=== PATIENT | female | born 1940 | race Caucasian/White ===

== ENCOUNTER → 2017-12-03 11:56 | Outpatient (CLI) | payer MEDICARE, OTHER, SELFPAY ==
--- NOTE | 2017-12-03 12:04 | XR_ITS ---
XR forearm RT 2V HISTORY: ITS.REASON: RT FOREARM PAIN,PALPABLE LUMP ON ULNAR APROX 5CM FROM WRIST ORDERING PHYSICIAN: Galina Cat PATIENT AGE: 77 years COMPARISON: None FINDINGS: There are no previous exams available for comparison. There is a healing transverse fracture involving the distal shaft of the radius or 4 cm proximal to the tip of the ulna. There is some callus formation. There is only minimal dorsal angulation of the distal fracture fragment with no significant displacement. IMPRESSION: Healing transverse fracture of the distal shaft of the ulna
== END ==
PROVIDERS: PCP Internal Medicine Adolescent Medicine; Visit Provider Nurse Practitioner Family
DX: M79.631 Pain in right forearm (principal)
CPT/HCPCS: 73090

== ENCOUNTER → 2017-12-15 12:49 | Outpatient (CLI) | payer MEDICARE, OTHER, SELFPAY ==
--- NOTE | 2017-12-15 13:19 | XR_ITS ---
XR forearm RT 2V HISTORY: Follow-up fracture ITS.REASON: RT FOREARM TRANSVERSE FX DISTAL SHAFT ORDERING PHYSICIAN: Joseph Rios MD PATIENT AGE: 77 years COMPARISON: 12/03/2017 FINDINGS: There is a healing transverse distal ulnar fracture with some increase in callus formation and osteosclerosis at the fracture site compared to the previous exam. There is good alignment. IMPRESSION: Nondisplaced healing distal ulnar fracture.
== END ==
PROVIDERS: PCP Internal Medicine Adolescent Medicine; Visit Provider Orthopaedic Surgery
DX: S52.601A Unspecified fracture of lower end of right ulna, initial encounter for closed fracture (principal)
CPT/HCPCS: 73090

== ENCOUNTER → 2018-01-14 07:59 | Outpatient (CLI) | payer MEDICARE, OTHER, SELFPAY ==
--- NOTE | 2018-01-14 08:03 | XR_ITS ---
XR wrist RT min 3V HISTORY follow-up fracture ITS.REASON: Healing RT wrist fx ORDERING PHYSICIAN: Joseph Rios MD PATIENT AGE: 77 years COMPARISON: 12/15/2017 FINDINGS: Healing fracture of the distal shaft of the ulna once again noted with increasing callus formation with good alignment. There is an old avulsion at the tip of the ulnar styloid and there may be an old distal radial fracture as well. IMPRESSION: Healing fracture of the distal shaft of the ulna
== END ==
PROVIDERS: PCP Internal Medicine Adolescent Medicine; Visit Provider Orthopaedic Surgery
DX: S52.201A Unspecified fracture of shaft of right ulna, initial encounter for closed fracture (principal)
CPT/HCPCS: 73110

== ENCOUNTER → 2018-02-22 14:24 | Outpatient (POV) | payer MEDICARE, OTHER, SELFPAY ==
[2018-02-22 14:32] VITALS: BP 175/91; PULSE 73; RESP 20; O2SAT 99
--- NOTE | 2018-02-22 16:16 | HMH.PMCON ---
Assessment and Plan (1) Postherpetic neuralgia Current visit: Yes Status: Chronic Category: Medical Code(s): B02.29 - Other postherpetic nervous system involvement - Assessment and plan all Dx Assessment and Plan for all problems:: We will take the patient off her gabapentin and start Lyrica 75 mg 1 p.o. twice daily. We will give her 2 weeks worth of medication and she will determine if this is effective for her not. We will also give her a Lidoderm patch to help with the nerve pain. We will also schedule her for a peripheral nerve block along the T5 dermatome. I believe that this would be beneficial in giving her some long-term relief. I will follow-up with this patient at her injection. This note was dictated using voice recognition software and may contain errors or omissions HPI - Data of Consult Consult date: 02/22/18 Requesting Physician: Georgiana Cruz APRN Primary Care Provider: Maxi Azevedo MD Family Provider: Maxi Azevedo MD - Consult Narrative Reason for consult: Shingles pain History of present illness: Ms. Moulton is a 77 year old female who presents today to discuss her shingles pain. Patient has had shingles rotating from her right thoracic spine around her chest under her right breast. Patient had shingle outbreak 7 weeks ago. Patient does not have any active blisters. Patient states that she is on gabapentin and tramadol with little to no relief. Patient is interested in any therapy that would be beneficial for her. Patient rates her pain a 7 out of 10 today. Patient is continuing to work full-time. Patient does have scarring noted. CC: Georgiana Cruz APRN [facility] History I have reviewed the patient's past medical history: Yes Medical History: Denies:: Cancer, Diabetes Mellitus Type 1, Diabetes Mellitus Type 2, MRSA Other Surgeries: Yes: Cholecystectomy, Hysterectomy-Total Amputation: No Fractures: Yes - *Social History Educational Level: Completed High School Smoking Status: Never smoker Tobacco Type: cigarettes Alcohol Intake: never Occupational Status: employed Housing: house - Psychiatric History Expresses thoughts of harming self/others: None Suicide Plan Description: No Plan *Family Hx:: Cancer Review of Systems - Review of Systems ROS General: no recent weight change, no fever, no sleep disturbances Respiratory: no cough, no shortness of air, no recurring pulmonary infections Cardiovascular/Peripheral Vascular: No chest pain, No palpitations, no edema, no shortness of breath. Gastrointestinal: no incontinence, normal bowel movements reported Genitourinary: no incontinence Musculoskeletal: Nerve pain, postherpetic neuralgia Psychiatric: normal mood/ affect Neurological: [denies weakness in extremities], [denies balance issues] Meds Allergies Allergy/AdvReac Type Severity Reaction Status Date / Time codeine Allergy Unknown Verified 01/31/18 18:08 penicillin V Allergy Unknown Verified 01/31/18 18:08 Objective Vital signs: Pulse Resp BP Pulse Ox 73 20 175/91 99 02/22/18 14:32 02/22/18 14:32 02/22/18 14:32 02/22/18 14:32 Narrative: Physical Exam General: Alert and oriented x3, no acute distress, pleasant and cooperative, [on room air] Lungs: Resps E/U, Symmetrical chest expansion, Eyes: PERRL Musculoskeletal: Flexion and extension of thoracic spine somewhat guarded secondary to pain, deep tendon reflexes normal, strength in upper and lower extremities [5/5], normal gait noted Skin: Scarring pattern noted on the right side following the T5 dermatome Neurological: speech clear, threader equal, no gross sensory deficits Opioid Risk Tool - Opioid Risk Tool-Female Family hx alcohol abuse: N Family hx illegal drugs: N Family hx rx drug abuse: N Personal hx alcohol abuse: N Personal hx illegal drugs: N Personal hx rx drug abuse: N Age: 45+ Hx of sexual abuse: N Mental health issues-ADD,
--- NOTE | 2018-02-22 16:19 | P.CONS_ITS ---
Assessment and Plan (1) Postherpetic neuralgia Current visit: Yes Status: Chronic Category: Medical Code(s): B02.29 - Other postherpetic nervous system involvement - Assessment and plan all Dx Assessment and Plan for all problems:: We will take the patient off her gabapentin and start Lyrica 75 mg 1 p.o. twice daily. We will give her 2 weeks worth of medication and she will determine if this is effective for her not. We will also give her a Lidoderm patch to help with the nerve pain. We will also schedule her for a peripheral nerve block along the T5 dermatome. I believe that this would be beneficial in giving her some long-term relief. I will follow-up with this patient at her injection. This note was dictated using voice recognition software and may contain errors or omissions HPI - Data of Consult Consult date: 02/22/18 Requesting Physician: Georgiana Cruz APRN Primary Care Provider: Maxi Azevedo MD Family Provider: Maxi Azevedo MD - Consult Narrative Reason for consult: Shingles pain History of present illness: Ms. Moulton is a 77 year old female who presents today to discuss her shingles pain. Patient has had shingles rotating from her right thoracic spine around her chest under her right breast. Patient had shingle outbreak 7 weeks ago. Patient does not have any active blisters. Patient states that she is on gabapentin and tramadol with little to no relief. Patient is interested in any therapy that would be beneficial for her. Patient rates her pain a 7 out of 10 today. Patient is continuing to work full-time. Patient does have scarring noted. CC: Georgiana Cruz APRN [facility] History I have reviewed the patient's past medical history: Yes Medical History: Denies:: Cancer, Diabetes Mellitus Type 1, Diabetes Mellitus Type 2, MRSA Other Surgeries: Yes: Cholecystectomy, Hysterectomy-Total Amputation: No Fractures: Yes - *Social History Educational Level: Completed High School Smoking Status: Never smoker Tobacco Type: cigarettes Alcohol Intake: never Occupational Status: employed Housing: house - Psychiatric History Expresses thoughts of harming self/others: None Suicide Plan Description: No Plan *Family Hx:: Cancer Review of Systems - Review of Systems ROS General: no recent weight change, no fever, no sleep disturbances Respiratory: no cough, no shortness of air, no recurring pulmonary infections Cardiovascular/Peripheral Vascular: No chest pain, No palpitations, no edema, no shortness of breath. Gastrointestinal: no incontinence, normal bowel movements reported Genitourinary: no incontinence Musculoskeletal: Nerve pain, postherpetic neuralgia Psychiatric: normal mood/ affect Neurological: [denies weakness in extremities], [denies balance issues] Meds Allergies Allergy/AdvReac Type Severity Reaction Status Date / Time codeine Allergy Unknown Verified 01/31/18 18:08 penicillin V Allergy Unknown Verified 01/31/18 18:08 Objective Vital signs: Pulse Resp BP Pulse Ox 73 20 175/91 99 02/22/18 14:32 02/22/18 14:32 02/22/18 14:32 02/22/18 14:32 Narrative: Physical Exam General: Alert and oriented x3, no acute distress, pleasant and cooperative, [ on room air] Lungs: Resps E/U, Symmetrical chest expansion, Eyes: PERRL Musculoskeletal: Flexion and extension of thoracic spine s
== END ==
PROVIDERS: Family Provider Internal Medicine Adolescent Medicine; PCP Internal Medicine Adolescent Medicine; Visit Provider Clinical Nurse Specialist Family Health
DX: B02.29 Other postherpetic nervous system involvement (principal)
CPT/HCPCS: 99202

== ENCOUNTER → 2018-11-09 10:14 | Outpatient (CLI) | payer MEDICARE, OTHER, SELFPAY ==
--- NOTE | 2018-11-09 10:19 | MM_ITS ---
MM Dig screening mamm BI w/CAD CAD Screening COMPARISON: There are no previous studies available for comparison. The patient apparently had previous mammograms at [facility] and if they can be found an addendum can be dictated. INDICATION: There is no personal or family history of breast cancer TECHNIQUE: Standard CC and MLO images were obtained. R2 CAD reviewed. FINDINGS: There is a markedly dense and heterogenic parenchymal pattern definitely lessening the sensitivity of mammography. There is no definite suspicious lesion in either breast and there are no suspicious microcalcifications. There is a benign-appearing calcification right breast. IMPRESSION: Markedly dense parenchymal pattern and if previous mammograms cannot be found would recommend patient have six-month follow-up mammograms in both breast because of the difficulty in evaluating this dense parenchymal pattern BI-RADS Category: 3 Probably Benign Finding Short Term Follow-up RECOMMENDED FOLLOW-UP: 6M - 6 MONTH FOLLOW-UP (A letter has been sent to the patient regarding results of the study.)
== END ==
PROVIDERS: PCP Internal Medicine Adolescent Medicine; Visit Provider Nurse Practitioner Family
DX: Z12.31 Encounter for screening mammogram for malignant neoplasm of breast (principal)
CPT/HCPCS: 77067

== ENCOUNTER → 2018-12-09 09:01 | Outpatient (CLI) | payer MEDICARE, OTHER, SELFPAY ==
[2018-12-09 10:44] LABS: Alanine Aminotransferase 20 U/L (12-78); Albumin Level 3.6 gm/dL (3.4-5.0); Albumin/Globulin Ratio 1.1 (1.1-1.8); Alkaline Phosphatase 97 U/L (46-116); Anion Gap 13.4 mEq/L (5-15); Aspartate Amino Transferase 19 U/L (15-37); Bilirubin,Total 0.5 mg/dL (0.2-1.0); Blood Urea Nitrogen 16 mg/dL (7-18); Calcium 8.9 mg/dL (8.5-10.1); Carbon Dioxide 28 mmol/L (21.0-32.0); Chloride 106 mmol/L (98-107); Cholesterol 214 mg/dL (140-200); Creatinine,Serum 0.84 mg/dL (0.55-1.02); Estimated Glomerular Filt Rate 65 ml/min (>60); GFR (African American) 79 ML/MIN (>60); Globulin 3.3 gm/dl (1.3-3.2); Glucose 93 mg/dL (74-106); HDL Cholesterol 54 mg/dL (29-89); LDL Cholesterol 142 mg/dL (0-130); Potassium 4.4 mmoL/L (3.5-5.1); Sodium 143 mmol/L (136-145); Total Protein,Serum 6.9 gm/dL (6.4-8.2); Triglycerides 88 mg/dL (30-200); VLDL Cholesterol 18 mg/dL (0-40)
== END ==
PROVIDERS: Visit Provider Nurse Practitioner Family
DX: Z00.00 Encounter for general adult medical examination without abnormal findings (principal); I10 Essential (primary) hypertension; E78.2 Mixed hyperlipidemia
CPT/HCPCS: 36415; 80053; 80061

== ENCOUNTER → 2018-12-27 16:45 | Outpatient (CLI) | payer MEDICARE, OTHER, SELFPAY ==
--- NOTE | 2018-12-27 16:52 | XR_ITS ---
XR knee LT 3V HISTORY: ITS.REASON: KNEE PAIN AND FALL ORDERING PHYSICIAN: Joseph Lira MD PATIENT AGE: 78 years COMPARISON: None FINDINGS: No fracture or dislocation. No lytic or blastic change. Normal mineralization. No significant arthritic changes evident. No other significant findings IMPRESSION: Negative Knee
== END ==
PROVIDERS: PCP Internal Medicine Adolescent Medicine; Visit Provider Internal Medicine Adolescent Medicine
DX: M25.562 Pain in left knee (principal)
CPT/HCPCS: 73562

== ENCOUNTER 2019-05-31 15:37 | Observation (INO) ==
[2019-05-31 17:05] LABS: Basophils % 0.3 % (0.1-2.0); Eosinophils % 0.5 % (0.1-12.0); Hematocrit 37.4 % (37.0-47.0); Hemoglobin 12.2 g/dL (12.2-16.2); Lymphocytes # 1.3 K/mm3 (0.7-4.5); Lymphocytes % 17.4 % (10-50); Mean Corpuscular HGB Conc 32.7 g/dL (31.8-35.4); Mean Platelet Volume 7.5 fl (7.4-10.4); Monocytes # 0.6 K/mm3 (0.1-1.0); Monocytes % 8.2 % (1.7-9.3); Neutrophils # 5.5 K/mm3 (1.8-7.8); Neutrophils % 73.6 % (37.0-80.0); Platelet Count 196 K/mm3 (142-424); Red Blood Count 4.11 M/mm3 (4.20-5.40); Red Cell Distribution Width 13.4 % (11.5-17.5); White Blood Count 7.5 K/mm3 (4.8-10.8)
--- NOTE | 2019-05-31 17:08 | History & Physical Report ---
*Admission Date: 05/31/19 *Chief complaint: weigth loss and abdominal pain *History of present illness: Patient is a 78-year-old female with a PMH of post herpetic neuralgia, GERD and hyperlipidemia who presented to clinic with "stomach discomfort" and nausea today. Her symptoms started a few days ago and she does not recall any precipitating events. She states her stomach discomfort is constant and has not worsened or improved over the past few days. She feels nauseated. She notes she wants to vomit sometimes but denies any actual vomiting. She rates her stomach discomfort a 5 out of 10 for severity and she has never had similar episodes before, however no review has shown that she has had these stomach pains and symptoms for the past 4 to 6 months. She has tried PPIs (they have been prescribed for her) though she reports she has not tried anything that would make it better. Her symptoms do not change with meals. Per patient's , patient does not eat and her last meal was Thursday lunch. She had two bites of zarco tomato sandwich and one onion ring. Patient states that she does not feel hungry and does not want to eat. She drinks a few cans of Pepsi and water daily. Her last bowel movement was this morning. Per patient's , patient also has had insomnia for the past few weeks. Patient cannot sleep at night and does not know why. She denies association with post herpetic neuralgia and acknowledges stress as a possible factor. She states that she naps sometimes. She would like to have medications so that she can sleep better. Patient states that she has not underwent an endoscopy as recommended and cannot provide a reason. She was scheduled to see surgery for EGD last week, and did not know about appointment per her report. Denies fevers, blood in stool, bloody emesis, chest pain, shortness of breath beyond baseline. Admitted from clinic for work-up and assessment [facility] History I have reviewed the patient's past medical history: Yes Medical History: Denies:: Cancer, Diabetes Mellitus Type 1, Diabetes Mellitus Type 2, MRSA *Have you ever received a pneumonia vaccine?: No *Have you received a flu vaccine this season?: No Other Surgeries: Yes: Cholecystectomy, Hysterectomy-Total Amputation: No Fractures: Yes - *Social History Educational Level: Attended College Smoking Status: Former smoker Tobacco Type: cigarettes # Packs/Day (cigarettes): 1 Smoking End Date: 2005 Alcohol Intake: never *Occupational Status:: retired Housing: house Household Members: spouse *Travel in the last 8 weeks: None Family Hx:: Cancer Review of Systems - Review of Systems Review of systems:: pertinent systems reviewed and negative unless documented below Meds Home Medications Medication Instructions Recorded Confirmed Type No Known Home Medications 05/31/19 05/31/19 History Allergies Allergy/AdvReac Type Severity Reaction Status Date / Time codeine Allergy Unknown Verified 01/31/18 18:08 penicillin V Allergy Unknown Verified 01/31/18 18:08 Exam Vital signs and Labs for Last 24 Hours: Temp Pulse Resp BP Pulse Ox 97.8 F 70 17 164/92 H 91 L 05/31/19 16:00 05/31/19 16:00 05/31/19 16:00 05/31/19 16:00 05/31/19 16:00 I & O for Last 24 hours: Intake & Output 05/28/19 05/29/19 05/30/19 05/31/19 23:59 23:59 23:59 23:59 Weight 42.723 kg - Constitutional mild distress, cachectic Comments: elderly - *Routine HEENT Exam Head: Present: normocephalic Eye: Present: EOMI, PERRL ENT: Present: mucous membranes moist - *Routine Neck Exam Present: supple. Absent: lymphadenopathy - *Routine Respiratory Exam Present: CTA bilaterally, prolonged expiratory phase. Absent: wheezes - *Routine Cardiovascular Exam Present: RRR, Normal S1. Absent: murmur - *Routine Abdominal Exam Present: soft, normoactive bowel sounds, tenderness - *Routine Rectal Exam Patient deferred: visual exam - *Routine Exam Patient deferred: external exam - *Routine Extremities Exam Present: edema. Absent: cyanosis, clubbing - *Routine Skin Exam Present: intact. Absent: cyanosis, erythema Comments: tear on right lower taylor - *Routine Neurological Exam Present: alert, oriented X3. Absent: altered mental status Assessment and Plan (1) Cachexia Current visit: Yes Status: Chronic Category: Medical Code(s): R64 - Cachexia Due to poor intake. Patient has lost 24 pounds in the past 6 months. Differential diagnosis at this time is cancer of unknown origin: Gastric versus esophageal given poor p.o. intake and stomach pain (2) Abdominal pain Current visit: Yes Status: Chronic Qualifiers: Abdominal location: generalized Qualified Code(s): R10.84 - Generalized abdominal pain Category: Medical Code(s): R10.9 - Unspecified abdominal pain Present for 6 months, unable to get EGD last week or at least consult for EGD as patient did not go to appointment. Will pursue CT chest abdomen pelvis to look for potential cause of pain and weight loss, concern for malignancy (3) Hypokalemia Current visit: Yes Status: Acute Category: Medical Code(s): E87.6 - Hypokalemia Suspect due to poor p.o. intake, will replace IV. Repeat labs in the morning (4) SORAYA (acute kidney injury) Current visit: Yes Status: Acute Category: Medical Code(s): N17.9 - Acute kidney failure, unspecified Getting baseline 0.8, creatinine 20% above baseline today meeting criteria for SORAYA. Assess for improvement with fluid resuscitation. Fluids running at 100 cc/h of LR (5) Postherpetic neuralgia Current visit: No Status: Chronic Category: Medical Code(s): B02.29 - Other postherpetic nervous system involvement Resident for about 18 months. Responds well to gabapentin and tramadol however these medications make her tired per her report so she stops them. Will provide tramadol as needed for pain
[2019-05-31 17:23] LABS: Albumin Level 3.3 gm/dL (3.4-5.0); Albumin/Globulin Ratio 0.9 (1.1-1.8); Anion Gap 13.7 mEq/L (5-15); Calcium 8.7 mg/dL (8.5-10.1); Globulin 3.7 gm/dl (1.3-3.2)
[2019-06-01 06:45] LABS: Basophils % 0.3 % (0.1-2.0); Eosinophils # 0.1 K/mm3 (0.0-0.4); Eosinophils % 0.8 % (0.1-12.0); Hematocrit 36.3 % (37.0-47.0); Hemoglobin 11.9 g/dL (12.2-16.2); Lymphocytes # 1.6 K/mm3 (0.7-4.5); Lymphocytes % 22.9 % (10-50); Mean Corpuscular HGB Conc 32.8 g/dL (31.8-35.4); Mean Corpuscular Volume 90.6 fl (81-99); Mean Platelet Volume 7.9 fl (7.4-10.4); Monocytes # 0.7 K/mm3 (0.1-1.0); Monocytes % 9.5 % (1.7-9.3); Neutrophils # 4.6 K/mm3 (1.8-7.8); Neutrophils % 66.5 % (37.0-80.0); Platelet Count 193 K/mm3 (142-424); Red Cell Distribution Width 13.4 % (11.5-17.5); White Blood Count 6.8 K/mm3 (4.8-10.8)
[2019-06-01 07:05] LABS: Albumin Level 2.9 gm/dL (3.4-5.0); Albumin/Globulin Ratio 0.9 (1.1-1.8); Calcium 8.6 mg/dL (8.5-10.1); Globulin 3.4 gm/dl (1.3-3.2); Phosphorous 2.1 mg/dL (2.4-4.9); Total Protein,Serum 6.3 gm/dL (6.4-8.2)
--- NOTE | 2019-06-01 08:40 | Discharge Summary ---
General - General Admission date:: 05/31/19 Discharge date: 06/01/19 HPI HPI: Patient is a 78-year-old female with a PMH of post herpetic neuralgia, GERD and hyperlipidemia who presented to clinic with "stomach discomfort" and nausea today. Her symptoms started a few days ago and she does not recall any precipitating events. She states her stomach discomfort is constant and has not worsened or improved over the past few days. She feels nauseated. She notes she wants to vomit sometimes but denies any actual vomiting. She rates her stomach discomfort a 5 out of 10 for severity and she has never had similar episodes before, however no review has shown that she has had these stomach pains and symptoms for the past 4 to 6 months. She has tried PPIs (they have been prescribed for her) though she reports she has not tried anything that would make it better. Her symptoms do not change with meals. Per patient's , patient does not eat and her last meal was Thursday lunch. She had two bites of zarco tomato sandwich and one onion ring. Patient states that she does not feel hungry and does not want to eat. She drinks a few cans of Pepsi and water daily. Her last bowel movement was this morning. Per patient's , patient also has had insomnia for the past few weeks. Patient cannot sleep at night and does not know why. She denies association with post herpetic neuralgia and acknowledges stress as a possible factor. She states that she naps sometimes. She would like to have medications so that she can sleep better. Patient states that she has not underwent an endoscopy as recommended and cannot provide a reason. She was scheduled to see surgery for EGD last week, and did not know about appointment per her report. Denies fevers, blood in stool, bloody emesis, chest pain, shortness of breath beyond baseline. Admitted from clinic for work-up and assessment Hospital Course Hospital Course: Patient was admitted to hospital. Found to have mild hypokalemia which was replaced. Blood counts, other electrolytes and renal function was normal. Patient was given IV fluids and felt much better after potassium normalized this morning. CT scan of chest abdomen and pelvis was done, she has significant lesions in the pulmonary case consistent with infectious process versus neoplasm. No masses in the abdomen or pelvis were seen. This morning patient feels better, drinking well and wishes to go home. Plan will be to prescribe potassium supplementation, proton pump inhibitor for her stomach cramping and her gabapentin which has been helping her sleep and chronic restless leg/neuropathy pain. She has high risk for malignancy and we will set her up with pulmonary as an outpatient for evaluation of this abnormal CT scan and consideration for bronchoscopy. Follow-up will be in our office next Thursday. Objective Vital signs: Temp Pulse Resp BP Pulse Ox 98.0 F 77 18 170/98 H 93 L 06/01/19 07:57 06/01/19 07:57 06/01/19 07:57 06/01/19 07:57 06/01/19 07:57 Narrative: Patient is pleasant. Talkative. Alert. Lungs have good air movement. Heart rate regular. Abdomen soft nontender. Neurologically she is intact and alert, No JVD. ENT exam otherwise clear. No skin rash. Results Labs on day of discharge: Labs from last 24 hours 06/01/19 06/01/19 06/01/19 06:13 06:13 06:13 WBC 6.8 RBC 4.00 L Hgb 11.9 L Hct 36.3 L MCV 90.6 MCH 29.7 MCHC 32.8 RDW 13.4 Plt Count 193 MPV 7.9 Neut % (Auto) 66.5 Lymph % (Auto) 22.9 Phelps % (Auto) 9.5 H Eos % (Auto) 0.8 Baso % (Auto) 0.3 Neut # (Auto) 4.6 Lymph # (Auto) 1.6 Phelps # (Auto) 0.7 Eos # (Auto) 0.1 Baso # (Auto) 0.0 Sodium 141 Potassium 4.0 D Chloride 103 Carbon Dioxide 29 Anion Gap 13.0 BUN 11 Creatinine 0.91 Estimated Creat Clear 31 Estimated GFR 59 Est GFR ( Amer) 72 Glucose 77 Calcium 8.6 Phosphorus 2.1 L Magnesium 1.5 Total Bilirubin 1.0 AST 20 ALT 15 Alkaline Phosphatase 66 Total Protein 6.3 L Albumin 2.9 L D Globulin 3.4 H Albumin/Globulin Ratio 0.9 L Lipase 05/31/19 05/31/19 16:56 16:56 WBC 7.5 RBC 4.11 L Hgb 12.2 Hct 37.4 MCV 91.0 MCH 29.8 MCHC 32.7 RDW 13.4 Plt Count 196 MPV 7.5 Neut % (Auto) 73.6 Lymph % (Auto) 17.4 Phelps % (Auto) 8.2 Eos % (Auto) 0.5 Baso % (Auto) 0.3 Neut # (Auto) 5.5 Lymph # (Auto) 1.3 Phelps # (Auto) 0.6 Eos # (Auto) 0.0 Baso # (Auto) 0.0 Sodium 140 Potassium 2.7 L* Chloride 99 Carbon Dioxide 30 Anion Gap 13.7 BUN 13 Creatinine 1.01 Estimated Creat Clear 30 Estimated GFR 53 L Est GFR ( Amer) 64 Glucose 85 Calcium 8.7 Phosphorus Magnesium Total Bilirubin 1.0 AST 24 ALT 16 Alkaline Phosphatase 71 Total Protein 7.0 Albumin 3.3 L Globulin 3.7 H Albumin/Globulin Ratio 0.9 L Lipase 134 DS: Diagnosis - Discharge Diagnosis (1) Cachexia Status: Chronic (2) Abdominal pain Status: Chronic (3) Hypokalemia Status: Acute (4) SORAYA (acute kidney injury) Status: Resolved (5) Postherpetic neuralgia Status: Chronic Discharge Plan - Patient Discharge Instructions ACTIVITY: Continue current activity DIET: continue same diet Patient Instructions: DI for Abdominal Pain-Adult, DI for Weight Loss - Follow up Plan Follow up with: Joseph Lira MD [Primary Care Provider] - 06/06/19 Disposition: Home, Self-Longterm Medications: Home Medications Medication Instructions Recorded Confirmed Type No Known Home Medications 05/31/19 05/31/19 History ALPRAZolam [Xanax 0.25mg tab] 0.25 mg PO HS #30 tablet 06/01/19 Rx Gabapentin [Gabapentin 100mg Cap] 100 mg PO BID #60 cap 06/01/19 Rx Pantoprazole Sodium [Protonix 40mg 40 mg PO HS #30 tablet. 06/01/19 Rx tablet] Potassium Chloride [Klor-con 20 20 meq PO DAILY #30 tab 06/01/19 Rx mEq tablet] Prescriptions/Medication Reconciliation: New Gabapentin [Gabapentin 100mg Cap] 100 mg PO BID #60 cap ALPRAZolam [Xanax 0.25mg tab] 0.25 mg PO HS #30 tablet Potassium Chloride [Klor-con 20 mEq tablet] 20 meq PO DAILY #30 tab Pantoprazole Sodium [Protonix 40mg tablet] 40 mg PO HS #30 tablet. No Action No Known Home Medications - Problem Reconciliation Problems Reviewed?: Yes
== END 2019-06-01 10:06 | disposition home or self-care (01) ==
LOC: 2ND
PROVIDERS: ADMIT Internal Medicine Adolescent Medicine; ATTEND Internal Medicine Adolescent Medicine
CPT/HCPCS: 36415; 71250; 74178; 80053; 83690; 83735; 84100; 85025; G0378; Q9967

== ENCOUNTER 2019-07-03 13:31 | Observation (INO) ==
--- NOTE | 2019-07-03 13:47 | Emergency Department Note ---
ED Disposition Clinical Impression: Abnormal EKG, Confusion UTI (urinary tract infection) Qualifiers: Urinary tract infection type: acute cystitis Disposition: Admitted as Observation Condition on Discharge: Good Referrals: Joseph Lira MD [Primary Care Provider] - - Critical Care Critical Care Time: No Attestation: On , the high probability of a clinically significant, sudden or life threatening deterioration of the following system(s) required my full and direct attention, intervention and personal management. The time I documented below is in addition to time spent performing reported procedures but includes the following listed in this critical care notation. Medical Decision Making - Medical Records Medical records reviewed: Yes: I reviewed the patient's medical records. - Oscar Inquiry Pt receiving controlled substance: No Vital Signs: 07/03/19 13:43 07/03/19 15:22 07/03/19 15:57 Temperature 98.4 F Temperature Source Oral Pulse Rate [Left Radial] 77 63 60 Respiratory Rate 16 Blood Pressure [Right Arm] 146/92 H 173/92 H 153/94 H Blood Pressure Mean [Right Arm] 110 119 113 Blood Pressure Position [Right Arm] Sitting 02 Sat by Pulse Oximetry 99 90 L 96 Oxygen Delivery Method Room Air - Lab Data Lab results reviewed: Yes: I reviewed the patient's lab results. Lab Results 07/03/19 14:01: WBC 5.8, RBC 4.67, Hgb 13.8, Hct 44.4, MCV 95.0, MCH 29.5, MCHC 31.0 L, RDW 15.5, Plt Count 199, MPV 8.9, Neut % (Auto) 71.9, Lymph % (Auto) 18.2, [place] % (Auto) 7.7, Eos % (Auto) 0.9, Baso % (Auto) 1.3, Neut # (Auto) 4.2, Lymph # (Auto) 1.1, [place] # (Auto) 0.5, Eos # (Auto) 0.1, Baso # (Auto) 0.1 07/03/19 14:01: Sodium 139, Potassium 3.6, Chloride 97 L, Carbon Dioxide 30, Anion Gap 15.6 H, BUN 18, Creatinine 1.53 H, Estimated Creat Clear 19, Estimated GFR 33 L, Est GFR ( Amer) 40 L, Glucose 82, Calcium 9.4, Total Bilirubin 1.4 H, AST 24, ALT 11 L, Alkaline Phosphatase 86, Troponin I < 0.02, Total Protein 8.3 H D, Albumin 3.9, Globulin 4.4 H, Albumin/Globulin Ratio 0.9 L 07/03/19 14:01: Lactate 2.1 H 07/03/19 14:01: PT 11.4, INR 1.10 07/03/19 15:57: Urine Color Dk yellow, Urine Appearance Sl cloudy, Urine pH 5.5, Ur Specific [place] >= 1.030, Urine Protein 1+, Urine Glucose (UA) Trace, Urine Ketones Trace, Urine Blood Negative, Urine Nitrate Positive, Urine Bilirubin Negative, Urine Urobilinogen 1.0, Ur Leukocyte Esterase Negative, Urine RBC None, Urine WBC Occasional, Ur Squamous Epith Cells 50-100, Urine Bacteria Trace Result diagrams: 07/03/19 14:01 07/03/19 14:01 Orders (Tests/Meds): ED MEDICATIONS Generic Name Dose Route Start Last Admin Trade Name Freq PRN Reason Stop Dose Admin Levofloxacin/Dextrose 500 mg in 100 mls @ 100 mls/hr 07/03/19 17:30 Levaquin 500mg/100ml Premix IV 07/17/19 17:29 Q24H [facility] Protocol ORDERS Category Date Time Status XR chest portable Stat Exams 07/03/19 13:42 Taken Urine Culture Stat Micro 07/03/19 17:18 Ordered - Radiology Data #1 Image(s): Chest Image Reviewed: Yes I reviewed the patient's radiology image Preliminary Findings: No Infiltrates Seen - CT Data CT Scan: Head Time Received: 17:20 (nap) ED CT Reviewed: Yes: I have viewed the radiologist's interpretation - ECG Data Tracing #1 I reviewed this ECG and interpreted as documented below: Normal Sinus Rhythm: Yes (no stemi, lateral t wave abnormal no previous available for comparison) Medical Decision Narrative: admit d/w Dr Rosado, uti, abnormal ekg, confusion, slurring speech General Adult HPI - General Stated complaint: off balance, slurred speech Time Seen by Provider: 07/03/19 13:44 Source of Information: Patient, Significant Other - History of Present Illness HPI narrative: mild to mod slurring of speech and unsteady for 24hrs with mental confusion, no injury, no fever, hx tia - Related Data Home Medications Medication Instructions Recorded Confirmed No Known Home Medications 05/31/19 05/31/19 Previous Rx's Medication Instructions Recorded ALPRAZolam [Xanax 0.25mg tab] 0.25 mg PO HS #30 tab 06/01/19 Gabapentin [Gabapentin 100mg Cap] 100 mg PO BID #60 cap 06/01/19 Pantoprazole Sodium [Protonix 40mg 40 mg PO HS #30 tablet. 06/01/19 tablet] Potassium Chloride [Klor-con 20 20 meq PO DAILY #30 tab 06/01/19 mEq tablet] Allergies Allergy/AdvReac Type Severity Reaction Status Date / Time codeine Allergy Unknown Verified 01/31/18 18:08 penicillin V Allergy Unknown Verified 01/31/18 18:08 [facility] History - Hepatitis A Screen Attestation statement:: This patient has been screened for Hepatitis A risk factors. Medical History: Denies:: Cancer, Diabetes Mellitus Type 1, Diabetes Mellitus Type 2, MRSA Other Surgeries: Yes: Cholecystectomy, Hysterectomy-Total Amputation: No Fractures: Yes Comment: Gallbladder removed, Back sx - Social History Smoking Status: Former smoker Tobacco Type: cigarettes # Packs/Day (cigarettes): 1 Alcohol Intake: never Occupational Status: retired Housing: house Household Members: spouse Family Hx:: Cancer ROS Obtained: Yes Systems reviewed as appropriate & no additional complaints - Constitutional Constitutional: Denies fever(s) - Eyes Eyes: Denies change in vision - ENT Ears, Nose, Mouth, and Throat: Denies difficulty swallowing - Cardiovascular Cardiovascular: Denies chest pain - Respiratory Respiratory: No dyspnea - Gastrointestinal Gastrointestingal: Denies: abdominal pain - Musculoskeletal Musculoskeletal: Denies neck pain - Integumentary/Breasts Skin/Breast: Denies rash - Neurologic Neurologic: Reports abnormal speech, Denies focal weakness, Reports lack of coordination Physical Exam - General General appearance: alert, in no apparent distress - Head Head exam: normocephalic - Eye Eye exam: Present: PERRL, EOMI - ENT ENT exam: Present: normal exam - Neck Neck exam: Present: normal inspection - Chest Chest inspection: Present: normal inspection - Respiratory Respiratory exam: Present: normal lung sounds bilaterally - Cardiovascular Cardiovascular exam: Present: regular rate, normal rhythm - Abdominal Exam Abdominal exam: Present: soft. 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
[2019-07-03 14:12] LABS: Basophils # 0.1 K/mm3 (0-0.2); Basophils % 1.3 % (0.1-2.0); Eosinophils # 0.1 K/mm3 (0.0-0.4); Eosinophils % 0.9 % (0.1-12.0); Hematocrit 44.4 % (37.0-47.0); Hemoglobin 13.8 g/dL (12.2-16.2); Lymphocytes # 1.1 K/mm3 (0.7-4.5); Lymphocytes % 18.2 % (10-50); Mean Platelet Volume 8.9 fl (7.4-10.4); Monocytes # 0.5 K/mm3 (0.1-1.0); Monocytes % 7.7 % (1.7-9.3); Neutrophils # 4.2 K/mm3 (1.8-7.8); Neutrophils % 71.9 % (37.0-80.0); Platelet Count 199 K/mm3 (142-424); Red Blood Count 4.67 M/mm3 (4.20-5.40); Red Cell Distribution Width 15.5 % (11.5-17.5); White Blood Count 5.8 K/mm3 (4.8-10.8)
[2019-07-03 14:31] LABS: INR 1.1 (0.9-1.1); Prothrombin Time 11.4 seconds (9.4-11.8)
[2019-07-03 14:39] LABS: Alanine Aminotransferase 11 U/L (12-78); Albumin Level 3.9 gm/dL (3.4-5.0); Albumin/Globulin Ratio 0.9 (1.1-1.8); Alkaline Phosphatase 86 U/L (46-116); Anion Gap 15.6 mEq/L (5-15); Bilirubin,Total 1.4 mg/dL (0.2-1.0); Blood Urea Nitrogen 18 mg/dL (7-18); Calcium 9.4 mg/dL (8.5-10.1); Carbon Dioxide 30 mmol/L (21.0-32.0); Chloride 97 mmol/L (98-107); Globulin 4.4 gm/dl (1.3-3.2); Glucose 82 mg/dL (74-106); Sodium 139 mmol/L (136-145); Total Protein,Serum 8.3 gm/dL (6.4-8.2)
[2019-07-03 14:46] LABS: Aspartate Amino Transferase 24 U/L (15-37)
[2019-07-03 16:08] LABS: Microscopic, Urine URINE MICROSCOPIC (MICROSCOPIC)
[2019-07-03 16:12] LABS: Appearance,Urine SL CLOUDY (Clear); Blood, Urine Negative (Negative); Color,Urine DK YELLOW (Yellow); Glucose,Urine (UA) TRACE (Negative); Ketones,Urine TRACE (Negative); Leukocyte Esterase,Urine Negative (Negative); PH,Urine 5.5 (5.0-8.5); Protein,Urine 1+ (Negative); Specific Gravity, Urine >= 1.030 (1.005-1.030)
[2019-07-03 16:15] LABS: Bilirubin,Urine Negative (Negative)
[2019-07-03 16:27] LABS: Bacteria,Urine Trace /lpf; Squamous Epithelial Cell,Urine 50-100 #/hpf (0-5); WBC,Urine Occasional #/hpf (0-3)
--- NOTE | 2019-07-04 00:59 | History & Physical Report ---
*Admission Date: 07/03/19 *Chief complaint: confusion, AMS, Dizziness *History of present illness: 78 yo F with Failure to thrive, recently seen in PCP office and started on Cyproheptadine due to poor appetite and Wt loss of 22%. Pt presented to the ER on tuesday 07/03 due to worsening confusion and weakness. Family at bedside report that Thursday Ms. Moulton was fine however Thursday when she woke up she was altered having slurred speech and very unsteady on her feet. They report that she has been taking cyproheptadine nightly starting Thursday night however Thursday morning she took her p.m. meds including an extra dose of cyproheptadine 4 mg. Her postherpetic neuralgia pain is been better since taking her gabapentin and her appetite has improved since starting cyproheptadine however her new onset confusion is worrisome. On assessment in the ER she was found to have acute kidney injury as well as UTI. Patient admitted to medicine for further management. [facility] History I have reviewed the patient's past medical history: Yes Medical History: Denies:: Cancer, Diabetes Mellitus Type 1, Diabetes Mellitus Type 2, MRSA *Have you ever received a pneumonia vaccine?: Yes *Have you received a flu vaccine this season?: Yes Other Surgeries: Yes: Cholecystectomy, Hysterectomy-Total Amputation: No Fractures: Yes - *Social History Educational Level: Attended College Smoking Status: Former smoker Tobacco Type: cigarettes # Packs/Day (cigarettes): 1 Smoking End Date: may 2007 Alcohol Intake: never *Occupational Status:: retired Housing: house Household Members: spouse *Travel in the last 8 weeks: None Family Hx:: Cancer Review of Systems - Review of Systems Review of systems:: pertinent systems reviewed and negative unless documented below - *Neurologic Reports abnormal speech, Reports lack of coordination, Denies localized weakness Meds Home Medications Medication Instructions Recorded Confirmed Type ALPRAZolam [Xanax 0.25mg tab] 0.25 mg PO HS 07/03/19 07/03/19 History Cyproheptadine HCl 4 mg PO TID 07/03/19 07/03/19 History Gabapentin [Gabapentin 100mg Cap] 100 mg PO BID 07/03/19 07/04/19 History Pantoprazole Sodium [Protonix 40mg 40 mg PO HS 07/03/19 07/03/19 History tablet] Tramadol HCl [Tramadol 50mg 50 mg PO BID PRN 07/03/19 07/03/19 History Tab] Potassium Chloride [Klor-con 20 20 meq PO HS 07/04/19 07/04/19 History mEq tablet] Allergies Allergy/AdvReac Type Severity Reaction Status Date / Time codeine Allergy Unknown Verified 01/31/18 18:08 penicillin V Allergy Unknown Verified 01/31/18 18:08 Exam Vital signs and Labs for Last 24 Hours: Temp Pulse Resp BP Pulse Ox 98.1 F 60 16 151/77 H 94 L 07/03/19 20:00 07/03/19 20:00 07/03/19 20:00 07/03/19 20:00 07/03/19 20:00 Laboratory Results - last 24 hr 07/03/19 14:01: WBC 5.8, RBC 4.67, Hgb 13.8, Hct 44.4, MCV 95.0, MCH 29.5, MCHC 31.0 L, RDW 15.5, Plt Count 199, MPV 8.9, Neut % (Auto) 71.9, Lymph % (Auto) 18.2, [place] % (Auto) 7.7, Eos % (Auto) 0.9, Baso % (Auto) 1.3, Neut # (Auto) 4.2, Lymph # (Auto) 1.1, [place] # (Auto) 0.5, Eos # (Auto) 0.1, Baso # (Auto) 0.1 07/03/19 14:01: Sodium 139, Potassium 3.6, Chloride 97 L, Carbon Dioxide 30, Anion Gap 15.6 H, BUN 18, Creatinine 1.53 H, Estimated Creat Clear 19, Estimated GFR 33 L, Est GFR ( Amer) 40 L, Glucose 82, Calcium 9.4, Total Bilirubin 1.4 H, AST 24, ALT 11 L, Alkaline Phosphatase 86, Troponin I < 0.02, Total Protein 8.3 H D, Albumin 3.9, Globulin 4.4 H, Albumin/Globulin Ratio 0.9 L 07/03/19 14:01: Lactate 2.1 H 07/03/19 14:01: PT 11.4, INR 1.10 07/03/19 15:57: Urine Color Dk yellow, Urine Appearance Sl cloudy, Urine pH 5.5, Ur Specific [place] >= 1.030, Urine Protein 1+, Urine Glucose (UA) Trace, Urine Ketones Trace, Urine Blood Negative, Urine Nitrate Positive, Urine Bilirubin Negative, Urine Urobilinogen 1.0, Ur Leukocyte Esterase Negative, Urine RBC None, Urine WBC Occasional, Ur Squamous Epith Cells 50-100, Urine Bacteria Trace 07/03/19 18:20: Lactate 1.2 07/03/19 20:50: Troponin I < 0.02 I & O for Last 24 hours: Intake & Output 07/01/19 07/02/19 07/03/19 07/04/19 23:59 23:59 23:59 23:59 Weight 41.05 kg - Constitutional no acute distress, cachectic Comments: Elderly, frail - *Routine HEENT Exam Head: Present: normocephalic Eye: Present: EOMI, PERRL ENT: Present: mucous membranes moist - *Routine Neck Exam Present: supple. Absent: lymphadenopathy - *Routine Respiratory Exam Present: CTA bilaterally - *Routine Cardiovascular Exam Present: RRR - *Routine Abdominal Exam Present: soft, normoactive bowel sounds. Absent: tenderness - *Routine Extremities Exam Absent: cyanosis, clubbing, edema - *Routine Skin Exam Present: warm. Absent: rash - *Routine Neurological Exam Present: alert, oriented X3. Absent: altered mental status Assessment and Plan (1) Confusion Current visit: Yes Status: Acute Category: Medical Code(s): R41.0 - Dis orientation, unspecified (2) UTI (urinary tract infection) Current visit: Yes Status: Acute Qualifiers: Urinary tract infection type: acute cystitis Category: Medical Code(s): N39.0 - Urinary tract infection, site not specified (3) Hypokalemia Current visit: No Status: Acute Category: Medical Code(s): E87.6 - Hypokalemia (4) Cachexia Current visit: No Status: Chronic Category: Medical Code(s): R64 - Cachexia (5) Postherpetic neuralgia Current visit: No Status: Chronic Category: Medical Code(s): B02.29 - Other postherpetic nervous system involvement (6) SORAYA (acute kidney injury) Current visit: No Status: Acute Category: Medical Code(s): N17.9 - Acute kidney failure, unspecified - Assessment and plan all Dx Assessment and Plan for all problems:: 6-year-old female with failure to thrive who presented with altered renal status found to have UTI. Continue IV antibiotics and IV fluids. Will hold cypro heptadine at this time. Is mentating more at baseline this morning though still fatigued. Will perform p.o. challenge today, if tolerates p.o. intake including fluids and remains hemodynamically stable, will consider discharge later this afternoon. At this time suspect adverse medication effect in combination with UTI as etiology for patient's altered mental status. Interval improvement in kidney function based on labs this morning after fluid resuscitation overnight.
[2019-07-04 07:32] LABS: Anion Gap 11.2 mEq/L (5-15); Calcium 8.8 mg/dL (8.5-10.1)
[2019-07-04 07:33] LABS: Basophils % 0.9 % (0.1-2.0); Eosinophils # 0.1 K/mm3 (0.0-0.4); Eosinophils % 1.4 % (0.1-12.0); Hemoglobin 12.8 g/dL (12.2-16.2); Lymphocytes # 1.1 K/mm3 (0.7-4.5); Lymphocytes % 26.3 % (10-50); Mean Corpuscular HGB Conc 31.3 g/dL (31.8-35.4); Mean Corpuscular Volume 94.9 fl (81-99); Mean Platelet Volume 8.6 fl (7.4-10.4); Monocytes # 0.5 K/mm3 (0.1-1.0); Monocytes % 10.9 % (1.7-9.3); Neutrophils # 2.6 K/mm3 (1.8-7.8); Neutrophils % 60.5 % (37.0-80.0); Platelet Count 165 K/mm3 (142-424); Red Blood Count 4.32 M/mm3 (4.20-5.40); Red Cell Distribution Width 15.4 % (11.5-17.5); White Blood Count 4.2 K/mm3 (4.8-10.8)
--- NOTE | 2019-07-04 07:37 | Pharmacy Consult Notes ---
[facility] Pharmacy VTE Monitoring - Patient Demographics Admission date: 07/03/19 Report Date: 07/04/19 Time: 07:37 Allergies/Adverse Reactions: Patient Allergies codeine Allergy (Unknown, Verified 01/31/18 18:08) penicillin V Allergy (Unknown, Verified 01/31/18 18:08) Height: 1.55 m Weight: 41.39 kg Patient Problems: Current Active Problems Abnormal EKG (Acute) Confusion (Acute) UTI (urinary tract infection) (Acute) - VTE Risk Labs: VTE Related Lab Results Hgb 12.8 g/dL (12.2-16.2) 07/04/19 06:44 Hct 41.0 % (37.0-47.0) 07/04/19 06:44 Plt Count 165 K/mm3 (142-424) 07/04/19 06:44 PT 11.4 seconds (9.4-11.8) 07/03/19 14:01 INR 1.10 (0.9-1.1) 07/03/19 14:01 BUN 18 mg/dL (7-18) 07/03/19 14:01 Creatinine 1.53 mg/dL (0.55-1.02) H 07/03/19 14:01 Estimated Creat Clear 19 mL/min (50-200) 07/03/19 14:01 Was VTE Risk Assessment Performed: Yes VTE Score: 4 VTE Risk Level: Low Risk - Prophylaxis VTE Prophylaxis Ordered?: Yes Types of VTE Prophylaxis: TEDS Knee High Location of Applied Device: Bilateral Lower Extremeties - VTE Diagnosis Confirmed Treatment or plan recommended: Continue Current Treatment
--- NOTE | 2019-07-04 13:55 | Discharge Summary ---
General - General Admission date:: 07/03/19 Discharge date: 07/04/19 HPI HPI: 78 yo F with Failure to thrive, recently seen in PCP office and started on Cyproheptadine due to poor appetite and Wt loss of 22%. Pt presented to the ER on tuesday 07/03 due to worsening confusion and weakness. Family at bedside report that Thursday Ms. Moulton was fine however Thursday when she woke up she was altered having slurred speech and very unsteady on her feet. They report that she has been taking cyproheptadine nightly starting Thursday night however Thursday morning she took her p.m. meds including an extra dose of cyproheptadine 4 mg. Her postherpetic neuralgia pain is been better since taking her gabapentin and her appetite has improved since starting cyproheptadine however her new onset confusion is worrisome. On assessment in [facility] ER she was found to have acute kidney injury as well as UTI. Patient admitted to medicine for further management. Hospital Course Hospital Course: Admitted overnight for altered mental status and SORAYA. Found to have UTI. Also suspect cyproheptadine initiation as component of her altered mental status. Further history from patient elicits that she took her cyproheptadine Thursday night, Thursday night and again Thursday morning likely causing some worsening confusion. Instructed to stop her cyproheptadine. Transition oral antibiotics to treat UTI. As she is back to baseline, tolerating p.o. intake, hemodynamically stable, and on oral regimen for infection, she is stable for discharge home. Plan to follow-up in the clinic in a week to reassess Objective Vital signs: Temp Pulse Resp BP Pulse Ox 98.7 F 75 17 134/62 92 L 07/04/19 12:00 07/04/19 12:00 07/04/19 12:00 07/04/19 12:00 07/04/19 12:00 Narrative: Physical exam performed in H&P. As it is the same date as discharge summary, no physical exam in this note, see H&P Results Labs on day of discharge: Labs from last 24 hours 07/04/19 07/04/19 07/04/19 06:44 06:44 02:00 WBC 4.2 L D RBC 4.32 Hgb 12.8 Hct 41.0 MCV 94.9 MCH 29.7 MCHC 31.3 L RDW 15.4 Plt Count 165 MPV 8.6 Neut % (Auto) 60.5 Lymph % (Auto) 26.3 [place] % (Auto) 10.9 H Eos % (Auto) 1.4 Baso % (Auto) 0.9 Neut # (Auto) 2.6 Lymph # (Auto) 1.1 [place] # (Auto) 0.5 Eos # (Auto) 0.1 Baso # (Auto) 0.0 PT INR Sodium 140 Potassium 3.2 L Chloride 102 Carbon Dioxide 30 Anion Gap 11.2 BUN 15 Creatinine 1.08 H D Estimated Creat Clear 27 Estimated GFR 49 L Est GFR ( Amer) 59 D Glucose 68 L Lactate Calcium 8.8 Total Bilirubin AST ALT Alkaline Phosphatase Troponin I < 0.02 Total Protein Albumin Globulin Albumin/Globulin Ratio Urine Color Urine Appearance Urine pH Ur Specific [place] Urine Protein Urine Glucose (UA) Urine Ketones Urine Blood Urine Nitrate Urine Bilirubin Urine Urobilinogen Ur Leukocyte Esterase Urine RBC Urine WBC Ur Squamous Epith Cells Urine Bacteria 07/03/19 07/03/19 07/03/19 20:50 18:20 15:57 WBC RBC Hgb Hct MCV MCH MCHC RDW Plt Count MPV Neut % (Auto) Lymph % (Auto) [place] % (Auto) Eos % (Auto) Baso % (Auto) Neut # (Auto) Lymph # (Auto) [place] # (Auto) Eos # (Auto) Baso # (Auto) PT INR Sodium Potassium Chloride Carbon Dioxide Anion Gap BUN Creatinine Estimated Creat Clear Estimated GFR Est GFR ( Amer) Glucose Lactate 1.2 Calcium Total Bilirubin AST ALT Alkaline Phosphatase Troponin I < 0.02 Total Protein Albumin Globulin Albumin/Globulin Ratio Urine Color Dk yellow Urine Appearance Sl cloudy Urine pH 5.5 Ur Specific [place] >= 1.030 Urine Protein 1+ Urine Glucose (UA) Trace Urine Ketones Trace Urine Blood Negative Urine Nitrate Positive Urine Bilirubin Negative Urine Urobilinogen 1.0 Ur Leukocyte Esterase Negative Urine RBC None Urine WBC Occasional Ur Squamous Epith Cells 50-100 Urine Bacteria Trace 07/03/19 07/03/19 07/03/19 14:01 14:01 14:01 WBC RBC Hgb Hct MCV MCH MCHC RDW Plt Count MPV Neut % (Auto) Lymph % (Auto) [place] % (Auto) Eos % (Auto) Baso % (Auto) Neut # (Auto) Lymph # (Auto) [place] # (Auto) Eos # (Auto) Baso # (Auto) PT 11.4 INR 1.10 Sodium 139 Potassium 3.6 Chloride 97 L Carbon Dioxide 30 Anion Gap 15.6 H BUN 18 Creatinine 1.53 H Estimated Creat Clear 19 Estimated GFR 33 L Est GFR ( Amer) 40 L Glucose 82 Lactate 2.1 H Calcium 9.4 Total Bilirubin 1.4 H AST 24 ALT 11 L Alkaline Phosphatase 86 Troponin I < 0.02 Total Protein 8.3 H D Albumin 3.9 Globulin 4.4 H Albumin/Globulin Ratio 0.9 L Urine Color Urine Appearance Urine pH Ur Specific [place] Urine Protein Urine Glucose (UA) Urine Ketones Urine Blood Urine Nitrate Urine Bilirubin Urine Urobilinogen Ur Leukocyte Esterase Urine RBC Urine WBC Ur Squamous Epith Cells Urine Bacteria 07/03/19 14:01 WBC 5.8 RBC 4.67 Hgb 13.8 Hct 44.4 MCV 95.0 MCH 29.5 MCHC 31.0 L RDW 15.5 Plt Count 199 MPV 8.9 Neut % (Auto) 71.9 Lymph % (Auto) 18.2 [place] % (Auto) 7.7 Eos % (Auto) 0.9 Baso % (Auto) 1.3 Neut # (Auto) 4.2 Lymph # (Auto) 1.1 [place] # (Auto) 0.5 Eos # (Auto) 0.1 Baso # (Auto) 0.1 PT INR Sodium Potassium Chloride Carbon Dioxide Anion Gap BUN Creatinine Estimated Creat Clear Estimated GFR Est GFR ( Amer) Glucose Lactate Calcium Total Bilirubin AST ALT Alkaline Phosphatase Troponin I Total Protein Albumin Globulin Albumin/Globulin Ratio Urine Color Urine Appearance Urine pH Ur Specific [place] Urine Protein Urine Glucose (UA) Urine Ketones Urine Blood Urine Nitrate Urine Bilirubin Urine Urobilinogen Ur Leukocyte Esterase Urine RBC Urine WBC Ur Squamous Epith Cells Urine Bacteria DS: Diagnosis - Discharge Diagnosis (1) Confusion Status: Resolved (2) UTI (urinary tract infection) Status: Acute (3) Hypokalemia Status: Acute (4) Cachexia Status: Chronic (5) Postherpetic neuralgia Status: Chronic (6) SORAYA (acute kidney injury) Status: Resolved Discharge Plan - Patient Discharge Instructions ACTIVITY: Continue current activity DIET: continue same diet Patient Instructions: DI for Urinary Tract Infection (UTI), How to Prevent Falls - Follow up Plan Follow up with: Joseph Lira MD [Primary Care Provider] - 07/14/19 11:00 am Disposition: Home, Self-Snf Medications: Home Medications Medication Instructions Recorded Confirmed Type ALPRAZolam [Xanax 0.25mg tab] 0.25 mg PO HS 07/03/19 07/03/19 History Gabapentin [Gabapentin 100mg Cap] 200 mg PO BID 07/03/19 07/04/19 History Pantoprazole Sodium [Protonix 40mg 40 mg PO HS 07/03/19 07/03/19 History tablet] Tramadol HCl [Tramadol 50mg 50 mg PO BID PRN 07/03/19 07/03/19 History Tab] Potassium Chloride [Klor-con 20 20 meq PO HS 07/04/19 07/04/19 History mEq tablet] levoFLOXacin [Levaquin 500mg 500 mg PO DAILY 5 Days #5 tab 07/04/19 Rx tab] Prescriptions/Medication Reconciliation: New levoFLOXacin [Levaquin 500mg tab] 500 mg PO DAILY 5 Days #5 tab Continued Gabapentin [Gabapentin 100mg Cap] 200 mg PO BID Tramadol HCl [Tramadol 50mg Tab] 50 mg PO BID PRN PRN Reason: pain Potassium Chloride [Klor-con 20 mEq tablet] 20 meq PO HS Pantoprazole Sodium [Protonix 40mg tablet] 40 mg PO HS ALPRAZolam [Xanax 0.25mg tab] 0.25 mg PO HS Discontinued Cyproheptadine HCl 4 mg PO TID - Problem Reconciliation Problems Reviewed?: Yes
--- NOTE | 2019-07-04 17:22 | Electrocardiograph Report ---
APPROVED REPORT Exam: Resting ECG HR:60 bpm ECG Measurements Heart Rate 60 AXES SD 116 P 35 QRSd 82 QRS 66 QT 392 T239 QTc 392 <Conclusion> Normal sinus rhythm ST & T wave abnormality, consider inferior ischemia ST & T wave abnormality, consider anterolateral ischemia Abnormal ECG Electronically signed by : Yair Michelle, 07/04/2019 17:21:49
== END 2019-07-04 15:35 | disposition home or self-care (01) ==
LOC: 2ND 13:31 → ER 13:31 → 2ND 18:47
PROVIDERS: ADMIT Emergency Medicine; ATTEND Internal Medicine Adolescent Medicine
CPT/HCPCS: 36415; 70450; 71010; 71045; 80048; 80053; 81001; 83605; 84484; 85025; 85610; 87086; 93005; 96365; 99284; G0378; J1956

== ENCOUNTER → 2019-07-06 12:55 | Outpatient (CLI) | payer MEDICARE, OTHER, SELFPAY ==
--- NOTE | 2019-07-06 13:12 | CT_ITS ---
PROCEDURE: CT HEAD/BRAIN WO/W CON CLINICAL INDICATION: AMS,GARBLED SPEECH,HX CVA Altered mental status, altered level of consciousness, confusion, disorientation COMPARISON: CT HEAD/BRAIN WO CON from 07/03/2019 TECHNIQUE: IV Contrast: 50 mL Optiray 350 Axial images obtained. All CT scans at the facility use one or more dose reduction, viz: automated exposure control, ma/kV adjustment per patient size (including targeted exams where dose is matched to indication, i.e. head), or iterative reconstruction technique. FINDINGS: No midline shift, mass effect, intracranial hemorrhage, or hydrocephalus is evident. There are prominent low-density changes in the periventricular region and subcortical white matter consistent with ischemic gliotic change from microvascular disease. There is encephalomalacia change in the right basal ganglia from an old lacunar infarction old small lacunar infarction involves the subinsular region on the left no enhancing lesions are evident. No acute calvarial abnormality. No significant change from 07/03/2019. IMPRESSION: No change with no acute intracranial findings. 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 No enhancing lesions apparent Dictated by: Larry Hope MD 07/06/2019 15:42 Electronically signed by Larry Hope MD in [place] 07/06/2019 15:42
--- NOTE | 2019-07-06 13:12 | CT_ITS ---
PROCEDURE: CT CHEST W CON CLINCAL INDICATION: COUGH, WGT LOSS COMPARISON: CT CHEST WO CON from 05/31/2019 CT ABDOMEN PELVIS WO/W CON from 05/31/2019 TECHNIQUE: IV Contrast: 75ml Optiray 350 Axial images obtained with sagittal and coronal reformats. All CT scans at the facility use one or more dose reduction, viz: automated exposure control, ma/kV adjustment per patient size (including targeted exams where dose is matched to indication, i.e. head), or iterative reconstruction technique. FINDINGS: There is mild fusiform dilatation of the ascending aorta at 4.2 cm. There is no evidence of aortic dissection. There is some mild mural plaque noted in the lateral aspect on the left of the aortic arch. There are coronary artery calcifications. No evidence of pulmonary embolus. The There is asymmetric right apical pleural thickening not significantly changed. There is also some pleural thickening in the left apex not significantly changed. There are centrilobular emphysematous changes. There are faint opacities in the right upper lobe having a somewhat tree in bud pattern with persistent scattered noncalcified nodules. There is mild diffuse bronchial thickening in the lung bases with mild bronchiectasis as previously described. No new nodules are evident. There are degenerative changes of the thoracic spine IMPRESSION: 1. Overall no change in the multiple small bilateral pulmonary nodules which could be inflammatory or neoplastic. 2. Mild bronchiectasis with bronchial thickening in the right lower lobe. 3. There is some patchy infiltrate in the right upper lobe which has developed in the interval centrally 4. No change in the mild fusiform dilatation of the ascending aorta and bilateral biapical thickening Dictated by: Larry Hope MD 07/06/2019 16:05 Electronically signed by Larry Hope MD in [place] 07/06/2019 16:05
[2019-07-06 13:27] LABS: Basophils # 0.1 K/mm3 (0-0.2); Eosinophils % 0.5 % (0.1-12.0); Hemoglobin 11.3 g/dL (12.2-16.2); Lymphocytes # 1.5 K/mm3 (0.7-4.5); Lymphocytes % 31.1 % (10-50); Mean Corpuscular HGB Conc 31.3 g/dL (31.8-35.4); Mean Corpuscular Hemoglobin 29.1 pg (27.0-31.2); Mean Corpuscular Volume 92.9 fl (81-99); Monocytes # 0.4 K/mm3 (0.1-1.0); Monocytes % 8.4 % (1.7-9.3); Neutrophils # 2.9 K/mm3 (1.8-7.8); Neutrophils % 58.9 % (37.0-80.0); Platelet Count 197 K/mm3 (142-424); Red Blood Count 3.87 M/mm3 (4.20-5.40); Red Cell Distribution Width 15.9 % (11.5-17.5); White Blood Count 4.8 K/mm3 (4.8-10.8)
[2019-07-06 13:41] LABS: Alanine Aminotransferase 7 U/L (12-78); Albumin Level 3.3 gm/dL (3.4-5.0); Albumin/Globulin Ratio 0.9 (1.1-1.8); Alkaline Phosphatase 61 U/L (46-116); Anion Gap 13.4 mEq/L (5-15); Aspartate Amino Transferase 12 U/L (15-37); Bilirubin,Total 0.9 mg/dL (0.2-1.0); Blood Urea Nitrogen 11 mg/dL (7-18); Calcium 8.5 mg/dL (8.5-10.1); Carbon Dioxide 29 mmol/L (21.0-32.0); Chloride 103 mmol/L (98-107); Estimated Glomerular Filt Rate 33 ml/min (>60); GFR (African American) 40 ML/MIN (>60); Globulin 3.6 gm/dl (1.3-3.2); Glucose 90 mg/dL (74-106); Potassium 3.4 mmoL/L (3.5-5.1); Sodium 142 mmol/L (136-145); Total Protein,Serum 6.9 gm/dL (6.4-8.2)
== END ==
PROVIDERS: PCP Internal Medicine Adolescent Medicine; Visit Provider Nurse Practitioner Family
DX: R41.82 Altered mental status, unspecified (principal); R47.89 Other speech disturbances; R63.4 Abnormal weight loss; R05 Cough; G45.9 Transient cerebral ischemic attack, unspecified; Z86.73 Personal history of transient ischemic attack (TIA), and cerebral infarction without residual deficits
CPT/HCPCS: 36415; 70470; 71260; 80053; 85025; Q9967

== ENCOUNTER 2020-08-23 12:12 | Inpatient (IN) | payer MEDICARE, OTHER, SELFPAY ==
[2020-08-23] VITALS (9 sets, daily range): BP systolic 160–221; BP diastolic 82–110; PULSE 59–80; RESP 16–19; TEMP 36.6–37.1; O2SAT 87–100; BMI 19.1; BMI 19.0
--- NOTE | 2020-08-23 12:27 | XR_ITS ---
PROCEDURE: XR CHEST PORTABLE CLINICAL HISTORY: fall left hip pain Shortness of air COMPARISON: CR CXR CHEST(2 VIEWS-NOT PORTABLE) from 07/26/2014 CR CXR CHEST(2 VIEWS-NOT PORTABLE) from 07/28/2014 CR XR CHEST PORTABLE from 07/03/[address] CHEST W CON from 07/06/2019 FINDINGS: Mild cardiomegaly without failure. No lobar consolidation or collapse. Chronic changes are present in the left midlung and right upper lobe. No acute bony abnormalities. IMPRESSION: Cardiomegaly with chronic changes, no acute finding Dictated by: Laryr Hope MD 08/23/2020 15:40 Larry Hope MD in [facility] 08/23/2020 15:40
--- NOTE | 2020-08-23 12:27 | XR_ITS ---
PROCEDURE: XR HIP LT 2-3V W/PELVIS CLINICAL INDICATION: left hip pain. fall COMPARISON: No exams were available for comparison FINDINGS: Transcervical left femoral neck fracture is present with mild proximal distraction of the distal fracture fragment. There is superior displacement of the distal fracture fragment 13 mm. There is a Aguero catheter present. Vascular calcifications are noted. IMPRESSION: Impacted left transcervical femoral neck fracture Dictated by: Larry Hope MD 08/23/2020 15:41 Larry Hope MD in [place] 08/23/2020 15:41
--- NOTE | 2020-08-23 12:37 | HMH.EDGENADL ---
ED Disposition Clinical Impression: Closed left hip fracture Qualifiers: Encounter type: initial encounter Qualified Code(s): S72.002A - Fracture of unspecified part of neck of left femur, initial encounter for closed fracture Disposition: Admitted As Inpatient Condition on Discharge: Fair Referrals: Joseph Lira MD [Primary Care Provider] - - Critical Care Critical Care Time: No Attestation: On 08/23/20, the high probability of a clinically significant, sudden or life threatening deterioration of the following system(s) required my full and direct attention, intervention and personal management. The time I documented below is in addition to time spent performing reported procedures but includes the following listed in this critical care notation. Medical Decision Making - Medical Records Medical records reviewed: Yes: I reviewed the patient's medical records. - Oscar Inquiry Pt receiving controlled substance: Yes Oscar was queried for this patient: No Reason not queried -: Emergent pt cond-no time Risks and benefits of using a controlled substance: were not discussed with pt by me Vital Signs: 08/23/20 12:13 08/23/20 12:38 08/23/20 13:29 Temperature 97.9 F Temperature Source Oral Pulse Rate [Left Radial] 66 60 59 L Respiratory Rate 16 Blood Pressure [Right Arm] 220/110 H 195/97 H 221/99 H Blood Pressure Mean [Right Arm] 146 129 139 Blood Pressure Source [Right Arm] Automatic Cuff Automatic Cuff Automatic Cuff Blood Pressure Position [Right Arm] Sitting Sitting Sitting 02 Sat by Pulse Oximetry 96 93 L 95 Oxygen Delivery Method Room Air Room Air Room Air 08/23/20 14:05 Temperature Temperature Source Pulse Rate [Left Radial] 60 Respiratory Rate Blood Pressure [Right Arm] 218/104 H Blood Pressure Mean [Right Arm] 142 Blood Pressure Source [Right Arm] Automatic Cuff Blood Pressure Position [Right Arm] Sitting 02 Sat by Pulse Oximetry 99 Oxygen Delivery Method Room Air - Lab Data Lab results reviewed: Yes: I reviewed the patient's lab results. Lab Results 08/23/20 12:40: WBC 7.6, RBC 4.18 L, Hgb 13.3, Hct 39.5, MCV 94.5, MCH 31.9 H, MCHC 33.8, RDW 15.2, Plt Count 199, MPV 8.2, Neut % (Auto) 80.5 H, Lymph % (Auto) 13.7, [place] % (Auto) 4.8, Eos % (Auto) 0.5, Baso % (Auto) 0.4, Neut # (Auto) 6.1, Lymph # (Auto) 1.1, [place] # (Auto) 0.4, Eos # (Auto) 0.0, Baso # (Auto) 0.0 08/23/20 12:40: Sodium 138, Potassium 3.7, Chloride 100, Carbon Dioxide 33 H, Anion Gap 8.7, BUN 13, Creatinine 0.80, Estimated Creat Clear 31, Estimated GFR 69, Est GFR ( Amer) 83, Glucose 107 H, Calcium 9.3, Total Bilirubin 1.1, AST 35, ALT 16, Alkaline Phosphatase 73, Total Protein 7.0, Albumin 4.1, Globulin 2.9, Albumin/Globulin Ratio 1.4 Result diagrams: 08/23/20 12:40 08/23/20 12:40 Orders (Tests/Meds): ED MEDICATIONS Discontinued Medications Generic Name Dose Route Start Last Admin Trade Name Freq PRN Reason Stop Dose Admin Captopril 6.25 mg 08/23/20 14:16 Captopril 25mg Tablet PO 08/23/20 14:17 ONCE ONE Hydromorphone HCl 0.5 mg 08/23/20 12:47 08/23/20 12:55 Hydromorphone 2mg/Ml Syringe IV 08/23/20 12:48 0.5 mg ONCE ONE Administration Hydromorphone HCl 0.5 mg 08/23/20 14:18 Hydromorphone 2mg/Ml Syringe IV 08/23/20 14:19 ONCE ONE ORDERS Category Date Time Status XR chest portable Stat Exams 08/23/20 12:27 Taken XR hip LT 2-3V w/pelvis Stat Exams 08/23/20 12:27 Taken Covid-19 IgG/IgM ([facility]) Stat Lab 08/23/20 14:02 Ordered Urinalysis and Microscopic Stat Lab 08/23/20 12:47 Ordered - Radiology Data #1 Image(s): Chest, Hip Hip: Displaced femoral neck fracture left hip Chest: COPD, no acute process - ECG Data Tracing #1 EKG interpreted by David Perez MD: Rhythm: sinus Rate: 63 [place]: normal Ectopy: Premature ventricular contraction Conduction: normal ST Segment Changes: Nonspecific T Wave Changes: Nonspecific Q Waves: S
[2020-08-23 12:48] LABS: Basophils % 0.4 % (0.1-2.0); Eosinophils % 0.5 % (0.1-12.0); Hematocrit 39.5 % (37.0-47.0); Hemoglobin 13.3 g/dL (12.2-16.2); Lymphocytes # 1.1 K/mm3 (0.7-4.5); Lymphocytes % 13.7 % (10-50); Mean Corpuscular HGB Conc 33.8 g/dL (31.8-35.4); Mean Corpuscular Hemoglobin 31.9 pg (27.0-31.2); Mean Corpuscular Volume 94.5 fl (81-99); Mean Platelet Volume 8.2 fl (7.4-10.4); Monocytes # 0.4 K/mm3 (0.1-1.0); Monocytes % 4.8 % (1.7-9.3); Neutrophils # 6.1 K/mm3 (1.8-7.8); Neutrophils % 80.5 % (37.0-80.0); Platelet Count 199 K/mm3 (142-424); Red Blood Count 4.18 M/mm3 (4.20-5.40); Red Cell Distribution Width 15.2 % (11.5-17.5); White Blood Count 7.6 K/mm3 (4.8-10.8)
[2020-08-23 12:52] LABS: Chloride 100 mmol/L (98-107); Potassium 3.7 mmoL/L (3.5-5.1); Sodium 138 mmol/L (136-145)
[2020-08-23 12:55] LABS: Alanine Aminotransferase 16 U/L (12-78); Albumin Level 4.1 g/dl (3.5-5.0); Albumin/Globulin Ratio 1.4 (1.1-1.8); Alkaline Phosphatase 73 U/L (38-126); Anion Gap 8.7 mEq/L (5-15); Aspartate Amino Transferase 35 U/L (14-36); Bilirubin,Total 1.1 mg/dl (0.2-1.3); Blood Urea Nitrogen 13 mg/dl (7-17); Calcium 9.3 mg/dl (8.4-10.2); Carbon Dioxide 33 mmol/L (22.0-30.0); Creatinine Clearance Estimated 31 mL/min (50-200); Estimated Glomerular Filt Rate 69 ml/min (>60); GFR (African American) 83 ML/MIN (>60); Globulin 2.9 g/dL (1.3-3.2); Glucose 107 mg/dl (74-100)
--- NOTE | 2020-08-23 12:58 | ECG_ITS ---
APPROVED REPORT Exam: Resting ECG HR:63 bpm ECG Measurements Heart Rate 63 AXES MO 148 P 69 QRSd 64 QRS 52 QT 348 T 250 QTc 356 Conclusion Sinus rhythm with occasional premature ventricular complexes Low voltage QRS Old anteroseptal changes. Nonspecific ST/T-wave changes-present in 2018 Abnormal ECG Electronically signed by : Maxi Azevedo, 08/24/2020 10:19:06
--- NOTE | 2020-08-23 14:01 | PC.NURSE ---
dr wallace speaking to ayesha
[2020-08-23 14:51] LABS: Coronavirus 19 IgG Antibody Positive (Negative); Coronavirus 19 IgM Antibody Negative (Negative)
--- NOTE | 2020-08-23 15:34 | P.CONPHA_ITS ---
[facility] Pharmacy VTE Monitoring - Patient Demographics Admission date: 08/23/20 Report Date: 08/23/20 Time: 15:34 Allergies/Adverse Reactions: Patient Allergies codeine Allergy (Unknown, Verified 09/30/19 08:57) penicillin V Allergy (Unknown, Verified 09/30/19 08:57) morphine Allergy (Verified 08/23/20 12:40) Height: 1.52 m Weight: 44.452 kg Patient Problems: Current Active Problems Closed left hip fracture (Acute) - VTE Risk Labs: VTE Related Lab Results Hgb 13.3 g/dL (12.2-16.2) 08/23/20 12:40 Hct 39.5 % (37.0-47.0) 08/23/20 12:40 Plt Count 199 K/mm3 (142-424) 08/23/20 12:40 BUN 13 mg/dl (7-17) 08/23/20 12:40 Creatinine 0.80 mg/dl (0.52-1.04) 08/23/20 12:40 Estimated Creat Clear 31 mL/min (50-200) 08/23/20 12:40 Clinical Trial Participant: No - Prophylaxis VTE Prophylaxis Ordered?: Yes Types of VTE Prophylaxis: TEDS Knee High
--- NOTE | 2020-08-23 15:34 | HMH.PHAINT ---
HOME MEDICATION LIST COMPLETED USING LIST FROM DR MERINO OFFICE
--- NOTE | 2020-08-23 16:55 | HMH.ORTHOCON ---
*Admission Date: 08/23/20 *Reason for consult:: L femoral neck fracture *History of present illness: 79-year-old female admitted through the ER this afternoon after a fall earlier today at home. She reports she stood off the couch and fell, landing on her left hip. She is not sure whether the hip broke prior to the fall, causing the fall, or as a result of landing on her side. She denies any LOC during the incident and denies preceding chest pain, shortness of breath or dizziness. She has a history of hypertension and postherpetic neuralgia. Prior surgeries include cholecystectomy, hysterectomy and a surgery on her back. She takes gabapentin, tramadol and lisinopril at home. Allergic to codeine, penicillin and morphine. She is a former smoker and does not currently smoke cigarettes. There are no open wounds or bruising over her left hip, no numbness or tingling in the leg. She has never injured this hip before or had any prior surgeries on this hip. She lives at home with her in a one-story home, and her children are close by to provide assistance if needed. Aguero catheter was placed in the ER on admission. [facility] History I have reviewed the patient's past medical history: Yes Medical History: Denies:: Cancer, Diabetes Mellitus Type 1, Diabetes Mellitus Type 2, MRSA, Seizures *Have you ever received a pneumonia vaccine?: No *Have you received a flu vaccine this season?: No Other Surgeries: Yes: Cholecystectomy, Hysterectomy-Total Amputation: No Fractures: Yes - *Social History Smoking Status: Former smoker Tobacco Type: cigarettes # Packs/Day (cigarettes): 1 Alcohol Intake: never *Occupational Status:: unemployed Housing: house Household Members: spouse *Travel in the last 8 weeks: None Family Hx:: Cancer Review of Systems - Review of Systems Review of systems:: pertinent systems reviewed and negative unless documented below - *Neurologic Denies headache(s), Denies numbness, Denies weakness Meds Home Medications Medication Instructions Recorded Confirmed Type Tramadol HCl [Tramadol 50mg 75 mg PO TIDP PRN 07/03/19 08/23/20 History Tab] Omeprazole [Omeprazole 40mg 40 mg PO DAILY 08/23/20 08/23/20 History Capsule] Umeclidinium Brm/Vilanterol Tr 1 inh IH DAILY 08/23/20 08/23/20 History [Anoro Ellipta 62.5-25 Mcg INH] lisinopriL [Lisinopril 10mg Tab] 10 mg PO DAILY 08/23/20 08/23/20 History Allergies Allergy/AdvReac Type Severity Reaction Status Date / Time codeine Allergy Unknown Verified 09/30/19 08:57 penicillin V Allergy Unknown Verified 09/30/19 08:57 morphine Allergy Verified 08/23/20 12:40 Exam Vital signs and Labs for Last 24 Hours: Temp Pulse Resp BP Pulse Ox 98.1 F 64 16 197/98 H 100 08/23/20 16:09 08/23/20 16:09 08/23/20 16:09 08/23/20 16:09 08/23/20 15:09 Laboratory Results - last 24 hr 08/23/20 12:40: WBC 7.6, RBC 4.18 L, Hgb 13.3, Hct 39.5, MCV 94.5, MCH 31.9 H, MCHC 33.8, RDW 15.2, Plt Count 199, MPV 8.2, Neut % (Auto) 80.5 H, Lymph % (Auto) 13.7, [place] % (Auto) 4.8, Eos % (Auto) 0.5, Baso % (Auto) 0.4, Neut # (Auto) 6.1, Lymph # (Auto) 1.1, [place] # (Auto) 0.4, Eos # (Auto) 0.0, Baso # (Auto) 0.0 08/23/20 12:40: Sodium 138, Potassium 3.7, Chloride 100, Carbon Dioxide 33 H, Anion Gap 8.7, BUN 13, Creatinine 0.80, Estimated Creat Clear 31, Estimated GFR 69, Est GFR ( Amer) 83, Glucose 107 H, Calcium 9.3, Total Bilirubin 1.1, AST 35, ALT 16, Alkaline Phosphatase 73, Total Protein 7.0, Albumin 4.1, Globulin 2.9, Albumin/Globulin Ratio 1.4 08/23/20 12:40: SARS-CoV-2 IgG Ab (Rapid) Positive A, SARS-CoV-2 IgM Ab (Rapid) Negative I & O for Last 24 hours: Intake & Output 08/21/20 08/22/20 08/23/20 08/24/20 11:59 11:59 11:59 11:59 Weight 98 lb - Constitutional no acute distress, thin - *Routine HEENT Exam Head: Present: normocephalic Eye: Present: EOMI ENT: Present: mucous membranes moist - *Routine Neck Exam Present: suppl
--- NOTE | 2020-08-23 17:29 | HMH.HP ---
*Admission Date: 08/23/20 *Chief complaint: fall, hip pain *History of present illness: Ms. Moulton is an 79-year-old female who is well-known to our office. She presented to the ER today after falling at home this morning. She reports standing up from the couch when she subsequently fell to the side landing on her left hip. She denies any head trauma or loss of consciousness. Was unable to get up from the floor even with the assistance of her . Had immediate onset of pain and discomfort in her hip. Denies any chest pain, shortness of breath, dizziness associated with the episode or after the episode. Was brought to the ER for further evaluation. Noted to have left hip intertrochanteric fracture. Orthopedics Was consulted, decision to admit for further management and preop assessment. She was additionally noted to have severe hypertension and reports not taking her meds this morning. History significant for essential hypertension, postherpetic neuralgia that has been persistent for 2 to 3 years and failed numerous modalities. She takes gabapentin, tramadol and lisinopril at home. Allergic to codeine, penicillin and morphine. She is a former smoker with COPD but does not currently smoke cigarettes per report Medicine consulted to admit patient. On assessment after she arrived to the floor, she remains in pain in her left hip. She has a daughter with her at bedside. Otherwise is alert and oriented and at baseline neurologic exam. No complaint of chest pain. Of note she has normal kidney function, no history of dialysis, no CAD equivalent, prior to injury was able to participate in ADLs without shortness of breath or chest pain. [facility] History I have reviewed the patient's past medical history: Yes Medical History: Reports:: Chronic Obstructive Pulmonary Disease (COPD), Hypertension Denies:: Cancer, Diabetes Mellitus Type 1, Diabetes Mellitus Type 2, MRSA, Seizures *Have you ever received a pneumonia vaccine?: No *Have you received a flu vaccine this season?: No Other Surgeries: Yes: Cholecystectomy, Hysterectomy-Total Amputation: No Fractures: Yes - *Social History Smoking Status: Former smoker Tobacco Type: cigarettes # Packs/Day (cigarettes): 1 Alcohol Intake: never *Occupational Status:: unemployed Housing: house Household Members: spouse *Travel in the last 8 weeks: None Family Hx:: Cancer Review of Systems - Review of Systems Review of systems:: pertinent systems reviewed and negative unless documented below (14 point review of systems performed, pertinent positives and negatives as per HPI) - *Neurologic Denies headache(s), Denies numbness, Denies weakness Meds Home Medications Medication Instructions Recorded Confirmed Type Tramadol HCl [Tramadol 50mg 75 mg PO TIDP PRN 07/03/19 08/23/20 History Tab] Omeprazole [Omeprazole 40mg 40 mg PO DAILY 08/23/20 08/23/20 History Capsule] Umeclidinium Brm/Vilanterol Tr 1 inh IH DAILY 08/23/20 08/23/20 History [Anoro Ellipta 62.5-25 Mcg INH] lisinopriL [Lisinopril 10mg Tab] 10 mg PO DAILY 08/23/20 08/23/20 History Allergies Allergy/AdvReac Type Severity Reaction Status Date / Time codeine Allergy Unknown Verified 09/30/19 08:57 penicillin V Allergy Unknown Verified 09/30/19 08:57 morphine Allergy Verified 08/23/20 12:40 Exam Vital signs and Labs for Last 24 Hours: Temp Pulse Resp BP Pulse Ox 98.1 F 64 16 197/98 H 100 08/23/20 16:09 08/23/20 16:09 08/23/20 16:09 08/23/20 16:09 08/23/20 15:09 Laboratory Results - last 24 hr 08/23/20 12:40: WBC 7.6, RBC 4.18 L, Hgb 13.3, Hct 39.5, MCV 94.5, MCH 31.9 H, MCHC 33.8, RDW 15.2, Plt Count 199, MPV 8.2, Neut % (Auto) 80.5 H, Lymph % (Auto) 13.7, [place] % (Auto) 4.8, Eos % (Auto) 0.5, Baso % (Auto) 0.4, Neut # (Auto) 6.1, Lymph # (Auto) 1.1, [place] # (Auto) 0.4, Eos # (Auto) 0.0, Baso # (Auto) 0.0 08/23/20 12:40: Sodium 138, Potassium 3.7, Chloride 100, Carbon Dioxide 33 H
[2020-08-24] VITALS (20 sets, daily range): BP systolic 89–164; BP diastolic 60–100; PULSE 73–115; RESP 14–20; TEMP 36.4–43; O2SAT 80–100; BMI 19.4
--- NOTE | 2020-08-24 06:00 | PC.NURSE ---
Pt is A&Ox4 and has refused to be turned in bed. Pt has c/o pain to left hip several times, medicated with Dilaudid 2x, Percocet 2x, and tylenol 1x. Pt has had good relief 2 times, specifically with the 2nd dose of Dilaudid and 2nd Percocet. Anterior lung sounds are clear but bases are very diminished. Pt also placed on 2LPM NC d/t low room air sat despite IS encouragement. Pt only able to reach 750ml 1x and very fatigued with usage. Pt encouraged to continue utilizing before and defiantly after surgery. Pt and & daughter stated their understanding. Pt also began to be a little tachy this am, 104-115. Pt refused teds to RLE. Pt c/o nausea 1x, good relief with IV zofran. Pt has denied any vomiting. Pt's daughter at bedside. Surgery consent on chart and pt has been NPO except for sips with pain pill since 12am for upcoming surgery. BP was better controlled after captopril. Call light within reach.
--- NOTE | 2020-08-24 06:32 | HMH.ACPN2 ---
Internal Medicine - PN: Subj *Date: 08/24/20 *Time: 08:32 Interval history: Ms. Moulton appears comfortable on interview this morning. Transitioned over to oral pain regimen for longer benefit. Tolerating it well with improvement in her pain control. Only required 1 dose of IV Dilaudid. States she slept fairly well. Significant improvement in her blood pressure, within normal range this morning. Denies chest pain or shortness of breath. Required some oxygen overnight because of dropping to 87% while sleeping, suspect this is likely normal for her given her underlying COPD and extensive smoking history. Will wean oxygen as tolerated and assess for home O2 prior to discharge. Family continues to be adamant about taking her home for therapy, case management will work with patient to make sure that they have necessary DME equipment and home health plan. Scheduled for surgery today. Exam Vital signs and Labs for Last 24 Hours: Temp Pulse Resp BP Pulse Ox 98.7 F 104 H 20 114/82 98 08/24/20 04:00 08/24/20 04:05 08/24/20 04:05 08/24/20 04:00 08/24/20 04:05 Laboratory Results - last 24 hr 08/23/20 12:40: WBC 7.6, RBC 4.18 L, Hgb 13.3, Hct 39.5, MCV 94.5, MCH 31.9 H, MCHC 33.8, RDW 15.2, Plt Count 199, MPV 8.2, Neut % (Auto) 80.5 H, Lymph % (Auto) 13.7, [place] % (Auto) 4.8, Eos % (Auto) 0.5, Baso % (Auto) 0.4, Neut # (Auto) 6.1, Lymph # (Auto) 1.1, [place] # (Auto) 0.4, Eos # (Auto) 0.0, Baso # (Auto) 0.0 08/23/20 12:40: Sodium 138, Potassium 3.7, Chloride 100, Carbon Dioxide 33 H, Anion Gap 8.7, BUN 13, Creatinine 0.80, Estimated Creat Clear 31, Estimated GFR 69, Est GFR ( Amer) 83, Glucose 107 H, Calcium 9.3, Total Bilirubin 1.1, AST 35, ALT 16, Alkaline Phosphatase 73, Total Protein 7.0, Albumin 4.1, Globulin 2.9, Albumin/Globulin Ratio 1.4 08/23/20 12:40: SARS-CoV-2 IgG Ab (Rapid) Positive A, SARS-CoV-2 IgM Ab (Rapid) Negative I & O for Last 24 hours: Intake & Output 08/21/20 08/22/20 08/23/20 08/24/20 23:59 23:59 23:59 23:59 Intake Total 460 / 510 50 / 50 Output Total 420 / 420 Balance 40 / 90 50 / 50 Weight 44.14 kg 44.906 kg Narrative: - Constitutional minimal distress, thin, cooperative - *Routine HEENT Exam Head: Present: normocephalic Eye: Present: EOMI, PERRL ENT: Present: mucous membranes moist - *Routine Neck Exam Present: supple. Absent: lymphadenopathy - *Routine Respiratory Exam Present: CTA bilaterally - *Routine Cardiovascular Exam Present: RRR - *Routine Abdominal Exam Present: soft, normoactive bowel sounds. Absent: tenderness - *Routine Extremities Exam Absent: cyanosis, clubbing, edema Comments: Bruising of the left upper arm. Left hip tender to palpation, left leg slightly shorter than right. - *Routine Skin Exam Present: warm, ecchymosis. Absent: rash - *Routine Neurological Exam Present: alert, oriented X3 Assessment and Plan (1) Femoral neck fracture Status: Acute Category: Medical Code(s): S72.009A - Fracture of unspecified part of neck of unspecified femur, initial encounter for closed fracture (2) Essential hypertension Status: Chronic Category: Medical Code(s): I10 - Essential (primary) hypertension (3) Chronic pain disorder Status: Chronic Category: Medical Code(s): G89.4 - Chronic pain syndrome (4) COPD (chronic obstructive pulmonary disease) Status: Chronic Category: Medical Code(s): J44.9 - Chronic obstructive pulmonary disease, unspecified (5) Postherpetic neuralgia at T3-T5 level Status: Chronic Category: Medical Code(s): B02.29 - Other postherpetic nervous system involvement (6) Left upper arm pain Status: Acute Category: Medical Code(s): M79.622 - Pain in left upper arm Pain in left arm after fall, not assessed on initial work-up. Will obtain x-rays today to rule out any fractures. - Assessment and plan all Dx Assessment and Plan for all problems:: 79-year-old with left femoral
[2020-08-24 06:56] LABS: Basophils % 0.2 % (0.1-2.0); Eosinophils % 0.1 % (0.1-12.0); Hematocrit 41.8 % (37.0-47.0); Hemoglobin 13.6 g/dL (12.2-16.2); Lymphocytes # 0.8 K/mm3 (0.7-4.5); Lymphocytes % 6.1 % (10-50); Mean Corpuscular HGB Conc 32.4 g/dL (31.8-35.4); Mean Corpuscular Hemoglobin 31.6 pg (27.0-31.2); Mean Corpuscular Volume 97.6 fl (81-99); Mean Platelet Volume 8.3 fl (7.4-10.4); Monocytes # 0.9 K/mm3 (0.1-1.0); Monocytes % 6.7 % (1.7-9.3); Neutrophils # 10.9 K/mm3 (1.8-7.8); Neutrophils % 86.9 % (37.0-80.0); Platelet Count 190 K/mm3 (142-424); Red Blood Count 4.29 M/mm3 (4.20-5.40); Red Cell Distribution Width 15.4 % (11.5-17.5); White Blood Count 12.6 K/mm3 (4.8-10.8)
[2020-08-24 07:00] LABS: Chloride 100 mmol/L (98-107); Potassium 3.9 mmoL/L (3.5-5.1); Sodium 136 mmol/L (136-145)
[2020-08-24 07:03] LABS: Anion Gap 12.9 mEq/L (5-15); Blood Urea Nitrogen 18 mg/dl (7-17); Carbon Dioxide 27 mmol/L (22.0-30.0); Creatinine Clearance Estimated 31 mL/min (50-200); Estimated Glomerular Filt Rate 60 ml/min (>60); GFR (African American) 73 ML/MIN (>60)
[2020-08-24 07:04] LABS: Calcium 8.8 mg/dl (8.4-10.2); Glucose 121 mg/dl (74-100)
[2020-08-24 07:11] LABS: MANUAL DIFFERENTIAL MANUAL DIFFERENTIAL (MANUAL DIFF)
[2020-08-24 07:26] LABS: INR 1.12 (0.9-1.1); Prothrombin Time 12.3 seconds (9.4-11.8)
[2020-08-24 07:59] LABS: Microscopic, Urine URINE MICROSCOPIC (MICROSCOPIC)
[2020-08-24 08:00] LABS: Lymphocytes % 4 % (10-50); Monocytes % 5 % (2-9); Neutrophils % 91 % (42-76); Platelet Estimate Normal; RBC Morphology Normal; Total Cells Counted 100
[2020-08-24 08:02] LABS: Appearance,Urine CLEAR (Clear); Bilirubin,Urine Negative (Negative); Blood, Urine 1+ (Negative); Color,Urine YELLOW (Yellow); Glucose,Urine (UA) Negative (Negative); Ketones,Urine 1+ (Negative); Leukocyte Esterase,Urine Negative (Negative); Nitrate,Urine Negative (Negative); Protein,Urine Negative (Negative); Specific Gravity, Urine >= 1.030 (1.005-1.030)
--- NOTE | 2020-08-24 08:20 | XR_ITS ---
PROCEDURE: XR ELBOW LT 2V CLINICAL INDICATION: fall on left arm, pain COMPARISON: No exams were available for comparison FINDINGS: No fracture or dislocation. No lytic or blastic change. There is normal mineralization. The joint spaces are well-preserved. No significant degenerative/arthritic changes. No erosive changes evident. Other findings:None. IMPRESSION: No acute findings. Dictated by: Larry Hope MD 08/24/2020 10:39 Larry Hope MD in [place] 08/24/2020 10:39
--- NOTE | 2020-08-24 08:22 | XR_ITS ---
PROCEDURE: XR HUMERUS LT CLINICAL INDICATION: fall on left arm, pain COMPARISON: No exams were available for comparison FINDINGS: No fracture or dislocation. No lytic or blastic change. There is normal mineralization. The joint spaces are well-preserved. No significant degenerative/arthritic changes. No erosive changes evident. Other findings:None. IMPRESSION: No acute findings. Dictated by: Larry Hope MD 08/24/2020 10:38 Larry Hope MD in [place] 08/24/2020 10:38
--- NOTE | 2020-08-24 13:09 | XR_ITS ---
PROCEDURE: XR KNEE LT 3V CLINICAL INDICATION: pain Posttraumatic pain COMPARISON: CR [id number] XR knee LT 3V from 12/27/2018 FINDINGS: No fracture or dislocation. No lytic or blastic change. There is normal mineralization. The joint spaces are well-preserved. No significant degenerative/arthritic changes. No erosive changes evident. Other findings:None. IMPRESSION: No acute findings. Dictated by: Larry Hope MD 08/24/2020 15:10 Larry Hope MD in [facility] 08/24/2020 15:10
--- NOTE | 2020-08-24 13:14 | SW/DCPLANNER ---
Addendum entered by Denise Ivey 08/31/20 09:21: DURING ROUNDING THIS MORNING, HE MENTIONED TO THE PATIENT AND DAUGHTER THAT HE WAS GOING TO DISCHARGE PATIENT LATER THIS AFTERNOON... I HAD TOLD HIM SHE EXPRESSED SOME CONCERNS SHE WASN'T READY TO GO HOME...HE TOLD THE DAUGHTER AND PATIENT SHE WAS READY FOR DISCHARGE AND HE IS READY TO SEND HER TODAY... HE SAID WE CAN FIND HER A BED OR SHE CAN GO HOME WITH HOME HEALTH SERVICES...I HAVE REACHED OUT TO [facility] SINCE NAMITA ALMEIDA WAS A FIRST CHOICE AND THEY ARE NOT ACCEPTING PATIENTS R/T COVID OUTBREAK....WAITING TO HEAR BACK AND ONCE ACCEPTED WILL LET DR JACKSON KNOW AND SEND HER THIS AFTERNOON.. Addendum entered by Shanice Leavitt 08/24/20 15:01: Na with [facility] stated that patient information has been reviewed and services will begin Thursday if she discharges Thursday. Updated patient information will need to be faxed to [facility] on Thursday. Original Note: I have spoke with this patient and her regarding discharge plans once medically stable for discharge. Patient will have hip surgery today due to hip fx. Patient and have both stated that they are NOT interested in placement at time of discharge. Patient stated that her , two daughters and granddaughter will help care for her at home. Patient stated that she has a wheelchair, walker and a BSC at home. Patient is interested in home health services and prefer [facility]. I will set up home health services once patient is stable for discharge.
--- NOTE | 2020-08-24 16:29 | HMH.ANESCL ---
[facility] Anesthesia Checklist - Patient Identification Patient Identification: Arm Band, Verbal (Name & ) - Structural Data Admitted From: Home Planned Operative Procedure/s: left hip Consent for Planned Operative Procedure(s) Verified: Yes Verified Documents: History and Physical - NPO Status Verified Time NPO: 00:00 - Chart Verification Results Verified: CBC, BMP - Additional verifications Patient : No Anesthesia Reactions: No Hx Blood Transfusions: No Blood Transfusion Reaction: No Cephalosporin Allergy: No Previous Colonoscopy: Yes - Cardiovascular Assessment Heart Sounds: S1 & S2 Pulse Strength: Baseline Pulse Rhythm: Regular Peripheral Edema: No - Airway Assessment C-Spine Mobility Assessed: Yes TMJ Mobility Assessed: Yes Dentition: Edentulous - Neurological Assessment Level of Consciousness: Awake, Alert, Appropriate Hx Seizures: No Numbness or tingling in extremities: No - Anesthesia Plan Anesthesia Risk discussed: Yes Anesthesia Plan: Verified ASA Class: III Anesthesia Type: MAC w/Spinal [facility] History I have reviewed the patient's past medical history: Yes Medical History: Reports:: Chronic Obstructive Pulmonary Disease (COPD), Hypertension Denies:: Cancer, Diabetes Mellitus Type 1, Diabetes Mellitus Type 2, MRSA, Seizures *Have you ever received a pneumonia vaccine?: Yes *Have you received a flu vaccine this season?: Yes Other Medical History: Reports: Arthritis Anesthesia experience/problems:: none Other Surgeries: Yes: Cholecystectomy, Hysterectomy-Total Amputation: No Fractures: Yes - *Social History Last grade of school completed: High school graduate Smoking Status: Former smoker Tobacco Type: cigarettes # Packs/Day (cigarettes): 1 Alcohol Intake: never Substance Use Type: other *Occupational Status:: retired Housing: house Household Members: spouse *Travel in the last 8 weeks: None Family Hx:: Cancer
--- NOTE | 2020-08-24 16:30 | HMH.ANESI ---
[facility] Anesthesia Record Part I Intake, IV Amount: 1,000 Estimated blood loss (mL): 50 Urine output (mL): 50 Blood Products used (#): none Blood Pressure: 93/60 SaO2: 95 Pulse Rate: 77 Respiratory Rate: 18 Temperature: 97.6 F Patient is:: Drowsy, Stable Stable to PACU at:: 16:28
--- NOTE | 2020-08-24 16:36 | XR_ITS ---
PROCEDURE: XR HIP LT 2-3V W/PELVIS CLINICAL INDICATION: post op Status post left hip arthroplasty COMPARISON: CR XR HIP LT 2-3V W/PELVIS from 08/23/2020 FINDINGS: Status post left hip hemiarthroplasty. There is good alignment with no evidence of complications. Postsurgical gas noted. There is a Aguero catheter present. IMPRESSION: Good alignment status post left hip hemiarthroplasty Dictated by: Larry Hope MD 08/24/2020 17:47 Larry Hope MD in [place] 08/24/2020 17:47
--- NOTE | 2020-08-24 17:05 | HMH.OPNOTE ---
Date of procedure: 08/24/20 Pre-op Diagnosis:: left femoral neck fracture Post-op Diagnosis:: left femoral neck fracture Procedure performed:: left hip hemiarthroplasty Surgeon:: Roslyn Savage MD [employer] Specialist(s):: Ирина Castorena DISPATCHER RADIOACTIVE WASTE DISPOSAL:: Maxi Brizuela Anesthesia: MAC, spinal Estimated blood loss (mL): 150 Clinical Note:: 79-year-old female admitted through the ER this afternoon after a fall earlier today at home. She reports she stood off the couch and fell, landing on her left hip. She is not sure whether the hip broke prior to the fall, causing the fall, or as a result of landing on her side. She denies any LOC during the incident and denies preceding chest pain, shortness of breath or dizziness. She has a history of hypertension and postherpetic neuralgia. Prior surgeries include cholecystectomy, hysterectomy and a surgery on her back. She takes gabapentin, tramadol and lisinopril at home. Allergic to codeine, penicillin and morphine. She is a former smoker and does not currently smoke cigarettes. There are no open wounds or bruising over her left hip, no numbness or tingling in the leg. She has never injured this hip before or had any prior surgeries on this hip. She lives at home with her in a one-story home, and her children are close by to provide assistance if needed. Aguero catheter was placed in the ER on admission. I discussed treatment options with the patient and her family, including both operative and nonoperative interventions. I discussed the risk of nonoperative treatment, including persistent pain, inability or difficulty with ambulation, continued fracture displacement necessitating surgical treatment, pressure ulcers, DVT/PE, pneumonia, UTI, and other consequences of bed confinement. I also discussed the risk of surgical treatment. Specifically I discussed the options of a hip pinning versus hemiarthroplasty. I do not believe hip pinning is flynn and will inevitably fail, necessitating a second procedure. My recommendation is for hemiarthroplasty. We discussed the risks of hemiarthroplasty, including but not limited to: bleeding, infection, neurovascular damage, intraoperative fracture, persistent pain and/or disability despite surgery, risk of postoperative prosthesis dislocation, and risks of anesthesia including heart attack, stroke and even . The patient has elected for surgical intervention, and vocalized understanding of the risks and benefits; informed consent was obtained. Operative findings:: IMPLANTS: [employer] Bipolar Hemiarthroplasty -- Synergy size 11 cemented stem, standard offset distal centralizer/cement restrictor 43mm Bipolar shell 28mm +8mm CoCr head Operative note:: The patient was identified in preoperative holding and the L hip signed by myself. Consent was reviewed with the patient and all questions answered. She was then taken to the operating room where spinal anesthesia was administered while on the hospital bed. Once the spinal was completed, the patient was transferred to the operative table and 900mg clindamycin was infused intravenously. Light intravenous sedation was given. She was then placed into the right lateral decubitus position with an axillary roll, arms on arm boards supported with pillows, and all bony prominences including the right lower extremity well-padded. SCD was placed on the right lower extremity. The left hip was then prepped and draped in the usual sterile fashion. Timeout was performed, identifying the correct patient, correct procedure and correct site. The procedure was begun by making a longitudinal, curvilinear incision over the posterolateral aspect the the left hip, centered over the greater trochanter. Subcutaneous tissue was dissected with cautery until fascia was encountered. The fascia was incised in line with the shaft of the femur distally and curved proximally; fibers of the gluteus cha were bluntly spread with finger dissection. Zuleyka
--- NOTE | 2020-08-24 17:05 | HMH.ORTHPN ---
Subjective Date: 08/24/20 Time: 17:20 Principal diagnosis: L femoral neck fracture Interval history: The patient underwent L hip hemiarthroplasty this afternoon without complication. Received 1L LR in surgery with estimated EBL of 150cc. Minimal UOP of around 30-50cc. Vitals are stable in PACU. PN: Obj Ex Vital signs: Temp Pulse Resp BP Pulse Ox 97.5 F L 78 16 117/62 96 08/24/20 16:58 08/24/20 16:58 08/24/20 16:58 08/24/20 16:58 08/24/20 16:58 - Constitutional no acute distress - Routine HEENT Exam Head: Present: normocephalic Eye: Present: EOMI ENT: Present: mucous membranes moist - Routine Neck Exam Present: supple, trachea midline - Routine Respiratory Exam Absent: respiratory distress - Routine Cardiovascular Exam Present: RRR - Routine Abdominal Exam Present: soft. Absent: tenderness - Routine Exam Comments: biswas to gravity, urine yellow but concentrated - Routine Extremities Exam Comments: L hip dressings c/d/i w/o strikethrough sensation/motion LLE impaired due to presence of spinal anesthetic L calf soft, non-tender palpable pedal pulses LLE, foot pink/warm - Routine Skin Exam Present: warm - Urinary Catheter Management Biswas Cath placed during this visit: no Progress Note: A&P (1) Femoral neck fracture Status: Acute (2) Essential hypertension Status: Chronic (3) Chronic pain disorder Status: Chronic (4) COPD (chronic obstructive pulmonary disease) Status: Chronic (5) Postherpetic neuralgia at T3-T5 level Status: Chronic (6) Left upper arm pain Status: Acute Assessment and Plan for All Diagnoses:: 79yo F POD 0 s/p L hip hemiarthroplasty for FNF -- may be OOB as tolerated with assist; WBAT LLE -- PT/OT to eval. Posterior hip precautions, abduction pillow. -- SCD RLE -- encourage IS 10x/hr while awake -- ice pack L hip as needed -- DVT prophy per primary physician; may start tomorrow -- finish 24hr IV antibiotic prophylaxis -- pain control; po/IV meds ordered PRN -- care management consult for dispo planning -- medical management per Dr. Lira
--- NOTE | 2020-08-24 18:20 | HMH.ANESII ---
[facility] Anesthesia Record Part II Discharge Time: 16:58 Destination: Medical Surgical Department PACU nurse assessment reviewed?: Yes Patient Condition:: Good Anesthesia Complications:: None Swallowing reflex intact?: Yes Cyanosis?: No Blood Pressure: 117/62 Pulse Rate: 78 Temperature: 97.5 F Mental Status: Alert & Oriented Pain level:: 0 Nausea and/or vomitting:: None Intake, IV Amount: 50
--- NOTE | 2020-08-24 19:44 | PC.NURSE ---
Pt has been pleasant and cooperative this shift. A&O X4. Pt is post-operative from a LT hip sx. Pt complained of pain X1 prior to sx and received Dilaudid per MAR with favorable results. Lungs CTA. No edema noted. LT hip surgical dressing is C/D/I. Ice pack in place. IPC sleeve to the RLE. Abduction pillow in place. Post-MAC sedation vital signs in progress. Pt is currently receiving O2 @ 1 LPM via NC with sats. >90%. 22 G peripheral IV in the LT hand is patent and infusing NS @ 50 ML/HR. F/C patent and draining dark, beni urine at bedside to gravity. VSS. Call light within reach. Will continue to monitor.
[2020-08-25] VITALS (41 sets, daily range): BP systolic 59–175; BP diastolic 21–94; PULSE 49–150; RESP 18–33; TEMP 35.3–36.9; O2SAT 80–100; BMI 20.2
--- NOTE | 2020-08-25 05:29 | PC.NURSE ---
Pt A&Ox4, lungs clear bilaterally, active bowel sounds, biswas to bedside drain is patent with clear, yellow urine noted. Catheter care provided by staff. No BM this shift, pt flatulent. Pt turned Q2H w/ abductor pillow in place. Drsg to left hip in C/D/I. Ice pack used intermediately during shift. Pt has c/o pain multiple times although she is vague on whether it is acute or chronic stating she hurts all over and she always hurts'. Pt has been medicated per MAR with relief of pain noted using PRN dilaudid. SCUD to right leg in place. Distal pulse to affected extremity +2, good cap refill, neurovascularly intact, calf soft and non-tender. Pt encouraged to us IS often t/o shift. Will continue to monitor.
--- NOTE | 2020-08-25 05:53 | PC.NURSE ---
Addendum entered by Jimmy Stuart RN 08/25/20 06:18: O2 sat of 97% on 1LNC at this time. Will continue attempts to wean. Original Note: RA sat of 82%. 2LNC reapplied
--- NOTE | 2020-08-25 08:30 | PC.NURSE ---
rounded with Dr. Lira. New order to wean O2 to OFF, increase Oxycodone to 10mg, and d/c biswas catheter. He also increased MIVF to 100ml/hr until bag complete then discontinue,
--- NOTE | 2020-08-25 10:14 | HMH.ACPN2 ---
Internal Medicine - PN: Subj *Date: 08/25/20 *Time: 08:20 Interval history: Ms. Moulton did fair overnight. Required as needed IV pain meds due to postsurgical pain. Alert and oriented this morning however. Less oxygen required overnight. Remains afebrile, no active bleeding. Denies chest pain or shortness of breath. Daughter with her at bedside, physical therapy to assess her today. Patient does complain of just hurting all over. She is alert and oriented however. Exam Vital signs and Labs for Last 24 Hours: Temp Pulse Resp BP Pulse Ox 98.2 F 78 18 153/81 H 99 08/25/20 08:00 08/25/20 08:00 08/25/20 08:00 08/25/20 08:00 08/25/20 08:00 I & O for Last 24 hours: Intake & Output 08/22/20 08/23/20 08/24/20 08/25/20 23:59 23:59 23:59 23:59 Intake Total 460 / 535 1405 / 1405 773 / 773 Output Total 420 / 470 50 / 50 600 / 600 Balance 40 / 65 1355 / 1355 173 / 173 Weight 44.14 kg 44.906 kg 46.862 kg Narrative: - Constitutional minimal distress, thin, cooperative - *Routine HEENT Exam Head: Present: normocephalic Eye: Present: EOMI, PERRL ENT: Present: mucous membranes moist - *Routine Neck Exam Present: supple. Absent: lymphadenopathy - *Routine Respiratory Exam Present: CTA bilaterally - *Routine Cardiovascular Exam Present: RRR - *Routine Abdominal Exam Present: soft, normoactive bowel sounds. Absent: tenderness - *Routine Extremities Exam Absent: cyanosis, clubbing, edema Comments: Bruising of the left upper arm. Left hip tender to palpation over surgical incision, bandage clean dry and intact, no significant bruising. - *Routine Skin Exam Present: warm, ecchymosis. Absent: rash - *Routine Neurological Exam Present: alert, oriented X3 Assessment and Plan (1) Femoral neck fracture Status: Acute Category: Medical Code(s): S72.009A - Fracture of unspecified part of neck of unspecified femur, initial encounter for closed fracture (2) Essential hypertension Status: Chronic Category: Medical Code(s): I10 - Essential (primary) hypertension (3) Chronic pain disorder Status: Chronic Category: Medical Code(s): G89.4 - Chronic pain syndrome (4) COPD (chronic obstructive pulmonary disease) Status: Chronic Category: Medical Code(s): J44.9 - Chronic obstructive pulmonary disease, unspecified (5) Postherpetic neuralgia at T3-T5 level Status: Chronic Category: Medical Code(s): B02.29 - Other postherpetic nervous system involvement (6) Left upper arm pain Status: Acute Category: Medical Code(s): M79.622 - Pain in left upper arm - Assessment and plan all Dx Assessment and Plan for all problems:: 79-year-old female status post surgical fixation of left femoral neck fracture. Will adjust regimen for pain control today. Physical therapy to see her today. Discontinue Aguero. Continue regular diet. Will attempt to wean oxygen as she does not wear this at home and has no acute respiratory infection or need. Has been added at night because she will have desaturations into the high 80s while sleeping. No other signs of respiratory distress. On Lovenox at this time, plan to transition to high-dose aspirin for DVT prophylaxis at discharge. Family wanting to take patient home with home health PT. Pending PT assessment, anticipate discharge in the coming days when medically appropriate.
[2020-08-25 10:32] LABS: Basophils % 0.3 % (0.1-2.0); Eosinophils # 0.1 K/mm3 (0.0-0.4); Eosinophils % 0.6 % (0.1-12.0); Hemoglobin 11.7 g/dL (12.2-16.2); Lymphocytes # 1.8 K/mm3 (0.7-4.5); Lymphocytes % 13.7 % (10-50); Mean Corpuscular HGB Conc 34.2 g/dL (31.8-35.4); Mean Corpuscular Hemoglobin 32.3 pg (27.0-31.2); Mean Corpuscular Volume 94.5 fl (81-99); Mean Platelet Volume 9.9 fl (7.4-10.4); Monocytes # 1.1 K/mm3 (0.1-1.0); Monocytes % 8.2 % (1.7-9.3); Neutrophils # 10.1 K/mm3 (1.8-7.8); Neutrophils % 77.2 % (37.0-80.0); Platelet Count 143 K/mm3 (142-424); Red Cell Distribution Width 16.1 % (11.5-17.5); White Blood Count 13.1 K/mm3 (4.8-10.8)
--- NOTE | 2020-08-25 11:12 | HMH.PTEV ---
Physical Therapy Evaluation Rehab PT IP Evaluation Start: 08/24/20 17:01 Freq: ONCE Status: Active Protocol: Document 08/25/20 11:03 CARTERJOHN (Rec: 08/25/20 11:09 ABELROSA [id number]) Subjective/History History History PT ADMITTED TO [facility] 79 YO FEMALE S/P L HIP FX-ORIF L HEMIARTHROLASTY ON 08/24/20 Subjective Subjective PT REPORTS 5/10 L HIP PAIN THIS AM. Rehab PT IP Eval Objective Appearance Patient Behavior Appropriate,Cooperative, Fatigued Patient Orientation Person,Place,Time,Birthday, Situation Difficulty following instructions none Speech Pattern Clear,Appropriate,Coherent Ambulation Patient Able to Ambulate No Balance Ability to Arise Able, uses arms to help Sitting Balance Leans or slides in chair Standing Balance Unsteady Dynamic Sitting Balance Ability Fair Dynamic Standing Balance Ability Poor Transfers Bed Transfer Ability Maximum x 1 (75% assist) Sit to Stand Bed Transfer Ability Maximum x 1 (75% assist) Sit to Stand Chair Transfer Ability Maximum x 1 (75% assist) Pain left hip Pain Intensity 5 ROM RUE PT ROM Status WFL RLE PT ROM Status WFL LUE PT ROM Status WFL LLE PT ROM Status ABN Abnormal ROM Comment LIMITED D/T PRECAUTIONS AND PAIN MMT RUE PT MMT WFL RLE PT MMT WFL LUE PT MMT WFL LLE PT MMT ABN Abnormal MMT Grade LIMITED 3/5 Rehab PT IP prob,goals,plan Problems Date of Evaluation: 08/25/20 PT IP Problems Bed Mobility,Transfers,Gait, Balance,Self care,Safety Rehab Potential Rehab Potential Good Equipment Needs Assistive Devices Rolling / Wheeled Walker Plan PT Intervention Plan Bed Mobility,Transfers,Gait, Balance,Self care,Safety, Therapeutic Exercise PT Plan Frequency BID Duration LOS Discharge Goals Bed Transfer Ability Minimal x 1 (25% assist) Sit to Stand Chair Transfer Ability Minimal x 1 (25% assist) Ambulation Assistive Device Rolling Walker Ambulation Distance (feet) 10 Discharge Plan PT Discharge Plan PT TO D/C TO REHAB FACILITY W/ EXECUTION OF D/C GOALS G -code Required No Faustina
--- NOTE | 2020-08-25 11:16 | HMH.OTEV ---
OT Inpatient Evaluation Rehab OT IP Evaluation Start: 08/25/20 09:48 Freq: ONCE Status: Complete Protocol: Document 08/25/20 11:08 [facility] (Rec: 08/25/20 11:16 [facility] [id number]) Rehab OT IP Assessment Subjective History Pt oriented x3 on arrival. Pt agreeable to engage in therapy evaluation. Pt was admitted via ED on 08/23/20 after a fall at home resulting in a left hip fx. Pt has a past medical history of COPD and HTN. Pt had a left hip hemiarthroplasty on 08/24/20. Pt reports prior to her fall she lived at home with her . Daughter present during therapy evaluation. Pt claims she was independent with ADL's and IADL's prior to fall. Pt did use a walker at home. Daughter reports family did assist with IADL's. Subjective I will do my best. Objective Patient Orientation Person,Place,Birthday Upper Extremity Gross ROM WFL Bed Mobility bed mobility-scooting,bed mobility - supine/sit,bed mobility - rolling Assist Level Minimal x 2 (25% assist) Transfer Training Sit/Stand Transfer Assist Level Minimal x 1 (25% assist) Rehab OT IP prob,goals,plan Problems Date of Evaluation: 08/25/20 OT IP Problems Bed Mobility,Transfers,Gait, Balance,Self care,Safety Rehab Potential Rehab Potential Good Equipment Needs Assistive Devices Rolling / Wheeled Walker Plan OT intervention Plan Bed Mobility,Transfers,Gait, Balance,Self care,Safety, Therapeutic Exercise OT Plan Frequency Daily Duration LOS Discharge Goals Bed Mobility Ability Standby Assistance Sit to Stand Chair Transfer Ability Contact Guard/Hand Hold Chair Transfer Ability Contact Guard/Hand Hold Chair Transfer Technique Sit to/from Ambulatory Chair Transfer Assistive Devices Rolling Walker Feeding Ability Independent Lower Body Dressing Ability Assistance X1 Upper Body Dressing Ability Standby Assistance Bathing Ability Assistance x1 Performing Toilet Hygiene Ability Standby Assistance Overall Commode/Toilet Transfer Ability
[2020-08-25 11:33] LABS: Chloride 104 mmol/L (98-107); Potassium 4.5 mmoL/L (3.5-5.1); Sodium 137 mmol/L (136-145)
[2020-08-25 11:36] LABS: Anion Gap 15.5 mEq/L (5-15); Blood Urea Nitrogen 27 mg/dl (7-17); Carbon Dioxide 22 mmol/L (22.0-30.0); Creatinine Clearance Estimated 33 mL/min (50-200); Estimated Glomerular Filt Rate 60 ml/min (>60); GFR (African American) 73 ML/MIN (>60)
[2020-08-25 11:37] LABS: Calcium 8.4 mg/dl (8.4-10.2); Glucose 129 mg/dl (74-100)
--- NOTE | 2020-08-25 13:16 | PC.NURSE ---
SBP @ 1300 is 70, both manually and with datascope. Pt is lethargi. BUE are cold and BLE are cool. Got her OOB to BSC secondary to her telling us that she has to pee. She did not pee. Bladder is not distended. She has not urinated since I took catheter out this morning @ 0800. Paged christin GARRIDO (Brianna) @ 1310. Dr. Reed called back @ 1315 and ordered a 1L NS bolus via PIV. Order faxed to pharmacy on his behalf.
--- NOTE | 2020-08-25 13:50 | ECG_ITS ---
APPROVED REPORT Exam: Resting ECG HR:156 bpm ECG Measurements Heart Rate 156 AXES QRSd 70 QRS 51 QT 254 T 222 QTc 409 Conclusion Atrial fibrillation with rapid ventricular response Septal infarct, age undetermined Marked ST abnormality, possible lateral subendocardial injury Abnormal ECG Electronically signed by : Maxi Azevedo, 08/26/2020 19:56:23
--- NOTE | 2020-08-25 14:20 | P.PN_ITS ---
Subjective Date: 08/25/20 Time: 14:00 Principal diagnosis: L femoral neck fracture Interval history: Mahogany Moulton is an 78-year-old female who is status post LEFT hip bipolar hemiarthroplasty, post op day # 1. She is lying down on the bed . Patient was noted to have hypotension and tachycardia and is being resuscitated. Dr. Lira is at the bedside. PN: Obj Ex Vital signs: Temp Pulse Resp BP Pulse Ox 97.6 F 120 H 18 73/39 L 87 L 08/25/20 12:00 08/25/20 13:35 08/25/20 12:00 08/25/20 13:35 08/25/20 12:00 Narrative: Laboratory Results - last 24 hr 08/25/20 09:35: WBC 13.1 H, RBC 3.60 L, Hgb 11.7 L, Hct 34.0 L, MCV 94.5, MCH 32.3 H, MCHC 34.2, RDW 16.1, Plt Count 143, MPV 9.9, Neut % (Auto) 77.2, Lymph % (Auto) 13.7, Latimer % (Auto) 8.2, Eos % (Auto) 0.6, Baso % (Auto) 0.3, Neut # (Auto) 10.1 H, Lymph # (Auto) 1.8, Latimer # (Auto) 1.1 H, Eos # (Auto) 0.1, Baso # (Auto) 0.0 08/25/20 09:35: Sodium 137, Potassium 4.5, Chloride 104, Carbon Dioxide 22, Anion Gap 15.5 H, BUN 27 H D, Creatinine 0.90, Estimated Creat Clear 33, Estimated GFR 60, Est GFR ( Amer) 73, Glucose 129 H, Calcium 8.4 Intake & Output 08/25/20 08/25/20 08/25/20 03:59 11:59 19:59 Intake Total 773 / 2103 447 / 447 Output Total 200 / 600 400 / 600 Balance -200 / 1503 373 / 1503 447 / 447 Weight 103 lb 5 oz On examination of her LEFT lower extremity, the limb lengths are equal. The alignment is neutral. The dressings over the LEFT hip are clean, dry and intact. No soakage or strikethrough noted. No signs of any active bleeding noted. Her thigh and calf are soft and nontender. Distal neurovascular status is intact. - Urinary Catheter Management Aguero Cath placed during this visit: no Progress Note: A&P (1) Femoral neck fracture Status: Acute (2) Essential hypertension Status: Chronic (3) Chronic pain disorder Status: Chronic (4) COPD (chronic obstructive pulmonary disease) Status: Chronic (5) Postherpetic neuralgia at T3-T5 level Status: Chronic (6) Left upper arm pain Status: Acute Assessment and Plan for All Diagnoses:: I have reviewed her vital signs, lab results, nursing notes, medical progress notes, medication and also discussed with Dr. Lira regarding her progress. Continue physical therapy and mobilization weightbearing as tolerated with the walker when she is able to participate in physical therapy from a medical standpoint. Use abduction pillow when in bed and continue using this for 6 weeks postop. Continue standard precautions for posterior approach to the hip joint. Continue DVT prophylaxis as per admitting physician. Continue medical management as per Dr. Lira.
--- NOTE | 2020-08-25 15:04 | XR_ITS ---
PROCEDURE: XR CHEST PORTABLE CLINICAL HISTORY: right IJ TLDL placement COMPARISON: CR CXR CHEST(2 VIEWS-NOT PORTABLE) from 07/28/2014 CR XR CHEST PORTABLE from 07/03/[address] CHEST W CON from 07/06/2019 CR XR CHEST PORTABLE from 08/23/2020 FINDINGS: Right IJ central venous line is present. The tip is in the region of the SVC. Cannot adequately evaluate for right-sided pneumothorax due to overlying defibrillating pad. No lobar consolidation or collapse. No large pneumothorax apparent. There is mild cardiomegaly without failure. IMPRESSION: Right IJ central venous line tip in the region the SVC. No large pneumothorax evident. Dictated by: Larry Hope MD 08/25/2020 15:33 Larry Hope MD in [place] 08/25/2020 15:33
[2020-08-25 15:07] LABS: Troponin I 1.16 ng/ml (0.00-0.034)
--- NOTE | 2020-08-25 15:20 | PC.NURSE ---
critical troponin was reported to primary rn and dr. mahoney at time of result
[2020-08-25 16:13] LABS: Basophils % 0.2 % (0.1-2.0); Eosinophils % 0.1 % (0.1-12.0); Hematocrit 26.5 % (37.0-47.0); Lymphocytes # 0.9 K/mm3 (0.7-4.5); Lymphocytes % 6.7 % (10-50); Mean Corpuscular Hemoglobin 30.9 pg (27.0-31.2); Mean Corpuscular Volume 99.8 fl (81-99); Mean Platelet Volume 8.3 fl (7.4-10.4); Monocytes % 7.4 % (1.7-9.3); Neutrophils # 11.4 K/mm3 (1.8-7.8); Neutrophils % 85.6 % (37.0-80.0); Platelet Count 164 K/mm3 (142-424); Red Blood Count 2.65 M/mm3 (4.20-5.40); Red Cell Distribution Width 15.4 % (11.5-17.5); White Blood Count 13.3 K/mm3 (4.8-10.8)
[2020-08-25 16:14] LABS: Chloride 105 mmol/L (98-107)
[2020-08-25 16:15] LABS: Potassium 3.9 mmoL/L (3.5-5.1); Sodium 137 mmol/L (136-145)
[2020-08-25 16:17] LABS: Alanine Aminotransferase 49 U/L (12-78); Alkaline Phosphatase 64 U/L (38-126); Aspartate Amino Transferase 81 U/L (14-36); Bilirubin,Total 2.2 mg/dl (0.2-1.3); Blood Urea Nitrogen 28 mg/dl (7-17); Creatinine Clearance Estimated 30 mL/min (50-200); Estimated Glomerular Filt Rate 48 ml/min (>60); GFR (African American) 58 ML/MIN (>60); Hemoglobin 8.2 g/dL (12.2-16.2); MANUAL DIFFERENTIAL MANUAL DIFFERENTIAL (MANUAL DIFF)
[2020-08-25 16:18] LABS: Albumin Level 3.3 g/dl (3.5-5.0); Albumin/Globulin Ratio 1.4 (1.1-1.8); Anion Gap 14.9 mEq/L (5-15); Calcium 7.8 mg/dl (8.4-10.2); Carbon Dioxide 21 mmol/L (22.0-30.0); Globulin 2.3 g/dL (1.3-3.2); Glucose 173 mg/dl (74-100); Total Protein,Serum 5.6 g/dl (6.3-8.2)
--- NOTE | 2020-08-25 17:00 | PC.NURSE ---
Dr. Lira notified of critical Troponin of 1.00.
--- NOTE | 2020-08-25 18:02 | P.PN_ITS ---
Critical Care Event Note Code activated: Yes Narrative: This case had a high probability of a clinically significant, sudden, or life threatening deterioration of this patient's condition which required my full and direct attention, intervention and personal management. Patient noted to have hypotension and somnolence. I was contacted to assess patient and treat her acute change in mental status. Given her hypotension, hypoxia, and the acute change, a code was activated to mobilize resources more appropriately. Initial work-up with presence of hypotension necessitating Levophed drip to improve maps, required 1 L bolus normal saline, and initial EKG obtained showing A. fib with RVR with heart rate in the 160s. Patient showed improvement in her blood pressure with Levophed while numerous attempts were made to obtain further peripheral access. Maintained alertness during this timeframe and oxygen support was increased to 100% nonrebreather. Able to obtain troponin but unable to get further labs or access necessitating placement of central line with the assistance of ER physician. Initial troponin noted to be 1.1. A. fib with RVR treated with 3 doses of 5 mg of IV diltiazem with minimal improvement in rate, diltiazem drip was initiated but unable to capture tachyarrhythmia. Further review of chart, clinical status, and medications performed. Decision made to transition patient over to metoprolol for better heart rate control in the setting of NSTEMI. Responded quite well to 5 mg twice of IV metoprolol. Initiated on oral metoprolol. Additionally given the beta agonist effect of Levophed, transitioned over to Jackson-Synephrine for vasopressor support. Decision made to load patient with amiodarone to achieve better control of her heart rate. Repeat troponin 1.0. As patient's blood pressure and heart rate improved so did her cognition. At no time did she have chest pain. Decision made to escalate level of care to stepdown given necessity for drips to treat her acute postoperative atrial fibrillation. Total time greater than 2 hours in direct and indirect patient care including ACLS for tachycardia, review of EKGs, monitoring response to IV medications, and communication with family who are at bedside throughout the afternoon. Patient's condition remains critical, prognosis guarded. Critical care time: 105 - 134 mins [facility] Critical Care Exam Vital signs: Temp Pulse Resp BP Pulse Ox 97.6 F 120 H 18 73/39 L 87 L 08/25/20 12:00 12/05/20 13:35 08/25/20 12:00 08/25/20 13:35 08/25/20 12:00
[2020-08-25 18:16] LABS: Troponin I 1.16 ng/ml (0.00-0.034)
[2020-08-25 18:19] LABS: Lymphocytes % 3 % (10-50); Monocytes % 2 % (2-9); Neutrophils % 94 % (42-76); Platelet Estimate Normal; RBC Morphology Normal; Total Cells Counted 100
--- NOTE | 2020-08-25 18:39 | PC.NURSE ---
notified Dr. Reed @ 8199 of troponin 1.16
--- NOTE | 2020-08-25 19:57 | HMH.PROC ---
[facility] Procedure Note Procedure Note:: I was called to the floor to obtain vascular access during rapid read. Patient was found to be hypotensive in atrial fibrillation with rapid ventricular response. Patient required pressor support. Decision was made to obtain internal venous access. Consent was implied emergent. Patient was prepped. Timeout performed. Sterile drape placed. Cleaned with chlorhexidine. Right IJ 16 Guamanian triple-lumen was placed under ultrasound guidance. Patient tolerated procedure well. Chest x-ray confirmed placement. All lines gautam well. Estimated blood loss 5 mL. Patient tolerated procedure well.
--- NOTE | 2020-08-25 20:07 | PC.NURSE ---
Rapid red called @ 1342 secondary to hypotension, tachycardia, lethargy, and clamminess. BP 88/49. Dr. Lira @ BS when rapid red called. Crash cart @ BS and pt placed on zoll. EKG @ 1350, read by Dr. Lira, shows Afib with RVR. HR 120-150s. Multiple attempts @ getting a 2nd PIV without any luck. Pt had a 22g PIV in left hand. Dr. Lira ordered the following CBC, CMP, Troponin, and to start Levophed gtt. All orders below are per Dr. Lira. 1347: Levo gtt started 10mcg/min 1348: HR 150s 1349:102/66 1351: 133/94 1352: Levo decreased to 8 mcg/min 1354: Diltiazem 5mg IV x 1 dose given. O2 sat in the 70s on 50% venti mask 1357: venti mask switched to NRB mask 1400: 137/60 1402: 2nd dose of Diltiazem 5mg IV given 1405: 85/67 1410: Diltiazem gtt started @ 5mg/hr (5ml/hr) 1414: 103/69 1425: still unable to get additional PIV access. Dr. Lira attempted left EJ without success. 1430: called ER ([facility]) and asked that ED MD come to BS per Dr. Lira to insert central line 1435: 89/61 1440: called ED (Emilia) per Dr. Lira to see where ED MD was. Emilia reports that MD knows . 1445: 153/90. ED MD Shrestha @ BS 1502: Right IJ TLDL has been inserted by Dr. Shrestha 1508: CXR confirms placement. Dr. Lira gave verbal order to use central line 1510: Diltiazem 5mg IV via central line 1515: repeat EKG per Dr. Lira. Also read by Dr. Lira who continues @ BS 1517: increased Diltiazem gtt to 10mg/hr per Dr. Lira 1520: Decreased Levo gtt to 6 mcg/min per Dr. Lira. Decreased O2 to 50% venti mask from NRB 1523: 128/85. Zoll has been taken off of pt. Pt now on tele monitor. 1534: 130/87 1539: Dr. Savage called and has been updated. Dr. Lira ordered NS @ 100ml/hr. 1540: Diltazem gtt OFF per Dr. Lira 1542: Dr. Lira ordered Troponin, CBC, and CMP. 1548: Metoprolol 5mg IV given per Dr. Lira 1606: 2nd dose of Metoprolol 5mg IV given per Dr. Lira 1635: Dilaudid 0.5mg IV given for pain per Dr. Lira 1722: Dr. Lira consulted with Dr. Yee. Dr. Lira has ordered Amio bolus. Amio bolus started @ this time. 1730: Jackson gtt started @ 40mcg/min (60ml/hr) per Dr. Lira. Amio maintenance started @ 1mg/min. Levo gtt is now OFF. 173: 65/43. Jackson gtt increased to 50mcg/min 1745: 59/21. Levo gtt turned back on a 10 mcg/min per Dr. Lira. Jackson gtt is OFF. Dr. Lira ordered to transfuse 1 unit PRBC. 1750: 61/39. Levo gtt increased to 20 mcg/min. 175: Dr. Lira has left as he his not oncall. Contacted Dr. Reed for sustained hypotension. Jackson restarted @ 100mcg/min per Dr. Reed. 1800: 95/53 1803: 113/47 1820: 137/78. Decreased Jackson gtt to 90 mcg/min 182: Dr. Reed called to check on pt. Updated him. He ordered to wean Jackson gtt first and to give 1L NS bolus. Order faxed to [facility]. 1830: NS bolus started 1835: 114/55 1850: 141/63. Decreased Jackson gtt to 80 mcg/min 190: moved pt to room 219 for contiunous monitoring 1926: 129/67. Gave report to Jono Ahmadi RN. Also informed her to keep Dr. Reed updated per his request.
--- NOTE | 2020-08-25 20:36 | ECG_ITS ---
APPROVED REPORT Exam: Resting ECG HR:65 bpm ECG Measurements Heart Rate 65 AXES QRSd 84 QRS 56 QT 380 T 245 QTc 395 Conclusion Atrial fibrillation with a competing junctional pacemaker ST & T wave abnormality, consider inferior ischemia or digitalis effect ST & T wave abnormality, consider anterolateral ischemia or digitalis effect Abnormal ECG Electronically signed by : Maxi Azevedo, 08/26/2020 19:54:57
[2020-08-25 21:40] LABS: Troponin I 1.21 ng/ml (0.00-0.034)
--- NOTE | 2020-08-25 22:49 | XR_ITS ---
PROCEDURE: XR CHEST PORTABLE CLINICAL HISTORY: low O2 sats COMPARISON: CR XR CHEST PORTABLE from 07/03/[address] CHEST W CON from 07/06/2019 CR XR CHEST PORTABLE from 08/23/2020 CR XR CHEST PORTABLE from 08/25/2020 FINDINGS: Right IJ central venous line is present with the tip in the region the SVC. There is mild cardiomegaly without failure. Hyperinflation consistent with COPD. No evidence of pneumothorax. Patient is tilted toward the right. Increased density is present in the right lung base laterally which may be due to underlying infiltrate or soft tissue attenuation. There is a small right pleural effusion. Scarring is noted in the left lower lobe. No acute bony abnormalities. IMPRESSION: Possible infiltrate in the right lower lobe with small right effusion with COPD. Recommend upright PA and lateral chest when patient can tolerate Dictated by: Larry Hope MD 08/26/2020 05:57 Larry Hope MD in [place] 08/26/2020 05:57
--- NOTE | 2020-08-25 23:02 | ECG_ITS ---
APPROVED REPORT Exam: Resting ECG HR:50 bpm ECG Measurements Heart Rate 50 AXES QRSd 92 QRS 61 QT 480 T -90 QTc [address] & T wave abnormality, consider inferior ischemia ST & T wave abnormality, consider anterolateral ischemia Abnormal ECG Electronically signed by : Maxi Azevedo, 08/26/2020 19:54:15
[2020-08-25 23:04] LABS: ABG Base Excess -23.5 mmol/L (-2.4-2.3); ABG Oxygen Saturation 100 % (90-100); ABG PCO2 26.1 mmhg (35.0-45.0); ABG PO2 419.2 mmhg (80-100); ABG TCO2 7.8 mmhg (23-27); Allen's Test Y; Oxygen 100 %; Source R/R
[2020-08-25 23:06] LABS: ABG PH 7.05 mmol/L (7.35-7.45)
[2020-08-25 23:16] LABS: Basophils # 0.1 K/mm3 (0-0.2); Basophils % 0.3 % (0.1-2.0); Eosinophils % 0.2 % (0.1-12.0); Hematocrit 36.5 % (37.0-47.0); Lymphocytes % 10.9 % (10-50); Mean Corpuscular HGB Conc 29.7 g/dL (31.8-35.4); Mean Corpuscular Hemoglobin 30.7 pg (27.0-31.2); Mean Corpuscular Volume 103.1 fl (81-99); Mean Platelet Volume 9.1 fl (7.4-10.4); Monocytes # 1.1 K/mm3 (0.1-1.0); Neutrophils # 15.4 K/mm3 (1.8-7.8); Neutrophils % 82.6 % (37.0-80.0); Platelet Count 176 K/mm3 (142-424); Red Blood Count 3.54 M/mm3 (4.20-5.40); Red Cell Distribution Width 15.5 % (11.5-17.5); White Blood Count 18.7 K/mm3 (4.8-10.8)
[2020-08-25 23:18] LABS: Chloride 109 mmol/L (98-107); Potassium 4.6 mmoL/L (3.5-5.1); Sodium 135 mmol/L (136-145)
[2020-08-25 23:21] LABS: Anion Gap 20.6 mEq/L (5-15); Blood Urea Nitrogen 24 mg/dl (7-17); Creatinine Clearance Estimated 27 mL/min (50-200); Estimated Glomerular Filt Rate 43 ml/min (>60); GFR (African American) 52 ML/MIN (>60); Glucose 186 mg/dl (74-100)
[2020-08-25 23:41] LABS: Hemoglobin 10.9 g/dL (12.2-16.2)
[2020-08-25 23:43] LABS: Carbon Dioxide 10 mmol/L (22.0-30.0)
[2020-08-25 23:45] LABS: Troponin I 1.49 ng/ml (0.00-0.034)
[2020-08-25 23:46] LABS: Calcium 6.8 mg/dl (8.4-10.2)
[2020-08-26] VITALS (26 sets, daily range): BP systolic 79–125; BP diastolic 48–72; PULSE 50–86; RESP 18–30; TEMP 36.1–36.6; O2SAT 88–100; BMI 19.8
[2020-08-26 00:58] LABS: ABG Base Excess -16.4 mmol/L (-2.4-2.3); ABG HCO3 13.3 mmhg (22.0-26.0); ABG Oxygen Saturation 84 % (90-100); ABG PCO2 44.3 mmhg (35.0-45.0); ABG PO2 62.6 mmhg (80-100); ABG TCO2 14.7 mmhg (23-27); Allen's Test Y; Oxygen 40 %; Source R/R
--- NOTE | 2020-08-26 01:00 | ECG_ITS ---
APPROVED REPORT Exam: Resting ECG HR:77 bpm ECG Measurements Heart Rate 77 AXES AK 126 P 50 QRSd 70 QRS 56 QT 414 T 191 QTc 468 Conclusion Normal sinus rhythm ST & T wave abnormality, consider inferior ischemia ST & T wave abnormality, consider anterolateral ischemia Abnormal ECG Electronically signed by : Maxi Azevedo, 08/27/2020 08:11:51
[2020-08-26 02:15] LABS: INR 2.12 (0.9-1.1)
[2020-08-26 02:16] LABS: Activated Partial Thrombo Time 35.6 seconds (23.6-34.0)
[2020-08-26 02:21] LABS: POC Glucose,Bedside 124 (70-110)
--- NOTE | 2020-08-26 02:46 | P.PN_ITS ---
Critical Care Event Note Code activated: No Narrative: This case had a high probability of a clinically significant, sudden, or life threatening deterioration of this patient's condition which required my full and direct attention, intervention and personal management. In to see patient after reports relayed of low bp. Was being transfused and in the process became hypothermic and hypotensive. Earlier in the afternoon had gone into afib with rvr and given iv cardizem and metoprolol along with amiodarone. When I arrived to see patient she was in sinus anselmo and markedly hypotensive. Levophed and neosynephrine drips were maximally uptitrated and dopamine was added. Amiodarone was continued. Initial ABG showed a marked metabolic acidosis with an initial pH of 7.05 She received 4 amps of bicarb with some improvement in acidosis and clinical status. Serial troponins trended upward, were elevated after the afib with rvr. Patient denied chest pain and had good cardiac function pre-op and was without significant cardiac history. Dr Yee came in to see patient. Echo was brought to the bedside and RA/RV dilation was suggestive of p/e. Heparin was started. An arterial pressure line was placed in the right femoral artery. Initial bp from the art line was 160/90 range, allowing downtitration and cessation of dopamine/kiera/levophed. Critical care time: 165 - 194 mins [facility] Critical Care Exam Vital signs: Temp Pulse Resp BP Pulse Ox 96.2 F L 61 28 H 124/41 L 100 08/25/20 22:00 08/25/20 21:55 08/25/20 22:00 08/25/20 22:00 08/25/20 22:00
[2020-08-26 03:35] LABS: ABG Base Excess -6.6 mmol/L (-2.4-2.3); ABG HCO3 18.9 mmhg (22.0-26.0); ABG Oxygen Saturation 100 % (90-100); ABG PCO2 34.3 mmhg (35.0-45.0); ABG PH 7.36 mmol/L (7.35-7.45); ABG PO2 385.3 mmhg (80-100); ABG TCO2 19.9 mmhg (23-27)
--- NOTE | 2020-08-26 03:35 | XR_ITS ---
PROCEDURE: XR WRIST LT MIN 3V CLINICAL INDICATION: pain Injury with pain, blunt trauma with contusion or hematoma, fall with injury and pain COMPARISON: CR WRISTCMRT XR wrist RT min 3V from 01/14/2018 FINDINGS: There is diffuse osteopenia. An old healed fracture of the distal radius and ulna is noted with a well corticated bony fragment at the ulnar styloid also consistent with an old fracture. No definite acute fracture apparent. There is mild soft tissue swelling. An IV cannula is present along the dorsal aspect of the wrist. IMPRESSION: Old distal radial and ulnar fracture with soft tissue swelling. Dictated by: Larry Hope MD 08/26/2020 05:50 Larry Hope MD in [place] 08/26/2020 05:50
[2020-08-26 03:36] LABS: Oxygen 100 %; Source AL
--- NOTE | 2020-08-26 03:45 | ECG_ITS ---
APPROVED REPORT Exam: Resting ECG HR:70 bpm ECG Measurements Heart Rate 70 AXES AK 120 P 74 QRSd 74 QRS 65 QT 450 T 194 QTc 486 Conclusion Sinus rhythm with premature atrial complexes ST & T wave abnormality, consider inferior ischemia ST & T wave abnormality, consider anterolateral ischemia Prolonged QT Abnormal ECG Electronically signed by : Maxi Azevedo, 08/27/2020 08:11:43
[2020-08-26 04:38] LABS: Acetone, Serum (Rapid) None Detected (None Detect)
[2020-08-26 06:18] LABS: ABG Base Excess -8.9 mmol/L (-2.4-2.3); ABG HCO3 16.4 mmhg (22.0-26.0); ABG Oxygen Saturation 99 % (90-100); ABG PH 7.37 mmol/L (7.35-7.45); ABG PO2 360.5 mmhg (80-100); ABG TCO2 17.3 mmhg (23-27)
--- NOTE | 2020-08-26 06:20 | PC.NURSE ---
ABG results in chart. Sample was drawn from art line by RN. Pt tolerated well
--- NOTE | 2020-08-26 06:20 | PC.NURSE ---
60 minute blood VS taken at 2252 instead of 2255 because blood was stopped per MD at 2252. Blood restarted at 2334.
[2020-08-26 07:01] LABS: Albumin Level 2.3 g/dl (3.5-5.0); Albumin/Globulin Ratio 1.2 (1.1-1.8); Alkaline Phosphatase 58 U/L (38-126); Anion Gap 11.2 mEq/L (5-15); Bilirubin,Total 2.3 mg/dl (0.2-1.3); Blood Urea Nitrogen 30 mg/dl (7-17); Carbon Dioxide 25 mmol/L (22.0-30.0); Chloride 106 mmol/L (98-107); Creatinine Clearance Estimated 23 mL/min (50-200); Estimated Glomerular Filt Rate 36 ml/min (>60); GFR (African American) 44 ML/MIN (>60); Glucose 204 mg/dl (74-100); Magnesium 1.3 mg/dl (1.6-2.3); Potassium 3.2 mmoL/L (3.5-5.1); Sodium 139 mmol/L (136-145); Total Protein,Serum 4.3 g/dl (6.3-8.2)
[2020-08-26 07:03] LABS: Basophils % 0.2 % (0.1-2.0); Hematocrit 31.8 % (37.0-47.0); Hemoglobin 10.2 g/dL (12.2-16.2); Lymphocytes # 2.1 K/mm3 (0.7-4.5); Lymphocytes % 8.7 % (10-50); Mean Corpuscular Hemoglobin 30.1 pg (27.0-31.2); Mean Corpuscular Volume 94.2 fl (81-99); Mean Platelet Volume 9.3 fl (7.4-10.4); Monocytes % 8.2 % (1.7-9.3); Neutrophils # 20.2 K/mm3 (1.8-7.8); Neutrophils % 82.9 % (37.0-80.0); Platelet Count 143 K/mm3 (142-424); Red Blood Count 3.37 M/mm3 (4.20-5.40); Red Cell Distribution Width 16.8 % (11.5-17.5); White Blood Count 24.3 K/mm3 (4.8-10.8)
[2020-08-26 07:04] LABS: Calcium 6.9 mg/dl (8.4-10.2)
[2020-08-26 07:05] LABS: MANUAL DIFFERENTIAL MANUAL DIFFERENTIAL (MANUAL DIFF)
[2020-08-26 07:19] LABS: Alanine Aminotransferase 737 U/L (12-78); Aspartate Amino Transferase > 1500 U/L (14-36)
--- NOTE | 2020-08-26 07:53 | PC.NURSE ---
right femoral art line transducer zeroed. Good pleth noted. BP 116/72. Levo gtt decreased to 4mcg/min. HR 63. Pt is A&O. Left arm edema noted. Elevated on pillow. Aguero cath noted. On 100% NRB mask with sat 100%. Heparin gtt @ 1200units/hr and Amio gtt @ 16.7ml/hr. NS @ 100ml/hr. All infusing via right IJ TLDL. Abductor pillow in place. SCD on right leg.
--- NOTE | 2020-08-26 08:20 | HMH.ACPN2 ---
Internal Medicine - PN: Subj *Date: 08/26/20 *Time: 10:59 Interval history: Extensive time reviewing patient's chart, labs, overnight events. Patient had repeat event last night of hypotension and bradycardia. Both Dr. Reed and Dr. Yee came in to attend to her overnight, appreciate their assistance. She has responded well to therapy overnight for her acute decompensation. Work-up/differential diagnosis concerning for IN, PE, septic shock. She required multiple vasopressors (see Dr. Reed's note from last night for full details) that have been weaned over the course of this morning. Continues to require norepinephrine but this medication is being weaned per goal of MAP greater than 65. Tolerating lower doses this morning. Continues amiodarone drip for arrhythmia. Initiated on heparin drip overnight given concern for IN or PE. Labs show significant ischemic events including SORAYA and shock liver. Patient is alert this morning and conversant. Tolerating 50% FiO2 on Ventimask with appropriate saturations. Urine output minimal over the past 12 hours. Remains critically ill. Family at bedside today, updated on course and prognosis. Exam Vital signs and Labs for Last 24 Hours: Temp Pulse Resp BP Pulse Ox 97.5 F L 61 28 H 102/63 L 100 08/26/20 06:00 08/26/20 06:52 08/26/20 06:00 08/26/20 06:52 08/26/20 06:52 Laboratory Results - last 24 hr 08/25/20 09:35: WBC 13.1 H, RBC 3.60 L, Hgb 11.7 L, Hct 34.0 L, MCV 94.5, MCH 32.3 H, MCHC 34.2, RDW 16.1, Plt Count 143, MPV 9.9, Neut % (Auto) 77.2, Lymph % (Auto) 13.7, [place] % (Auto) 8.2, Eos % (Auto) 0.6, Baso % (Auto) 0.3, Neut # (Auto) 10.1 H, Lymph # (Auto) 1.8, [place] # (Auto) 1.1 H, Eos # (Auto) 0.1, Baso # (Auto) 0.0 08/25/20 09:35: Sodium 137, Potassium 4.5, Chloride 104, Carbon Dioxide 22, Anion Gap 15.5 H, BUN 27 H D, Creatinine 0.90, Estimated Creat Clear 33, Estimated GFR 60, Est GFR ( Amer) 73, Glucose 129 H, Calcium 8.4 08/25/20 14:10: Sodium Cancelled, Potassium Cancelled, Chloride Cancelled, Carbon Dioxide Cancelled, Anion Gap Cancelled, BUN Cancelled, Creatinine Cancelled, Estimated Creat Clear Cancelled, Estimated GFR Cancelled, Est GFR ( Amer) Cancelled, Glucose Cancelled, Calcium Cancelled, Total Bilirubin Cancelled, AST Cancelled, ALT Cancelled, Alkaline Phosphatase Cancelled, Troponin I 1.16 H, Total Protein Cancelled, Albumin Cancelled, Globulin Cancelled, Albumin/Globulin Ratio Cancelled 08/25/20 15:53: WBC 13.3 H, RBC 2.65 L D, Hgb 8.2 L D, Hct 26.5 L, MCV 99.8 H, MCH 30.9, MCHC 31.0 L, RDW 15.4, Plt Count 164, MPV 8.3, Neut % (Auto) 85.6 H, Lymph % (Auto) 6.7 L, [place] % (Auto) 7.4, Eos % (Auto) 0.1, Baso % (Auto) 0.2, Neut # (Auto) 11.4 H, Lymph # (Auto) 0.9, [place] # (Auto) 1.0, Eos # (Auto) 0.0, Baso # (Auto) 0.0, Total Counted 100, Neutrophils % (Manual) 94 H, Lymphocytes % (Manual) 3 L, Monocytes % (Manual) 2, Metamyelocytes % 1.0, Platelet Estimate Normal, RBC Morphology Normal 08/25/20 15:53: Sodium 137, Potassium 3.9, Chloride 105, Carbon Dioxide 21 L, Anion Gap 14.9, BUN 28 H, Creatinine 1.10 H D, Estimated Creat Clear 30, Estimated GFR 48 L, Est GFR ( Amer) 58 L D, Glucose 173 H D, Calcium 7.8 L, Total Bilirubin 2.2 H, AST 81 H D, ALT 49 D, Alkaline Phosphatase 64, Troponin I 1.00 H, Total Protein 5.6 L, Albumin 3.3 L, Globulin 2.3, Albumin/Globulin Ratio 1.4 08/25/20 17:10: Blood Type O Negative, Antibody Screen Negative, Crossmatch ([facility]) See Detail 08/25/20 17:10: Troponin I 1.16 H 08/25/20 18:25: Blood Type Confirm O Negative 08/25/20 20:45: Troponin I 1.21 H 08/25/20 23:03: Specimen Source R/r, O2 % 100, ABG pH 7.05 L*, ABG pCO2 26.1 L, ABG pO2 419.2 H, ABG HCO3 7.0 L, ABG Total CO2 7.8 L, ABG O2 Saturation 100, ABG Base Excess -23.5 L, Larry Test Y 08/25/20 23:05: Troponin I 1.49 H 08/25/20 23:05: WBC 18.7 H D, RBC 3.54 L D, Hgb 10.9 L D, Hct 36.5 L, MCV 103.1 H, MCH 30.7, MCHC 29.7 L, RDW 15.5, Plt Count 176, MPV 9.1, Neut % (Auto) 82.6 H, Lymph % (
--- NOTE | 2020-08-26 09:16 | PC.NURSE ---
Levo gtt OFF @ 904. BP 116/65.
--- NOTE | 2020-08-26 09:31 | CA_ITS ---
APPROVED REPORT EXAM: Comprehensive 2D, Doppler, and color-flow Echocardiogram Flame Cutter: Dania Aponte RT(R) Ht: 5 ft 0 in Wt: 100lbs BSA: 1.39 BP: 102/63 mmHg Indications: Patient fractured lt hip and underwent surgery, post op episodes of bradycardia, hypotension, AFIB. ex smoker, COPD, HTN, SOB, NSTESMI?, rule out ND vs PE. 2D Dimensions LVOT 1.91 cm (M/F) 1.5-2.5 LVEF (Philip's) 48.50 % F: 54 - 74 LV Volume 46.40 mL F: 46 - 106 LV Volume Index 33.38 mL/m2 F: 29 - 61 M-Mode Dimensions RVDd 2.87 cm (0.9-2.6) LA Diam 1.83 cm (1.9-4.0) LVDd 3.15 cm (3.5-5.7) Ao Diam 2.59 cm (2.0-3.7) LVDs 2.43 cm (3.5-5.7) IVSd 0.81 cm (0.6-1.1) PWd 0.65 cm (0.6-1.1) EF (Teich) 47.20% FS 22.90% EDV (Teich) 39.40 mL ESV (Teich) 20.80 mL LV Diastology E Decel Time 243.00 (160-240 msec) E/A Ratio 0.7 MED E' 4.70 (< 7 cm/sec) E'/MED E' Ratio 13.68 (>14) LAT E' 4.40 (<10 cm/sec) E/LAT E' Ratio 14.61 (>14) Aortic Valve LVOT Max 88.00 (70-110 cm/s) LVOT VTI 14.86 cm AoV Peak Raymond. 170.00 (50-130 cm/s) AO Peak GR. 11.60 mmHg AO Mean GR. 7.10 (<5 mmHg) AO VTI 31.96 (18-25 cm) BRENDA (VTI) 1.33 (2.5-4.5 cm2) Mitral Valve MV E Max Raymond. 64.00 (40-130 cm/s) MV A Velocity 90.00 (40-130 cm/s) E/A Ratio 0.72 MV Decel. Time 243.00 (160-240 ms) MV PHT 71.00 ms Tricuspid Valve TR P. Velocity 285.00 cm/s RAP Estimate 15.00 mmHg RVSP 47.60 mmHg Left Ventricle Technically difficult study because of the patient factors and poor acoustic windows. Left atrium is mildly enlarged, left ventricle is normal size, mild concentric left ventricular hypertrophy, visually estimated ejection fraction 50% with no regional wall motion abnormality, endocardial surfaces are poorly visualized, diastolic parameters are inconclusive. Right Ventricle Right atrium and right ventricle are moderately enlarged, contractility of the right ventricle is moderately reduced. Aortic Valve Aortic valve is thickened and calcified without Doppler evidence of significant aortic stenosis or aortic insufficiency. Mitral Valve Mitral valve leaflets are minimally thickened, there is mild mitral regurgitation. Tricuspid Valve Tricuspid valve is grossly normal, there is mild tricuspid regurgitation, calculated right ventricular systolic pressure is 48 mmHg. Pulmonic Valve Pulmonic valve is minimally thickened and fibrosed, there is mild pulmonic insufficiency. Great Vessels Aortic root is normal size. Inferior vena cava is dilated with less than 50% inspiratory collapse. Pericardium Small pericardial effusion noted. Conclusion 1. Technically difficult study, biatrial enlargement, normal left ventricular size, mild concentric left ventricular hypertrophy, visually estimated ejection fraction 50% with no regional wall motion abnormality, endocardial surfaces are poorly visualized, diastolic parameters are inconclusive. 2. Moderately enlarged right ventricle with moderate reduction in right ventricular contractility. 3. Thickened and calcified aortic valve without Doppler evidence of aortic stenosis or aortic insufficiency. 4. Mild mitral and tricuspid regurgitation, calculated right ventricular systolic pressure 48 mmHg. 5. Small pericardial effusion noted. 6. Inferior vena cava is dilated with less than 50% inspiratory collapse. Electronically signed by : Warren Peralta, 08/26/2020 19:25:14
[2020-08-26 09:34] LABS: INR 2.62 (0.9-1.1); Prothrombin Time 26.6 seconds (9.4-11.8)
--- NOTE | 2020-08-26 10:10 | PC.NURSE ---
notified pharmacy (Rhianna) of PT/INR results from 829. She will relay to pharmacist and call me back with new order for Heparin gtt.
[2020-08-26 10:11] LABS: Lactic Acid 4.9 mmol/L (0.7-2.1)
--- NOTE | 2020-08-26 10:11 | PC.NURSE ---
received call from lab (Shanice) that Lactic is 4.9. Notified Dr. Lira. Will repeat Lactic @ 0642.
[2020-08-26 10:37] LABS: Lymphocytes % 9 % (10-50); Monocytes % 4 % (2-9); Neutrophils % 83 % (42-76); Total Cells Counted 100
[2020-08-26 10:38] LABS: Platelet Estimate Slight Decrease; RBC Morphology Normal
[2020-08-26 10:39] LABS: Troponin I 1.56 ng/ml (0.00-0.034)
--- NOTE | 2020-08-26 10:44 | PC.NURSE ---
received call from lab (Shanice) that troponin is 1.56. Notified Dr. Lira. Will repeat troponin level @ 1300.
--- NOTE | 2020-08-26 11:20 | PC.NURSE ---
Magnesium infusion has been started. Dr. Lira ordered to run it very slow. Will run it over 2hrs. He wants Calcium infusion to run slowly as well after Magnesium infusion is completed. Will start Calcium infusion around 1340.
[2020-08-26 12:16] LABS: ABG Base Excess -3.8 mmol/L (-2.4-2.3); ABG HCO3 20.9 mmhg (22.0-26.0); ABG Oxygen Saturation 98 % (90-100); ABG PCO2 34.2 mmhg (35.0-45.0); ABG PH 7.41 mmol/L (7.35-7.45); ABG PO2 131.9 mmhg (80-100)
[2020-08-26 12:26] LABS: Allen's Test Acceptable; Oxygen 50% VENTI MASK %; Source ART LINE
--- NOTE | 2020-08-26 12:32 | PC.NURSE ---
received call from pharmacy (Thanh). He ordered to HOLD Heparin gtt for next 2hrs. Heparin gtt is now OFF @ 1230. Will await call from him with when to start @ what rate.
--- NOTE | 2020-08-26 12:48 | HMH.PHAHEP ---
[facility] Pharmacy Heparin Dosing - Demographic Data Admission date:: 08/23/20 Date: 08/26/20 Time: 12:48 Allergies/Adverse Reactions: Allergies Allergy/AdvReac Type Severity Reaction Status Date / Time codeine Allergy Unknown Verified 09/30/19 08:57 penicillin V Allergy Unknown Verified 09/30/19 08:57 morphine Allergy Verified 08/23/20 12:40 Height: 1.52 m Weight: 45.7 kg - Indication Medication therapy:: Heparin Patient Problems: Current Active Problems Postherpetic neuralgia at T3-T5 level (Chronic) Closed left hip fracture (Acute) Femoral neck fracture (Acute) Essential hypertension (Chronic) Chronic pain disorder (Chronic) COPD (chronic obstructive pulmonary disease) (Chronic) Left upper arm pain (Acute) NSTEMI (non-ST elevated myocardial infarction) (Acute) Shock liver (Acute) Acid-base disorder, mixed (Acute) Acute kidney injury (Acute) Hypomagnesemia (Acute) CVA?: No Bleeding problem?: No Kidney disease?: No RI?: No Desired PTT range:: 60-80 seconds - Labs Anticoagulation Lab Results:: 08/25/20 08/25/20 08/26/20 15:53 23:05 06:38 Hgb 8.2 L D 10.9 L D 10.2 L Hct 26.5 L 36.5 L 31.8 L Plt Count 164 176 143 - Monitoring Dose Monitor 1 Date: 08/26/20 Time: 01:40 PTT Result:: 35.6 Infusion Rate:: 1,200 UNITS/HR WITH 4,[address] BARRIOS Dose Monitor 2 Date: 08/26/20 Time: 08:21 PTT Result:: >170 Infusion Rate:: STOP INFUSION FOR TWO HOURS AND THEN RESTART INFUSION AT 800 UNITS/HR @ 1430 Dose Monitor 3 Date: 08/26/20 Time: 20:30 PTT Result:: >170 Infusion Rate:: HOLD FOR 2 HOURS Dose Monitor 4 Date: 08/26/20 Time: 23:35 PTT Result:: 55.3 Infusion Rate:: RESTARTED AT 700 UNITS/HR Comment:: PLT 121K Dose Monitor 5 Date: 08/27/20 Time: 08:00 PTT Result:: 89.4 Infusion Rate:: RATE DECREASED TO 650 UNITS/HR Comment:: NPN=740M Dose Monitor 6 Date: 08/27/20 Time: 14:50 PTT Result:: 39.7 Infusion Rate:: RESTART AT 650 UNITS/HR Comment:: STOPPED AT 0945 FOR CATH Dose Monitor 7 Date: 08/27/20 Time: 22:00 PTT Result:: 150.2 Infusion Rate:: HOLD 2 HOURS THEN REDRAW PTT Dose Monitor 8 Date: 08/28/20 Time: 03:15 PTT Result:: 45.2 Infusion Rate:: RESTART AT 500 UNITS/HR - Core Measures Is INR > or = 2 at discharge?: No Most Recent Labs:: Laboratory Results - last 24 hr 08/25/20 14:10: Sodium Cancelled, Potassium Cancelled, Chloride Cancelled, Carbon Dioxide Cancelled, Anion Gap Cancelled, BUN Cancelled, Creatinine Cancelled, Estimated Creat Clear Cancelled, Estimated GFR Cancelled, Est GFR ( Amer) Cancelled, Glucose Cancelled, Calcium Cancelled, Total Bilirubin Cancelled, AST Cancelled, ALT Cancelled, Alkaline Phosphatase Cancelled, Troponin I 1.16 H, Total Protein Cancelled, Albumin Cancelled, Globulin Cancelled, Albumin/Globulin Ratio Cancelled 08/25/20 15:53: WBC 13.3 H, RBC 2.65 L D, Hgb 8.2 L D, Hct 26.5 L, MCV 99.8 H, MCH 30.9, MCHC 31.0 L, RDW 15.4, Plt Count 164, MPV 8.3, Neut % (Auto) 85.6 H, Lymph % (Auto) 6.7 L, [place] % (Auto) 7.4, Eos % (Auto) 0.1, Baso % (Auto) 0.2, Neut # (Auto) 11.4 H, Lymph # (Auto) 0.9, [place] # (Auto) 1.0, Eos # (Auto) 0.0, Baso # (Auto) 0.0, Total Counted 100, Neutrophils % (Manual) 94 H, Lymphocytes % (Manual) 3 L, Monocytes % (Manual) 2, Metamyelocytes % 1.0, Platelet Estimate Normal, RBC Morphology Normal 08/25/20 15:53: Sodium 137, Potassium 3.9, Chloride 105, Carbon Dioxide 21 L, Anion Gap 14.9, BUN 28 H, Creatinine 1.10 H D, Estimated Creat Clear 30, Estimated GFR 48 L, Est GFR ( Amer) 58 L D, Glucose 173 H D, Calcium 7.8 L, Total Bilirubin 2.2 H, AST 81 H D, ALT 49 D, Alkaline Phosphatase 64, Troponin I 1.00 H, Total Protein 5.6 L, Albumin 3.3 L, Globulin 2.3, Albumin/Globulin Ratio 1.4 08/25/20 17:10: Blood Type O Negative, Antibody Screen Negative, Crossmatch ([facility] [place]) See Detail 08/25/20 17:10: Troponin I 1.16 H 08/25/20 18:25: Blo
[2020-08-26 13:36] LABS: Basophils % 0.2 % (0.1-2.0); Hematocrit 29.5 % (37.0-47.0); Hemoglobin 9.4 g/dL (12.2-16.2); Lymphocytes # 1.9 K/mm3 (0.7-4.5); Lymphocytes % 13.4 % (10-50); Mean Platelet Volume 9.8 fl (7.4-10.4); Monocytes % 6.8 % (1.7-9.3); Neutrophils # 11.1 K/mm3 (1.8-7.8); Neutrophils % 79.6 % (37.0-80.0); Platelet Count 112 K/mm3 (142-424); Red Blood Count 3.14 M/mm3 (4.20-5.40); Red Cell Distribution Width 17.2 % (11.5-17.5)
[2020-08-26 13:41] LABS: Chloride 106 mmol/L (98-107); Sodium 139 mmol/L (136-145)
--- NOTE | 2020-08-26 13:42 | PC.NURSE ---
Magnesium infusion completed. Started Calcium infusion. It will run over 1hr 40min.
[2020-08-26 13:43] LABS: Blood Urea Nitrogen 33 mg/dl (7-17); Creatinine Clearance Estimated 23 mL/min (50-200); Estimated Glomerular Filt Rate 36 ml/min (>60); GFR (African American) 44 ML/MIN (>60)
[2020-08-26 13:44] LABS: Albumin Level 2.2 g/dl (3.5-5.0); Albumin/Globulin Ratio 1.1 (1.1-1.8); Alkaline Phosphatase 62 U/L (38-126); Bilirubin,Total 1.5 mg/dl (0.2-1.3); Carbon Dioxide 27 mmol/L (22.0-30.0); Glucose 170 mg/dl (74-100); Total Protein,Serum 4.2 g/dl (6.3-8.2)
[2020-08-26 13:50] LABS: Alanine Aminotransferase 927 U/L (12-78)
[2020-08-26 13:53] LABS: Aspartate Amino Transferase > 1500 U/L (14-36)
[2020-08-26 13:54] LABS: Reflex Lactic Add Lactic Reflex
[2020-08-26 14:01] LABS: Troponin I 1.43 ng/ml (0.00-0.034)
[2020-08-26 14:02] LABS: Calcium 6.7 mg/dl (8.4-10.2)
--- NOTE | 2020-08-26 14:02 | PC.NURSE ---
received call from lab with results: Troponin 1.43 and Calcium 6.7. Notified Dr. Lira of both results.
--- NOTE | 2020-08-26 14:50 | PC.NURSE ---
Heparin gtt restarted @ 1430 at a rate of 16ml/hr (800units/hr) per pharmacist (Dorian Alejo).
[2020-08-26 14:53] LABS: Lactic Acid Follow Up (RFLX 1) 3.8 mmol/L (0.7-2.1)
[2020-08-26 15:17] LABS: Microscopic, Urine URINE MICROSCOPIC (MICROSCOPIC)
[2020-08-26 15:57] LABS: Appearance,Urine CLEAR (Clear); Blood, Urine TRACE-L (Negative); Color,Urine YELLOW (Yellow); Glucose,Urine (UA) Negative (Negative); Ketones,Urine Negative (Negative); Leukocyte Esterase,Urine Negative (Negative); Nitrate,Urine Negative (Negative); PH,Urine 5.5 (5.0-8.5); Protein,Urine 2+ (Negative); Specific Gravity, Urine >= 1.030 (1.005-1.030)
[2020-08-26 15:58] LABS: Bilirubin,Urine Negative (Negative)
[2020-08-26 16:19] LABS: Amorphous Sediment,Urine 1+ /lpf; RBC,Urine Occasional #/hpf (0-3); WBC,Urine Occasional #/hpf (0-3)
[2020-08-26 16:43] LABS: Reflex Lactic (2 hrs) Add Lactic Reflex
[2020-08-26 16:58] LABS: Lactic Acid Follow up (RFLX 2) 2.7 mmol/L (0.7-2.1)
[2020-08-26 17:09] LABS: Troponin I 1.25 ng/ml (0.00-0.034)
--- NOTE | 2020-08-26 17:10 | PC.NURSE ---
received call from lab (Shanice) that troponin is 1.25. Notified Dr. Lira.
--- NOTE | 2020-08-26 17:28 | HMH.ORTHPN ---
Subjective Date: 08/26/20 Time: 16:00 Principal diagnosis: L femoral neck fracture Interval history: Mahogany Moulton is an 79-year-old female who is status post LEFT hip bipolar hemiarthroplasty, post op day # 2. She is lying down on the bed . Patient had repeat event last night of hypotension and bradycardia. Both Dr. Reed and Dr. Yee came in to manage her overnight. Nursing staff reports that patient is being treated for possible NC/PE. Patient says she is doing fairly well and reports no particular problems at this time. She reports some hip pain but says it is well-controlled with medication. Her and daughter at the bedside. PN: Obj Ex Vital signs: Temp Pulse Resp BP Pulse Ox 97.0 F L 53 L 19 112/69 100 08/26/20 08:00 08/26/20 14:00 08/26/20 14:00 08/26/20 14:00 08/26/20 14:00 Narrative: Laboratory Results - last 24 hr 08/25/20 15:53: Total Counted 100, Neutrophils % (Manual) 94 H, Lymphocytes % (Manual) 3 L, Monocytes % (Manual) 2, Metamyelocytes % 1.0, Platelet Estimate Normal, RBC Morphology Normal 08/25/20 17:10: Blood Type O Negative, Antibody Screen Negative, Crossmatch ([facility]) See Detail 08/25/20 17:10: Troponin I 1.16 H 08/25/20 18:25: Blood Type Confirm O Negative 08/25/20 20:45: Troponin I 1.21 H 08/25/20 23:03: Specimen Source R/r, O2 % 100, ABG pH 7.05 L*, ABG pCO2 26.1 L, ABG pO2 419.2 H, ABG HCO3 7.0 L, ABG Total CO2 7.8 L, ABG O2 Saturation 100, ABG Base Excess -23.5 L, Larry Test Y 08/25/20 23:05: Troponin I 1.49 H 08/25/20 23:05: WBC 18.7 H D, RBC 3.54 L D, Hgb 10.9 L D, Hct 36.5 L, MCV 103.1 H, MCH 30.7, MCHC 29.7 L, RDW 15.5, Plt Count 176, MPV 9.1, Neut % (Auto) 82.6 H, Lymph % (Auto) 10.9, [place] % (Auto) 6.0, Eos % (Auto) 0.2, Baso % (Auto) 0.3, Neut # (Auto) 15.4 H, Lymph # (Auto) 2.0, [place] # (Auto) 1.1 H, Eos # (Auto) 0.0, Baso # (Auto) 0.1 08/25/20 23:05: Sodium 135 L, Potassium 4.6, Chloride 109 H, Carbon Dioxide 10 L D, Anion Gap 20.6 H, BUN 24 H, Creatinine 1.20 H, Estimated Creat Clear 27, Estimated GFR 43 L, Est GFR ( Amer) 52 L, Glucose 186 H, Calcium 6.8 L D 08/25/20 23:31: POC Glucose 124 H 08/26/20 00:56: Specimen Source R/r, O2 % 40, ABG pH 7.10 L*, ABG pCO2 44.3, ABG pO2 62.6 L, ABG HCO3 13.3 L, ABG Total CO2 14.7 L, ABG O2 Saturation 84 L*, ABG Base Excess -16.4 L, Larry Test Y 08/26/20 01:25: Urine Color Yellow, Urine Appearance Clear, Urine pH 5.5, Ur Specific [place] >= 1.030, Urine Protein 2+, Urine Glucose (UA) Negative, Urine Ketones Negative, Urine Blood Trace-l, Urine Nitrate Negative, Urine Bilirubin Negative, Urine Urobilinogen 2.0, Ur Leukocyte Esterase Negative, Urine RBC Occasional, Urine WBC Occasional, Ur Squamous Epith Cells 10-20, Ur Transition Epith Cell 3-5, Amorphous Sediment 1+, Urine Bacteria None 08/26/20 01:54: PT 22.0 H, INR 2.12 H, APTT 35.6 H 08/26/20 03:33: Specimen Source Al, O2 % 100, ABG pH 7.36, ABG pCO2 34.3 L, ABG pO2 385.3 H, ABG HCO3 18.9 L, ABG Total CO2 19.9 L, ABG O2 Saturation 100, ABG Base Excess -6.6 L 08/26/20 04:10: Acetone Level None detected 08/26/20 06:00: Specimen Source Rn from art-line, O2 % Non re-breather, ABG pH 7.37, ABG pCO2 29.0 L, ABG pO2 360.5 H, ABG HCO3 16.4 L, ABG Total CO2 17.3 L, ABG O2 Saturation 99, ABG Base Excess -8.9 L 08/26/20 06:38: WBC 24.3 H* D, RBC 3.37 L, Hgb 10.2 L, Hct 31.8 L, MCV 94.2, MCH 30.1, MCHC 32.0, RDW 16.8, Plt Count 143, MPV 9.3, Neut % (Auto) 82.9 H, Lymph % (Auto) 8.7 L, [place] % (Auto) 8.2, Eos % (Auto) 0.0 L, Baso % (Auto) 0.2, Neut # (Auto) 20.2 H, Lymph # (Auto) 2.1, [place] # (Auto) 2.0 H, Eos # (Auto) 0.0, Baso # (Auto) 0.0, Total Counted 100, Neutrophils % (Manual) 83 H, Band Neutrophils % 4.0, Lymphocytes % (Manual) 9 L, Monocytes % (Manual) 4, Platelet Estimate Slight decrease, RBC Morphology Normal 08/26/20 06:38: Sodium 139, Potassium 3.2 L D, Chloride 106, Carbon Dioxide 25 D, Anion Gap 11.2, BUN 30 H, Creatinine 1.40 H, Estimated Creat Clear 23, Estimated GFR 36 L, Est GFR ( Amer) 44 L, Gl
--- NOTE | 2020-08-26 17:33 | PC.NURSE ---
Amiodarone gtt is now OFF.
--- NOTE | 2020-08-26 18:09 | PC.NURSE ---
Venti mask decreased to 35%/9L from 50%/15L. O2 sat currently 99%.
[2020-08-26 19:34] LABS: Troponin I 1.13 ng/ml (0.00-0.034)
--- NOTE | 2020-08-26 21:51 | PC.NURSE ---
Spoke with Mitali Monroe from pharmacy. Turn Heparin gtt off. PTT draw at 2330.
[2020-08-26 22:31] LABS: Basophils % 0.2 % (0.1-2.0); Eosinophils % 0.1 % (0.1-12.0); Hematocrit 29.9 % (37.0-47.0); Lymphocytes # 1.9 K/mm3 (0.7-4.5); Lymphocytes % 13.3 % (10-50); Mean Corpuscular HGB Conc 34.8 g/dL (31.8-35.4); Mean Corpuscular Hemoglobin 31.6 pg (27.0-31.2); Mean Corpuscular Volume 90.8 fl (81-99); Mean Platelet Volume 10.4 fl (7.4-10.4); Monocytes # 0.9 K/mm3 (0.1-1.0); Monocytes % 6.1 % (1.7-9.3); Neutrophils # 11.5 K/mm3 (1.8-7.8); Neutrophils % 80.2 % (37.0-80.0); Platelet Count 121 K/mm3 (142-424); Red Blood Count 3.29 M/mm3 (4.20-5.40); Red Cell Distribution Width 17.5 % (11.5-17.5); White Blood Count 14.3 K/mm3 (4.8-10.8)
[2020-08-26 22:36] LABS: Chloride 104 mmol/L (98-107); Sodium 136 mmol/L (136-145)
[2020-08-26 22:37] LABS: Potassium 4.4 mmoL/L (3.5-5.1)
--- NOTE | 2020-08-26 22:38 | PC.NURSE ---
MD Lira called with new orders. If MAgnesium is less than 1.8. Administer 1 GM Magnesium IV. If calcium is less than 7.5, give 1 GM Calcium IV replacement. Infuse Magnesium first. Administer Calcium second. Do not infuse together. Decrease LR to 75 ml/hr. If need to start vasopressors and additional fluids equal to 75 ml/hr then stop maintenance fluids.
[2020-08-26 22:39] LABS: Albumin Level 2.3 g/dl (3.5-5.0); Alkaline Phosphatase 63 U/L (38-126); Anion Gap 8.4 mEq/L (5-15); Bilirubin,Total 1.4 mg/dl (0.2-1.3); Blood Urea Nitrogen 34 mg/dl (7-17); Calcium 7.3 mg/dl (8.4-10.2); Carbon Dioxide 28 mmol/L (22.0-30.0); Creatinine Clearance Estimated 23 mL/min (50-200); Estimated Glomerular Filt Rate 36 ml/min (>60); GFR (African American) 44 ML/MIN (>60); Globulin 2.2 g/dL (1.3-3.2); Glucose 121 mg/dl (74-100); Total Protein,Serum 4.5 g/dl (6.3-8.2)
[2020-08-26 22:44] LABS: Hemoglobin 10.4 g/dL (12.2-16.2)
[2020-08-26 22:49] LABS: Alanine Aminotransferase 1096 U/L (12-78)
[2020-08-26 23:08] LABS: Aspartate Amino Transferase 1932 U/L (14-36)
[2020-08-26 23:09] LABS: Troponin I 0.91 ng/ml (0.00-0.034)
[2020-08-26 23:27] LABS: Magnesium 1.8 mg/dl (1.6-2.3)
[2020-08-27] VITALS (41 sets, daily range): BP systolic 94–169; BP diastolic 60–99; PULSE 63–83; RESP 14–24; TEMP 36.3–37; O2SAT 91–100; BMI 20.1; BMI 20.3
--- NOTE | 2020-08-27 | IR_ITS ---
APPROVED REPORT Patient Location: Inpatient Protective Services Case Worker: SVITLANA Valentin RT (R) PROCEDURES Left heart catheterization Left ventriculogram Selective coronary angiogram Informed consent was obtained prior to the procedure. COMPLICATIONS none Estimated Blood Loss: less than 10 mls TECHNIQUE 1% lidocaine used anesthetize the right groin the right femoral artery was already cannulated with a 4 Angolan dilator sheath. This was sterilely prepped and a wire was placed into the femoral artery via the sheath dilator. The dilator was removed and a fresh 4 Angolan sheath was placed into the femoral artery. The towels were changed and the groin was reprepped. Gloves were also changed. A JL 5 and an AR 1 catheter were used to perform selective coronary angiography. At the end of the procedure the apparatus was removed the patient was transferred to the postop holding area in stable condition for sheath removal. ANGIOGRAPHIC RESULTS The left main artery Normal The left anterior descending artery Has proximal 30% calcified stenosis with a mid vessel 20% stenosis. A large ramus intermedius has proximal 20% stenosis The circumflex artery Is nondominant mildly calcified in the mid segment producing nothing greater than 20 to 30% stenoses along tortuous bands The right coronary artery Is a large dominant vessel and proximally calcified with 20% stenoses followed by a focal mid vessel 30% stenosis. The HERNÁNDEZ ventriculogram reveals Not performed The left ventricular end-diastolic pressure Not measured IMPRESSION Nonflow-limiting coronary disease as described above PLAN 1. Almost certainly patient experienced a significant pulmonary embolism giving her the hypoxemia and circulatory collapse. Because of her recent hip fracture the thrombus was likely large and relatively soft. The bedside echocardiogram during her extremities demonstrated interventricular septal flattening with systole and diastole suggesting fluid and volume overload and given the clinical situation was almost certainly that of a massive pulmonary embolism. Because of the fresh thrombus the rapid administration of heparin most likely quickly dissolved the thrombus allowing for return of right ventricular function. 2. At this point I would recommend patient be converted to Xarelto 15 mg twice daily for 3 weeks followed by 20 mg daily for 3 months. This dose is based on patient's creatinine clearance being greater than 50. If the creatinine clearance is less than 50 patient should continue on 15 mg daily following the 3-week oral load. 3. Coronary artery disease will be managed medically 4. It is probably reasonable to continue amiodarone load dosage for the next 3 months and discontinue this medicine along with discontinuation of the Xarelto. Given this was a provoked pulmonary embolism is reasonable to continue the anticoagulation for 3 to [address] Gaston's discretion Electronically signed by : Marek Yee, 08/27/2020 12:54:59
[2020-08-27 00:32] LABS: Lactic Acid 1.7 mmol/L (0.7-2.1)
[2020-08-27 00:47] LABS: Activated Partial Thrombo Time 55.3 seconds (23.6-34.0)
--- NOTE | 2020-08-27 00:56 | PC.NURSE ---
Late entry: 08/26/20 7p-7a She was A&Ox4 at the beginning of the shift. She requested and received PRN pain medication for pain in her left hip. Her daughter was in the room and stated that she starts to act crazy when she takes pain medication. Abduction pillow in place with SCDS on right leg. She had a soft BM via the bed patel. No bruising around site. DSG on left hip C/D/I. Blood transfusion was started per order. Vitals became difficult to obtain during blood transfusion. She became hypotensive and it was difficult to obtain her BP. She also become hypothermic and her temperature could only be obtained rectally. Her pulse became bradycardic. Rapid response was called. MD clinical admissions manager was paged and blood was stopped. See rapid intervention for all orders and sequence of events. ER physician also responded after lab results and EKG were taken to ER and ordered blood to be restarted. Cardiology was consulted and Dr. Rosado, Dr. Reed, and Dr. Yee were all present at the bedside. Dr. Yee performed US and noted that her right atrium and right ventricle were enlarged and that it was a large PE. Heparin bolus and infusion initiated. ART line was placed by Dr. Yee in right femoral. After all interventions were performed, pt's rhythm changed to NSR, she was no longer hypotensive or hypothermic. Family was present and was informed by both Dr. Reed and nursing staff. Family made the decision to change her code status to a DNR.
--- NOTE | 2020-08-27 01:00 | PC.NURSE ---
Spoke with Mitali Monroe in pharmacy. aPTT 55.3, Restart Heparin gtt @ 700 units/hr. New aPTT draw at 0600. Orders carried out.
--- NOTE | 2020-08-27 05:08 | PC.NURSE ---
Pt A&O x3. Has slept good the later part of shift. VS are currently stable. She is currently on 35% Venti, 9L. Crackles noted to Anterior lung field. She has remained off vasopressors this shift. LR is currently infusing @ 75 ml/hr per MD order. Heparin gtt is infusing @ 700 units/hr per pharmacy. Pt is edematous to LUE. She complains of discomfort to her arm at times. Has requested sips of water this shift. No difficulty noted. No difficulty swallowing PO medication. Arterial line patent. Flushes and draws. No leaking noted. Central line also patent, but positional. Call light within reach. Family at bedside. Will continue to monitor.
[2020-08-27 06:22] LABS: Basophils # 0.1 K/mm3 (0-0.2); Basophils % 0.4 % (0.1-2.0); Eosinophils % 0.1 % (0.1-12.0); Hematocrit 28.3 % (37.0-47.0); Hemoglobin 9.7 g/dL (12.2-16.2); Lymphocytes # 1.5 K/mm3 (0.7-4.5); Lymphocytes % 12.2 % (10-50); Mean Corpuscular HGB Conc 34.2 g/dL (31.8-35.4); Mean Corpuscular Hemoglobin 31.9 pg (27.0-31.2); Mean Corpuscular Volume 93.2 fl (81-99); Mean Platelet Volume 10.2 fl (7.4-10.4); Monocytes # 0.8 K/mm3 (0.1-1.0); Monocytes % 6.6 % (1.7-9.3); Neutrophils % 80.7 % (37.0-80.0); Platelet Count 119 K/mm3 (142-424); Red Blood Count 3.04 M/mm3 (4.20-5.40); Red Cell Distribution Width 17.7 % (11.5-17.5); White Blood Count 12.4 K/mm3 (4.8-10.8)
[2020-08-27 06:25] LABS: Chloride 104 mmol/L (98-107); Sodium 136 mmol/L (136-145)
[2020-08-27 06:27] LABS: Alkaline Phosphatase 57 U/L (38-126); Bilirubin,Total 1.1 mg/dl (0.2-1.3); Blood Urea Nitrogen 37 mg/dl (7-17); Carbon Dioxide 30 mmol/L (22.0-30.0); Creatinine Clearance Estimated 27 mL/min (50-200); Estimated Glomerular Filt Rate 43 ml/min (>60); GFR (African American) 52 ML/MIN (>60)
[2020-08-27 06:28] LABS: Albumin Level 2.2 g/dl (3.5-5.0); Albumin/Globulin Ratio 1.1 (1.1-1.8); Calcium 7.4 mg/dl (8.4-10.2); Glucose 105 mg/dl (74-100); Total Protein,Serum 4.2 g/dl (6.3-8.2)
[2020-08-27 06:33] LABS: INR 1.84 (0.9-1.1); Prothrombin Time 19.3 seconds (9.4-11.8)
[2020-08-27 06:34] LABS: Alanine Aminotransferase 937 U/L (12-78)
[2020-08-27 06:36] LABS: Aspartate Amino Transferase 1288 U/L (14-36)
--- NOTE | 2020-08-27 08:33 | HMH.ACPN2 ---
Internal Medicine - PN: Subj *Date: 08/27/20 *Time: 09:43 Interval history: Ms. Moulton actually did somewhat better overnight. Had a increase in her urine output over the course of the evening. Oliguria has improved, putting out more than 0.5 cc/kg per hour over the past 4 hours this morning. Alert and oriented this morning though still quite fatigued. Oxygen requirement 35%. Family at bedside and updated of plan. Continues to complain of left hip pain. Blood pressure stable and has not required Levophed or other pressors in more than 24 hours. Maintenance fluids running at 75 cc an hour this morning. Continues to be stable on heparin drip. Reviewed labs this morning, slight improvement in kidney function and stable electrolytes. Exam Vital signs and Labs for Last 24 Hours: Temp Pulse Resp BP Pulse Ox 97.4 F L 65 21 94/65 L 100 08/27/20 04:00 08/27/20 05:00 08/27/20 05:00 08/27/20 05:00 08/27/20 06:30 Laboratory Results - last 24 hr 08/26/20 01:25: Urine Color Yellow, Urine Appearance Clear, Urine pH 5.5, Ur Specific [place] >= 1.030, Urine Protein 2+, Urine Glucose (UA) Negative, Urine Ketones Negative, Urine Blood Trace-l, Urine Nitrate Negative, Urine Bilirubin Negative, Urine Urobilinogen 2.0, Ur Leukocyte Esterase Negative, Urine RBC Occasional, Urine WBC Occasional, Ur Squamous Epith Cells 10-20, Ur Transition Epith Cell 3-5, Amorphous Sediment 1+, Urine Bacteria None 08/26/20 06:38: Total Counted 100, Neutrophils % (Manual) 83 H, Band Neutrophils % 4.0, Lymphocytes % (Manual) 9 L, Monocytes % (Manual) 4, Platelet Estimate Slight decrease, RBC Morphology Normal 08/26/20 06:38: Troponin I 1.56 H 08/26/20 08:21: PT 26.6 H, INR 2.62 H, APTT 170.0 H* D 08/26/20 09:23: Lactate 4.9 H 08/26/20 12:00: Specimen Source Art line, O2 % 50% venti mask, ABG pH 7.41, ABG pCO2 34.2 L, ABG pO2 131.9 H, ABG HCO3 20.9 L, ABG Total CO2 22.0 L, ABG O2 Saturation 98, ABG Base Excess -3.8 L, Larry Test Acceptable 08/26/20 13:10: WBC 14.0 H D, RBC 3.14 L, Hgb 9.4 L, Hct 29.5 L, MCV 94.0, MCH 30.0, MCHC 32.0, RDW 17.2, Plt Count 112 L, MPV 9.8, Neut % (Auto) 79.6, Lymph % (Auto) 13.4, [place] % (Auto) 6.8, Eos % (Auto) 0.0 L, Baso % (Auto) 0.2, Neut # (Auto) 11.1 H, Lymph # (Auto) 1.9, [place] # (Auto) 1.0, Eos # (Auto) 0.0, Baso # (Auto) 0.0 08/26/20 13:10: Sodium 139, Potassium 3.0 L, Chloride 106, Carbon Dioxide 27, Anion Gap 9.0, BUN 33 H, Creatinine 1.40 H, Estimated Creat Clear 23, Estimated GFR 36 L, Est GFR ( Amer) 44 L, Glucose 170 H, Calcium 6.7 L, Total Bilirubin 1.5 H, AST > 1500 H*, ALT 927 H*, Alkaline Phosphatase 62, Troponin I 1.43 H, Total Protein 4.2 L, Albumin 2.2 L, Globulin 2.0, Albumin/Globulin Ratio 1.1 08/26/20 14:30: Lactate 3.8 H 08/26/20 16:35: Troponin I 1.25 H 08/26/20 16:35: Lactate 2.7 H 08/26/20 18:50: Troponin I 1.13 H 08/26/20 20:30: APTT 170.0 H* 08/26/20 22:20: WBC 14.3 H, RBC 3.29 L, Hgb 10.4 L D, Hct 29.9 L, MCV 90.8, MCH 31.6 H, MCHC 34.8, RDW 17.5, Plt Count 121 L, MPV 10.4, Neut % (Auto) 80.2 H, Lymph % (Auto) 13.3, [place] % (Auto) 6.1, Eos % (Auto) 0.1, Baso % (Auto) 0.2, Neut # (Auto) 11.5 H, Lymph # (Auto) 1.9, [place] # (Auto) 0.9, Eos # (Auto) 0.0, Baso # (Auto) 0.0 08/26/20 22:20: Sodium 136, Potassium 4.4 D, Chloride 104, Carbon Dioxide 28, Anion Gap 8.4, BUN 34 H, Creatinine 1.40 H, Estimated Creat Clear 23, Estimated GFR 36 L, Est GFR ( Amer) 44 L, Glucose 121 H D, Calcium 7.3 L, Total Bilirubin 1.4 H, AST 1932 H* D, ALT 1096 H*, Alkaline Phosphatase 63, Troponin I 0.91 H, Total Protein 4.5 L, Albumin 2.3 L, Globulin 2.2, Albumin/Globulin Ratio 1.0 L 08/26/20 22:20: Magnesium 1.8 D 08/26/20 23:35: APTT 55.3 H* D 08/26/20 23:35: Lactate 1.7 08/27/20 05:44: Sodium 136, Potassium 4.0, Chloride 104, Carbon Dioxide 30, Anion Gap 6.0, BUN 37 H, Creatinine 1.20 H, Estimated Creat Clear 27, Estimated GFR 43 L, Est GFR ( Amer) 52 L, Glucose 105 H, Calcium 7.4 L, Total Bilirubin 1.1, AST 1288 H* D, ALT 937 H
[2020-08-27 09:09] LABS: ABG Base Excess -12.5 mmol/L (-2.4-2.3); ABG HCO3 14.6 mmhg (22.0-26.0); ABG PCO2 33.2 mmhg (35.0-45.0); ABG PH 7.26 mmol/L (7.35-7.45); ABG PO2 297.7 mmhg (80-100); ABG TCO2 15.6 mmhg (23-27)
[2020-08-27 09:10] LABS: ABG Oxygen Saturation 100 % (90-100)
[2020-08-27 09:11] LABS: Allen's Test Patient Unable; Oxygen NRB AT 100% %; Source ART LINE
[2020-08-27 09:39] LABS: Activated Partial Thrombo Time 89.4 seconds (23.6-34.0)
--- NOTE | 2020-08-27 11:26 | HMH.CNCARD ---
History of Present Illness Consult date: 08/27/20 Consult reason: atrial fibrillation, post-op evaluation Chief complaint: atrial fibrillation and hypotension Additional Medical History:: 1. Post op surgercial status for fixation of left femoral neck fracture. (08/27/2020) 2. Atrial fibrillation (08/27/2020 3. Hyptension (08/27/2020) 4. Oliguria (08/27/2020) 5. Elevated Liver enzymes 6. NSTEMI (08/27/2020) 7. Essential Hypertension 8. COPD 9. Shock liver History of present illness: 79 year old female admitted to [facility] for left femoral fracture. Pt is status post surgery of fixation of left femoral neck. Pt had been recovering well until having 2 episodes thursday of hypotension, tachypnea, and decompensation. Initial episode with A. fib that responded to fluids, oxygen, amiodarone, and metoprolol. Subsequent episode with hypotension and bradycardia necessitating multiple vasopressors and leading to heparin drip. Also received transfusion of red blood cells overnight due to worsening anemia. at bedside. Pt is alert and oriented to person only. Pt is receiving supplemental oxygen at this time. Pt denies chest pain, tightness or pressure. Complains of shortness of breath. Denies swelling of the lower extremities. Echocardiagram revealed Conclusion 1. Technically difficult study, biatrial enlargement, normal left ventricular size, mild concentric left ventricular hypertrophy, visually estimated ejection fraction 50% with no regional wall motion abnormality, endocardial surfaces are poorly visualized, diastolic parameters are inconclusive. 2. Moderately enlarged right ventricle with moderate reduction in right ventricular contractility. 3. Thickened and calcified aortic valve without Doppler evidence of aortic stenosis or aortic insufficiency. 4. Mild mitral and tricuspid regurgitation, calculated right ventricular systolic pressure 48 mmHg. 5. Small pericardial effusion noted. 6. Inferior vena cava is dilated with less than 50% inspiratory collapse. EKG revealed Atrial fib with controlled heart rate of 70bpm. Vitals are stable though guarded. Discuss plan of care with Dr. Yee. Recommend pt having left heart cath to determine the severity of damage to the arteries. Discussed the plan of care with pt/. Discussed the risk and benefits of LHC with right groin access. Pt and are agreeable. fish hatchery laborer notified. Will defer any changes to medication regimen pending the results of LHC. Thank you for letting Cardiology participate in the care of this pt. [facility] History I have reviewed the patient's past medical history: Yes Medical History: Reports:: Chronic Obstructive Pulmonary Disease (COPD), Hypertension Denies:: Cancer, Diabetes Mellitus Type 1, Diabetes Mellitus Type 2, MRSA, Seizures *Have you ever received a pneumonia vaccine?: Yes *Have you received a flu vaccine this season?: Yes Other Medical History: Reports: Arthritis. Denies: Blood Transfusion Reaction Anesthesia experience/problems:: none Other Surgeries: Yes: Cholecystectomy, Hysterectomy-Total Amputation: No Fractures: Yes - *Social History Last grade of school completed: High school graduate Smoking Status: Former smoker Tobacco Type: cigarettes # Packs/Day (cigarettes): 1 Alcohol Intake: never Substance Use Type: other *Occupational Status:: retired Housing: house Household Members: spouse *Travel in the last 8 weeks: None Family Hx:: Cancer Meds Home Medications Medication Instructions Recorded Confirmed Type Tramadol HCl [Tramadol 50mg 75 mg PO TIDP PRN 07/03/19 08/23/20 History Tab] Omeprazole [Omeprazole 40mg 40 mg PO DAILY 08/23/20 08/23/20 History Capsule] Umeclidinium Brm/Vilanterol Tr 1 inh IH DAILY 08/23/20 08/23/20 History [Anoro Ellipta 62.5-25 Mcg INH] lisinopriL [Lisinopril 10mg Tab] 10 mg PO DAILY 08/23/20 08/23/20 History Allergies Allergy/AdvReac Type Sev
--- NOTE | 2020-08-27 12:49 | PC.NURSE ---
Received report from ENID MoodyRN @ [id number].
--- NOTE | 2020-08-27 14:36 | PC.NURSE ---
1402 - Received report from Cleveland MartinezRN at this time. Pt to floor @ 1430. Lungs diminished upon auscultation. Abdomen distended, non-tender w/ active BS in all quads. R fem cath site w/ quarter size serosang drainage, marked w/ borders. +2 edema noted to RUE, elevated on pillow. Pulses present and equal to BLE. Pt drowsy. Family present at bedside. PTT to be drawn for heparin gtt. Telephone orders received for heparin gtt to be restarted @ 1500.
--- NOTE | 2020-08-27 14:52 | SUR.PHASEII ---
pt had very small amt bruising to r groin upon sheath removal, remained unchanged through manual pressure and thereafter.
--- NOTE | 2020-08-27 14:57 | PC.NURSE ---
1402 - Received report from Cleveland Martinez RN at this time. Pt to floor @ 1430. Lungs coarse throughout upon auscultation. Abdomen distended, non-tender w/ active BS in all quads. R fem cath site w/ quarter size serosang drainage, marked w/ borders. +2 edema noted to RUE, elevated on pillow. Pulses present and equal to BLE. Pt drowsy. Family present at bedside. PTT to be drawn for heparin gtt. Telephone orders received for heparin gtt to be restarted @ 1500.
--- NOTE | 2020-08-27 15:21 | DIET.NUTRFU ---
Pt has declined and with decreased PO intake- refused past 3 meals. Pt with possible volume overload, new SORAYA, and elevated liver enzymes. Fat free/low sodium protein supplement TID added to diet order. Will monitor intakes/acceptance supplementation and modify as indicated. Pt has had 5# weight gain t/o stay- 4 days. Also of note, pt has had some elevated BG increasing over the past 2 days- 186, 204, 170, no prior hx DM. Continuing to monitor.
[2020-08-27 15:23] LABS: Activated Partial Thrombo Time 39.7 seconds (23.6-34.0)
--- NOTE | 2020-08-27 15:33 | PC.NURSE ---
Per Cassidy Nichols heparin gtt to be restarted @ 13 mls/hr. Orders read back, verified and carried out.
--- NOTE | 2020-08-27 17:08 | HMH.ORTHPN ---
Subjective Date: 08/27/20 Time: 17:00 Principal diagnosis: L femoral neck fracture Interval history: The patient is stable at the moment but had a tumultuous weekend. She had sudden-onset hypotension, tachycardia and hypoxia. Pressor support was needed to maintain MAP but no intubation required. She suffered an acute kidney injury and possibly an ischemic liver event. Differential diagnoses included acute MA versus PE and heparin drip started. She was stabilized and echo/cardiac cath performed, and the most likely explanation for her decompensation is currently felt to be massive but soft PE, that has responded well heparinization. Currently she is resting comfortably. PN: Obj Ex Vital signs: Temp Pulse Resp BP Pulse Ox 98.6 F 80 18 151/89 H 100 08/27/20 16:20 08/27/20 16:20 08/27/20 16:20 08/27/20 16:20 08/27/20 16:20 - Constitutional no acute distress - Routine HEENT Exam Head: Present: normocephalic Eye: Present: EOMI ENT: Present: mucous membranes moist - Routine Neck Exam Present: trachea midline - Routine Respiratory Exam Absent: patient mechanically ventilated - Routine Cardiovascular Exam Present: RRR - Routine Abdominal Exam Present: soft - Routine Exam Comments: biswas to gravity with dark urine - Routine Extremities Exam Comments: L hip dressings c/d/i w/o strikethrough L calf soft, non-tender palpable pedal pulses LLE, foot pink/warm - Routine Skin Exam Present: warm - Urinary Catheter Management Biswas Cath placed during this visit: no Progress Note: A&P (1) Femoral neck fracture Status: Acute (2) Essential hypertension Status: Chronic (3) Chronic pain disorder Status: Chronic (4) COPD (chronic obstructive pulmonary disease) Status: Chronic (5) Postherpetic neuralgia at T3-T5 level Status: Chronic (6) Left upper arm pain Status: Acute (7) NSTEMI (non-ST elevated myocardial infarction) Status: Acute (8) Shock liver Status: Acute (9) Acid-base disorder, mixed Status: Acute (10) Acute kidney injury Status: Acute Assessment and Plan for All Diagnoses:: 79yo F POD 3 s/p L hip hemiarthroplasty for FNF; POD 1-2 complicated by acute decompensation with hypotension, tachycardia, hypoxia, oliguria. Believed to have suffered large PE that has responded to heparin drip. -- resume PT/OT when medically stable -- WBAT LLE; posterior hip precautions, abduction pillow -- SCD RLE -- encourage IS 10x/hr while awake -- ice pack L hip as needed -- anticoagulation per primary team; xarelto recommended by cardiology -- pain control; po/IV meds ordered PRN -- care management consult for dispo planning -- medical management per Dr. Lira
--- NOTE | 2020-08-27 17:27 | PC.NURSE ---
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 Pt has been weaned from venturi mask to 2 L O2 per nasal cannula, tolerating well. Room air sat obtained pt desat to 87% @ rest. Lungs noted to be coarse throughout upon auscultation. Abdomen round, non-tender w/ active BS. No Bm this shift. Aguero cath to drain at bedside w/ clear yellow urine. Surgical dressing C/D/I. (R) femoral cath site w/ quarter size serosang drainage present, remains unchanged from initial assessment (borders marked). Site is soft to touch w/ no s/s of hematoma. Pulses present and equal in extremities. Cap refill <3 sec. +2 edema noted to LUE, was propped up on pillow to promote decrease of swelling. Pt transferred out of ICU to step-down per Dr. Lira this shift. Family remains at bedside. Call mabry w/in reach. No needs voiced.
[2020-08-28] VITALS (10 sets, daily range): BP systolic 106–128; BP diastolic 68–76; PULSE 60–81; RESP 18–24; TEMP 36.5–36.9; O2SAT 90–100; BMI 20.6
--- NOTE | 2020-08-28 01:03 | PC.NURSE ---
Obtained blood draw for aPTT around 10 pm per central line. Lab reported that blood would not coagulate. Repeat blood draw per house superviser. Again lab reported same incident. Labcalled pharmacy, Andrei Armenta. This nurse spoke with Lara Armenta. New orders to stop Heparin gtt for 2 hours then draw aPTT again.
[2020-08-28 03:45] LABS: Activated Partial Thrombo Time 150.2 seconds (23.6-34.0)
[2020-08-28 03:45] LABS: Activated Partial Thrombo Time 45.2 seconds (23.6-34.0)
--- NOTE | 2020-08-28 03:55 | PC.NURSE ---
Ptt collected per central line and sent to lab. Spoke with Urvashi in lab. New results of 45.2. Also got results from last aPTT that resulted from 2200 lab with value of 150.2. Lab consulted pharmacy. Spoke with Andrei Armenta, who is aware of this and prior PTT. New orders: Restart Heparin gtt @ 500 units/hr. Orders carried out. Pt is currently resting well. Has slept at more intervals and has been more comfortable this shift. She has had some sips of water t/o night. Has c/o some generalized discomfort and to hip. Pt has been encouraged to let staff turn and reposition. She has refused at times. VS have been stable. Pt remains on 2L O2 NC. Lung case noted to have coarse crackles to (R) anterior. Pt has not c/o soa. O2 sats have remained upper 90s to 100%. DSG to (L) hip is C/D/I. Abductor pillow remains in place. (R) femoral site with DSG in place. No additional drainage noted this shift. F/C draining to bedside with clear, dark yellow urine. Total urine output thus far is 275 ml. Medication administered per nov. Family remains at bedside. Will continue to monitor.
[2020-08-28 06:55] LABS: Basophils % 0.3 % (0.1-2.0); Eosinophils # 0.1 K/mm3 (0.0-0.4); Eosinophils % 0.5 % (0.1-12.0); Hematocrit 27.3 % (37.0-47.0); Hemoglobin 9.1 g/dL (12.2-16.2); Lymphocytes # 1.3 K/mm3 (0.7-4.5); Lymphocytes % 12.8 % (10-50); Mean Corpuscular HGB Conc 33.4 g/dL (31.8-35.4); Mean Corpuscular Volume 95.7 fl (81-99); Mean Platelet Volume 9.9 fl (7.4-10.4); Monocytes # 0.7 K/mm3 (0.1-1.0); Monocytes % 7.2 % (1.7-9.3); Neutrophils # 7.9 K/mm3 (1.8-7.8); Neutrophils % 79.1 % (37.0-80.0); Platelet Count 115 K/mm3 (142-424); Red Blood Count 2.86 M/mm3 (4.20-5.40); Red Cell Distribution Width 17.8 % (11.5-17.5); White Blood Count 9.9 K/mm3 (4.8-10.8)
[2020-08-28 07:02] LABS: Potassium 3.8 mmoL/L (3.5-5.1); Sodium 135 mmol/L (136-145)
[2020-08-28 07:03] LABS: Chloride 102 mmol/L (98-107)
[2020-08-28 07:04] LABS: Alanine Aminotransferase 710 U/L (12-78); Aspartate Amino Transferase 558 U/L (14-36); Blood Urea Nitrogen 32 mg/dl (7-17); Creatinine Clearance Estimated 33 mL/min (50-200); Estimated Glomerular Filt Rate 53 ml/min (>60); GFR (African American) 64 ML/MIN (>60)
[2020-08-28 07:05] LABS: Albumin Level 2.1 g/dl (3.5-5.0); Alkaline Phosphatase 60 U/L (38-126); Anion Gap 5.8 mEq/L (5-15); Bilirubin,Total 1.1 mg/dl (0.2-1.3); Calcium 7.4 mg/dl (8.4-10.2); Carbon Dioxide 31 mmol/L (22.0-30.0); Globulin 2.1 g/dL (1.3-3.2); Glucose 88 mg/dl (74-100); Magnesium 1.5 mg/dl (1.6-2.3); Total Protein,Serum 4.2 g/dl (6.3-8.2)
--- NOTE | 2020-08-28 07:42 | HMH.ACPN2 ---
Internal Medicine - PN: Subj *Date: 08/28/20 *Time: 08:34 Interval history: Ms. Moulton did well overnight with no acute events. Blood pressure remained stable. Heart rate well controlled. Tolerating 2 L nasal cannula oxygen. Urine output has continued to picking supervisor with greater than 30 cc an hour on average. Transition this morning from heparin drip to Xarelto. States her pain is well controlled at this time. Had a large bowel movement yesterday. Remains afebrile. Poor p.o. intake at this time. Family at bedside and updated to plan. Arterial line removed yesterday, Aguero remains in place, PT did not see her yesterday due to complexity of case and presence of art line. Exam Vital signs and Labs for Last 24 Hours: Temp Pulse Resp BP Pulse Ox 97.7 F 77 21 121/75 100 08/28/20 00:00 08/28/20 06:00 08/28/20 06:00 08/28/20 06:00 08/28/20 06:20 Laboratory Results - last 24 hr 08/26/20 02:48: Specimen Source Art line, O2 % Nrb at 100%, ABG pH 7.26 L, ABG pCO2 33.2 L, ABG pO2 297.7 H, ABG HCO3 14.6 L, ABG Total CO2 15.6 L, ABG O2 Saturation 100, ABG Base Excess -12.5 L, Larry Test Patient unable 08/27/20 08:00: APTT 89.4 H* D 08/27/20 14:50: APTT 39.7 H D 08/27/20 22:24: APTT 150.2 H* D 08/28/20 03:15: APTT 45.2 H D 08/28/20 06:05: WBC 9.9, RBC 2.86 L, Hgb 9.1 L, Hct 27.3 L, MCV 95.7, MCH 32.0 H, MCHC 33.4, RDW 17.8 H, Plt Count 115 L, MPV 9.9, Neut % (Auto) 79.1, Lymph % (Auto) 12.8, [place] % (Auto) 7.2, Eos % (Auto) 0.5, Baso % (Auto) 0.3, Neut # (Auto) 7.9 H, Lymph # (Auto) 1.3, [place] # (Auto) 0.7, Eos # (Auto) 0.1, Baso # (Auto) 0.0 08/28/20 06:05: Sodium 135 L, Potassium 3.8, Chloride 102, Carbon Dioxide 31 H, Anion Gap 5.8, BUN 32 H, Creatinine 1.00, Estimated Creat Clear 33, Estimated GFR 53 L, Est GFR ( Amer) 64 D, Glucose 88, Calcium 7.4 L, Magnesium 1.5 L D, Total Bilirubin 1.1, AST 558 H* D, ALT 710 H*, Alkaline Phosphatase 60, Total Protein 4.2 L, Albumin 2.1 L, Globulin 2.1, Albumin/Globulin Ratio 1.0 L I & O for Last 24 hours: Intake & Output 08/25/20 08/26/20 08/27/20 08/28/20 23:59 23:59 23:59 23:59 Intake Total 3847.481 / 3847.481 4099 / 4099 120 / 240 120 / 120 Output Total 600 / 600 410 / 410 450 / 450 Balance 3247.481 / 3247.481 3689 / 3689 -330 / -210 120 / 120 Weight 46.862 kg 45.7 kg 47 kg 47.6 kg Microbiology Reports for the Last 24 Hours: Microbiology 08/26/20 01:25 Urine,Catheterized Urine Culture - Preliminary NO GROWTH AFTER 24 HOURS Narrative: - Constitutional No acute distress, thin, cooperative; nasal cannula 2 L - *Routine HEENT Exam Head: Present: normocephalic Eye: Present: EOMI, PERRL ENT: Present: mucous membranes moist - *Routine Neck Exam Present: supple. Right IJ present Absent: lymphadenopathy - *Routine Respiratory Exam Present: Movement bilaterally, faint bibasilar crackles best heard in posterior lung case. - *Routine Cardiovascular Exam Present: RRR, no R/M/G - *Routine Abdominal Exam Present: soft, normoactive bowel sounds, minimal tenderness in upper abdomen Rt > Lt -Aguero catheter in place draining yellow urine - *Routine Extremities Exam Absent: cyanosis, clubbing; significant edema of left upper extremity, no edema of lower extremities. Left hip tender to palpation over surgical incision, bandage clean dry and intact, no significant bruising. No bruit or bruising over insertion site from right femoral arterial line. Clean dry and intact - *Routine Skin Exam Present: warm, ecchymosis - *Routine Neurological Exam Present: alert, oriented X3 Assessment and Plan (1) Femoral neck fracture Status: Acute Category: Medical Code(s): S72.009A - Fracture of unspecified part of neck of unspecified femur, initial encounter for closed fracture (2) Essential hypertension Status: Chronic Category: Medical Code(s): I10 - Essential (primary) hypertension (3) Chronic pain disorder St
--- NOTE | 2020-08-28 09:24 | HMH.PNCARD ---
Subjective Date: 08/28/20 Time: 09:00 Principal diagnosis: L femoral neck fracture Interval history: 79-year-old female consulted by cardiology for non-STEMI and new onset A. fib due to stress of surgery for a fixation of the femoral neck. Patient resting quietly in her bed. Family at bedside. Patient states she feels much better today. Denies chest pain, tightness or pressure. Denies shortness of breath. Patient is tolerating the oxygen at 2 L by nasal cannula. Pulse ox was 97%. Patient does have edema of the left hand. Family states an IV had infiltrated in the left hand. No swelling of the lower extremities. Patient has Aguero catheter intact draining dark yellow urine. Heparin was stopped yesterday. Patient was placed on Xarelto 15 mg twice daily. Pain is under control and managed by PCP and Ortho. Patient remains afebrile. Arterial line was removed. Vital signs are stable. Creatinine 1.00 with a BUN of 32. Nonflow-limiting coronary disease as described above [facility] Plan: 1. Almost certainly patient experienced a significant pulmonary embolism giving her the hypoxemia and circulatory collapse. Because of her recent hip fracture the thrombus was likely large and relatively soft. The bedside echocardiogram during her extremities demonstrated interventricular septal flattening with systole and diastole suggesting fluid and volume overload and given the clinical situation was almost certainly that of a massive pulmonary embolism. Because of the fresh thrombus the rapid administration of heparin most likely quickly dissolved the thrombus allowing for return of right ventricular function. 2. At this point I would recommend patient be converted to Xarelto 15 mg twice daily for 3 weeks followed by 20 mg daily for 3 months. This dose is based on patient's creatinine clearance being greater than 50. If the creatinine clearance is less than 50 patient should continue on 15 mg daily following the 3-week oral load. 3. Coronary artery disease will be managed medically 4. It is probably reasonable to continue amiodarone load dosage for the next 3 months and discontinue this medicine along with discontinuation of the Xarelto. Given this was a provoked pulmonary embolism is reasonable to continue the anticoagulation for 3 to [address] Gaston's discretion Echo:Conclusion 1. Technically difficult study, biatrial enlargement, normal left ventricular size, mild concentric left ventricular hypertrophy, visually estimated ejection fraction 50% with no regional wall motion abnormality, endocardial surfaces are poorly visualized, diastolic parameters are inconclusive. 2. Moderately enlarged right ventricle with moderate reduction in right ventricular contractility. 3. Thickened and calcified aortic valve without Doppler evidence of aortic stenosis or aortic insufficiency. 4. Mild mitral and tricuspid regurgitation, calculated right ventricular systolic pressure 48 mmHg. 5. Small pericardial effusion noted. 6. Inferior vena cava is dilated with less than 50% inspiratory collapse. The ultimate goal for patient is to return home with family who have prepared a room for her rehabilitation. Discussed plan of care with Dr. Yee. Will continue current medication regimen as is unless patient develops new signs and symptoms. Thank you for letting cardiology participate in the care of this patient. Exam Vital signs and Labs for Last 24 Hours: Temp Pulse Resp BP Pulse Ox 97.9 F 77 20 121/75 100 08/28/20 08:00 08/28/20 06:00 08/28/20 08:12 08/28/20 06:00 08/28/20 08:00 Laboratory Results - last 24 hr 08/27/20 08:00: APTT 89.4 H* D 08/27/20 14:50: APTT 39.7 H D 08/27/20 22:24: APTT 150.2 H* D 08/28/20 03:15: APTT 45.2 H D 08/28/20 06:05: WBC 9.9, RBC 2.86 L, Hgb 9.1 L, Hct 27.3 L, MCV 95.7, MCH 32.0 H, MCHC 33.4, RDW 17.8 H, Plt Count 115 L, MPV 9.9, Neut % (Auto) 79.
--- NOTE | 2020-08-28 09:25 | PC.NURSE ---
spoke with Dr. Lira on Am rounds. Ok to transfer pt to acute care. q4 vitals is appropriate, states he anticipates increased BP with PT/OT and ambulation.
--- NOTE | 2020-08-28 10:53 | HMH.ORTHPN ---
Subjective Date: 08/28/20 Time: 10:00 Principal diagnosis: L femoral neck fracture Interval history: The patient is sitting in bedside chair this morning, says she's feeling better. She had biscuits and gravy this morning for breakfast. No reports of chest pain, shortness of breath or abdominal pain. Left hip is sore but doing well. PN: Obj Ex Vital signs: Temp Pulse Resp BP Pulse Ox 97.9 F 77 20 121/75 100 08/28/20 08:00 08/28/20 06:00 08/28/20 08:12 08/28/20 06:00 08/28/20 08:00 - Constitutional no acute distress - Routine HEENT Exam Head: Present: normocephalic Eye: Present: EOMI ENT: Present: mucous membranes moist - Routine Neck Exam Present: trachea midline - Routine Respiratory Exam Absent: patient mechanically ventilated, respiratory distress, wheezes - Routine Cardiovascular Exam Present: RRR - Routine Abdominal Exam Present: soft. Absent: tenderness, distended - Routine Extremities Exam Comments: L hip dressings c/d/i w/o strikethrough +DF/PF/EHL LLE SILT distally LLE in all distributions L calf soft, non-tender palpable pedal pulses LLE, foot pink/warm - Routine Skin Exam Present: warm - Routine Neurological Exam Present: alert, oriented X3, moving all extremities, normal tone, vision grossly intact, hearing grossly intact, normal speech. Absent: sensory deficit, motor deficit, altered mental status - Urinary Catheter Management Aguero Cath placed during this visit: no Progress Note: A&P (1) Femoral neck fracture Status: Acute (2) Essential hypertension Status: Chronic (3) Chronic pain disorder Status: Chronic (4) COPD (chronic obstructive pulmonary disease) Status: Chronic (5) Postherpetic neuralgia at T3-T5 level Status: Chronic (6) Left upper arm pain Status: Acute (7) NSTEMI (non-ST elevated myocardial infarction) Status: Acute (8) Shock liver Status: Acute (9) Acid-base disorder, mixed Status: Acute (10) Acute kidney injury Status: Acute (11) Hypomagnesemia Status: Acute Assessment and Plan for All Diagnoses:: 79yo F POD 4 s/p L hip hemiarthroplasty for FNF; POD 1-2 complicated by acute decompensation with hypotension, tachycardia, hypoxia, oliguria. Believed to have suffered large PE that has responded to heparin drip. -- resume PT/OT today; WBAT LLE, posterior hip precautions, abduction pillow -- encourage IS 10x/hr while awake -- ice pack L hip as needed -- anticoagulation per primary team; to transition from heparin drip to xarelto today -- pain control; po/IV meds ordered PRN -- care management consult for dispo planning -- medical management per Dr. Lira
--- NOTE | 2020-08-28 14:33 | HMH.ACPN ---
Internal Medicine - PN: Subj *Date: 08/28/20 *Time: 14:33 Exam Vital signs and Labs for Last 24 Hours: Temp Pulse Resp BP Pulse Ox 97.9 F 76 18 117/75 96 08/28/20 08:00 08/28/20 12:00 08/28/20 12:00 08/28/20 12:00 08/28/20 12:00 Laboratory Results - last 24 hr 08/27/20 14:50: APTT 39.7 H D 08/27/20 22:24: APTT 150.2 H* D 08/28/20 03:15: APTT 45.2 H D 08/28/20 06:05: WBC 9.9, RBC 2.86 L, Hgb 9.1 L, Hct 27.3 L, MCV 95.7, MCH 32.0 H, MCHC 33.4, RDW 17.8 H, Plt Count 115 L, MPV 9.9, Neut % (Auto) 79.1, Lymph % (Auto) 12.8, [place] % (Auto) 7.2, Eos % (Auto) 0.5, Baso % (Auto) 0.3, Neut # (Auto) 7.9 H, Lymph # (Auto) 1.3, [place] # (Auto) 0.7, Eos # (Auto) 0.1, Baso # (Auto) 0.0 08/28/20 06:05: Sodium 135 L, Potassium 3.8, Chloride 102, Carbon Dioxide 31 H, Anion Gap 5.8, BUN 32 H, Creatinine 1.00, Estimated Creat Clear 33, Estimated GFR 53 L, Est GFR ( Amer) 64 D, Glucose 88, Calcium 7.4 L, Magnesium 1.5 L D, Total Bilirubin 1.1, AST 558 H* D, ALT 710 H*, Alkaline Phosphatase 60, Total Protein 4.2 L, Albumin 2.1 L, Globulin 2.1, Albumin/Globulin Ratio 1.0 L I & O for Last 24 hours: Intake & Output 08/25/20 08/26/20 08/27/20 08/28/20 23:59 23:59 23:59 23:59 Intake Total 3847.481 / 3847.481 4099 / 4099 120 / 240 1243 / 1243 Output Total 600 / 600 410 / 410 450 / 450 275 / 275 Balance 3247.481 / 3247.481 3689 / 3689 -330 / -210 968 / 968 Weight 46.862 kg 45.7 kg 47 kg 47.6 kg Microbiology Reports for the Last 24 Hours: Microbiology 08/26/20 01:25 Urine,Catheterized Urine Culture - Preliminary NO GROWTH AFTER 24 HOURS Assessment and Plan (1) Femoral neck fracture Status: Acute Category: Medical Code(s): S72.009A - Fracture of unspecified part of neck of unspecified femur, initial encounter for closed fracture (2) Essential hypertension Status: Chronic Category: Medical Code(s): I10 - Essential (primary) hypertension (3) Chronic pain disorder Status: Chronic Category: Medical Code(s): G89.4 - Chronic pain syndrome (4) COPD (chronic obstructive pulmonary disease) Status: Chronic Category: Medical Code(s): J44.9 - Chronic obstructive pulmonary disease, unspecified (5) Postherpetic neuralgia at T3-T5 level Status: Chronic Category: Medical Code(s): B02.29 - Other postherpetic nervous system involvement (6) Left upper arm pain Status: Acute Category: Medical Code(s): M79.622 - Pain in left upper arm (7) NSTEMI (non-ST elevated myocardial infarction) Status: Acute Category: Medical Code(s): I21.4 - Non-ST elevation (NSTEMI) myocardial infarction (8) Shock liver Status: Acute Category: Medical Code(s): K72.00 - Acute and subacute hepatic failure without coma (9) Acid-base disorder, mixed Status: Acute Category: Medical Code(s): E87.4 - Mixed disorder of acid-base balance (10) Acute kidney injury Status: Acute Category: Medical Code(s): N17.9 - Acute kidney failure, unspecified (11) Hypomagnesemia Status: Acute Category: Medical Code(s): E83.42 - Hypomagnesemia The patient's infection will respond to the chosen ABx?: No (NO INFECTION FOUND) Is the patient receiving the right drug, dose, and route?: No Could a more targeted ABx be ordered?: No (ABX NOT NEEDED AT THIS TIME, MAY STOP LEVAQUIN)
--- NOTE | 2020-08-28 21:01 | PC.NURSE ---
Pt has done well this shift. Currently on 1 L O2 per nasal cannula, w/ no s/s of resp distress. Lungs coarse upon auscultation. Denies being SOA. Abdomen soft, non-tender w/ active BS. Pt family states her last BM was on 08/26. Aguero cath DC'd this shift, pt has since voided w/o difficulty. Pt participated w/ PT today and done well. Requires assistance x2 and use of rolling walker when ambulating. When pt in bed and in chair, abductor is in place. Pitting edema remains in LUE, pt's arm has been propped w/ pillow this shift w/ minimal improvement noted. Pt denies pain. Family have been in and out at bedside. Appetite is poor and pt does not eat much of her tray, as she says she is this way at home too. Staff have offered her snacks and to get her favorable foods. Pt has wished to stay up to chair at shift change, staff offered to take pt back to bed. Call clotilde w/in reach. No needs voiced.
[2020-08-29] VITALS: BP 104/65; BP 115/73; PULSE 73; PULSE 74; PULSE 80; RESP 17; TEMP 36.6; O2SAT 93
[2020-08-29 04:00] VITALS: BP 106/70; PULSE 78; PULSE 80; RESP 16; TEMP 36.6; O2SAT 98
--- NOTE | 2020-08-29 04:11 | PC.NURSE ---
She is A&Ox4. NSR on telemetry. VSS. She has received PRN medication for pain in her left hip. DSG on her left hip is C/D/I. DSG on right groin is intact with small amount of old drainage marked. No new drainage. Positive radial and pedal pulses. Capillary refill <3. She has been sleeping in the chair per her request.
[2020-08-29 05:42] VITALS: BMI 20.5
[2020-08-29 08:00] VITALS: BP 151/77; PULSE 74; PULSE 86; PULSE 88; RESP 25; TEMP 36.8; O2SAT 100; O2SAT 95
--- NOTE | 2020-08-29 08:29 | HMH.ACPN2 ---
Internal Medicine - PN: Subj *Date: 08/29/20 *Time: 08:29 Interval history: Patient is awake, pleasant, in her recliner. Oriented x2. A little fuzzy on the date. Denies significant pain. Reports that all the physical therapists are great. Exam Vital signs and Labs for Last 24 Hours: Temp Pulse Resp BP Pulse Ox 97.9 F 78 16 106/70 L 98 08/29/20 04:00 08/29/20 04:00 08/29/20 04:00 08/29/20 04:00 08/29/20 04:00 Laboratory Results - last 24 hr 08/25/20 17:10: Crossmatch (AHG) See Detail I & O for Last 24 hours: Intake & Output 08/26/20 08/27/20 08/28/20 08/29/20 11:59 11:59 11:59 11:59 Intake Total 3861.481 / 3861.481 3432 / 3432 1243 / 1243 1753 / 1753 Output Total 250 / 250 160 / 160 725 / 725 625 / 625 Balance 3611.481 / 3611.481 3272 / 3272 518 / 518 1128 / 1128 Weight 100 lb 12.373 oz 102 lb 10.038 oz 104 lb 15.04 oz 104 lb 14 oz Microbiology Reports for the Last 24 Hours: Microbiology 08/26/20 01:25 Urine,Catheterized Urine Culture - Final NO GROWTH AFTER 48 HOURS Narrative: Oropharynx clear, no JVD. Lungs have good air movement, heart rate regular. Abdomen soft. No edema or clubbing. Moving all extremities well, neurologic exam nonfocal. Assessment and Plan (1) Femoral neck fracture Status: Acute Category: Medical Code(s): S72.009A - Fracture of unspecified part of neck of unspecified femur, initial encounter for closed fracture (2) Essential hypertension Status: Chronic Category: Medical Code(s): I10 - Essential (primary) hypertension (3) Chronic pain disorder Status: Chronic Category: Medical Code(s): G89.4 - Chronic pain syndrome (4) COPD (chronic obstructive pulmonary disease) Status: Chronic Category: Medical Code(s): J44.9 - Chronic obstructive pulmonary disease, unspecified (5) Postherpetic neuralgia at T3-T5 level Status: Chronic Category: Medical Code(s): B02.29 - Other postherpetic nervous system involvement (6) Left upper arm pain Status: Acute Category: Medical Code(s): M79.622 - Pain in left upper arm (7) NSTEMI (non-ST elevated myocardial infarction) Status: Acute Category: Medical Code(s): I21.4 - Non-ST elevation (NSTEMI) myocardial infarction (8) Shock liver Status: Acute Category: Medical Code(s): K72.00 - Acute and subacute hepatic failure without coma (9) Acid-base disorder, mixed Status: Acute Category: Medical Code(s): E87.4 - Mixed disorder of acid-base balance (10) Acute kidney injury Status: Acute Category: Medical Code(s): N17.9 - Acute kidney failure, unspecified (11) Hypomagnesemia Status: Acute Category: Medical Code(s): E83.42 - Hypomagnesemia - Assessment and plan all Dx Assessment and Plan for all problems:: Continues to improve from her significant postoperative episode of hypoxia, symptoms most consistent with a PE. If creatinine has improved today would consider CT scanning to confirm diagnosis. Has been changed over to Xarelto, continue physical therapy, continue to evaluate for appropriate rehabilitation placement with LTC versus home health. Labs pending this morning evaluate kidney dysfunction, shock liver, and possible anemia issues postoperatively.
[2020-08-29 08:56] LABS: Basophils # 0.1 K/mm3 (0-0.2); Basophils % 0.6 % (0.1-2.0); Eosinophils # 0.1 K/mm3 (0.0-0.4); Eosinophils % 0.5 % (0.1-12.0); Hematocrit 28.3 % (37.0-47.0); Hemoglobin 9.4 g/dL (12.2-16.2); Lymphocytes # 1.3 K/mm3 (0.7-4.5); Lymphocytes % 11.7 % (10-50); Mean Corpuscular HGB Conc 33.2 g/dL (31.8-35.4); Mean Corpuscular Hemoglobin 32.5 pg (27.0-31.2); Mean Corpuscular Volume 97.7 fl (81-99); Mean Platelet Volume 8.9 fl (7.4-10.4); Monocytes # 0.8 K/mm3 (0.1-1.0); Monocytes % 7.1 % (1.7-9.3); Neutrophils # 9.1 K/mm3 (1.8-7.8); Neutrophils % 80.1 % (37.0-80.0); Platelet Count 120 K/mm3 (142-424); Red Cell Distribution Width 18.5 % (11.5-17.5); White Blood Count 11.4 K/mm3 (4.8-10.8)
[2020-08-29 09:02] LABS: Chloride 100 mmol/L (98-107); Potassium 3.5 mmoL/L (3.5-5.1); Sodium 135 mmol/L (136-145)
[2020-08-29 09:04] LABS: Blood Urea Nitrogen 26 mg/dl (7-17); Creatinine Clearance Estimated 33 mL/min (50-200); Estimated Glomerular Filt Rate 69 ml/min (>60); GFR (African American) 83 ML/MIN (>60)
[2020-08-29 09:05] LABS: Alanine Aminotransferase 563 U/L (12-78); Albumin Level 2.3 g/dl (3.5-5.0); Alkaline Phosphatase 63 U/L (38-126); Anion Gap 8.5 mEq/L (5-15); Aspartate Amino Transferase 373 U/L (14-36); Bilirubin,Total 1.2 mg/dl (0.2-1.3); Calcium 7.7 mg/dl (8.4-10.2); Carbon Dioxide 30 mmol/L (22.0-30.0); Globulin 2.3 g/dL (1.3-3.2); Glucose 99 mg/dl (74-100); Magnesium 1.5 mg/dl (1.6-2.3); Total Protein,Serum 4.6 g/dl (6.3-8.2)
--- NOTE | 2020-08-29 09:45 | CT_ITS ---
PROCEDURE: CT ANGIO CHEST CLINCIAL INDICATION: evaluate for PE Dropping O2 saturation, recent hip surgery COMPARISON: CT CT CHEST W CON from 07/06/2019 TECHNIQUE: IV Contrast: 70ML Isovue 370 Axial images obtained with sagittal and coronal reformats. All CT scans at the facility use one or more dose reduction, viz: automated exposure control, ma/kV adjustment per patient size (including targeted exams where dose is matched to indication, i.e. head), or iterative reconstruction technique. FINDINGS: HEART AND MEDIASTINAL STRUCTURES: Atherosclerotic changes are present with soft plaque noted along the aortic arch on the left. No evidence of dissection. There is mild prominence of the ascending aorta measuring up to 4.2 cm in AP dimension. Coronary artery calcifications are present.. Small pulmonary emboli are present within the segmental lower lobe branches on the right and subsegmental lower lobe branches on the left. No large central emboli apparent. There is reflux of contrast into the inferior vena cava. There is mild enlargement of the right atrium. There is no bowing of the right ventricular wall posteriorly. LUNGS AND PLEURAL SPACES: Biapical fibronodular changes are noted with some calcification. These findings have progressed compared to the previous exam. Atelectatic changes are present in the lower lobes with small to medium-sized bilateral pleural effusions. There are nonspecific small pulmonary nodules in the right lower lobe laterally and within the right middle lobe laterally probably not significantly changed considering the difference in technique and lower lung volumes on today's study. There are mild degenerative changes in the thoracic spine. 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 There is mild diffuse edema. There is increased soft tissue density along the flanks on both sides which may be due to extensive edema. This is slightly greater in the left lateral thoracic region. IMPRESSION: 1. There are small bilateral pulmonary emboli. 2. Mild prominence of the ascending aorta at 4.2 cm. 3. Small to medium-sized bilateral pleural effusion with bibasilar atelectasis. 4. Right lower lobe and right middle lobe pulmonary nodules which do not appear significantly changed. There is fibronodular changes in the lung apices which may be slightly more prominent in the left apex. 5. Diffuse subcutaneous edema. 6. Eusebio, the patient's nurse on the floor was notified of the above findings to well 920 at 5:35 p.m. Dictated by: Larry Hope MD 08/29/2020 17:39 Larry Hope MD in [place] 08/29/2020 17:39
--- NOTE | 2020-08-29 09:52 | HMH.PNCARD ---
Subjective Date: 08/29/20 Time: 09:00 Principal diagnosis: L femoral neck fracture Interval history: 79-year-old female consulted by cardiology for non-STEMI and pulmonary emboli. Patient is up in chair this a.m. Daughter at bedside. Patient states she is feeling much better. Patient stated that she did have a rough night last night. Due to not being able to sleep. Patient denies chest pain, tightness or pressure. Patient denies shortness of breath. Patient is tolerating oxygen at 2 L of nasal cannula. Pulse ox was 98%. Patient noted with bruising and slight swelling of the left hand. This could have been due to IV site. Patient underwent heart catheterization. Significant pulmonary emboli given from the hypoxemia and cellular collapse. Patient noted with increased urination. Creatinine has improved to 0.80 BUN 26. Patient is in normal sinus rhythm with no ectopy at a controlled rate. Blood pressure stable. Patient is tolerating Xarelto 15 mg twice daily without any bleeding issues. Physical therapy worked with patient yesterday on a few steps. Hopefully patient will be able to ambulate more today. Patient stated pain is manageable. Will defer pain management to Ortho or PCP. From a cardiac standpoint patient is stable. Will defer any medication changes or treatment therapy to PCP. Cardiology is available if change in status occurs. Thank you for letting cardiology participate in the care of this patient. Exam Vital signs and Labs for Last 24 Hours: Temp Pulse Resp BP Pulse Ox 98.3 F 86 25 H 151/77 H 100 08/29/20 08:00 08/29/20 08:00 08/29/20 08:00 08/29/20 08:00 08/29/20 08:00 Laboratory Results - last 24 hr 08/25/20 17:10: Crossmatch (AHG) See Detail 08/29/20 08:45: WBC 11.4 H, RBC 2.90 L, Hgb 9.4 L, Hct 28.3 L, MCV 97.7, MCH 32.5 H, MCHC 33.2, RDW 18.5 H, Plt Count 120 L, MPV 8.9, Neut % (Auto) 80.1 H, Lymph % (Auto) 11.7, [place] % (Auto) 7.1, Eos % (Auto) 0.5, Baso % (Auto) 0.6, Neut # (Auto) 9.1 H, Lymph # (Auto) 1.3, [place] # (Auto) 0.8, Eos # (Auto) 0.1, Baso # (Auto) 0.1 08/29/20 08:45: Sodium 135 L, Potassium 3.5, Chloride 100, Carbon Dioxide 30, Anion Gap 8.5, BUN 26 H, Creatinine 0.80, Estimated Creat Clear 33, Estimated GFR 69, Est GFR ( Amer) 83 D, Glucose 99, Calcium 7.7 L, Magnesium 1.5 L, Total Bilirubin 1.2, AST 373 H* D, ALT 563 H*, Alkaline Phosphatase 63, Total Protein 4.6 L, Albumin 2.3 L, Globulin 2.3, Albumin/Globulin Ratio 1.0 L I & O for Last 24 hours: Intake & Output 08/26/20 08/27/20 08/28/20 08/29/20 23:59 23:59 23:59 23:59 Intake Total 4099 / 4099 120 / 240 2256 / 2256 980 / 980 Output Total 410 / 410 450 / 450 750 / 900 150 / 150 Balance 3689 / 3689 -330 / -210 1506 / 1356 830 / 830 Weight 100 lb 12.02 oz 103 lb 9.876 oz 104 lb 15.04 oz 104 lb 14 oz Microbiology Reports for the Last 24 Hours: Microbiology 08/26/20 01:25 Urine,Catheterized Urine Culture - Final NO GROWTH AFTER 48 HOURS - Constitutional no acute distress, cooperative - *Routine HEENT Exam Head: Present: normocephalic ENT: Present: mucous membranes moist - *Routine Neck Exam Present: supple, full ROM, normal carotid upstroke. Absent: JVD, carotid bruit, lymphadenopathy - Routine Chest/Breast/Axilla Exam Chest wall: Present: tenderness. Absent: mass, pacemaker - *Routine Respiratory Exam Present: accessory muscle use, CTA bilaterally. Absent: wheezes, crackles - *Routine Cardiovascular Exam Present: RRR, Normal S1, Normal S2. Absent: click, bradycardia, tachycardia, irregular rhythm, JVD - *Routine Abdominal Exam Present: soft, normoactive bowel sounds. Absent: guarding, firm - *Routine Extremities Exam Present: edema, full ROM, pulses intact, normal capillary refill Comments: left hand - *Routine Skin Exam Present: intact, dry, warm. Absent: erythema - *Routine Neurological Exam Present: alert, oriented X3, CN II-XII
[2020-08-29 12:00] VITALS: BP 120/79; BP 135/78; PULSE 80; RESP 20; RESP 21; TEMP 36.7; TEMP 36.9; O2SAT 96; O2SAT 97
--- NOTE | 2020-08-29 12:36 | HMH.ORTHPN ---
Subjective Date: 08/29/20 Time: 11:00 Principal diagnosis: L femoral neck fracture Interval history: The patient is looking very well this morning. She has been out of bed with physical therapy and says she is feeling better. Her appetite is improved. Aguero has been removed. No drainage from her hip dressing. No complaints of numbness or tingling in the left leg. PN: Obj Ex Vital signs: Temp Pulse Resp BP Pulse Ox 98.1 F 80 20 135/78 97 08/29/20 12:00 08/29/20 12:00 08/29/20 12:00 08/29/20 12:00 08/29/20 12:00 - Constitutional no acute distress - Routine HEENT Exam Head: Present: normocephalic Eye: Present: EOMI ENT: Present: mucous membranes moist - Routine Neck Exam Present: trachea midline - Routine Respiratory Exam Absent: patient mechanically ventilated, respiratory distress, wheezes - Routine Cardiovascular Exam Present: RRR - Routine Abdominal Exam Present: soft. Absent: tenderness - Routine Extremities Exam Comments: L hip dressings c/d/i w/o strikethrough +DF/PF/EHL LLE SILT distally LLE in all distributions L calf soft, non-tender palpable pedal pulses LLE, foot pink/warm - Routine Skin Exam Present: warm - Routine Neurological Exam Present: alert, oriented X3, moving all extremities, normal tone, vision grossly intact, hearing grossly intact, normal speech. Absent: sensory deficit, motor deficit, altered mental status - Routine Psychiatric Exam Present: normal affect - Urinary Catheter Management Aguero Cath placed during this visit: no Progress Note: A&P (1) Femoral neck fracture Status: Acute (2) Essential hypertension Status: Chronic (3) Chronic pain disorder Status: Chronic (4) COPD (chronic obstructive pulmonary disease) Status: Chronic (5) Postherpetic neuralgia at T3-T5 level Status: Chronic (6) Left upper arm pain Status: Acute (7) NSTEMI (non-ST elevated myocardial infarction) Status: Acute (8) Shock liver Status: Acute (9) Acid-base disorder, mixed Status: Acute (10) Acute kidney injury Status: Acute (11) Hypomagnesemia Status: Acute Assessment and Plan for All Diagnoses:: 79yo F POD 5 s/p L hip hemiarthroplasty for FNF; POD 1-2 complicated by acute decompensation with hypotension, tachycardia, hypoxia, oliguria. Believed to have suffered large PE that has responded to heparin drip. Currently being transitioned to Xarelto. -- continue PT/OT; WBAT LLE, posterior hip precautions, abduction pillow -- encourage IS 10x/hr while awake -- ice pack L hip as needed -- anticoagulation per primary team; to transition from heparin drip to xarelto -- pain control; po/IV meds ordered PRN -- care management consult for dispo planning -- will change dressing prior to discharge; silverlon dressing in place, which may remain until POD 7 -- medical management per Dr. Lira -- follow-up with me in clinic 09/07/20 at 2:15pm; discharge instructions and pain Rx placed on chart today
--- NOTE | 2020-08-29 14:58 | PC.NURSE ---
Patient has been alert and oriented x4 this shift, up to chair with physical therapy this am, abductor pillow in place while in bed and when legs are elevated, treated for pain x1 this shift per emar, has remained SR per telemetry this shift, CT chest completed to r/o PE, remains on 1LNC, voids per BP, no bm noted thus far this shift, lungs cta, HR reg, abd soft and nontender, active bowel sounds in all quads, appetite has been fair, denies any CP, no s/s of distress noted, vss, will continue to monitor.
[2020-08-29 16:00] VITALS: BP 120/91; PULSE 70; PULSE 71; RESP 17; TEMP 36.9; O2SAT 100
--- NOTE | 2020-08-29 16:50 | DIET.NUTRFU ---
Pt with continued fair appetite but with improvement. She ate more today than she has t/o stay- 50% breakfast and 75% lunch plus protein shake. Stated she is tired of previous supplement and requested protein shakes instead. Added to diet order BID. Pt and educated/counseled on importance nutrition.
[2020-08-29 20:00] VITALS: BP 131/79; PULSE 73; PULSE 80; RESP 20; TEMP 37; O2SAT 100
[2020-08-30] VITALS (7 sets, daily range): BP systolic 137–155; BP diastolic 68–89; PULSE 70–80; RESP 18–20; TEMP 36.3–36.9; O2SAT 93–100; BMI 25.3
[2020-08-30 08:29] LABS: Basophils # 0.3 K/mm3 (0-0.2); Basophils % 2.1 % (0.1-2.0); Eosinophils # 0.1 K/mm3 (0.0-0.4); Eosinophils % 0.8 % (0.1-12.0); Hemoglobin 9.4 g/dL (12.2-16.2); Lymphocytes # 1.7 K/mm3 (0.7-4.5); Lymphocytes % 13.4 % (10-50); Mean Corpuscular HGB Conc 28.5 g/dL (31.8-35.4); Mean Corpuscular Hemoglobin 31.5 pg (27.0-31.2); Mean Corpuscular Volume 110.5 fl (81-99); Mean Platelet Volume 13.9 fl (7.4-10.4); Neutrophils # 9.9 K/mm3 (1.8-7.8); Neutrophils % 75.8 % (37.0-80.0); Platelet Count 155 K/mm3 (142-424); Red Blood Count 2.99 M/mm3 (4.20-5.40); Red Cell Distribution Width 18.9 % (11.5-17.5)
[2020-08-30 08:30] LABS: Chloride 100 mmol/L (98-107); Sodium 134 mmol/L (136-145)
[2020-08-30 08:31] LABS: Potassium 3.4 mmoL/L (3.5-5.1)
[2020-08-30 08:33] LABS: Blood Urea Nitrogen 20 mg/dl (7-17); Creatinine Clearance Estimated 33 mL/min (50-200); Estimated Glomerular Filt Rate 69 ml/min (>60); GFR (African American) 83 ML/MIN (>60)
[2020-08-30 08:34] LABS: Anion Gap 5.4 mEq/L (5-15); Calcium 7.8 mg/dl (8.4-10.2); Carbon Dioxide 32 mmol/L (22.0-30.0); Glucose 118 mg/dl (74-100)
--- NOTE | 2020-08-30 08:52 | HMH.ACPN2 ---
Internal Medicine - PN: Subj *Date: 08/30/20 *Time: 08:52 Interval history: Patient is feeling well, states that she is going in the right direction. Her daughter is in the room today and also feels like she is doing well. She improved her performance with physical therapy yesterday. Exam Vital signs and Labs for Last 24 Hours: Temp Pulse Resp BP Pulse Ox 98.4 F 70 18 137/68 100 08/30/20 00:00 08/30/20 04:00 08/30/20 00:00 08/30/20 00:00 08/30/20 00:00 Laboratory Results - last 24 hr 08/29/20 08:45: WBC 11.4 H, RBC 2.90 L, Hgb 9.4 L, Hct 28.3 L, MCV 97.7, MCH 32.5 H, MCHC 33.2, RDW 18.5 H, Plt Count 120 L, MPV 8.9, Neut % (Auto) 80.1 H, Lymph % (Auto) 11.7, [place] % (Auto) 7.1, Eos % (Auto) 0.5, Baso % (Auto) 0.6, Neut # (Auto) 9.1 H, Lymph # (Auto) 1.3, [place] # (Auto) 0.8, Eos # (Auto) 0.1, Baso # (Auto) 0.1 08/29/20 08:45: Sodium 135 L, Potassium 3.5, Chloride 100, Carbon Dioxide 30, Anion Gap 8.5, BUN 26 H, Creatinine 0.80, Estimated Creat Clear 33, Estimated GFR 69, Est GFR ( Amer) 83 D, Glucose 99, Calcium 7.7 L, Magnesium 1.5 L, Total Bilirubin 1.2, AST 373 H* D, ALT 563 H*, Alkaline Phosphatase 63, Total Protein 4.6 L, Albumin 2.3 L, Globulin 2.3, Albumin/Globulin Ratio 1.0 L 08/30/20 08:15: WBC 13.0 H, RBC 2.99 L, Hgb 9.4 L, Hct 33.0 L, MCV 110.5 H, MCH 31.5 H, MCHC 28.5 L, RDW 18.9 H, Plt Count 155 D, MPV 13.9 H, Neut % (Auto) 75.8, Lymph % (Auto) 13.4, [place] % (Auto) 8.0, Eos % (Auto) 0.8, Baso % (Auto) 2.1 H, Neut # (Auto) 9.9 H, Lymph # (Auto) 1.7, [place] # (Auto) 1.0, Eos # (Auto) 0.1, Baso # (Auto) 0.3 H 08/30/20 08:15: Sodium 134 L, Potassium 3.4 L, Chloride 100, Carbon Dioxide 32 H, Anion Gap 5.4, BUN 20 H, Creatinine 0.80, Estimated Creat Clear 33, Estimated GFR 69, Est GFR ( Amer) 83, Glucose 118 H, Calcium 7.8 L I & O for Last 24 hours: Intake & Output 08/27/20 08/28/20 08/29/20 08/30/20 11:59 11:59 11:59 11:59 Intake Total 3432 / 3432 1243 / 1243 2233 / 2233 1532 / 1532 Output Total 160 / 160 725 / 725 625 / 625 Balance 3272 / 3272 518 / 518 1608 / 1608 1532 / 1532 Weight 102 lb 10.038 oz 104 lb 15.04 oz 104 lb 14 oz Narrative: Patient is alert, pleasant. Nasal cannula oxygen flowing. Oropharynx clear. Heart rate regular. No JVD. Lungs have good air movement, no crackles in the front lung field, but she does have some loose rhonchi with expiratory wheezing. No tachypnea or respiratory distress or use of accessory muscles Abdomen soft. Hip dressing wound looked intact. Distal extremities are warm and well-perfused Assessment and Plan (1) Femoral neck fracture Status: Acute Category: Medical Code(s): S72.009A - Fracture of unspecified part of neck of unspecified femur, initial encounter for closed fracture (2) Essential hypertension Status: Chronic Category: Medical Code(s): I10 - Essential (primary) hypertension (3) Chronic pain disorder Status: Chronic Category: Medical Code(s): G89.4 - Chronic pain syndrome (4) COPD (chronic obstructive pulmonary disease) Status: Chronic Category: Medical Code(s): J44.9 - Chronic obstructive pulmonary disease, unspecified (5) Postherpetic neuralgia at T3-T5 level Status: Chronic Category: Medical Code(s): B02.29 - Other postherpetic nervous system involvement (6) Left upper arm pain Status: Acute Category: Medical Code(s): M79.622 - Pain in left upper arm (7) NSTEMI (non-ST elevated myocardial infarction) Status: Acute Category: Medical Code(s): I21.4 - Non-ST elevation (NSTEMI) myocardial infarction (8) Shock liver Status: Acute Category: Medical Code(s): K72.00 - Acute and subacute hepatic failure without coma (9) Acid-base disorder, mixed Status: Acute Category: Medical Code(s): E87.4 - Mixed disorder of acid-base balance (10) Acute kidney injury Status: Acute Category: Medical Code(s): N17.9 - Acute kidney failure, unspecified (11) Hypoma
--- NOTE | 2020-08-30 11:06 | HMH.ORTHPN ---
Subjective Date: 08/30/20 Time: 10:00 Principal diagnosis: L femoral neck fracture Interval history: The patient is doing well this morning, though she feels weak and not ready to discharge home. She is hesitant about walking but with assistance was able to get onto the bedside commode this morning. Medically she continues to improve. PN: Obj Ex Vital signs: Temp Pulse Resp BP Pulse Ox 98.1 F 80 18 155/87 H 98 08/30/20 08:00 08/30/20 08:00 08/30/20 10:07 08/30/20 08:00 08/30/20 08:00 - Constitutional no acute distress - Routine HEENT Exam Head: Present: normocephalic Eye: Present: EOMI ENT: Present: mucous membranes moist - Routine Respiratory Exam Absent: patient mechanically ventilated, respiratory distress - Routine Cardiovascular Exam Present: RRR - Routine Abdominal Exam Present: soft. Absent: tenderness - Routine Extremities Exam Comments: L hip dressings c/d/i w/o strikethrough +DF/PF/EHL LLE SILT distally LLE in all distributions L calf soft, non-tender palpable pedal pulses LLE, foot pink/warm - Routine Skin Exam Present: warm - Routine Neurological Exam Present: alert, oriented X3, moving all extremities, normal tone, vision grossly intact, hearing grossly intact, normal speech. Absent: sensory deficit, motor deficit, altered mental status - Urinary Catheter Management Aguero Cath placed during this visit: no Progress Note: A&P (1) Femoral neck fracture Status: Acute (2) Essential hypertension Status: Chronic (3) Chronic pain disorder Status: Chronic (4) COPD (chronic obstructive pulmonary disease) Status: Chronic (5) Postherpetic neuralgia at T3-T5 level Status: Chronic (6) Left upper arm pain Status: Acute (7) NSTEMI (non-ST elevated myocardial infarction) Status: Acute (8) Shock liver Status: Acute (9) Acid-base disorder, mixed Status: Acute (10) Acute kidney injury Status: Acute (11) Hypomagnesemia Status: Acute Assessment and Plan for All Diagnoses:: 79yo F POD 6 s/p L hip hemiarthroplasty for FNF; POD 1-2 complicated by acute decompensation with hypotension, tachycardia, hypoxia, oliguria. Believed to have suffered large PE that has responded to heparin drip. Currently being transitioned to Xarelto. Small bilateral pulmonary emboli seen on CTA performed yesterday. -- continue PT/OT; WBAT LLE, posterior hip precautions, abduction pillow -- encourage IS 10x/hr while awake -- ice pack L hip as needed -- anticoagulation per primary team -- pain control; po/IV meds ordered PRN -- care management consult for dispo planning -- will change dressing prior to discharge; silverlon dressing in place, which may remain until POD 7 -- medical management per Dr. Lira -- follow-up with me in clinic 09/07/20 at 2:15pm
--- NOTE | 2020-08-30 17:02 | PC.NURSE ---
Pt is alert and oriented x3. O2 sat was turned up to 2L NC due O2 sats dropping into the low 80's. She was up to the chair this morning for a few hours. She has also been up to the bsc with assist x1 several times and tolerating well. ABD pillow has been in place while in bed. Treated x1 for pain in the left hip w/patient reporting relief on reassessment. Edema noted to left hand. NSR on telemetry. Family taking turns at bedside. Will continue to monitor.
[2020-08-31] VITALS: BP 147/81; PULSE 68; PULSE 70; RESP 18; TEMP 36.9; O2SAT 100
[2020-08-31 04:00] VITALS: BP 143/75; PULSE 67; PULSE 70; RESP 13; TEMP 36.6; O2SAT 100
--- NOTE | 2020-08-31 07:39 | PC.NURSE ---
No acute changes noted. Pt has rested well this shift. She has been up to BSC this AM. SHe is currently sitting in chair. VSS. She is currently on 2L O2 NC. Lungs continue to have coarse crackles to (R) upper lobe. She has c/o soa while ambulating. Pt and family stated concerns about going home. Medications administered per mar. Call light within reach. Family at bedside. Will continue to monitor.
[2020-08-31 08:00] VITALS: BP 144/74; PULSE 67; PULSE 70; RESP 15; TEMP 36.6; O2SAT 100; O2SAT 97
--- NOTE | 2020-08-31 08:53 | HMH.DCSUM ---
General - General Admission date:: 08/23/20 Discharge date: 08/31/20 HPI HPI: Ms. Moulton is an 79-year-old female who is well-known to our office. She presented to the ER today after falling at home this morning. She reports standing up from the couch when she subsequently fell to the side landing on her left hip. She denies any head trauma or loss of consciousness. Was unable to get up from the floor even with the assistance of her . Had immediate onset of pain and discomfort in her hip. Denies any chest pain, shortness of breath, dizziness associated with the episode or after the episode. Was brought to the ER for further evaluation. Noted to have left hip intertrochanteric fracture. Orthopedics Was consulted, decision to admit for further management and preop assessment. She was additionally noted to have severe hypertension and reports not taking her meds this morning. History significant for essential hypertension, postherpetic neuralgia that has been persistent for 2 to 3 years and failed numerous modalities. She takes gabapentin, tramadol and lisinopril at home. Allergic to codeine, penicillin and morphine. She is a former smoker with COPD but does not currently smoke cigarettes per report Medicine consulted to admit patient. On assessment after she arrived to the floor, she remains in pain in her left hip. She has a daughter with her at bedside. Otherwise is alert and oriented and at baseline neurologic exam. No complaint of chest pain. Of note she has normal kidney function, no history of dialysis, no CAD equivalent, prior to injury was able to participate in ADLs without shortness of breath or chest pain. Hospital Course Hospital Course: 79-year-old female who presented with left hip fracture after a fall at home. Status post surgical fixation of her femoral neck fracture. Surgery was uncomplicated and tolerated well. After surgery she had 2 episodes Thursday of hypotension, tachypnea, and decompensation. Initial episode with A. fib that responded to fluids, oxygen, amiodarone, and metoprolol. Subsequent episode with hypotension and bradycardia necessitating multiple vasopressors and leading to heparin drip. Also received transfusion of red blood cells x1 due to worsening anemia. Responded well to medical management of her event. As her kidney function stabilized, CT PE performed showing presence of bilateral subsegmental PEs confirming suspected etiology of her decompensation. Patient has since had normalization of her kidney function, drastic improvement in her liver enzymes, is on oral anticoagulation therapy. Has been working with physical therapy who recommended long-term placement for continued PT. Medically stable for discharge for further management. See problems below for full hospital course. Cardiac -NSTEMI and acute onset A. fib secondary to stress reaction from surgery versus pulmonary embolus versus volume overload. -Cardiology consulted, assisted in care. Left heart cath was performed after her decompensation episodes and subsequent stabilization showing no coronary artery disease or flow-limiting lesions. -Echocardiogram obtained, see report for formal results. EF of 50%, valvular disease. -Initiated on heparin drip, transitioned to Xarelto. Plan to treat for 3 months with Xarelto for PE therapy -Given her A. fib, was initiated on amiodarone. We will continue amiodarone and metoprolol. Resumed low-dose lisinopril for hypertension. We will continue to monitor in the outpatient setting. -Goal blood pressure less than 140/90 Respiratory/pulmonary - Tolerated noninvasive support. After acute episode with decompensation after surgery, she was gradually weaned on her oxygen down to 1 to 2 L as needed for comfort. -Continued home inhaler, no productive cough. Improvement with auto diuresis. -Continue further weaning of oxygen in the outpatient setting. Renal -SORAYA after hypote
--- NOTE | 2020-08-31 09:43 | HMH.ORTHPN ---
Subjective Date: 08/31/20 Time: 08:30 Principal diagnosis: L femoral neck fracture Interval history: The patient is well this morning, sitting in bedside chair. No f/c reported, no n/v/d, no cp/soa. Anticipate d/c home vs SNF today. PN: Obj Ex Vital signs: Temp Pulse Resp BP Pulse Ox 97.9 F 67 15 144/74 H 97 08/31/20 08:00 08/31/20 08:00 08/31/20 08:00 08/31/20 08:00 08/31/20 08:00 - Constitutional no acute distress - Routine HEENT Exam Head: Present: normocephalic Eye: Present: EOMI ENT: Present: mucous membranes moist - Routine Neck Exam Present: trachea midline - Routine Respiratory Exam Absent: respiratory distress - Routine Cardiovascular Exam Present: RRR - Routine Abdominal Exam Present: soft - Routine Extremities Exam Comments: L hip dressings c/d/i w/o strikethrough dressings removed, incision c/d/i w/o periwound erythema, ecchymosis or drainage +DF/PF/EHL LLE SILT distally LLE in all distributions L calf soft, non-tender palpable pedal pulses LLE, foot pink/warm - Routine Skin Exam Present: warm - Routine Neurological Exam Present: alert, oriented X3, moving all extremities, normal tone, vision grossly intact, hearing grossly intact, normal speech. Absent: sensory deficit, motor deficit, altered mental status - Urinary Catheter Management Aguero Cath placed during this visit: no Progress Note: A&P (1) Femoral neck fracture Status: Acute (2) Essential hypertension Status: Chronic (3) Chronic pain disorder Status: Chronic (4) COPD (chronic obstructive pulmonary disease) Status: Chronic (5) Postherpetic neuralgia at T3-T5 level Status: Chronic (6) Left upper arm pain Status: Acute (7) NSTEMI (non-ST elevated myocardial infarction) Status: Resolved (8) Shock liver Status: Resolved (9) Acid-base disorder, mixed Status: Resolved (10) Acute kidney injury Status: Resolved (11) Hypomagnesemia Status: Resolved Assessment and Plan for All Diagnoses:: 79yo F POD 7 s/p L hip hemiarthroplasty for FNF; POD 1-2 complicated by acute decompensation with hypotension, tachycardia, hypoxia, oliguria. Believed to have suffered large PE that has responded to heparin drip. Currently being transitioned to Xarelto. Small bilateral pulmonary emboli seen on CTA performed Thursday. -- continue PT/OT; WBAT LLE, posterior hip precautions, abduction pillow -- encourage IS 10x/hr while awake -- ice pack L hip as needed -- anticoagulation per primary team -- pain control; po/IV meds ordered PRN -- care management consult for dispo planning -- dressing changed today, change every 1-2 days after discharge -- medical management per Dr. Lira -- follow-up with me in clinic 09/07/20 at 2:15pm
[2020-08-31 09:48] LABS: Adenovirus,PCR Not Detected (NotDetected); Bordetella Pertussis Not Detected (NotDetected); Chlamydophila Pneumoniae, PCR Not Detected (NotDetected); Coronavirus 19, PCR Not Detected (NotDetected); Coronavirus 229E Not Detected (NotDetected); Coronavirus NL63 Not Detected (NotDetected); Coronavirus OC43 Not Detected (NotDetected); Coronovirus HKU1,PCR Not Detected (NotDetected); Human Metapneumovirus Not Detected (NotDetected); Influenza A, PCR Not Detected (NotDetected); Influenza AH1, 2009 Not Detected (NotDetected); Influenza AH1, PCR Not Detected (NotDetected); Influenza AH3,PCR Not Detected (NotDetected); Influenza B, PCR Not Detected (NotDetected); Mycoplasma Pneumoniae, PCR Not Detected (NotDetected); Parainfluenza 1, PCR Not Detected (NotDetected); Parainfluenza 2, PCR Not Detected (NotDetected); Parainfluenza 3, PCR Not Detected (NotDetected); Parainfluenza 4, PCR Not Detected (NotDetected); Respiratory Syncytial Virus Not Detected (NotDetected); Rhinovirus/Enterovirus Not Detected (NotDetected)
[2020-08-31 11:07] LABS: Basophils # 0.1 K/mm3 (0-0.2); Basophils % 0.8 % (0.1-2.0); Eosinophils # 0.1 K/mm3 (0.0-0.4); Eosinophils % 0.5 % (0.1-12.0); Hematocrit 30.9 % (37.0-47.0); Hemoglobin 9.9 g/dL (12.2-16.2); Lymphocytes # 1.7 K/mm3 (0.7-4.5); Lymphocytes % 11.9 % (10-50); Mean Corpuscular HGB Conc 31.9 g/dL (31.8-35.4); Mean Corpuscular Hemoglobin 31.8 pg (27.0-31.2); Mean Corpuscular Volume 99.5 fl (81-99); Mean Platelet Volume 9.8 fl (7.4-10.4); Monocytes # 1.1 K/mm3 (0.1-1.0); Monocytes % 7.9 % (1.7-9.3); Neutrophils # 11.3 K/mm3 (1.8-7.8); Neutrophils % 78.9 % (37.0-80.0); Platelet Count 219 K/mm3 (142-424); Red Blood Count 3.11 M/mm3 (4.20-5.40); Red Cell Distribution Width 19.3 % (11.5-17.5); White Blood Count 14.3 K/mm3 (4.8-10.8)
[2020-08-31 11:10] LABS: Chloride 99 mmol/L (98-107); Potassium 3.6 mmoL/L (3.5-5.1); Sodium 133 mmol/L (136-145)
[2020-08-31 11:13] LABS: Alanine Aminotransferase 323 U/L (12-78); Albumin Level 2.6 g/dl (3.5-5.0); Alkaline Phosphatase 70 U/L (38-126); Anion Gap 5.6 mEq/L (5-15); Aspartate Amino Transferase 115 U/L (14-36); Bilirubin,Total 1.4 mg/dl (0.2-1.3); Blood Urea Nitrogen 16 mg/dl (7-17); Calcium 8.2 mg/dl (8.4-10.2); Carbon Dioxide 32 mmol/L (22.0-30.0); Creatinine Clearance Estimated 41 mL/min (50-200); Estimated Glomerular Filt Rate 80 ml/min (>60); GFR (African American) 97 ML/MIN (>60); Globulin 2.5 g/dL (1.3-3.2); Glucose 118 mg/dl (74-100); Total Protein,Serum 5.1 g/dl (6.3-8.2)
[2020-08-31 12:00] VITALS: BP 142/75; PULSE 66; RESP 20; TEMP 36.6; O2SAT 93
[2020-08-31 16:00] VITALS: BP 139/73; PULSE 70; RESP 20; TEMP 36.8; O2SAT 95
--- NOTE | 2020-08-31 16:22 | PC.NURSE ---
PT IS RESTING IN BED WITH FAMILY IN THE ROOM. ALL DISCHARGE PAPERWORK WAS FAXED TO [facility]. REPORT CALLED. PT WILL BE TRANSPORTED BY [facility] PRIVATE [facility]. PT TOLD FAMILY TODAY THAT SHE FELT IT WAS BEST FOR HER TO GO FOR SOME REHAB TO MAKE THINGS EASIER ON HER AND THE FAMILY. PT IS HOPEFUL THAT SHE WILL BE HOME BEFORE IESHA. PT AMBULATED WITH PHYSICAL THERAPY THIS SHIFT AND HAS BEEN UP TO THE [facility] SEVERAL TIMES WITH WALKER AND ONE ASSIST. DRESSING TO THE LEFT HIP CHANGED PER . VSS. EATING AND DRINKING FAIR. WILL CONTINUE TO MONITOR.
[2020-12-03 14:17] LABS: CATHL Activated Clotting Time 179 SEC (74-125)
== END 2020-08-31 17:30 | DRG 521 ==
LOC: ER 13:27 → 2ND 14:51
PROVIDERS: Family Medicine; Internal Medicine; Internal Medicine Adolescent Medicine; Orthopaedic Surgery; Admitting Provider Internal Medicine Adolescent Medicine; Emergency Provider Emergency Medicine; PCP Internal Medicine Adolescent Medicine; Visit Provider Internal Medicine Adolescent Medicine
PROC: 0SRS039 Replacement of Left Hip Joint, Femoral Surface with Ceramic Synthetic Substitute, Cemented, Open Approach (ICD-10-PCS; CPT 27130; principal; 2020-08-24 13:00)
PROC: 4A023N7 Measurement of Cardiac Sampling and Pressure, Left Heart, Percutaneous Approach (ICD-10-PCS; principal; 2020-08-27 11:00)
DX: S72.032A Displaced midcervical fracture of left femur, initial encounter for closed fracture (principal); I21.4 Non-ST elevation (NSTEMI) myocardial infarction; I26.94 Multiple subsegmental thrombotic pulmonary emboli without acute cor pulmonale; K72.00 Acute and subacute hepatic failure without coma; B02.29 Other postherpetic nervous system involvement; N17.9 Acute kidney failure, unspecified; I97.191 Other postprocedural cardiac functional disturbances following other surgery; I95.9 Hypotension, unspecified; I48.91 Unspecified atrial fibrillation; N99.0 Postprocedural (acute) (chronic) kidney failure; W01.0XXA Fall on same level from slipping, tripping and stumbling without subsequent striking against object, initial encounter; Y92.019 Unspecified place in single-family (private) house as the place of occurrence of the external cause; J44.9 Chronic obstructive pulmonary disease, unspecified; G89.4 Chronic pain syndrome; I10 Essential (primary) hypertension; Z88.2 Allergy status to sulfonamides; Z88.5 Allergy status to narcotic agent; Z87.891 Personal history of nicotine dependence; Z88.0 Allergy status to penicillin; Z79.899 Other long term (current) drug therapy
CPT/HCPCS: 27236; 36556; 36415; 71045; 71275; 73060; 73070; 73110; 73502; 73562; 80048; 80053; 81001; 82009; 82803; 82962; 83605; 83735; 84484; 85007; 85025; 85347; 85610; 85730; 86328; 86850; 87086; 87581; 87633; 87798; 93005; 93306; 93458; 94640; 94761; 96374; 96375; 97110; 97116; 97161; 97166; 97530; 99152; 99284; C1725; C1751; C1769; C1776; J0282; J1610; J1644; J1956; J2405; J7060; P9016; Q9967; U0003

== ENCOUNTER → 2020-09-28 12:55 | Outpatient (CLI) | payer OTHER, SELFPAY ==
--- NOTE | 2020-09-28 13:01 | XR_ITS ---
PROCEDURE: XR HIP LT 2-3V W/PELVIS CLINICAL INDICATION: left hip hemiarthroplasty Follow-up hip hemiarthroplasty COMPARISON: CR XR HIP LT 2-3V W/PELVIS from 08/24/2020 FINDINGS: Status post left hip hemiarthroplasty. There is good alignment with no evidence of complications. There is generalized vascular calcification. IMPRESSION: Good alignment status post left hip hemiarthroplasty Dictated by: Larry Hope MD 09/28/2020 16:02 Larry Hope MD in [place] 09/28/2020 16:02
== END ==
PROVIDERS: PCP Internal Medicine Adolescent Medicine; Visit Provider Orthopaedic Surgery
DX: S72.002A Fracture of unspecified part of neck of left femur, initial encounter for closed fracture (principal)
CPT/HCPCS: 73502

== ENCOUNTER → 2020-10-09 12:23 | Outpatient (CLI) | payer MEDICARE, SELFPAY ==
--- NOTE | 2020-10-09 12:33 | XR_ITS ---
PROCEDURE: XR CHEST 2V CLINICAL HISTORY: PNEUMONIA,CHRONIC RESPIRATORY FAILURE COMPARISON: CR CXR CHEST(2 VIEWS-NOT PORTABLE) from 07/26/2014 CR CXR CHEST(2 VIEWS-NOT PORTABLE) from 07/28/2014 CR XR CHEST PORTABLE from 07/03/2019 CR XR CHEST PORTABLE from 08/23/2020 CR XR CHEST PORTABLE from 08/25/2020 CR XR CHEST PORTABLE from 08/25/2020 FINDINGS: Mild cardiomegaly without failure. The lungs are clear without infiltrates, suspicious nodules, or pleural effusions. Mild thickening of the minor fissure anteriorly. No lobar consolidation or collapse. Chronic changes are present in the lingula. No acute bony findings. IMPRESSION: No acute findings. Dictated by: Larry Hope MD 10/09/2020 13:23 Larry Hope MD in [place] 10/09/2020 13:23
[2020-10-09 14:32] LABS: Basophils # 0.1 K/mm3 (0-0.2); Basophils % 0.3 % (0.1-2.0); Hematocrit 35.2 % (37.0-47.0); Hemoglobin 11.6 g/dL (12.2-16.2); Lymphocytes # 1.6 K/mm3 (0.7-4.5); Lymphocytes % 10.6 % (10-50); Mean Corpuscular HGB Conc 32.9 g/dL (31.8-35.4); Mean Corpuscular Hemoglobin 32.8 pg (27.0-31.2); Mean Corpuscular Volume 99.8 fl (81-99); Mean Platelet Volume 8.2 fl (7.4-10.4); Monocytes # 0.8 K/mm3 (0.1-1.0); Monocytes % 5.4 % (1.7-9.3); Neutrophils # 12.4 K/mm3 (1.8-7.8); Neutrophils % 83.7 % (37.0-80.0); Platelet Count 237 K/mm3 (142-424); Red Blood Count 3.53 M/mm3 (4.20-5.40); Red Cell Distribution Width 15.2 % (11.5-17.5); White Blood Count 14.8 K/mm3 (4.8-10.8)
[2020-10-09 14:58] LABS: Alanine Aminotransferase 12 U/L (12-78); Albumin Level 4.2 g/dl (3.5-5.0); Albumin/Globulin Ratio 1.3 (1.1-1.8); Alkaline Phosphatase 120 U/L (38-126); Anion Gap 12.2 mEq/L (5-15); Aspartate Amino Transferase 28 U/L (14-36); Bilirubin,Total 1.4 mg/dl (0.2-1.3); Blood Urea Nitrogen 39 mg/dl (7-17); Calcium 9.9 mg/dl (8.4-10.2); Carbon Dioxide 33 mmol/L (22.0-30.0); Chloride 91 mmol/L (98-107); Estimated Glomerular Filt Rate 31 ml/min (>60); GFR (African American) 37 ML/MIN (>60); Globulin 3.3 g/dL (1.3-3.2); Glucose 128 mg/dl (74-100); Potassium 4.2 mmoL/L (3.5-5.1); Sodium 132 mmol/L (136-145); Total Protein,Serum 7.5 g/dl (6.3-8.2)
== END ==
PROVIDERS: PCP Internal Medicine Adolescent Medicine; Visit Provider Internal Medicine Adolescent Medicine
DX: J18.9 Pneumonia, unspecified organism (principal); J96.20 Acute and chronic respiratory failure, unspecified whether with hypoxia or hypercapnia
CPT/HCPCS: 36415; 71046; 80053; 85025

== ENCOUNTER → 2020-11-14 10:27 | Outpatient (CLI) | payer MEDICARE, SELFPAY ==
[2020-11-14 15:56] LABS: Chloride 106 mmol/L (98-107)
[2020-11-14 15:57] LABS: Potassium 4.4 mmoL/L (3.5-5.1); Sodium 138 mmol/L (136-145)
[2020-11-14 15:59] LABS: Alanine Aminotransferase 12 U/L (12-78); Albumin Level 3.3 g/dl (3.5-5.0); Alkaline Phosphatase 128 U/L (38-126); Anion Gap 8.4 mEq/L (5-15); Aspartate Amino Transferase 31 U/L (14-36); Bilirubin,Total 0.6 mg/dl (0.2-1.3); Blood Urea Nitrogen 16 mg/dl (7-17); Carbon Dioxide 28 mmol/L (22.0-30.0); Estimated Glomerular Filt Rate 60 ml/min (>60); GFR (African American) 73 ML/MIN (>60)
[2020-11-14 16:00] LABS: Albumin/Globulin Ratio 1.2 (1.1-1.8); Globulin 2.8 g/dL (1.3-3.2); Glucose 102 mg/dl (74-100); Magnesium 1.4 mg/dl (1.6-2.3); Total Protein,Serum 6.1 g/dl (6.3-8.2)
== END ==
PROVIDERS: Visit Provider Internal Medicine Adolescent Medicine
DX: I10 Essential (primary) hypertension (principal)
CPT/HCPCS: 36415; 80053; 83735

== ENCOUNTER → 2021-01-14 10:30 | Outpatient (CLI) | payer MEDICARE, OTHER, SELFPAY ==
[2021-01-14 11:05] LABS: Basophils # 0.1 K/mm3 (0-0.2); Basophils % 0.7 % (0.1-2.0); Eosinophils # 0.2 K/mm3 (0.0-0.4); Eosinophils % 2.3 % (0.1-12.0); Hematocrit 33.2 % (37.0-47.0); Hemoglobin 10.5 g/dL (12.2-16.2); Lymphocytes # 1.8 K/mm3 (0.7-4.5); Lymphocytes % 22.8 % (10-50); Mean Corpuscular HGB Conc 31.7 g/dL (31.8-35.4); Mean Corpuscular Hemoglobin 30.9 pg (27.0-31.2); Mean Corpuscular Volume 97.3 fl (81-99); Mean Platelet Volume 7.8 fl (7.4-10.4); Monocytes # 0.6 K/mm3 (0.1-1.0); Monocytes % 7.4 % (1.7-9.3); Neutrophils # 5.3 K/mm3 (1.8-7.8); Neutrophils % 66.8 % (37.0-80.0); Platelet Count 290 K/mm3 (142-424); Red Blood Count 3.41 M/mm3 (4.20-5.40); Red Cell Distribution Width 15.3 % (11.5-17.5); White Blood Count 7.9 K/mm3 (4.8-10.8)
[2021-01-14 11:19] LABS: Chloride 104 mmol/L (98-107); Potassium 4.4 mmoL/L (3.5-5.1); Sodium 139 mmol/L (136-145)
[2021-01-14 11:21] LABS: Alanine Aminotransferase 10 U/L (12-78); Aspartate Amino Transferase 23 U/L (14-36); Bilirubin,Total 0.6 mg/dl (0.2-1.3); Blood Urea Nitrogen 14 mg/dl (7-17); Estimated Glomerular Filt Rate 53 ml/min (>60); GFR (African American) 64 ML/MIN (>60)
[2021-01-14 11:22] LABS: Albumin Level 3.9 g/dl (3.5-5.0); Albumin/Globulin Ratio 1.5 (1.1-1.8); Alkaline Phosphatase 143 U/L (38-126); Anion Gap 12.4 mEq/L (5-15); Calcium 9.2 mg/dl (8.4-10.2); Carbon Dioxide 27 mmol/L (22.0-30.0); Globulin 2.6 g/dL (1.3-3.2); Glucose 107 mg/dl (74-100); Total Protein,Serum 6.5 g/dl (6.3-8.2)
--- NOTE | 2021-01-14 11:36 | CT_ITS ---
PROCEDURE: CT ANGIO CHEST CLINCIAL INDICATION: PULMONARY EMBOLI Follow up COMPARISON: CT CT CHEST WO CON from 05/31/[address] ANGIO CHEST from 08/29/2020 TECHNIQUE: IV Contrast: 70ML Isovue 370 Axial images obtained with sagittal and coronal reformats. All CT scans at the facility use one or more dose reduction, viz: automated exposure control, ma/kV adjustment per patient size (including targeted exams where dose is matched to indication, i.e. head), or iterative reconstruction technique. FINDINGS: HEART AND MEDIASTINAL STRUCTURES: There remains prominence of the ascending aorta at 4 cm. No evidence of aortic dissection. Atherosclerotic changes involve the aorta with some soft plaque in the aortic arch. Previously noted subsegmental pulmonary emboli have resolved. No new pulmonary emboli evident. No mediastinal or hilar mass. Coronary artery calcifications are noted as before. LUNGS AND PLEURAL SPACES: Biapical fibronodular changes with some calcification noted in the apices not significantly changed. Centrilobular emphysema with scattered areas of scarring and bronchial thickening. Bilateral pleural effusions have resolved. There is a 5 mm left lower lobe pulmonary nodule. This was not readily apparent on the previous study however, there were atelectatic changes from the bilateral pleural effusions which could have obscured this area. There are minimal atelectatic changes in the left posterior lung base medially small cluster of nodules is present in the left lower lobe with a tree in bud pattern suggesting an area of pneumonia. Continued follow-up is suggested. There are mild atelectatic changes in the lingula.. Small nodular opacities are present in the right upper lobe probably unchanged. BONY STRUCTURES: No acute bony abnormalities apparent. 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 ADDITIONAL FINDINGS: No other significant abnormalities. IMPRESSION: 1. Interval resolution of bilateral subsegmental pulmonary emboli and bilateral pleural effusions. 2. Tree in bud pattern of nodular opacities in the left lower lobe and may to be due to developing pneumonia. 5 mm nodule left lung base nonspecific. Consider three month follow-up to confirm stability as metastatic disease cannot be excluded. 3. No change mild dilatation of the ascending aorta. 4. 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 5. Centrilobular emphysema with scattered areas of scarring and atelectasis and bronchial thickening. Dictated by: Larry Hope MD 01/15/2021 09:52 Larry Hope MD in [place] 01/15/2021 09:52
== END ==
PROVIDERS: PCP Internal Medicine Adolescent Medicine; Visit Provider Internal Medicine Adolescent Medicine
DX: I26.94 Multiple subsegmental thrombotic pulmonary emboli without acute cor pulmonale (principal)
CPT/HCPCS: 36415; 71275; 80053; 85025; Q9967

== ENCOUNTER → 2021-03-21 13:41 | Outpatient (CLI) | payer MEDICARE, SELFPAY ==
[2021-03-21 14:20] LABS: Basophils % 0.5 % (0.1-2.0); Eosinophils # 0.1 K/mm3 (0.0-0.4); Eosinophils % 0.8 % (0.1-12.0); Hematocrit 35.2 % (37.0-47.0); Hemoglobin 11.2 g/dL (12.2-16.2); Lymphocytes # 1.4 K/mm3 (0.7-4.5); Lymphocytes % 24.4 % (10-50); Mean Corpuscular HGB Conc 31.9 g/dL (31.8-35.4); Mean Corpuscular Hemoglobin 30.2 pg (27.0-31.2); Mean Corpuscular Volume 94.8 fl (81-99); Mean Platelet Volume 7.5 fl (7.4-10.4); Monocytes # 0.4 K/mm3 (0.1-1.0); Monocytes % 6.8 % (1.7-9.3); Neutrophils # 3.8 K/mm3 (1.8-7.8); Neutrophils % 67.4 % (37.0-80.0); Platelet Count 173 K/mm3 (142-424); Red Blood Count 3.71 M/mm3 (4.20-5.40); Red Cell Distribution Width 12.6 % (11.5-17.5); White Blood Count 5.7 K/mm3 (4.8-10.8)
[2021-03-21 15:19] LABS: Alanine Aminotransferase 14 U/L (12-78); Albumin Level 4.2 g/dl (3.5-5.0); Albumin/Globulin Ratio 1.6 (1.1-1.8); Alkaline Phosphatase 112 U/L (38-126); Anion Gap 13.1 mEq/L (5-15); Aspartate Amino Transferase 32 U/L (14-36); Bilirubin,Total 0.7 mg/dl (0.2-1.3); Blood Urea Nitrogen 20 mg/dl (7-17); Calcium 9.2 mg/dl (8.4-10.2); Carbon Dioxide 29 mmol/L (22.0-30.0); Chloride 102 mmol/L (98-107); Estimated Glomerular Filt Rate 43 ml/min (>60); GFR (African American) 52 ML/MIN (>60); Globulin 2.7 g/dL (1.3-3.2); Glucose 110 mg/dl (74-100); Potassium 4.1 mmoL/L (3.5-5.1); Sodium 140 mmol/L (136-145); Total Protein,Serum 6.9 g/dl (6.3-8.2)
== END ==
PROVIDERS: Visit Provider Internal Medicine Adolescent Medicine
DX: J44.9 Chronic obstructive pulmonary disease, unspecified (principal)
CPT/HCPCS: 36415; 80053; 85025

== ENCOUNTER → 2021-03-25 10:32 | Outpatient (CLI) | payer MEDICARE, OTHER, SELFPAY | PROVIDERS: PCP Internal Medicine Adolescent Medicine; Visit Provider Internal Medicine Adolescent Medicine | DX: R06.02 Shortness of breath (principal) ==

== ENCOUNTER → 2021-03-27 10:53 | Outpatient (CLI) | payer MEDICARE, SELFPAY ==
--- NOTE | 2021-03-27 11:01 | CT_ITS ---
PROCEDURE: CT CHEST WO CON CLINICAL INDICATION: SOB COMPARISON: CT CT ANGIO CHEST from 08/29/[address] ANGIO CHEST from 01/14/2021 TECHNIQUE: Axial images obtained with sagittal and coronal reformats. All CT scans at the facility use one or more dose reduction, viz: automated exposure control, ma/kV adjustment per patient size (including targeted exams where dose is matched to indication, i.e. head), or iterative reconstruction technique. FINDINGS: HEART AND MEDIASTINAL STRUCTURES: Coronary artery calcifications are present. Aortic valve calcification noted. There is mild dilatation of the ascending aorta at 4 cm unchanged. LUNGS AND PLEURAL SPACES: COPD changes with scattered areas of scarring with centrilobular emphysema. Mild diffuse bronchial thickening with scattered small bilateral nodular opacities. 6 mm nodular opacity right lung base posteriorly unchanged. 5 mm nodular opacity left lung base posteriorly and medially unchanged.. Stable tree in bud opacities in the left lower lobe BONY STRUCTURES: No acute bony abnormalities apparent. UPPER ABDOMEN: Unremarkable. ADDITIONAL FINDINGS: No other significant abnormalities. IMPRESSION: Overall stable CT appearance of the chest with stable small bilateral pulmonary nodules, COPD, centrilobular emphysema with scattered areas of scarring, bronchial thickening, and mild dilatation of the ascending aorta Dictated by: Larry Hope MD 03/28/2021 07:07 Larry Hope MD in [place] 03/28/2021 07:07
== END ==
PROVIDERS: PCP Internal Medicine Adolescent Medicine; Visit Provider Internal Medicine Adolescent Medicine
DX: R06.02 Shortness of breath (principal)
CPT/HCPCS: 71250

== ENCOUNTER 2022-01-17 02:32 | Observation (INO) | payer MEDICARE, SELFPAY ==
[2022-01-17] VITALS (12 sets, daily range): BP systolic 120–198; BP diastolic 55–85; PULSE 60–92; RESP 16–24; TEMP 36.4–38; O2SAT 91–99; BMI 18.8; BMI 19.3
--- NOTE | 2022-01-17 02:30 | XR_ITS ---
PROCEDURE INFORMATION: Exam: XR Chest Exam date and time: 01/17/2022 3:20 AM Age: 81 years old Clinical indication: Shortness of breath; Additional info: SOA TECHNIQUE: Imaging protocol: XR of the chest. Views: 1 view. COMPARISON: CT CHEST WO CON 03/27/2021 11:00 AM FINDINGS: Lungs: The lungs are hyperlucent with chronic interstitial changes. Pleural spaces: Unremarkable. No pleural effusion. No pneumothorax. Heart/Mediastinum: The heart is moderately enlarged. Bones/joints: Unremarkable. IMPRESSION: Cardiomegaly with chronic interstitial changes. No acute process noted.
--- NOTE | 2022-01-17 02:35 | ECG_ITS ---
APPROVED REPORT Exam: Resting ECG HR:88 bpm ECG Measurements Heart Rate 88 AXES ND 134 P 71 QRSd 75 QRS 60 QT 341 T -51 QTc 386 Conclusion SINUS RHYTHM WITH OCCASIONAL SUPRAVENTRICULAR PREMATURE COMPLEXES NSSTTW changes UNCONFIRMED REPORT Electronically signed by : Maxi Azevedo MD 01/17/2022 08:08:22
--- NOTE | 2022-01-17 03:33 | HMH.EDSOB ---
ED Disposition Clinical Impression: Acute exacerbation of chronic obstructive airways disease, Severe sepsis with acute organ dysfunction, Elevated brain natriuretic peptide (BNP) level UTI (urinary tract infection) Qualifiers: Urinary tract infection type: site unspecified Hematuria presence: without hematuria Qualified Code(s): N39.0 - Urinary tract infection, site not specified Disposition: Admitted As Inpatient Condition on Discharge: Good Referrals: Joseph Lira MD [Primary Care Provider] - - Critical Care Critical Care Time: No Attestation: On 01/17/22, the high probability of a clinically significant, sudden or life threatening deterioration of the following system(s) required my full and direct attention, intervention and personal management. The time I documented below is in addition to time spent performing reported procedures but includes the following listed in this critical care notation. Medical Decision Making - Medical Records Medical records reviewed: Yes: I reviewed the patient's medical records. - Oscar Inquiry Pt receiving controlled substance: No Vital Signs: 01/17/22 02:16 01/17/22 04:01 01/17/22 04:30 Temperature 100.4 F H Temperature Source Oral Pulse Rate 85 80 Pulse Rate [Right] 92 H Respiratory Rate 22 22 24 Blood Pressure 137/65 145/65 H Blood Pressure [Right Arm] 157/55 H Blood Pressure Mean 89 80 Blood Pressure Mean [Right Arm] 89 02 Sat by Pulse Oximetry 96 94 L 95 Oxygen Delivery Method Room Air Oxygen Flow Rate (LPM) 2 2 - Lab Data Lab results reviewed: Yes: I reviewed the patient's lab results. Lab Results 01/17/22 03:00: Urine Color Yellow, Urine Appearance Clear, Urine pH 7.5, Ur Specific [place] 1.015, Urine Protein Negative, Urine Glucose (UA) Negative, Urine Ketones Negative, Urine Blood 1+, Urine Nitrate Negative, Urine Bilirubin Negative, Urine Urobilinogen 0.2, Ur Leukocyte Esterase 3+ A, Urine RBC 3-5, Urine WBC 10-20, Ur Squamous Epith Cells 3-5, Urine Bacteria 1+ 01/17/22 03:13: SARS-CoV-2 (PCR) Not detected, Influenza A Untype (PCR) Not detected, Influenza Type B (PCR) Not detected 01/17/22 03:20: WBC 7.6, RBC 3.34 L, Hgb 10.3 L, Hct 31.2 L, MCV 93.3, MCH 30.8, MCHC 33.1, RDW 14.0, Plt Count 146, MPV 8.4, Neut % (Auto) 82.1 H, Lymph % (Auto) 10.4, [place] % (Auto) 6.5, Eos % (Auto) 0.1, Baso % (Auto) 1.0, Neut # (Auto) 6.3, Lymph # (Auto) 0.8, [place] # (Auto) 0.5, Eos # (Auto) 0.0, Baso # (Auto) 0.1, ESR 29 01/17/22 03:20: Sodium 136, Potassium 3.2 L, Chloride 97 L, Carbon Dioxide 33 H, Anion Gap 9.2, BUN 15, Creatinine 0.80, Estimated Creat Clear 31, Estimated GFR 69, Est GFR ( Amer) 83, Glucose 136 H, Calcium 8.7, Total Bilirubin 0.9, AST 26, ALT 17, Alkaline Phosphatase 103, Troponin I < 0.01, C-Reactive Protein 28.5 H, Total Protein 6.2 L, Albumin 3.6, Globulin 2.6, Albumin/Globulin Ratio 1.4, Procalcitonin 0.137 01/17/22 03:20: Lactate 2.6 H 01/17/22 03:20: NT-Pro-B Natriuret Pep 2310 H Result diagrams: 01/17/22 03:20 01/17/22 03:20 Orders (Tests/Meds): ED MEDICATIONS Generic Name Dose Route Start Last Admin Trade Name Freq PRN Reason Stop Dose Admin Lactated Ringer's 1,000 mls @ 999 mls/hr 01/17/22 02:30 01/17/22 03:02 Lactated Ringer's 1000 Ml Bag IV 01/17/22 03:30 999 mls/hr .Q1H1M GIOVANY Administration Ceftriaxone Sodium 1 gm/ 50 mls @ 100 mls/hr 01/17/22 04:15 01/17/22 04:33 Sodium Chloride IV 01/31/22 04:14 100 mls/hr Q24H GIOVANY Administration Sodium Chloride 10 ml 01/17/22 04:32 Sodium Chloride 0.9% 10ml Vial IV 02/16/22 04:31 NEEDED PRN to Dilute Lorazepam inj Discontinued Medications Generic Name Dose Route Start Last Admin Trade Name Freq PRN Reason Stop Dose Admin Acetaminophen 1,000 mg 01/17/22 02:34 01/17/22 03:02 Acetaminophen 500mg Tab PO 01/17/22 02:35 1,000 mg ONCE ONE Administration Furosemide 40 mg 01/17/22 04:31 01/17/22 04:33 Furosemide 40mg/4ml
[2022-01-17 03:36] LABS: Basophils # 0.1 K/mm3 (0-0.2); Eosinophils % 0.1 % (0.1-12.0); Hematocrit 31.2 % (37.0-47.0); Hemoglobin 10.3 g/dL (12.2-16.2); Lymphocytes # 0.8 K/mm3 (0.7-4.5); Lymphocytes % 10.4 % (10-50); Mean Corpuscular HGB Conc 33.1 g/dL (31.8-35.4); Mean Corpuscular Hemoglobin 30.8 pg (27.0-31.2); Mean Corpuscular Volume 93.3 fl (81-99); Mean Platelet Volume 8.4 fl (7.4-10.4); Monocytes # 0.5 K/mm3 (0.1-1.0); Monocytes % 6.5 % (1.7-9.3); Neutrophils # 6.3 K/mm3 (1.8-7.8); Neutrophils % 82.1 % (37.0-80.0); Platelet Count 146 K/mm3 (142-424); Red Blood Count 3.34 M/mm3 (4.20-5.40); White Blood Count 7.6 K/mm3 (4.8-10.8)
[2022-01-17 03:40] LABS: Coronavirus 19, PCR Not Detected (NotDetected); Influenza A, PCR Not Detected (NotDetected); Influenza B, PCR Not Detected (NotDetected)
[2022-01-17 03:40] LABS: Microscopic, Urine URINE MICROSCOPIC (MICROSCOPIC)
[2022-01-17 03:43] LABS: Alanine Aminotransferase 17 U/L (12-78); Albumin Level 3.6 g/dl (3.5-5.0); Albumin/Globulin Ratio 1.4 (1.1-1.8); Alkaline Phosphatase 103 U/L (38-126); Anion Gap 9.2 mEq/L (5-15); Aspartate Amino Transferase 26 U/L (14-36); Bilirubin,Total 0.9 mg/dl (0.2-1.3); Blood Urea Nitrogen 15 mg/dl (7-17); Calcium 8.7 mg/dl (8.4-10.2); Carbon Dioxide 33 mmol/L (22.0-30.0); Chloride 97 mmol/L (98-107); Creatinine Clearance Estimated 31 mL/min (50-200); Estimated Glomerular Filt Rate 69 ml/min (>60); GFR (African American) 83 ML/MIN (>60); Globulin 2.6 g/dL (1.3-3.2); Glucose 136 mg/dl (74-100); Potassium 3.2 mmoL/L (3.5-5.1); Sodium 136 mmol/L (136-145); Total Protein,Serum 6.2 g/dl (6.3-8.2)
[2022-01-17 03:46] LABS: Lactic Acid 2.6 mmol/L (0.7-2.1)
[2022-01-17 03:48] LABS: Appearance,Urine CLEAR (Clear); Bilirubin,Urine Negative (Negative); Blood, Urine 1+ (Negative); Color,Urine YELLOW (Yellow); Glucose,Urine (UA) Negative (Negative); Ketones,Urine Negative (Negative); Leukocyte Esterase,Urine 3+ (Negative); Nitrate,Urine Negative (Negative); PH,Urine 7.5 (5.0-8.5); Protein,Urine Negative (Negative); Specific Gravity, Urine 1.015 (1.005-1.030); Urobilinogen,Urine 0.2 EU/dl (0.2)
[2022-01-17 03:49] LABS: C-Reactive Protein 28.5 mg/L (0-4)
[2022-01-17 03:54] LABS: NT Pro Brain Natriuretic Pep. 2310 pg/mL (0-450)
[2022-01-17 03:58] LABS: Troponin I < 0.01 ng/ml (0.00-0.034)
[2022-01-17 04:01] LABS: Erythrocyte Sedimentation Rate 29 mm/hr (0-30)
[2022-01-17 04:03] LABS: Procalcitonin 0.137 ng/mL (0.0-2.0)
[2022-01-17 04:07] LABS: Bacteria,Urine 1+ /lpf
--- NOTE | 2022-01-17 05:42 | PC.NURSE ---
PT ARRIVED TO FLOOR VIA STRETCHER FROM ED W/STAFF @ 3506
--- NOTE | 2022-01-17 06:50 | PC.NURSE ---
attempted to do med rec with patient and daughter, daughter stated the other daughter was the one who knew all of her medications, will attempt again when that daughter arrives to [facility] or will pass it in report to day shift
--- NOTE | 2022-01-17 06:58 | HMH.HP ---
*Admission Date: 01/17/22 *Chief complaint: short of breath, weak *History of present illness: Ms. Moulton is a frail 81-year-old female with history of CHF, hypertension, chronic postherpetic neuralgia, and COPD. She has been having worsening shortness of breath and swelling in her legs over the past several weeks. Was brought to the ER last night by family due to increased anxiousness, shortness of breath, dyspnea with exertion. On arrival work-up was initiated for concern for sepsis based on her initial vitals. She denied any vomiting, diarrhea, headaches or confusion. Was noted to have elevated fever. Sepsis work-up uncovered elevated BNP, abnormal urine concerning for UTI, elevated lactate, and oxygen requirement. Initiated on broad-spectrum antibiotics, blood cultures and urine culture obtained, and admitted to medicine for further management of CHF exacerbation and sepsis. On evaluation this morning she is stable on 2 L nasal cannula. Is diuresing quite well with a single dose of Lasix. Aguero catheter in place with clear urine. Daughter at bedside who states she is more relaxed and comfortable after getting a dose of benzodiazepine. [facility] History I have reviewed the patient's past medical history: Yes Medical History: Reports:: Chronic Obstructive Pulmonary Disease (COPD), Hypertension Denies:: Cancer, Diabetes Mellitus Type 1, Diabetes Mellitus Type 2, MRSA, Seizures *Have you ever received a pneumonia vaccine?: Yes *Have you received a flu vaccine this season?: No Other Medical History: Reports: Arthritis. Denies: Blood Transfusion Reaction Laterality Cases: Left: Total Hip Replacement Other Surgeries: Yes: Cholecystectomy, Colonoscopy, Hysterectomy-Total Amputation: No Fractures: Yes - *Social History Smoking Status: Former smoker Tobacco Type: cigarettes # Packs/Day (cigarettes): 1 Alcohol Intake: never Substance Use Type: other *Occupational Status:: retired Housing: house Household Members: spouse *Travel in the last 8 weeks: None Family Hx:: No significant family history Review of Systems - Review of Systems Review of systems:: pertinent systems reviewed and negative unless documented below (14 point review of systems performed, pertinent positives and negatives as per HPI) - *Neurologic Denies seizure-like activity Meds Home Medications Medication Instructions Recorded Confirmed Type Omeprazole [Omeprazole 40mg 40 mg PO DAILY 30 Days #30 cap 08/31/20 01/17/22 Rx Capsule] Albuterol Sulfate [Albuterol 2 puffs IH Q6HP PRN 01/17/22 01/17/22 History Sulfate Hfa] Buspirone HCl [Buspar 10mg 10 mg PO BID 01/17/22 01/17/22 History tablet] Fluticasone/Umeclidin/Vilanter 1 each IH DAILY 01/17/22 01/17/22 History [Trelegy Ellipta 100-62.5-25] Furosemide [Lasix 20mg tablet] 20 mg PO DAILY 01/17/22 01/17/22 History Magnesium Oxide [Magnesium] 400 mg PO DAILY 01/17/22 01/17/22 History Metoprolol Succinate [Toprol XL 25 mg PO DAILY 01/17/22 01/17/22 History 25mg tablet] Oxycodone HCl/Acetaminophen 1 tab PO Q6HP PRN 01/17/22 01/17/22 History [Oxycodone W/Apap 325mg Tablet] Potassium Chloride [Klor-Con 10mEq 10 meq PO DAILY 01/17/22 01/17/22 History tab] Pregabalin [Lyrica 50mg Cap] 50 mg PO BID 01/17/22 01/17/22 History Vitamin D3/Folic Acid [Roxifol-D 1 tab PO DAILY 01/17/22 01/17/22 History Tablet] Allergies Allergy/AdvReac Type Severity Reaction Status Date / Time codeine Allergy Unknown Unknown Verified 01/17/22 07:39 allergy reaction penicillin V Allergy Unknown Unknown Verified 01/17/22 07:39 allergy reaction morphine Allergy Unknown Verified 01/17/22 07:39 allergy reaction Exam Vital signs and Labs for Last 24 Hours: Temp Pulse Resp BP Pulse Ox 98.8 F 80 16 146/69 H 92 L 01/17/22 05:57 01/17/22 06:24 01/17/22 05:57 01/17/22 05:57 01/17/22 06:24 Laboratory Results - last 24 hr 01/17/22 03:00: Urin
--- NOTE | 2022-01-17 07:26 | HMH.PHAVTE ---
[facility] Pharmacy VTE Monitoring - Patient Demographics Admission date: 01/17/22 Report Date: 01/17/22 (\) Time: 07:26 Allergies/Adverse Reactions: Patient Allergies codeine Allergy (Unknown, Verified 01/17/22 06:08) penicillin V Allergy (Unknown, Verified 01/17/22 06:08) morphine Allergy (Verified 01/17/22 06:08) Height: 1.55 m Weight: 46.402 kg Patient Problems: Current Active Problems UTI (urinary tract infection) (Acute) Acute exacerbation of chronic obstructive airways disease (Acute) Severe sepsis with acute organ dysfunction (Acute) Elevated brain natriuretic peptide (BNP) level (Acute) - VTE Risk Labs: VTE Related Lab Results Hgb 10.3 g/dL (12.2-16.2) L 01/17/22 03:20 Hct 31.2 % (37.0-47.0) L 01/17/22 03:20 Plt Count 146 K/mm3 (142-424) 01/17/22 03:20 BUN 15 mg/dl (7-17) 01/17/22 03:20 Creatinine 0.80 mg/dl (0.52-1.04) 01/17/22 03:20 Estimated Creat Clear 31 mL/min (50-200) 01/17/22 03:20 Was VTE Risk Assessment Performed: Yes VTE Score: 11 VTE Risk Level: Moderate Risk Clinical Trial Participant: No - Prophylaxis VTE Prophylaxis Ordered?: Yes Types of VTE Prophylaxis: TEDS Knee High
[2022-01-17 07:31] LABS: Reflex Lactic Add Lactic Reflex
--- NOTE | 2022-01-17 08:00 | CA_ITS ---
APPROVED REPORT EXAM: Comprehensive 2D, Doppler, and color-flow Echocardiogram Interventional Physiatrist: Shelli Cotton RDCS Ht: 5 ft 1 in Wt: 100lbs BSA: 1.41 BP: 146/69 mmHg Indications: CHF,SOA 2D Dimensions LVDd 1.71 cm F: 3.9 - 5.3 LVOT 1.59 cm (M/F) 1.5-2.5 M-Mode Dimensions RVDd 1.15 cm (0.9-2.6) LA Diam 2.83 cm (1.9-4.0) LVDd 4.68 cm (3.5-5.7) Ao Diam 2.64 cm (2.0-3.7) LVDs 3.31 cm (3.5-5.7) IVSd 0.81 cm (0.6-1.1) PWd 0.69 cm (0.6-1.1) EF (Teich) 56.10% FS 29.30% EDV (Teich) 101.30 mL ESV (Teich) 44.50 mL LV Diastology E Decel Time 230.00 (160-240 msec) E/A Ratio 1.1 MED E' 5.20 (< 7 cm/sec) E'/MED E' Ratio 15.77 (>14) LAT E' 6.00 (<10 cm/sec) E/LAT E' Ratio 13.67 (>14) Aortic Valve LVOT Max 157.00 (70-110 cm/s) LVOT VTI 29.77 cm AoV Peak Raymond. 248.00 (50-130 cm/s) AO Peak GR. 24.60 mmHg AO Mean GR. 12.30 (<5 mmHg) AO VTI 45.21 (18-25 cm) BRENDA (VTI) 1.31 (2.5-4.5 cm2) Mitral Valve MV E Max Raymond. 82.00 (40-130 cm/s) MV A Velocity 75.00 (40-130 cm/s) E/A Ratio 1.10 MV Decel. Time 230.00 (160-240 ms) MV PHT 67.00 ms Left Ventricle Left atrium is mildly enlarged, left ventricle is normal size, mild concentric left ventricular hypertrophy, estimated ejection fraction 55% with no regional wall motion abnormality. Grade 1 diastolic dysfunction seen without tissue Doppler evidence of raise left atrial pressure. Right Ventricle Right atrium and right ventricle mildly enlarged with normal contractility. Aortic Valve Aortic valve is thickened and calcified, mean gradient across aortic valve is 13 mmHg, valve area is 1.5 cm represents mild aortic stenosis, there is no significant aortic insufficiency. Mitral Valve Mitral valve leaflets are minimally thickened, there is mild mitral regurgitation. Tricuspid Valve Tricuspid valve is grossly normal, there is mild tricuspid regurgitation, tricuspid regurgitation jet velocity is inadequate for calculation of the right ventricular systolic pressure. Pulmonic Valve Pulmonic valve is poorly visualized. Great Vessels Aortic root is normal size. Inferior vena cava is poorly visualized. Pericardium No significant pericardial effusion noted. Conclusion 1. Mild biatrial enlargement, normal left ventricular size, mild concentric left ventricular hypertrophy, estimated ejection fraction 55% with no regional wall motion abnormality, grade 1 diastolic dysfunction seen without tissue Doppler evidence of interatrial pressure. 2. Mildly enlarged right ventricle with normal contractility. 3. Thickened and calcified aortic valve with mild aortic stenosis, there is no aortic insufficiency. 4. Mild mitral and tricuspid regurgitation. 5. No significant pericardial effusion noted. Electronically signed by : Warren Peralta MD 01/17/2022 13:11:36
[2022-01-17 08:06] LABS: Lactic Acid Follow Up (RFLX 1) 0.9 mmol/L (0.7-2.1)
[2022-01-17 09:29] LABS: Troponin I 0.03 ng/ml (0.00-0.034)
--- NOTE | 2022-01-17 09:40 | HMH.PHAINT ---
HOME MEDICATION LIST VERIFIED USING LIST FROM [facility] OFFICE
--- NOTE | 2022-01-17 10:03 | HMH.PTEV ---
Physical Therapy Evaluation Rehab PT IP Evaluation Start: 01/17/22 09:49 Freq: ONCE Status: Active Protocol: Document 01/17/22 10:00 TANGELA (Rec: 01/17/22 10:03 TANGELA [id number]) Subjective/History History History 81 yowf adm to [facility] with CHF and PNA. She reports feeling better this am. She reports she lives at home with , 1-2 steps to enter the home, She has RW that she uses sometimes . Subjective Subjective Pt with no c/o pain this am, agrees to mobility. Rehab PT IP Eval Objective Appearance Patient Behavior Appropriate Patient Orientation Person,Place,Time Difficulty following instructions none Speech Pattern Clear Ambulation Patient Able to Ambulate Yes Ambulation Observation IP General Gait Pattern Observation No Deviations/Normal Ambulation Distance (feet) 30 Ambulation Assistive Device None Ambulation Ability Supervision/Stand by Balance Ability to Arise Able, uses arms to help Sitting Balance Steady, safe Standing Balance Steady, wide stance Dynamic Sitting Balance Ability Good Dynamic Standing Balance Ability Fair Transfers Bed Transfer Ability Supervision/Stand by Chair Transfer Ability Supervision/Stand by Sit to Stand Bed Transfer Ability Supervision/Stand by Sit to Stand Chair Transfer Ability Supervision/Stand by Rehab PT IP prob,goals,plan Problems Date of Evaluation: 01/17/22 Discharge Plan PT Discharge Plan Pt appears to be at baseline for all mobility at this time, currently no inpatient therapy needs. G -code Required No Eval Complexity Eval Charge Codes 17637 - Moderate Complexity PHYSICIAN CERTIFICATION: I certify the specified therapy services for Mahogany Moulton are required, authorized, and reviewed every 30 days.
--- NOTE | 2022-01-17 10:07 | HMH.OTEV ---
OT Inpatient Evaluation Rehab OT IP Evaluation Start: 01/17/22 09:50 Freq: ONCE Status: Complete Protocol: [facility]22 [facility]Rec: 01/17/22 10:07 [facility] [id number]) Rehab OT IP Assessment Subjective History Pt oriented x 3 on arrival. Pt agreeable to engage in therapy evaluation. Pt's daughter present during evaluation. Pt was admitted via ED on 01/17/22 due to COPD exacerbation and weakness. Prior to being in the hosptial , pt lived at home with her . Pt claims she was independent with ADLs such as dressing, showering, and feeding. Pt also reports she was independent with IADLS such as cleaning, cooking, and laundry. Prasannaer explains she no longer drives. Pt does have a rolling walker that she uses at times. Subjective I can do whatever I need to do. Pt sitting at eob on arrival. Pt engaged in upper body dressing by doffing her shirt and donning a gown with cga. Pt then stood from eob with sba. Pt engaged in functional transer of ~30 feet with sba. Pt sat down in chair with sba. Pt was left sitting in chair with call mabry and all other needs in reach. Objective Patient Orientation Person,Place,Age Upper Extremity Gross ROM WFL Bed Mobility bed mobility-scooting,bed mobility - supine/sit,bed mobility - rolling Assist Level Supervision/Stand by Transfer Training Sit/Stand Transfer Assist Level Supervision/Stand by Chair Transfer Ability Supervision/Stand by Chair Transfer Technique Sit to/from Ambulatory Chair Transfer Assistive Devices None Upper Body Dressing Ability Standby Assistance Rehab OT IP prob,goals,plan Problems Date of Evaluation: 01/17/22 Rehab Potential Rehab Potential Innapropriate for Skilled Therapy Discharge Plan OT
--- NOTE | 2022-01-17 15:42 | PC.NURSE ---
PT IS SITTING UP IN THE CHAIR. ALERT AND ORIENTED X4. THIS AFTERNOON PT AMBULATED TO THE BATHROOM W/O ASSISTANCE AND DISLODGED CATHETER. WHEN ENTERING THE ROOM PT WAS IN THE BATHROOM SITTING ON THE TOILET WITH CATHETER ON THE FLOOR WITH BALLOON STILL INFLATED. PT STATED SHE DID NOT WANT THE CATHETER BACK IN B/C IT WAS VERY UNCOMFORTABLE. PT IS SITTING IN THE CHAIR WITH CALL LIGHT IN REACH. PULL ALARM IS ATTACHED. PT UNDERSTOOD THAT SHE NEEDED TO CALL FOR ASSISTANCE TO GET UP TO THE BSC. LUNG SOUNDS DIMINISHED. ABDOMEN SOFT/NON TENDER WITH ACTIVE BOWEL SOUNDS. SWELLING NOTED TO BLE. VSS. WILL CONTINUE TO MONITOR.
[2022-01-18] VITALS (7 sets, daily range): BP systolic 134–193; BP diastolic 56–83; PULSE 56–80; RESP 16; TEMP 36.6–36.8; O2SAT 90–98; BMI 19.3
--- NOTE | 2022-01-18 03:32 | PC.NURSE ---
Pt has rested well this shift comfortably in the chair. Pt remains wearing 2L NC with O2 sats 96-98%. Pt has voiced no c/o of N/V, pain or SOA this shift. Family is at bedside. Swelling present in BLE. X1 assist to ambulate.
[2022-01-18 06:55] LABS: Basophils # 0.1 K/mm3 (0-0.2); Basophils % 0.8 % (0.1-2.0); Hematocrit 37.6 % (37.0-47.0); Hemoglobin 12.3 g/dL (12.2-16.2); Lymphocytes # 1.7 K/mm3 (0.7-4.5); Lymphocytes % 17.3 % (10-50); Mean Corpuscular HGB Conc 32.7 g/dL (31.8-35.4); Mean Corpuscular Hemoglobin 30.8 pg (27.0-31.2); Mean Corpuscular Volume 94.1 fl (81-99); Mean Platelet Volume 8.9 fl (7.4-10.4); Monocytes # 0.7 K/mm3 (0.1-1.0); Monocytes % 7.1 % (1.7-9.3); Neutrophils # 7.3 K/mm3 (1.8-7.8); Neutrophils % 74.8 % (37.0-80.0); Platelet Count 165 K/mm3 (142-424); Red Blood Count 3.99 M/mm3 (4.20-5.40); White Blood Count 9.8 K/mm3 (4.8-10.8)
[2022-01-18 07:47] LABS: Chloride 96 mmol/L (98-107)
[2022-01-18 07:48] LABS: Potassium 3.6 mmoL/L (3.5-5.1); Sodium 140 mmol/L (136-145)
[2022-01-18 07:50] LABS: Alanine Aminotransferase 17 U/L (12-78); Alkaline Phosphatase 127 U/L (38-126); Anion Gap 12.6 mEq/L (5-15); Aspartate Amino Transferase 37 U/L (14-36); Bilirubin,Total 0.8 mg/dl (0.2-1.3); Blood Urea Nitrogen 32 mg/dl (7-17); Carbon Dioxide 35 mmol/L (22.0-30.0); Creatinine Clearance Estimated 28 mL/min (50-200); Estimated Glomerular Filt Rate 47 ml/min (>60); GFR (African American) 57 ML/MIN (>60)
[2022-01-18 07:51] LABS: Albumin Level 4.1 g/dl (3.5-5.0); Albumin/Globulin Ratio 1.3 (1.1-1.8); Globulin 3.1 g/dL (1.3-3.2); Glucose 116 mg/dl (74-100); Magnesium 1.7 mg/dl (1.6-2.3); Total Protein,Serum 7.2 g/dl (6.3-8.2)
--- NOTE | 2022-01-18 13:57 | HMH.ACPN2 ---
Internal Medicine - PN: Subj *Date: 01/18/22 *Time: 13:57 Interval history: Did well overnight. Afebrile. Diuresed well yesterday with -2 L of output. Breathing somewhat better today. Off oxygen on rounds this morning. Denies chest pain, nausea, vomiting. Eating fairly well. Discussed her blood pressure which remains quite high. Reviewed echo showing diastolic dysfunction/heart failure with preserved ejection fraction. Exam Vital signs and Labs for Last 24 Hours: Temp Pulse Resp BP Pulse Ox 97.9 F 56 L 16 177/75 H 94 L 01/18/22 12:00 01/18/22 12:00 01/18/22 12:00 01/18/22 12:00 01/18/22 12:00 Laboratory Results - last 24 hr 01/17/22 03:00: Urine Color Yellow, Urine Appearance Clear, Urine pH 7.5, Ur Specific [place] 1.015, Urine Protein Negative, Urine Glucose (UA) Negative, Urine Ketones Negative, Urine Blood 1+, Urine Nitrate Negative, Urine Bilirubin Negative, Urine Urobilinogen 0.2, Ur Leukocyte Esterase 3+ A, Urine RBC 3-5, Urine WBC 10-20, Ur Squamous Epith Cells 3-5, Urine Bacteria 1+ 01/18/22 06:25: WBC 9.8 D, RBC 3.99 L, Hgb 12.3, Hct 37.6, MCV 94.1, MCH 30.8, MCHC 32.7, RDW 14.0, Plt Count 165, MPV 8.9, Neut % (Auto) 74.8, Lymph % (Auto) 17.3, [place] % (Auto) 7.1, Eos % (Auto) 0.0 L, Baso % (Auto) 0.8, Neut # (Auto) 7.3, Lymph # (Auto) 1.7, [place] # (Auto) 0.7, Eos # (Auto) 0.0, Baso # (Auto) 0.1 01/18/22 06:25: Sodium 140, Potassium 3.6, Chloride 96 L, Carbon Dioxide 35 H, Anion Gap 12.6, BUN 32 H D, Creatinine 1.10 H D, Estimated Creat Clear 28, Estimated GFR 47 L, Est GFR ( Amer) 57 L D, Glucose 116 H, Calcium 10.0, Magnesium 1.7, Total Bilirubin 0.8, AST 37 H D, ALT 17, Alkaline Phosphatase 127 H, Total Protein 7.2, Albumin 4.1 D, Globulin 3.1, Albumin/Globulin Ratio 1.3 I & O for Last 24 hours: Intake & Output 01/15/22 01/16/22 01/17/22 01/18/22 23:59 23:59 23:59 23:59 Intake Total 420 / 420 360 / 360 Output Total 2650 / 2650 Balance -2230 / -2230 360 / 360 Weight 46.4 kg 46.493 kg Microbiology Reports for the Last 24 Hours: Microbiology 01/17/22 03:00 Urine,Clean Catch Urine Culture - Preliminary Gram Negative Rods Narrative: - Constitutional NAD in Bedside chair, thin - *Routine HEENT Exam Head: Present: normocephalic Eye: Present: EOMI, PERRL ENT: Present: mucous membranes moist - *Routine Neck Exam Present: supple. Absent: lymphadenopathy - *Routine Respiratory Exam Present: CTA bilaterally - *Routine Cardiovascular Exam Present: RRR - *Routine Abdominal Exam Present: soft, normoactive bowel sounds. Absent: tenderness - *Routine Rectal Exam Rectal:: deferred - *Routine Genitalia Exam Genitalia:: deferred - *Routine Extremities Exam Present: edema (1+ to mid taylor). Absent: cyanosis, clubbing - *Routine Skin Exam Present: warm. Absent: rash - *Routine Neurological Exam Present: alert, oriented X3 Assessment and Plan (1) Acute exacerbation of CHF (congestive heart failure) Status: Acute Qualifiers: Heart failure type: systolic Qualified Code(s): I50.23 - Acute on chronic systolic (congestive) heart failure Category: Medical Code(s): I50.9 - Heart failure, unspecified (2) Acute exacerbation of chronic obstructive airways disease Status: Acute Category: Medical Code(s): J44.1 - Chronic obstructive pulmonary disease with (acute) exacerbation (3) Severe sepsis with acute organ dysfunction Status: Acute Category: Medical Code(s): A41.9 - Sepsis, unspecified organism; R65.20 - Severe sepsis without septic shock (4) UTI (urinary tract infection) Status: Acute Qualifiers: Urinary tract infection type: site unspecified Hematuria presence: without hematuria Qualified Code(s): N39.0 - Urinary tract infection, site not specified Category: Medical Code(s): N39.0 - Urinary tract infection, site not specified (5) Essential hypertension Status: Chronic
--- NOTE | 2022-01-18 15:21 | PC.NURSE ---
PT IS SITTING UP IN THE CHAIR WITH FAMILY IN THE ROOM. ALERT AND ORIENTED X4. BP HAS GRADUALLY IMPROVED T/O THE SHIFT. AMBULATES TO THE BATHROOM. LUNG SOUNDS DIMINISHED. ABDOMEN SOFT/NON TENDER WITH ACTIVE BOWEL SOUNDS. MILD SWELLING NOTED TO BLE. EATING AND DRINKING WELL. WILL CONTINUE TO MONITOR.
[2022-01-18 20:15] LABS: Anion Gap 10.4 mEq/L (5-15); Blood Urea Nitrogen 36 mg/dl (7-17); Carbon Dioxide 33 mmol/L (22.0-30.0); Chloride 99 mmol/L (98-107); Creatinine Clearance Estimated 31 mL/min (50-200); Estimated Glomerular Filt Rate 53 ml/min (>60); GFR (African American) 64 ML/MIN (>60); Glucose 128 mg/dl (74-100); Potassium 3.4 mmoL/L (3.5-5.1); Sodium 139 mmol/L (136-145)
[2022-01-19 04:00] VITALS: BP 146/72; PULSE 50; RESP 14; TEMP 36.3; O2SAT 93
[2022-01-19 05:00] VITALS: BMI 18.8
--- NOTE | 2022-01-19 05:49 | PC.NURSE ---
Pt rested well this shift with family at bedside t/o night. Pt has voiced no c/o of N/V or SOA. Pt can ambulate to bathroom independently. Remains on RA with O2 sats >90%. Systolic B/P has been 134-146 .
[2022-01-19 06:51] VITALS: O2SAT 93
[2022-01-19 07:32] LABS: Anion Gap 9.8 mEq/L (5-15); Blood Urea Nitrogen 32 mg/dl (7-17); Calcium 9.1 mg/dl (8.4-10.2); Carbon Dioxide 32 mmol/L (22.0-30.0); Chloride 102 mmol/L (98-107); Creatinine Clearance Estimated 30 mL/min (50-200); Estimated Glomerular Filt Rate 53 ml/min (>60); GFR (African American) 64 ML/MIN (>60); Glucose 103 mg/dl (74-100); Magnesium 1.8 mg/dl (1.6-2.3); Potassium 3.8 mmoL/L (3.5-5.1); Sodium 140 mmol/L (136-145)
[2022-01-19 08:00] VITALS: BP 147/66; PULSE 51; RESP 18; TEMP 36.4; O2SAT 92
--- NOTE | 2022-01-19 08:45 | HMH.DCSUM ---
General - General Admission date:: 01/17/22 Discharge date: 01/19/22 HPI HPI: Ms. Moulton is a frail 81-year-old female with history of CHF, hypertension, chronic postherpetic neuralgia, and COPD. She has been having worsening shortness of breath and swelling in her legs over the past several weeks. Was brought to the ER last night by family due to increased anxiousness, shortness of breath, dyspnea with exertion. On arrival work-up was initiated for concern for sepsis based on her initial vitals. She denied any vomiting, diarrhea, headaches or confusion. Was noted to have elevated fever. Sepsis work-up uncovered elevated BNP, abnormal urine concerning for UTI, elevated lactate, and oxygen requirement. Initiated on broad-spectrum antibiotics, blood cultures and urine culture obtained, and admitted to medicine for further management of CHF exacerbation and sepsis. On evaluation this morning she is stable on 2 L nasal cannula. Is diuresing quite well with a single dose of Lasix. Aguero catheter in place with clear urine. Daughter at bedside who states she is more relaxed and comfortable after getting a dose of benzodiazepine. Hospital Course Hospital Course: Patient responded well to treatment with antibiotics. Found to have Klebsiella urinary tract infection-pansensitive. Did well with Rocephin. Lasix essentially solved her fluid overload issues. She was found to have significant diastolic dysfunction with preserved ejection fraction. Given her elevated blood pressure but issues with chronic kidney disease and low heart rate she was tried on low-dose Entresto and did well with this over the 24-hour period while she was observed. Her creatinine actually improved. Blood pressure improved and she maintained her you dynamic fluid status. This morning she feels great, wishes to go home, breathing well, eating well and doing most of her own activities of daily living. Plan to be to discharge home. Omnicef for UTI, Entresto as prescribed, close follow-up on Thursday in our [place] office. Objective Vital signs: Temp Pulse Resp BP Pulse Ox 97.6 F 51 L 18 147/66 H 92 L 01/19/22 08:00 01/19/22 08:00 01/19/22 08:00 01/19/22 08:00 01/19/22 08:00 no acute distress - *Routine HEENT Exam Head: Present: normocephalic Eye: Present: EOMI, PERRL ENT: Present: mucous membranes moist - *Routine Neck Exam Present: supple - *Routine Respiratory Exam Present: CTA bilaterally - *Routine Cardiovascular Exam Present: RRR - *Routine Abdominal Exam Present: soft, normoactive bowel sounds. Absent: tenderness - *Routine Extremities Exam Absent: cyanosis, clubbing, edema - *Routine Skin Exam Present: warm. Absent: rash - Detailed Eye Exam Eyelids: Bilateral normal inspection Results Labs on day of discharge: Labs from last 24 hours 01/19/22 01/18/22 01/17/22 06:23 19:53 03:00 Sodium 140 139 Potassium 3.8 3.4 L Chloride 102 99 Carbon Dioxide 32 H 33 H Anion Gap 9.8 10.4 BUN 32 H 36 H Creatinine 1.00 1.00 Estimated Creat Clear 30 31 Estimated GFR 53 L 53 L Est GFR ( Amer) 64 64 Glucose 103 H 128 H Calcium 9.1 9.0 Magnesium 1.8 Urine Color Yellow Urine Appearance Clear Urine pH 7.5 Ur Specific [place] 1.015 Urine Protein Negative Urine Glucose (UA) Negative Urine Ketones Negative Urine Blood 1+ Urine Nitrate Negative Urine Bilirubin Negative Urine Urobilinogen 0.2 Ur Leukocyte Esterase 3+ A Urine RBC 3-5 Urine WBC 10-20 Ur Squamous Epith Cells 3-5 Urine Bacteria 1+ Preliminary micro results at discharge 01/17/22 03:20 Blood Culture - Preliminary Blood NO GROWTH AFTER 48 HOURS 01/17/22 03:20 Blood Culture - Preliminary Blood NO GROWTH AFTER 48 HOURS DS: Diagnosis - Discharge Diagnosis (1) Acute exacerbation of CHF (congestive heart failure) Status: Resolved
--- NOTE | 2022-01-20 15:46 | CARE MANAGER ---
Contacted patient's daughter. She is doing well. She has been able to grape picker her medication and is taking them as directed. Daughter is following up on follow up appointment as she thought it was this , but is listed as the . Denies any other questions or concerns.
== END 2022-01-19 10:16 | disposition home or self-care (01) ==
LOC: ER 05:15 → 2ND 05:49
PROVIDERS: Admitting Provider Internal Medicine Adolescent Medicine; Emergency Provider Emergency Medicine; PCP Internal Medicine Adolescent Medicine; Visit Provider Internal Medicine Adolescent Medicine
DX: N39.0 Urinary tract infection, site not specified (principal); Z79.899 Other long term (current) drug therapy; Z20.822 Contact with and (suspected) exposure to COVID-19; I25.2 Old myocardial infarction; J44.1 Chronic obstructive pulmonary disease with (acute) exacerbation; I11.0 Hypertensive heart disease with heart failure; D64.9 Anemia, unspecified; I50.9 Heart failure, unspecified
CPT/HCPCS: G0378; 36415; 71045; 80048; 80053; 81001; 83605; 83735; 83880; 84145; 84484; 85025; 85651; 86140; 87040; 87086; 87088; 87186; 93005; 93306; 94640; 94760; 94761; 96375; 97162; 97165; 99285; C9803; J0696; U0003; U0005

== ENCOUNTER 2022-02-19 20:19 | Observation (INO) | payer MEDICARE, SELFPAY ==
[2022-02-19] VITALS (12 sets, daily range): BP systolic 98–147; BP diastolic 60–78; PULSE 53–89; RESP 18; TEMP 36.7–36.8; O2SAT 88–100; BMI 19.5
--- NOTE | 2022-02-19 20:23 | ECG_ITS ---
APPROVED REPORT Exam: Resting ECG HR:62 bpm ECG Measurements Heart Rate 62 AXES NJ 156 P 76 QRSd 83 QRS 63 QT 401 T 257 QTc 406 Conclusion SINUS RHYTHM WITH OCCASIONAL SUPRAVENTRICULAR PREMATURE COMPLEXES ST DEVIATION AND MODERATE T-WAVE ABNORMALITY, CONSIDER ANTEROLATERAL ISCHEMIA [-0.1+ mV T-WAVE IN V3-V6] ST DEVIATION AND MODERATE T-WAVE ABNORMALITY, CONSIDER INFERIOR ISCHEMIA [-0.1+ mV T-WAVE IN II/aVF] ABNORMAL ECG UNCONFIRMED REPORT Electronically signed by : Maxi Azevedo MD 02/20/2022 21:23:17
--- NOTE | 2022-02-19 20:26 | XR_ITS ---
PROCEDURE INFORMATION: Exam: XR Chest Exam date and time: 02/19/2022 8:32 PM Age: 81 years old Clinical indication: Other: Gen. Weakness TECHNIQUE: Imaging protocol: XR of the chest. Views: 1 view. COMPARISON: CR XR CHEST PORTABLE 01/17/2022 3:20 AM FINDINGS: Lungs: Flat diaphragms suggest underlying emphysema. Bilateral apical scarring. Mild architectural distortion around the right hilum correlates with scarring on prior CT. Pleural spaces: Unremarkable. No pleural effusion. No pneumothorax. Heart/Mediastinum: Borderline cardiomegaly. Vasculature: Vascular calcifications. Bones/joints: Unremarkable. IMPRESSION: No acute findings.
--- NOTE | 2022-02-19 20:59 | HMH.EDWEAK ---
ED Disposition Clinical Impression: SORAYA (acute kidney injury) UTI (urinary tract infection) Qualifiers: Urinary tract infection type: site unspecified Hematuria presence: without hematuria Qualified Code(s): N39.0 - Urinary tract infection, site not specified Disposition: Admitted As Inpatient Condition on Discharge: Fair - Critical Care Critical Care Time: No Attestation: On 02/19/22, the high probability of a clinically significant, sudden or life threatening deterioration of the following system(s) required my full and direct attention, intervention and personal management. The time I documented below is in addition to time spent performing reported procedures but includes the following listed in this critical care notation. Medical Decision Making - Medical Records Medical records reviewed: Yes: I reviewed the patient's medical records. - Oscar Inquiry Pt receiving controlled substance: No Vital Signs: 02/19/22 20:19 02/19/22 20:29 02/19/22 20:30 Temperature 98.3 F Temperature Source Oral Pulse Rate 69 73 Pulse Rate [Apical] 57 L Pulse Rate [Orthostatic Lying Right] Pulse Rate [Orthostatic Sitting Right] Pulse Rate [Orthostatic Standing Right] Respiratory Rate 18 Blood Pressure 146/76 H 147/78 H Blood Pressure [Orthostatic Lying Right Arm] Blood Pressure [Orthostatic Sitting] Blood Pressure [Orthostatic Standing Right Arm] Blood Pressure [Right Arm] 103/61 L Blood Pressure Mean 99 101 Blood Pressure Mean [Right Arm] 75 Blood Pressure Source Blood Pressure Source [Right Arm] Automatic Cuff Blood Pressure Position Blood Pressure Position [Right Arm] Sitting 02 Sat by Pulse Oximetry 88 L 93 L 93 L Oxygen Delivery Method Room Air Oxygen Flow Rate (LPM) 2 2 02/19/22 20:31 02/19/22 20:33 02/19/22 20:42 Temperature 98.1 F Temperature Source Oral Pulse Rate 73 65 Pulse Rate [Apical] Pulse Rate [Orthostatic Lying Right] 66 Pulse Rate [Orthostatic Sitting Right] 66 Pulse Rate [Orthostatic Standing Right] 75 Respiratory Rate 18 Blood Pressure 98/67 L 98/67 L Blood Pressure [Orthostatic Lying Right Arm] 146/76 H Blood Pressure [Orthostatic Sitting] 147/78 H Blood Pressure [Orthostatic Standing Right Arm] 98/67 L Blood Pressure [Right Arm] Blood Pressure Mean 77 Blood Pressure Mean [Right Arm] Blood Pressure Source Automatic Cuff Blood Pressure Source [Right Arm] Blood Pressure Position Supine Blood Pressure Position [Right Arm] 02 Sat by Pulse Oximetry 93 L 93 L Oxygen Delivery Method Nasal Cannula Oxygen Flow Rate (LPM) 2 2 02/19/22 21:00 02/19/22 21:32 02/19/22 22:02 Temperature Temperature Source Pulse Rate 86 89 61 Pulse Rate [Apical] Pulse Rate [Orthostatic Lying Right] Pulse Rate [Orthostatic Sitting Right] Pulse Rate [Orthostatic Standing Right] Respiratory Rate Blood Pressure 125/69 143/76 H 126/68 Blood Pressure [Orthostatic Lying Right Arm] Blood Pressure [Orthostatic Sitting] Blood Pressure [Orthostatic Standing Right Arm] Blood Pressure [Right Arm] Blood Pressure Mean 77 98 Blood Pressure Mean [Right Arm] Blood Pressure Source Blood Pressure Source [Right Arm] Blood Pressure Position Blood Pressure Position [Right Arm] 02 Sat by Pulse Oximetry 98 96 98 Oxygen Delivery Method Nasal Cannula Nasal Cannula Nasal Cannula Oxygen Flow Rate (LPM) 2 2 2 02/19/22 22:30 02/19/22 23:00 02/19/22 23:30 Temperature Temperature Source Pulse Rate 57 L 53 L Pulse Rate [Apical] Pulse Rate [Orthostatic Lying Right] Pulse Rate [Orthostatic Sitting Right] Pulse Rate [Orthostatic Standing Right] Respiratory Rate Blood Pressure 134/72 122/61 131/60 Blood Pressure [Orthostatic Lying Right Arm] Blood Pressure [Orthostatic Sitting] Blood Pressure [Orthostatic Standing Right Arm] Blood Pressure [Right Arm] Blood Pressure Lindsey
[2022-02-19 21:32] LABS: Basophils # 0.1 K/mm3 (0-0.2); Basophils % 2.5 % (0.1-2.0); Hematocrit 36.2 % (37.0-47.0); Hemoglobin 12.1 g/dL (12.2-16.2); Lymphocytes # 1.1 K/mm3 (0.7-4.5); Lymphocytes % 34.2 % (10-50); Mean Corpuscular HGB Conc 33.4 g/dL (31.8-35.4); Mean Corpuscular Hemoglobin 31.2 pg (27.0-31.2); Mean Corpuscular Volume 93.4 fl (81-99); Mean Platelet Volume 9.6 fl (7.4-10.4); Monocytes # 0.3 K/mm3 (0.1-1.0); Monocytes % 9.2 % (1.7-9.3); Neutrophils # 1.7 K/mm3 (1.8-7.8); Neutrophils % 53.2 % (37.0-80.0); Platelet Count 80 K/mm3 (142-424); Red Blood Count 3.87 M/mm3 (4.20-5.40); Red Cell Distribution Width 13.8 % (11.5-17.5); White Blood Count 3.2 K/mm3 (4.8-10.8)
[2022-02-19 21:42] LABS: Alanine Aminotransferase 10 U/L (12-78); Albumin Level 3.6 g/dl (3.5-5.0); Albumin/Globulin Ratio 1.4 (1.1-1.8); Alkaline Phosphatase 80 U/L (38-126); Anion Gap 15.1 mEq/L (5-15); Aspartate Amino Transferase 22 U/L (14-36); Bilirubin,Total 0.6 mg/dl (0.2-1.3); Blood Urea Nitrogen 65 mg/dl (7-17); Calcium 8.4 mg/dl (8.4-10.2); Carbon Dioxide 25 mmol/L (22.0-30.0); Chloride 96 mmol/L (98-107); Creatinine Clearance Estimated 9 mL/min (50-200); Estimated Glomerular Filt Rate 13 ml/min (>60); GFR (African American) 16 ML/MIN (>60); Globulin 2.5 g/dL (1.3-3.2); Glucose 99 mg/dl (74-100); Potassium 4.1 mmoL/L (3.5-5.1); Sodium 132 mmol/L (136-145); Total Protein,Serum 6.1 g/dl (6.3-8.2)
[2022-02-19 21:56] LABS: NT Pro Brain Natriuretic Pep. 674 pg/mL (0-450); Troponin I 0.02 ng/ml (0.00-0.034)
[2022-02-19 22:00] LABS: Procalcitonin 0.549 ng/mL (0.0-2.0)
[2022-02-19 22:10] LABS: Microscopic, Urine URINE MICROSCOPIC (MICROSCOPIC)
[2022-02-19 22:10] LABS: Coronavirus 19, PCR Not Detected (NotDetected); Influenza A, PCR Not Detected (NotDetected); Influenza B, PCR Not Detected (NotDetected)
[2022-02-19 22:22] LABS: Erythrocyte Sedimentation Rate 15 mm/hr (0-30)
[2022-02-19 22:45] LABS: Appearance,Urine SL CLOUDY (Clear); Blood, Urine 1+ (Negative); Color,Urine YELLOW (Yellow); Glucose,Urine (UA) Negative (Negative); Ketones,Urine Negative (Negative); Leukocyte Esterase,Urine 2+ (Negative); Nitrate,Urine Negative (Negative); Protein,Urine TRACE (Negative); Urobilinogen,Urine 0.2 EU/dl (0.2)
[2022-02-19 22:57] LABS: Bilirubin,Urine 1+ (Negative)
[2022-02-19 22:58] LABS: Bacteria,Urine 3+ /lpf; WBC,Urine 20-50 #/hpf (0-3)
--- NOTE | 2022-02-19 23:30 | PC.NURSE ---
Pt ambulatory to bathroom with minimal assistance
[2022-02-19 23:44] LABS: Lactic Acid 0.7 mmol/L (0.7-2.1)
[2022-02-20 00:01] VITALS: BP 104/56; O2SAT 98
[2022-02-20 00:31] VITALS: BP 99/62; PULSE 60; RESP 17; TEMP 36.6; O2SAT 95; BMI 17.3
[2022-02-20 00:47] VITALS: BP 104/56; PULSE 58; RESP 18; TEMP 36.8; O2SAT 98
--- NOTE | 2022-02-20 00:59 | PC.NURSE ---
pt arrived to floor via wheelchair at this time.
[2022-02-20 04:00] VITALS: BP 105/62; PULSE 60; RESP 16; TEMP 36.7; O2SAT 94
[2022-02-20 06:28] LABS: Chloride 103 mmol/L (98-107); Sodium 136 mmol/L (136-145)
[2022-02-20 06:29] LABS: Potassium 3.8 mmoL/L (3.5-5.1)
[2022-02-20 06:32] LABS: Anion Gap 11.8 mEq/L (5-15); Blood Urea Nitrogen 56 mg/dl (7-17); Calcium 7.9 mg/dl (8.4-10.2); Carbon Dioxide 25 mmol/L (22.0-30.0); Creatinine Clearance Estimated 11 mL/min (50-200); Estimated Glomerular Filt Rate 19 ml/min (>60); GFR (African American) 23 ML/MIN (>60); Glucose 83 mg/dl (74-100); Magnesium 2.3 mg/dl (1.6-2.3)
[2022-02-20 07:01] LABS: Basophils % 1.2 % (0.1-2.0); Eosinophils % 1.3 % (0.1-12.0); Hematocrit 33.8 % (37.0-47.0); Hemoglobin 11.5 g/dL (12.2-16.2); Lymphocytes # 1.4 K/mm3 (0.7-4.5); Lymphocytes % 43.6 % (10-50); Mean Corpuscular HGB Conc 33.9 g/dL (31.8-35.4); Mean Corpuscular Hemoglobin 31.3 pg (27.0-31.2); Mean Corpuscular Volume 92.2 fl (81-99); Mean Platelet Volume 10.9 fl (7.4-10.4); Monocytes # 0.2 K/mm3 (0.1-1.0); Monocytes % 7.2 % (1.7-9.3); Neutrophils # 1.5 K/mm3 (1.8-7.8); Neutrophils % 46.7 % (37.0-80.0); Platelet Count 66 K/mm3 (142-424); Red Blood Count 3.66 M/mm3 (4.20-5.40); White Blood Count 3.2 K/mm3 (4.8-10.8)
--- NOTE | 2022-02-20 07:10 | P.CONPHA_ITS ---
[facility] VTE Monitoring - Patient Demographics Admission date: 02/19/22 Report Date: 02/20/22 Time: 07:10 Allergies/Adverse Reactions: Patient Allergies codeine Allergy (Unknown, Verified 01/17/22 07:39) Unknown allergy reaction penicillin V Allergy (Unknown, Verified 01/17/22 07:39) Unknown allergy reaction morphine Allergy (Verified 01/17/22 07:39) Unknown allergy reaction Height: 1.52 m Weight: 40.098 kg Patient Problems: Current Active Problems UTI (urinary tract infection) (Acute) SORAYA (acute kidney injury) (Acute) - VTE Risk Labs: VTE Related Lab Results Hgb 11.5 g/dL (12.2-16.2) L 02/20/22 06:22 Hct 33.8 % (37.0-47.0) L 02/20/22 06:22 Plt Count 66 K/mm3 (142-424) L 02/20/22 06:22 BUN 56 mg/dl (7-17) H 02/20/22 05:55 Creatinine 2.40 mg/dl (0.52-1.04) H D 02/20/22 05:55 Estimated Creat Clear 11 mL/min (50-200) 02/20/22 05:55 - Prophylaxis VTE Prophylaxis Ordered?: Yes Types of VTE Prophylaxis: TEDS Knee High Location of Applied Device: Bilateral Lower Extremeties
[2022-02-20 08:00] VITALS: BP 119/61; PULSE 59; RESP 14; TEMP 36.7; O2SAT 96
--- NOTE | 2022-02-20 09:09 | HMH.HPDC ---
General - General Admission date:: 02/20/22 Discharge date: 02/20/22 *Admission Date: 02/19/22 *Chief complaint: Dizziness *History of present illness: 81-year-old white female with history of congestive heart failure and recurrent UTI infections, who over a month ago was sent home with Omnicef for UTI and Entresto for CHF. She is done well until a couple of days ago when she began to have some dizziness. Very fatigued and came to the hospital yesterday evening. Was admitted early this morning with hypotension, mild SORAYA and another UTI. [facility] History I have reviewed the patient's past medical history: Yes Medical History: Reports:: Chronic Obstructive Pulmonary Disease (COPD), Hypertension Denies:: Cancer, Diabetes Mellitus Type 1, Diabetes Mellitus Type 2, MRSA, Seizures *Have you ever received a pneumonia vaccine?: No *Have you received a flu vaccine this season?: No Other Medical History: Reports: Arthritis. Denies: Blood Transfusion Reaction Laterality Cases: Left: Total Hip Replacement Other Surgeries: Yes: Cholecystectomy, Colonoscopy, Hysterectomy-Total Amputation: No Fractures: Yes - *Social History Smoking Status: Former smoker Tobacco Type: cigarettes # Packs/Day (cigarettes): 1 Smoking End Date: 13 years ago Alcohol Intake: never Substance Use Type: other *Occupational Status:: retired Housing: house Household Members: spouse *Travel in the last 8 weeks: None Family Hx:: No significant family history Review of Systems - Review of Systems Review of systems:: pertinent systems reviewed and negative unless documented below - *Neurologic Reports weakness, Denies localized weakness, Denies seizure-like activity Exam Vital signs and Labs for Last 24 Hours: Temp Pulse Resp BP Pulse Ox 98.1 F 59 L 14 119/61 96 02/20/22 08:00 02/20/22 08:00 02/20/22 08:00 02/20/22 08:00 02/20/22 08:00 Laboratory Results - last 24 hr 02/19/22 21:06: WBC 3.2 L, RBC 3.87 L, Hgb 12.1 L, Hct 36.2 L, MCV 93.4, MCH 31.2, MCHC 33.4, RDW 13.8, Plt Count 80 L, MPV 9.6, Neut % (Auto) 53.2, Lymph % (Auto) 34.2, [place] % (Auto) 9.2, Eos % (Auto) 1.0, Baso % (Auto) 2.5 H, Neut # (Auto) 1.7 L, Lymph # (Auto) 1.1, [place] # (Auto) 0.3, Eos # (Auto) 0.0, Baso # (Auto) 0.1 02/19/22 21:06: Sodium 132 L, Potassium 4.1, Chloride 96 L, Carbon Dioxide 25, Anion Gap 15.1 H, BUN 65 H, Creatinine 3.40 H, Estimated Creat Clear 9, Estimated GFR 13 L*, Est GFR ( Amer) 16 L*, Glucose 99, Calcium 8.4, Total Bilirubin 0.6, AST 22, ALT 10 L, Alkaline Phosphatase 80, C-Reactive Protein 4.0, Total Protein 6.1 L, Albumin 3.6, Globulin 2.5, Albumin/Globulin Ratio 1.4 02/19/22 21:06: ESR 15 02/19/22 21:06: Troponin I 0.02, NT-Pro-B Natriuret Pep 674 H, Procalcitonin 0.549 02/19/22 21:35: Urine Color Yellow, Urine Appearance Sl cloudy, Urine pH 5.0, Ur Specific [place] 1.020, Urine Protein Trace, Urine Glucose (UA) Negative, Urine Ketones Negative, Urine Blood 1+, Urine Nitrate Negative, Urine Bilirubin 1+ A, Urine Urobilinogen 0.2, Ur Leukocyte Esterase 2+ A, Urine RBC 5-10, Urine WBC 20-50, Ur Squamous Epith Cells 5-10, Urine Bacteria 3+ 02/19/22 22:02: SARS-CoV-2 (PCR) Not detected, Influenza A Untype (PCR) Not detected, Influenza Type B (PCR) Not detected 02/19/22 23:15: Lactate 0.7 02/20/22 05:55: Sodium 136, Potassium 3.8, Chloride 103, Carbon Dioxide 25, Anion Gap 11.8, BUN 56 H, Creatinine 2.40 H D, Estimated Creat Clear 11, Estimated GFR 19 L*, Est GFR ( Amer) 23 L D, Glucose 83, Calcium 7.9 L, Magnesium 2.3 02/20/22 06:22: WBC 3.2 L, RBC 3.66 L, Hgb 11.5 L, Hct 33.8 L, MCV 92.2, MCH 31.3 H, MCHC 33.9, RDW 14.0, Plt Count 66 L, MPV 10.9 H, Neut % (Auto) 46.7, Lymph % (Auto) 43.6, [place] % (Auto) 7.2, Eos % (Auto) 1.3, Baso % (Auto) 1.2, Neut # (Auto) 1.5 L, Lymph # (Auto) 1.4, [place] # (Auto) 0.2, Eos # (Auto) 0.0, Baso # (Auto) 0.0 I & O for Last 24 hours: Intake & Output 02/17/22 02/18/22 02/19/22 02/20/22 11:59 11:59 11:59 11:59 Weight
--- NOTE | 2022-02-20 10:39 | PC.NURSE ---
Went over paperwork with patient and family at [phone] for discharge. Patient and family stated patient has adverse reaction with levaquin and needed a different antibiotic prescription. Office in [place] called and message left for Dr. Azevedo at [phone]. No changes noted for prescription at 1030. Called office in [place] again at [phone] but phone call went to voicemail. Will try again
--- NOTE | 2022-02-20 11:17 | PC.NURSE ---
Called [place] office again. No answer from personnel.
--- NOTE | 2022-02-20 11:37 | PC.NURSE ---
[facility] pharmacy called for new prescription of omniceff per Dr. Azevedo.
--- NOTE | 2022-02-24 15:39 | CARE MANAGER ---
Attempted to call patient on 02/20 (left a VM), and again today. Patient does not answer phone.
== END 2022-02-20 11:45 | disposition home or self-care (01) ==
LOC: ER 20:28 → 2ND 02-20 00:36
PROVIDERS: Admitting Provider Internal Medicine Adolescent Medicine; Emergency Provider Emergency Medicine; PCP Internal Medicine Adolescent Medicine; Visit Provider Internal Medicine Adolescent Medicine
DX: N17.9 Acute kidney failure, unspecified (principal); J44.9 Chronic obstructive pulmonary disease, unspecified; Z87.891 Personal history of nicotine dependence; I11.0 Hypertensive heart disease with heart failure; I50.9 Heart failure, unspecified; N39.0 Urinary tract infection, site not specified; Z20.822 Contact with and (suspected) exposure to COVID-19
CPT/HCPCS: G0378; 36415; 71045; 80048; 80053; 81001; 83605; 83735; 83880; 84145; 84484; 85025; 85651; 86140; 87040; 87086; 93005; 99285; C9803; J0696; U0003; U0005

== ENCOUNTER → 2022-02-22 08:47 | Outpatient (CLI) | payer MEDICARE, SELFPAY ==
[2022-02-22 09:47] LABS: Basophils # 0.1 K/mm3 (0-0.2); Eosinophils % 1.2 % (0.1-12.0); Hematocrit 37.5 % (37.0-47.0); Hemoglobin 12.7 g/dL (12.2-16.2); Lymphocytes # 1.1 K/mm3 (0.7-4.5); Lymphocytes % 39.9 % (10-50); Mean Corpuscular HGB Conc 33.9 g/dL (31.8-35.4); Mean Corpuscular Hemoglobin 31.5 pg (27.0-31.2); Mean Platelet Volume 10.9 fl (7.4-10.4); Monocytes # 0.3 K/mm3 (0.1-1.0); Monocytes % 9.7 % (1.7-9.3); Neutrophils # 1.4 K/mm3 (1.8-7.8); Neutrophils % 49.2 % (37.0-80.0); Red Blood Count 4.03 M/mm3 (4.20-5.40); White Blood Count 2.8 K/mm3 (4.8-10.8)
[2022-02-22 09:52] LABS: Platelet Count 44 K/mm3 (142-424)
[2022-02-22 10:12] LABS: Chloride 107 mmol/L (98-107); Sodium 139 mmol/L (136-145)
[2022-02-22 10:13] LABS: Potassium 4.5 mmoL/L (3.5-5.1)
[2022-02-22 10:15] LABS: Blood Urea Nitrogen 27 mg/dl (7-17); Estimated Glomerular Filt Rate 39 ml/min (>60); GFR (African American) 47 ML/MIN (>60)
[2022-02-22 10:16] LABS: Anion Gap 15.5 mEq/L (5-15); Calcium 9.6 mg/dl (8.4-10.2); Carbon Dioxide 21 mmol/L (22.0-30.0); Glucose 109 mg/dl (74-100)
== END ==
PROVIDERS: PCP Internal Medicine Adolescent Medicine; Visit Provider Internal Medicine Adolescent Medicine
DX: D72.829 Elevated white blood cell count, unspecified (principal)
CPT/HCPCS: 36415; 80048; 85025

== ENCOUNTER → 2022-03-27 14:40 | Outpatient (CLI) | payer MEDICARE, SELFPAY ==
[2022-03-27 15:25] LABS: Basophils % 0.5 % (0.1-2.0); Eosinophils % 0.5 % (0.1-12.0); Hemoglobin 12.5 g/dL (12.2-16.2); Lymphocytes # 1.2 K/mm3 (0.7-4.5); Mean Corpuscular HGB Conc 31.9 g/dL (31.8-35.4); Mean Corpuscular Volume 97.2 fl (81-99); Mean Platelet Volume 8.4 fl (7.4-10.4); Monocytes # 0.4 K/mm3 (0.1-1.0); Monocytes % 8.2 % (1.7-9.3); Neutrophils # 2.7 K/mm3 (1.8-7.8); Neutrophils % 62.9 % (37.0-80.0); Platelet Count 229 K/mm3 (142-424); Red Blood Count 4.02 M/mm3 (4.20-5.40); Red Cell Distribution Width 16.4 % (11.5-17.5); White Blood Count 4.3 K/mm3 (4.8-10.8)
[2022-03-27 15:45] LABS: Iron 76 ug/dL (37-170)
[2022-03-27 15:55] LABS: Total Iron Binding Capacity 213 ug/dL (265-497)
[2022-03-27 16:21] LABS: Ferritin 104 ng/ml (11.1-264)
[2022-03-27 17:35] LABS: Vitamin B12 868 pg/mL (239-931)
[2022-03-27 17:36] LABS: Folate 4.79 ng/mL
== END ==
PROVIDERS: PCP Internal Medicine Adolescent Medicine; Visit Provider Internal Medicine Medical Oncology
DX: D50.8 Other iron deficiency anemias (principal)
CPT/HCPCS: 36415; 82607; 82728; 82746; 83540; 83550; 85025

== ENCOUNTER 2022-07-28 22:09 | Emergency (ER) | payer MEDICARE, SELFPAY ==
[2022-07-28 22:26] VITALS: BP 143/78; PULSE 80; RESP 18; TEMP 36.7; O2SAT 99
== END 2022-07-28 22:27 | disposition left against medical advice (07) ==
PROVIDERS: Emergency Provider Emergency Medicine; PCP Internal Medicine Adolescent Medicine
DX: Z53.21 Procedure and treatment not carried out due to patient leaving prior to being seen by health care provider (principal)

== ENCOUNTER 2022-08-28 11:44 | Inpatient (IN) | payer MEDICARE, SELFPAY ==
[2022-08-28] VITALS (17 sets, daily range): BP systolic 131–181; BP diastolic 70–90; PULSE 85–108; RESP 18–24; TEMP 37.2–37.6; O2SAT 80–98; BMI 19.5; BMI 14.9
--- NOTE | 2022-08-28 11:32 | ECG_ITS ---
APPROVED REPORT Exam: Resting ECG HR:101 bpm ECG Measurements Heart Rate 101 AXES QRSd 74 QRS 70 QT 303 T -17 QTc 361 Conclusion ATRIAL FIBRILLATION WITH RAPID VENTRICULAR RESPONSE NONSPECIFIC ST & T-WAVE ABNORMALITY ABNORMAL ECG UNCONFIRMED REPORT Electronically signed by : Maxi Azevedo MD 08/28/2022 20:16:08
--- NOTE | 2022-08-28 11:42 | PC.NURSE ---
ODALYS GARRIDO AT BEDSIDE.
--- NOTE | 2022-08-28 11:42 | PC.NURSE ---
ODALYS GARRIDO at for patient eval
--- NOTE | 2022-08-28 11:46 | HMH.EDGENADL ---
Discharge Plan Disposition Patient Disposition: Admitted as Observation Condition: Fair Prescriptions Prescriptions: No Action omeprazole 40 mg Capsule,Delayed Release(Dr/Ec) 40 mg PO DAILY oxycodone-acetaminophen 5-325 mg Tablet 1 tab PO Q6H PRN (Reason: Shortness Of Breath Or Wheezing) lorazepam [Ativan] 0.5 mg Tablet 0.5 mg PO TID PRN (Reason: Anxiety) albuterol sulfate 90 mcg/actuation HFA aerosol inhaler 90 mcg INHALATION NEEDED PRN (Reason: SOA) escitalopram oxalate [Lexapro] 5 mg Tablet 5 mg PO DAILY Referrals Follow up/Referrals: Maxi Azevedo MD [Primary Care Provider] - See instructions Clinical Impressions Clinical Impression: Community acquired pneumonia, Sepsis Discharge ED Provider: David Perez General Adult HPI General Chief complaint: Shortness of Breath/Dyspnea Stated complaint: SOA Time Seen by Provider: 08/28/22 11:45 Mode of Arrival: EMS Source of Information: Patient and EMS Limitations: No Limitations Description of Symptoms (Recalled from ER Triage Doc. by RN): EMS STATES FAMILY MEMBER REPORTED PT GOT SHORT OF BREATH AND ANXOUIS AFTER GETTING UP TO GO TO THE BATHROOM, STATES THIS IS A REGULAR OCCURANCE FOR HER, HX OF COPD, ANXIETY, AND PANIC ATTACKS, PT KEEPS SAYING SHE IS SCARED, STATES SHE FEELS SAFE AT HOME, REPORTS PAIN ALL OVER History of Present Illness HPI narrative: History obtained from patient and nursing staff. Nursing staff obtained history from EMS who reported that family told them the patient got up to go to the bathroom and got short of breath and anxious. Patient tells me that she is here because she has pain in her right breast, which has been present for a few days. She denies injury. She denies redness or swelling. She denies previous pain in the breast. She specifically denies shortness of breath, URI symptoms including cough, fever, vomiting and diarrhea, urinary symptoms, or swelling. She has a noted history of COPD and congestive heart failure. She says she is on oxygen at home but she does not know what her usual FiO2 is, nurse reports usual FiO2 is 3 L. Related Data Home Medications Medication Instructions Recorded Confirmed albuterol sulfate 90 mcg/actuation 90 mcg inhalation NEEDED PRN SOA 08/28/22 08/28/22 aerosol inhaler escitalopram oxalate 5 mg tablet 5 mg PO DAILY anxiety depression 08/28/22 08/28/22 (Lexapro) lorazepam 0.5 mg tablet (Ativan) 0.5 mg PO TID PRN Anxiety 08/28/22 08/28/22 omeprazole 40 mg capsule,delayed 40 mg PO DAILY GERD 08/28/22 08/28/22 release oxycodone-acetaminophen 5 mg-325 1 tab PO Q6H PRN Shortness Of 08/28/22 08/28/22 mg tablet Breath Or Wheezing Allergies Allergy/AdvReac Type Severity Reaction Status Date / Time codeine Allergy Unknown Unknown Verified 03/27/22 13:54 allergy reaction penicillin V Allergy Unknown Unknown Verified 03/27/22 13:54 allergy reaction levofloxacin [From Levaquin] Allergy Verified 08/28/22 11:37 morphine Allergy Unknown Verified 03/27/22 13:54 allergy reaction sacubitril [From Entresto] Allergy Verified 08/28/22 11:37 valsartan [From Entresto] Allergy Verified 08/28/22 11:37 [facility] Disclaimer: The information contained in this section may have been updated after the patient was seen, as this information can be updated by other users. Social History Smoking Status: Never smoker alcohol intake: never substance use type: other current occupational status: retired Travel in the last 8 weeks: None household members: spouse housing: house current occupational exposures/hazards: No caffeine: Yes ROS Obtained: Yes Systems reviewed as appropriate & no additional complaints except as documented Constitutional Constitutional: Denies fever(s), Denies headache(s) and Denies weakness ENT Ears, Nose, Mouth, and Throat: Denies headache(s), Denies nasal discharge and Denies sore throat
--- NOTE | 2022-08-28 11:52 | XR_ITS ---
FINAL REPORT CLINICAL HISTORY: soa COMPARISON: February 19, 2022 FINDINGS: A single portable view of the chest was obtained. There is cardiomegaly. The mediastinum is within normal limits. There is a left lung base opacity which is worrisome for pneumonia. There is bilateral apical pleural thickening. There is small right pleural effusion. There is a 25 mm right apical nodular opacity which appears new. The bony thorax is intact. IMPRESSION: New appearing 25 mm right apical nodular opacity may represent localized infiltrate versus neoplasm. Recommend chest CT for further evaluation. Left lung base opacity worrisome for pneumonia. These findings were reported to the ordering physician in the ER department on August 28, 2022 at 12:20 p.m. Reviewed, Interpreted and Dictated by Ishmael Briseno III, MD Transcribed by Diana Moulton Authenticated and [facility]
--- NOTE | 2022-08-28 11:59 | PC.NURSE ---
Portable xray at bedside.
--- NOTE | 2022-08-28 12:25 | PC.NURSE ---
speaking to radiologist
--- NOTE | 2022-08-28 12:40 | PC.NURSE ---
ROOSEVELT Mejia was unable to get blood. Will attempt to try again.
[2022-08-28 13:23] LABS: Basophils # 0.1 K/mm3 (0-0.2); Basophils % 0.4 % (0.1-2.0); Eosinophils % 0.2 % (0.1-12.0); Hematocrit 32.6 % (37.0-47.0); Hemoglobin 10.7 g/dL (12.2-16.2); Lymphocytes # 0.7 K/mm3 (0.7-4.5); Lymphocytes % 4.2 % (10-50); Mean Corpuscular HGB Conc 32.8 g/dL (31.8-35.4); Mean Corpuscular Hemoglobin 32.3 pg (27.0-31.2); Mean Corpuscular Volume 98.6 fl (81-99); Mean Platelet Volume 8.3 fl (7.4-10.4); Monocytes # 1.2 K/mm3 (0.1-1.0); Monocytes % 7.2 % (1.7-9.3); Neutrophils # 14.2 K/mm3 (1.8-7.8); Platelet Count 253 K/mm3 (142-424); Red Blood Count 3.31 M/mm3 (4.20-5.40); Red Cell Distribution Width 14.6 % (11.5-17.5); White Blood Count 16.1 K/mm3 (4.8-10.8)
[2022-08-28 13:24] LABS: Chloride 96 mmol/L (98-107); Sodium 140 mmol/L (136-145)
[2022-08-28 13:25] LABS: Potassium 3.9 mmoL/L (3.5-5.1)
--- NOTE | 2022-08-28 13:25 | PC.NURSE ---
Updated pt. Pt resting in bed. Call light within reach. No questions or concerns voiced.
[2022-08-28 13:27] LABS: Blood Urea Nitrogen 14 mg/dl (7-17); Creatinine Clearance Estimated 31 mL/min (50-200); Estimated Glomerular Filt Rate 69 ml/min (>60); GFR (African American) 83 ML/MIN (>60)
--- NOTE | 2022-08-28 13:27 | PC.NURSE ---
Assisted patient with bedpan. Call light within reach
[2022-08-28 13:28] LABS: Anion Gap 11.9 mEq/L (5-15); Calcium 9.4 mg/dl (8.4-10.2); Carbon Dioxide 36 mmol/L (22.0-30.0); Glucose 118 mg/dl (74-100)
[2022-08-28 13:29] LABS: MANUAL DIFFERENTIAL MANUAL DIFFERENTIAL (MANUAL DIFF)
[2022-08-28 13:32] LABS: Lactic Acid 1.3 mmol/L (0.7-2.1)
--- NOTE | 2022-08-28 13:33 | CT_ITS ---
FINAL REPORT TECHNIQUE: Thin section axial CT images were obtained from the lung apices to the upper abdomen. IV contrast was administered. MIP 3-D reformats were obtained. This study was performed with techniques to keep radiation doses as low as reasonably achievable (ALARA). Individualized dose reduction techniques using automated exposure control or adjustment of mA and/or kV according to the patient's size were employed. CLINICAL HISTORY: soa, chest pain, possible RUL mass FINDINGS: The heart size is enlarged. There is mild mediastinal adenopathy. A precarinal lymph node measures 16 mm. There is no axillary mass or adenopathy. There is no filling defect to suggest PE. There is ectasia of the ascending aorta up to 39 mm. There is no aortic dissection. There is no pericardial effusion. There are widespread pulmonary opacities in both lungs greatest in the left lower lobe consistent with bilateral pneumonia. A nodule in the right upper lobe measures 26 mm. A 2nd nodule right upper lobe measures 18 mm. There are small foci of air within these nodules in the may be partially cavitary. There are multiple other smaller bilateral pulmonary nodules. Nodules are nonspecific and are favored to be inflammatory. There are small bilateral pleural effusions. Limited images of the upper abdomen demonstrate partially imaged splenomegaly. IMPRESSION: No pulmonary embolism or aortic dissection. Multifocal pulmonary opacities consistent with bilateral pneumonia. Multiple bilateral pulmonary nodules with a dominant right upper lobe nodule. Nodules are favored to be inflammatory or infectious but neoplasm cannot be excluded. Follow-up CT could further evaluate. Reviewed, Interpreted and Dictated by Ishmael Briseno III, MD Transcribed by Justo Covington Authenticated and [facility]
[2022-08-28 13:38] LABS: NT Pro Brain Natriuretic Pep. 3100 pg/mL (0-450)
[2022-08-28 13:53] LABS: Troponin I < 0.01 ng/ml (0.00-0.034)
--- NOTE | 2022-08-28 14:05 | PC.NURSE ---
Pt to CT via stretcher with compressor technician
[2022-08-28 14:22] LABS: Lymphocytes % 7 % (10-50); Monocytes % 1 % (2-9); Neutrophils % 91 % (42-76); Platelet Estimate Normal; RBC Morphology Normal; Total Cells Counted 100
--- NOTE | 2022-08-28 14:37 | PC.NURSE ---
Theodora RN, at BS for US guided IV for PE scan
[2022-08-28 14:49] LABS: Coronavirus 19, PCR Not Detected (NotDetected); Influenza A, PCR Not Detected (NotDetected); Influenza B, PCR Not Detected (NotDetected)
--- NOTE | 2022-08-28 14:56 | PC.NURSE ---
Notified Richard that patient is ready for her CT scan
--- NOTE | 2022-08-28 15:23 | PC.NURSE ---
Assisted pt on bedpan. Call light within reach.
--- NOTE | 2022-08-28 15:34 | PC.NURSE ---
Assisted pt off bedpan. Cleaned, repositioned, and provided with warm blanket. Pt asked to be placed back on bedpan. Pt placed back on bedpan. Daughter at bedside.
--- NOTE | 2022-08-28 16:09 | PC.NURSE ---
Assisted pt off bedpan and cleaned. Call light within reach. Resting in bed. Seems a lot more relaxed since receiving ativan. Daughter at bedside.
--- NOTE | 2022-08-28 16:22 | PC.NURSE ---
Called Radiology, spoke with Dina regarding preliminary report of CTA. She reports its final and they will send it down
--- NOTE | 2022-08-28 16:24 | PC.NURSE ---
ODALYS GARRIDO at for update on POC. Dr. Mendez on for ricco Mendez for admission
--- NOTE | 2022-08-28 16:50 | PC.NURSE ---
Dr. Perez speaking with Dr. Mendez at this time
--- NOTE | 2022-08-28 16:56 | PC.NURSE ---
Spoke with Alla ALBERT, MARLEE regarding patient admission
--- NOTE | 2022-08-28 17:24 | PC.NURSE ---
Removed patient from bedpan, call light within reach
--- NOTE | 2022-08-28 17:45 | PC.NURSE ---
Assisted patient on bedpan
--- NOTE | 2022-08-28 17:47 | PC.NURSE ---
Called report to Nery ALBERT.
--- NOTE | 2022-08-28 17:49 | PC.NURSE ---
assisted patient off the bedpan
[2022-08-29] VITALS (9 sets, daily range): BP systolic 145–167; BP diastolic 4–97; PULSE 80–100; RESP 20–26; TEMP 37.1–37.7; O2SAT 91–98
--- NOTE | 2022-08-29 04:53 | PC.NURSE ---
Assuming nursing care at 0100. No acute changes. She has slept t/o the shift.
[2022-08-29 07:42] LABS: Basophils # 0.1 K/mm3 (0-0.2); Basophils % 0.6 % (0.1-2.0); Hematocrit 28.7 % (37.0-47.0); Lymphocytes # 1.9 K/mm3 (0.7-4.5); Lymphocytes % 7.7 % (10-50); Mean Corpuscular HGB Conc 32.5 g/dL (31.8-35.4); Mean Corpuscular Hemoglobin 32.7 pg (27.0-31.2); Mean Corpuscular Volume 100.5 fl (81-99); Mean Platelet Volume 9.4 fl (7.4-10.4); Monocytes # 1.7 K/mm3 (0.1-1.0); Monocytes % 6.8 % (1.7-9.3); Neutrophils # 21.1 K/mm3 (1.8-7.8); Neutrophils % 84.9 % (37.0-80.0); Platelet Count 204 K/mm3 (142-424); Red Blood Count 2.85 M/mm3 (4.20-5.40); Red Cell Distribution Width 14.9 % (11.5-17.5); White Blood Count 24.9 K/mm3 (4.8-10.8)
[2022-08-29 07:43] LABS: Chloride 101 mmol/L (98-107); Hemoglobin 9.3 g/dL (12.2-16.2); MANUAL DIFFERENTIAL MANUAL DIFFERENTIAL (MANUAL DIFF); Sodium 139 mmol/L (136-145)
[2022-08-29 07:44] LABS: Potassium 3.9 mmoL/L (3.5-5.1)
[2022-08-29 07:46] LABS: Blood Urea Nitrogen 18 mg/dl (7-17); Creatinine Clearance Estimated 23 mL/min (50-200); Estimated Glomerular Filt Rate 80 ml/min (>60); GFR (African American) 97 ML/MIN (>60)
[2022-08-29 07:47] LABS: Anion Gap 12.9 mEq/L (5-15); Calcium 8.8 mg/dl (8.4-10.2); Carbon Dioxide 29 mmol/L (22.0-30.0); Glucose 82 mg/dl (74-100)
[2022-08-29 08:02] LABS: Anisocytosis 1+; Hypochromasia 1+; Lymphocytes % 20 % (10-50); Monocytes % 4 % (2-9); Neutrophils % 76 % (42-76); Platelet Estimate Normal; Total Cells Counted 100
--- NOTE | 2022-08-29 08:49 | EXP.HP ---
History of Present Illness *Admission Date: 08/29/22 *Reason for visit:: Cough/shortness of air *History of present illness: 81-year-old female with COPD, severe anxiety disorder, dementia, chronic postherpetic neuralgia pain and severe protein calorie malnutrition and cachexia who I have seen multiple times in the past weeks in my office with increasing anxiety, problems with shortness of air and cough. We have gotten her on home nebs and oxygen. She has tried some Ativan at home but her situation is failed to improve, and yesterday morning she awoke with worse shortness of air and a cough. She also developed a fever. Her family brought her to the emergency department. In the emergency department work-up revealed a chest x-ray with opacity consistent with pneumonia and a possible lung mass-CT scan for PE rule out showed no evidence of PE and showed that the masses were probably hyper inflammatory/reactive lymph nodes based on the significant right pneumonia. She was admitted to hospital for IV antibiotics and further evaluation and testing. [facility] Disclaimer: The information contained in this section may have been updated after the patient was seen, as this information can be updated by other users. Medical History (Updated 08/29/22 @ 08:56 by Maxi Azevedo MD) Afib Anxiety Broken hip COPD (chronic obstructive pulmonary disease) Pulmonary embolism Stroke Family History (Updated 08/28/22 @ 22:01 by Lila Alejandre RN) Heart attack Social History (Updated 08/28/22 @ 22:03 by Lila Alejandre RN) Smoking Status: Never smoker alcohol intake: never substance use type: other current occupational status: retired Travel in the last 8 weeks: None household members: spouse housing: house current occupational exposures/hazards: No caffeine: Yes Review of Systems Review of Systems Review of systems:: pertinent systems reviewed and negative unless documented below Review of systems (narrative): Patient is pleasant, talkative. Very anxious Constitutional Constitutional: Denies headache(s) and Denies weakness ENT Ears, Nose, Mouth, and Throat: Denies headache(s) *Musculoskeletal Musculoskeletal: Denies numbness *Neurologic Neurologic: Denies headache(s), Denies numbness and Denies weakness Meds Home Medications and Allergies Home Medications Medication Instructions Recorded Confirmed Type albuterol sulfate 90 mcg/actuation 1 puff inhalation Q4HP PRN 08/28/22 08/29/22 History aerosol inhaler Shortness Of Breath escitalopram oxalate 5 mg tablet 5 mg PO DAILY anxiety depression 08/28/22 08/28/22 History (Lexapro) lorazepam 0.5 mg tablet (Ativan) 0.5 mg PO DAILYP PRN Anxiety 08/28/22 08/29/22 History omeprazole 40 mg capsule,delayed 40 mg PO DAILY GERD 08/28/22 08/28/22 History release oxycodone-acetaminophen 5 mg-325 1 tab PO Q8HP PRN Shortness Of 08/28/22 08/29/22 History mg tablet Breath Or Wheezing New Prescriptions to Start Prescriptions: Allergies Allergy/AdvReac Type Severity Reaction Status Date / Time codeine Allergy Unknown Unknown Verified 03/27/22 13:54 allergy reaction penicillin V Allergy Unknown Unknown Verified 03/27/22 13:54 allergy reaction levofloxacin [From Levaquin] Allergy Verified 08/28/22 11:37 morphine Allergy Unknown Verified 03/27/22 13:54 allergy reaction sacubitril [From Entresto] Allergy Verified 08/28/22 11:37 valsartan [From Entresto] Allergy Verified 08/28/22 11:37 Exam Data for Last 24 hours Vital signs and Labs for Last 24 Hours: Temp Pulse Resp BP Pulse Ox 99.2 F 80 26 H 149/80 H 91 L 08/29/22 00:00 08/29/22 04:00 08/29/22 00:00 08/29/22 00:00 08/29/22 00:00 Laboratory Results - last 24 hr 08/28/22 12:55: WBC 16.1 H, RBC 3.31 L, Hgb 10.7 L, Hct 32.6 L, MCV 98.6, MCH 32.3 H, MCHC 32.8, RDW 14.6, Plt Count 253, MPV 8.3, Neut % (Auto) 88.0 H, Lymph % (Auto) 4.2 L, [place]
--- NOTE | 2022-08-29 09:25 | HMH.PHAINT1 ---
Pharmacy Intervention Comments: MEDICATION RECONCILIATION COMPLETED ON PATIENT USING EXTERNAL FILL HISTORY FROM PHARMACY AND PATIENT INTERVIEW. -LAILA MUNGUIA, LATISHAD
--- NOTE | 2022-08-29 09:57 | HMH.SLDYSPHA ---
Speech & Language Evaluation Speech/Language Dysphagia Evaluation Start: 08/29/22 09:46 Freq: ONCE Status: Active Protocol: Document 08/29/22 09:46 GUCCI (Rec: 08/29/22 09:56 GUCCI [id number]) Dysphagia Assess/Goals/Plan Assessment Date of Evaluation: 08/29/22 Evaluation Type Initial Certification Assessment/Problems Pt was seen for a skilled clinical bedside swallow evaluation per MD orders 2' PNA. Does Patient Qualify for Service Yes Qualify/Failure Comment Given new diet recommendations and pt's PNA, GENETIC PHYSICIAN will f/u for diet tolerance. Recommendations PHYSICIAN CERTIFICATION: The specified therapy services are required, authorized, and reviewed every 30 days. Pt will be seen # times/week 1 for # weeks 1 Diet Recommendations Mechanical Soft Liquid Type Recommendations Normal/Thin SL Swallow Guidelines Standard Aspiration Prec. Dysphagia Swallow Precautions/Strategies Sitting Upright (90 deg),Small Bites and Sips,Alternate Liquids/Solids Plan Anticipate reaching STG in # weeks 1 Anticipate reaching LTG in # weeks 1 Pt/Guardian verbally ack understanding Yes of dx/prognosis/goals G -code Required No STG-Other Comment/Non-Specific Pt will demonstrate diet tolerance of recommended consistencies with 100% accuracy during clinical observation and pt/family report. Longterm Goals Diet mechanical soft/ground with Liquids Thin Liquids Education Instructions provided Discussed assessment results, diet recommendations, and aspiration precautions with pt , family, care management, nursing, and anesthesia director all of which expressed understanding. Pt/Caregiver able to recall information Able to recall/restate Reinforcement needed No Speech & Language HPI History Present Illness Description of Patient Problem Per ER report, 81-year-old female with COPD, severe anxiety disorder, dementia, chronic postherpetic neuralgia pain and severe protein calorie malnutrition and cachexia. Pt is reported over the past few weeks increasing
--- NOTE | 2022-08-29 11:35 | HMH.PTEV ---
Physical Therapy Evaluation Rehab PT IP Evaluation Start: 08/29/22 08:48 Freq: ONCE Status: Active Protocol: Document 08/29/22 09:15 PHOYAHAIRA (Rec: 08/29/22 11:35 PHORNE [id number]) Subjective/History History History 81 yowf adm to [facility] with PNA, hx of being oxygen dependent at home. She reports she lives with , 1-2 steps to enter the home, and is generally independent with all mobility. Subjective Subjective Pt c/o feeling anxious and being very SOA this am. Rehab PT IP Eval Objective Appearance Patient Behavior Appropriate Patient Orientation Person,Place,Time Difficulty following instructions none Speech Pattern Clear Ambulation Patient Able to Ambulate Yes Ambulation Observation IP General Gait Pattern Observation Shuffling Step Ambulation Distance (feet) 5 Ambulation Assistive Device None Ambulation Ability Contact Guard/Hand Hold Balance Ability to Arise Able, uses arms to help Sitting Balance Steady, safe Standing Balance Steady, wide stance Dynamic Sitting Balance Ability Good Dynamic Standing Balance Ability Fair Transfers Bed Transfer Ability Contact Guard/Hand Hold Chair Transfer Ability Contact Guard/Hand Hold Sit to Stand Bed Transfer Ability Contact Guard/Hand Hold Sit to Stand Chair Transfer Ability Contact Guard/Hand Hold ROM All Extremities PT ROM Status WFL MMT All Extremities PT MMT WFL Rehab PT IP prob,goals,plan Problems Date of Evaluation: 08/29/22 PT IP Problems Bed Mobility,Transfers,Gait Rehab Potential Rehab Potential Good Plan PT Intervention Plan Bed Mobility,Transfers,Gait, Therapeutic Exercise PT Plan Frequency BID Duration LOS Discharge Goals Bed Transfer Ability Supervision/Stand by Sit to Stand Chair Transfer Ability Supervision/Stand by Ambulation Assistive Device None Ambulation Distance (feet) 20 Discharge Plan PT Discharge Plan Pt is appropriate to return home once medically stable, recommend home health therapy upon d/c. G -code Required No Eval Complexity Eval Charge Codes 04683 - Moderate Complexity PHYSICIAN CERTIFICATION: I certify the specified therapy services for Mahogany Patricabrian Moulton are required
--- NOTE | 2022-08-29 11:57 | HMH.OTEV ---
OT Inpatient Evaluation Rehab OT IP Evaluation Start: 08/29/22 08:48 Freq: ONCE Status: Active Protocol: Document 08/29/22 11:43 GUALBERTO (Rec: 08/29/22 11:57 GUALBERTO [id number]) Rehab OT IP Assessment Subjective History 81-year-old female with COPD, severe anxiety disorder, dementia, chronic postherpetic neuralgia pain and severe protein calorie malnutrition and cachexia who I have seen multiple times in the past weeks in my office with increasing anxiety, problems with shortness of air and cough. We have gotten her on home nebs and oxygen. She has tried some Ativan at home but her situation is failed to improve, and yesterday morning she awoke with worse shortness of air and a cough. She also developed a fever. Her family brought her to the emergency department. In the emergency department work-up revealed a chest x-ray with opacity consistent with pneumonia and a possible lung mass-CT scan for PE rule out showed no evidence of PE and showed that the masses were probably hyper inflammatory/ reactive lymph nodes based on the significant right pneumonia. She was admitted to hospital for IV antibiotics and further evaluation and testing Patient lives at home with and family in 1-2 story home with 1-2 PERRY. Subjective I'm nervous. Patient incontinet of bowel and bladder mgt tr this date. Instructed Patient on completing sit->stand transfer requiring Min A x2. Patient required TD for brief and jerica change. Patient completed SPT requiring Min a x2. Patient
--- NOTE | 2022-08-29 15:39 | PC.NURSE ---
PT IS RESTING IN THE CHAIR WITH FAMILY IN THE ROOM. ALERT AND ORIENTED X3. PT HAS OCCASIONAL PERIODS OF GETTING ANXIOUS. O2 SATURATION HAS MAINTAINED 92-96% ON 4 L NC. APPETITE HAS BEEN POOR. PT HAS BEEN DRINKING PEPSI THIS SHIFT. LUNG SOUNDS DIMINISHED WITH RIGHT SIDED CRACKLES/RHONCHI. ABDOMEN SOFT/NON TENDER WITH ACTIVE BOWEL SOUNDS. PURWICK IN PLACE. WILL CONTINUE TO MONITOR.
--- NOTE | 2022-08-29 23:37 | PC.NURSE ---
reported positive blood culture to Dr. Larose at this time
[2022-08-30] VITALS (11 sets, daily range): BP systolic 121–155; BP diastolic 75–95; PULSE 80–97; RESP 18–26; TEMP 37–37.3; O2SAT 93–99; BMI 16.0
--- NOTE | 2022-08-30 04:12 | PC.NURSE ---
Pt has had no complaints this shift. She remains on 3L NC, tolerating well with O2 sats > 90%. Rhonchi and crackles noted to right lung. No c/o CP or SOA. Sinus arrhythmia and NSR on telemetry this shift. Voids per pure-wick and brief. Low-grade fever 99.7 noted this shift. Medicated prn per NOV. Refused SCD's. Redness noted to buttocks. NS infusing at 50 ml/hr. Family member at bedside. Call light within reach.
--- NOTE | 2022-08-30 06:00 | PC.NURSE ---
Pts daughter reports pt is anxious. upon assessment, pt repeatedly states I'm scared . pt states she doesn't know what she is scared of, shes just scared. Daughter states she is scared because she can not breathe. Pt does not appear SOA, O2 sats 94%. Tried talking to pt about what she is scared of. Daughter states she has dementia, you cant talk to her . Pt was medicated prn for anxiety per mar.
[2022-08-30 08:05] LABS: Chloride 103 mmol/L (98-107); Sodium 141 mmol/L (136-145)
[2022-08-30 08:08] LABS: Blood Urea Nitrogen 22 mg/dl (7-17); Calcium 8.9 mg/dl (8.4-10.2); Carbon Dioxide 25 mmol/L (22.0-30.0); Creatinine Clearance Estimated 24 mL/min (50-200); Estimated Glomerular Filt Rate 80 ml/min (>60); GFR (African American) 97 ML/MIN (>60); Glucose 72 mg/dl (74-100)
[2022-08-30 08:36] LABS: Basophils % 0.2 % (0.1-2.0); Eosinophils % 0.1 % (0.1-12.0); Hematocrit 27.4 % (37.0-47.0); Hemoglobin 8.8 g/dL (12.2-16.2); Lymphocytes # 1.2 K/mm3 (0.7-4.5); Lymphocytes % 6.4 % (10-50); MANUAL DIFFERENTIAL MANUAL DIFFERENTIAL (MANUAL DIFF); Mean Corpuscular HGB Conc 32.3 g/dL (31.8-35.4); Mean Corpuscular Hemoglobin 32.1 pg (27.0-31.2); Mean Corpuscular Volume 99.6 fl (81-99); Mean Platelet Volume 8.2 fl (7.4-10.4); Monocytes # 1.1 K/mm3 (0.1-1.0); Monocytes % 5.7 % (1.7-9.3); Neutrophils % 87.6 % (37.0-80.0); Platelet Count 250 K/mm3 (142-424); Red Blood Count 2.75 M/mm3 (4.20-5.40); Red Cell Distribution Width 14.8 % (11.5-17.5); White Blood Count 18.3 K/mm3 (4.8-10.8)
--- NOTE | 2022-08-30 09:29 | EXP.ACUTE.PN ---
Subjective *Date: 08/30/22 *Time: 09:29 Interval history: Patient is done well overnight. Her daughter continues to believe that she is extremely anxious. Nursing staff reports that the daughter seems to accelerate the anxiety issues, and that Ms. Moulton seems fairly well conditioned to her current pulmonary status. She is done well with oxygen. Has not been able to cough up any sputum. Remains a little short of air and has some wheezing. Medical Exam Vital signs and Labs for Last 24 Hours: Vital Signs Temp Pulse Pulse Resp BP Pulse Ox 08/30/22 06:27 85 08/30/22 06:27 89 08/30/22 06:27 99 08/30/22 04:00 98.9 F 94 H 18 121/95 H 94 L 08/30/22 04:00 80 08/30/22 00:00 80 08/29/22 20:00 90 08/30/22 00:00 99.1 F 80 18 140/75 93 L 08/29/22 20:00 99.7 F H 95 H 20 145/97 H 92 L 08/29/22 16:00 99.9 F H 91 H 24 159/86 H 94 L 08/29/22 19:06 89 08/29/22 19:06 87 08/29/22 19:06 92 L 08/29/22 16:00 100 H 08/29/22 12:00 100 H 08/29/22 12:00 98.8 F 87 24 167/4 H 96 08/29/22 14:20 20 08/29/22 13:54 85 08/29/22 13:54 87 08/29/22 13:54 98 Intake and Output 08/29/22 08/30/22 08/30/22 19:59 03:59 11:59 Intake Total 699 / 1472 533 / 1472 240 / 1472 Balance 699 / 1472 533 / 1472 240 / 1472 Intake: Intake, Oral Amount 240 / 240 Intake, Total IV Amount 699 / 1232 533 / 1232 0.9 % Sodium Chloride 1,000 ml 699 / 1232 533 / 1232 @ 50 mls/hr IV .Q20H [facility] Rx#: [id number] Other: Number of Unmeasured Voids 1 1 Weight 79 lb 9.6 oz Patient Weight 08/30/22 11:59 Weight 79 lb 9.6 oz Laboratory Results - last 24 hr 08/30/22 06:49: Sodium 141, Potassium 4.0, Chloride 103, Carbon Dioxide 25, Anion Gap 17.0 H, BUN 22 H, Creatinine 0.70, Estimated Creat Clear 24, Estimated GFR 80, Est GFR ( Amer) 97, Glucose 72 L, Calcium 8.9 08/30/22 08:30: WBC 18.3 H D, RBC 2.75 L, Hgb 8.8 L, Hct 27.4 L, MCV 99.6 H, MCH 32.1 H, MCHC 32.3, RDW 14.8, Plt Count 250, MPV 8.2, Neut % (Auto) 87.6 H, Lymph % (Auto) 6.4 L, [place] % (Auto) 5.7, Eos % (Auto) 0.1, Baso % (Auto) 0.2, Neut # (Auto) 16.0 H, Lymph # (Auto) 1.2, [place] # (Auto) 1.1 H, Eos # (Auto) 0.0, Baso # (Auto) 0.0 I & O for Labs for Last 24 Hours: Intake & Output 08/27/22 08/28/22 08/29/22 08/30/22 11:59 11:59 11:59 11:59 Intake Total 893 / 893 1472 / 1472 Output Total 200 / 200 Balance 693 / 693 1472 / 1472 Weight 100 lb 7 lb 14.634 oz 79 lb 9.6 oz Microbiology Reports for the Last 24 Hours: Microbiology 08/28/22 12:55 Blood Blood Culture - Preliminary Comment:: Pleasant, talkative, oriented x2. Lungs have rhonchi and crackles, especially in the left lung field but better air entry than yesterday. Heart rate regular. Abdomen soft, she remains frail, significant protein calorie malnutrition obvious from her BMI and her skin turgor. Assessment and Plan *Assessment and plan (1) Severe protein-calorie malnutrition: Status: Acute Category: Medical Code(s): E43 - Unspecified severe protein-calorie malnutrition (2) Cachexia: Status: Chronic Category: Medical Code(s): R64 - Cachexia (3) Community acquired pneumonia: Status: Acute Category: Medical Code(s): J18.9 - Pneumonia, unspecified organism (4) Acute exacerbation of chronic obstructive airways disease: Status: Resolved Category: Medical Code(s): J44.1 - Chronic obstructive pulmonary disease with (acute) exacerbation Plan 1. Community-acquired pneumonia superimposed on her severe COPD-agree with admission for IV antibiotics. 2. Significant anxiety with evidence of some paranoid hallucinatory activity at home. Has not done well with citalopram or minimal use of Ativan over the past couple of weeks-we will try low-dose Seroquel. We will try Xopenex instead of D
[2022-08-30 09:31] LABS: Eosinophils % 1 % (0-3); Lymphocytes % 5 % (10-50); Macrocytosis 1+; Monocytes % 3 % (2-9); Neutrophils % 90 % (42-76); Platelet Estimate Normal; Total Cells Counted 100
--- NOTE | 2022-08-30 15:11 | PC.NURSE ---
PT IS SITTING UP IN THE CHAIR WITH FAMILY IN THE ROOM. ALERT AND ORIENTED X3. PT CONTINUOUSLY STATES I'M SCARED HOWEVER WHEN PT IS ASKED WHAT SHE IS SCARED OFF SHE STATES I DON'T KNOW . MEDICATED PER MAR FOR ANXIETY. O2 SATURATION 93-96% ON 3 L NC. LUNG SOUNDS HAVE SCATTERED CRACKLES/RHONCHI. ABDOMEN SOFT/NON TENDER WITH ACTIVE BOWEL SOUNDS. VERY POOR APPETITE. PT IS ABLE TO GET UP TO THE BSC WITH 1 ASSIST AND HAS BEEN HAVING OCCASIONAL INCONTINENCE EPISODES T/O THE SHIFT. US GUIDED IV IN THE [place] INFILTRATED. NOTIFIED PCP AND HE STATED IT WAS OKAY TO LEAVE IV OUT AND SWITCH PT'S ABX TO PO. WILL CONTINUE TO MONITOR.
[2022-08-31] VITALS (7 sets, daily range): BP systolic 135–169; BP diastolic 77–91; PULSE 89–117; RESP 18–26; TEMP 36.9–37.6; O2SAT 94–98; BMI 16.0
--- NOTE | 2022-08-31 04:19 | PC.NURSE ---
Pt medicated for anxiety prn per mar. She is a&oX4. Remains on 3L NC, tolerating well with O2 sats 94-96%. Rhonchi noted. She has used the BSC with one assist.
--- NOTE | 2022-08-31 08:06 | ECG_ITS ---
APPROVED REPORT Exam: Resting ECG HR:91 bpm ECG Measurements Heart Rate 91 AXES ND 132 P 78 QRSd 81 QRS 83 QT 341 T 37 QTc 389 Conclusion SINUS RHYTHM WITH OCCASIONAL SUPRAVENTRICULAR PREMATURE COMPLEXES NONSPECIFIC ST & T-WAVE ABNORMALITY BORDERLINE ECG UNCONFIRMED REPORT Electronically signed by : Maxi Azevedo MD 09/01/2022 19:59:47
--- NOTE | 2022-08-31 08:19 | PC.NURSE ---
Patient complained of chest pain at the right breast. Pain was a stinging sensation and constant that did not radiate anywhere. BP slightly elevated, patient alert and oriented, ekg ordered and Dr. Rosado from ER read. No other complaints noted. Dr. Azevedo aware.
--- NOTE | 2022-08-31 09:09 | EXP.ACUTE.PN ---
Subjective *Date: 08/31/22 *Time: 09:09 Interval history: Patient has been stable overnight. Continues to be somewhat difficult to get a history from but denies pain or shortness of air. She did have an episode of chest pain through the night but this was accompanied with all over body pain an EKG was done which is unchanged over baseline. Daughter is in the room with her who is extremely concerned about home environment issues. Apparently there is a difference of opinion between the 2 daughters regarding level of care needed. And they would like to have a family consultation to discuss patient's situation when she is able to return home Medical Exam Vital signs and Labs for Last 24 Hours: Vital Signs Temp Pulse Pulse Resp BP Pulse Ox 08/31/22 08:00 98.6 F 117 H 24 169/91 H 98 08/31/22 04:00 98.4 F 100 H 20 148/83 H 94 L 08/31/22 04:00 100 H 08/31/22 00:00 100 H 08/31/22 00:00 99.1 F 91 H 18 148/81 H 94 L 08/30/22 21:11 93 H 08/30/22 21:10 94 H 08/30/22 20:00 98.6 F 94 H 20 155/86 H 96 08/30/22 14:00 90 08/30/22 12:00 94 H 08/30/22 16:00 98.6 F 90 26 H 144/86 H 94 L 08/30/22 12:00 98.8 F 88 24 134/76 95 08/30/22 13:12 97 H 08/30/22 13:12 97 H 08/30/22 13:12 93 L Intake and Output 08/30/22 08/31/22 08/31/22 19:59 03:59 11:59 Intake Total 240 / 260 20 / 260 Output Total 300 / 600 300 / 600 Balance 240 / -340 -300 / -340 -280 / -340 Intake: Intake, Oral Amount 240 / 260 20 / 260 Output: Output, Urine Amount 300 / 600 300 / 600 Other: Number of Unmeasured Voids 1 1 Number of Bowel Movements 1 Weight 79 lb 10.237 oz Patient Weight 08/31/22 11:59 Weight 79 lb 10.237 oz Laboratory Results - last 24 hr 08/30/22 08:30: Total Counted 100, Neutrophils % (Manual) 90 H, Band Neutrophils % 1.0, Lymphocytes % (Manual) 5 L, Monocytes % (Manual) 3, Eosinophils % (Manual) 1, Platelet Estimate Normal, Macrocytosis 1+ I & O for Labs for Last 24 Hours: Intake & Output 08/28/22 08/29/22 08/30/22 08/31/22 11:59 11:59 11:59 11:59 Intake Total 893 / 893 1592 / 1592 260 / 260 Output Total 200 / 200 600 / 600 Balance 693 / 693 1592 / 1592 -340 / -340 Weight 100 lb 7 lb 14.634 oz 79 lb 9.6 oz 79 lb 10.237 oz Microbiology Reports for the Last 24 Hours: Microbiology 08/28/22 12:55 Blood Blood Culture - Preliminary NO GROWTH AFTER 48 HOURS Comment:: Patient is pleasant, alert, recognizes me, somewhat poor symptom recollection, and is disoriented to time and place. Lungs have scattered rhonchi with some crackles in the left lower lung field in the posterior aspect, consistent with admission exam. Heart rate regular. Abdomen soft, she is thin and cachectic appearing. Skin is warm and well-perfused otherwise. Globally weak but no focal neurologic deficit Assessment and Plan *Assessment and plan (1) Severe protein-calorie malnutrition: Status: Acute Category: Medical Code(s): E43 - Unspecified severe protein-calorie malnutrition (2) Cachexia: Status: Chronic Category: Medical Code(s): R64 - Cachexia (3) Community acquired pneumonia: Status: Acute Category: Medical Code(s): J18.9 - Pneumonia, unspecified organism (4) Acute exacerbation of chronic obstructive airways disease: Status: Resolved Category: Medical Code(s): J44.1 - Chronic obstructive pulmonary disease with (acute) exacerbation Plan 1. Community-acquired pneumonia superimposed on her severe COPD-agree with admission for IV antibiotics. 2. Significant anxiety with evidence of some paranoid hallucinatory activity at home. Has not done well with citalopram or minimal use of Ativan over the past couple of weeks-we will try low-dose Seroquel. We will try Xopenex instead of DuoNebs 3. Severe pulmonary cach
[2022-08-31 09:38] LABS: Basophils % 0.3 % (0.1-2.0); Eosinophils # 0.1 K/mm3 (0.0-0.4); Eosinophils % 0.3 % (0.1-12.0); Hematocrit 26.9 % (37.0-47.0); Hemoglobin 8.6 g/dL (12.2-16.2); Lymphocytes # 1.1 K/mm3 (0.7-4.5); Mean Corpuscular HGB Conc 32.2 g/dL (31.8-35.4); Mean Corpuscular Hemoglobin 31.8 pg (27.0-31.2); Mean Corpuscular Volume 98.7 fl (81-99); Mean Platelet Volume 8.8 fl (7.4-10.4); Monocytes % 6.8 % (1.7-9.3); Neutrophils # 12.7 K/mm3 (1.8-7.8); Neutrophils % 85.5 % (37.0-80.0); Platelet Count 278 K/mm3 (142-424); Red Blood Count 2.72 M/mm3 (4.20-5.40); Red Cell Distribution Width 14.5 % (11.5-17.5); White Blood Count 14.9 K/mm3 (4.8-10.8)
[2022-08-31 09:47] LABS: MANUAL DIFFERENTIAL MANUAL DIFFERENTIAL (MANUAL DIFF)
[2022-08-31 10:14] LABS: Chloride 103 mmol/L (98-107); Sodium 141 mmol/L (136-145)
[2022-08-31 10:15] LABS: Potassium 3.3 mmoL/L (3.5-5.1)
[2022-08-31 10:18] LABS: Anion Gap 15.3 mEq/L (5-15); Blood Urea Nitrogen 19 mg/dl (7-17); Calcium 9.2 mg/dl (8.4-10.2); Carbon Dioxide 26 mmol/L (22.0-30.0); Creatinine Clearance Estimated 24 mL/min (50-200); Estimated Glomerular Filt Rate 80 ml/min (>60); GFR (African American) 97 ML/MIN (>60); Glucose 80 mg/dl (74-100)
[2022-08-31 13:14] LABS: Lymphocytes % 12 % (10-50); Monocytes % 6 % (2-9); Neutrophils % 82 % (42-76); Platelet Estimate Normal; Total Cells Counted 100
[2022-08-31 13:15] LABS: RBC Morphology Normal
--- NOTE | 2022-08-31 17:33 | PC.NURSE ---
Ativan given as patient was very anxious once left in room by herself. Patient stated she couldn't breathe despite good oxygenation saturations. Ativan given. Patient up to chair for most of evening. VS stable and patient remains on baseline 3LNC. No other changes noted.
[2022-09-01] VITALS (10 sets, daily range): BP systolic 125–166; BP diastolic 67–92; PULSE 74–100; RESP 16–26; TEMP 36.9–37.8; O2SAT 96–99; BMI 15.7
--- NOTE | 2022-09-01 04:19 | PC.NURSE ---
PT C/O RIB PAIN AT BEGINNING OF NIGHT. WAS MEDICATED PRN PER NOV. A&OX4. REMAINS ON 3L NC, HER BASELINE, TOLERATING WELL. EXPIRATORY RHONCHI NOTED. REDNESS NOTED TO BUTTOCKS. NO COMPLAINTS OR S/SX OF ANXIETY THIS SHIFT. PT USED BSC THIS SHIFT WITH 1 PERSON ASSISTANCE.
[2022-09-01 07:22] LABS: Basophils # 0.1 K/mm3 (0-0.2); Basophils % 0.4 % (0.1-2.0); Eosinophils # 0.1 K/mm3 (0.0-0.4); Eosinophils % 1.1 % (0.1-12.0); Lymphocytes # 1.2 K/mm3 (0.7-4.5); Lymphocytes % 8.9 % (10-50); Mean Corpuscular HGB Conc 31.6 g/dL (31.8-35.4); Mean Corpuscular Hemoglobin 31.6 pg (27.0-31.2); Monocytes # 1.2 K/mm3 (0.1-1.0); Monocytes % 9.1 % (1.7-9.3); Neutrophils # 10.6 K/mm3 (1.8-7.8); Neutrophils % 80.4 % (37.0-80.0); Platelet Count 271 K/mm3 (142-424); Red Blood Count 3.11 M/mm3 (4.20-5.40); Red Cell Distribution Width 14.9 % (11.5-17.5); White Blood Count 13.2 K/mm3 (4.8-10.8)
[2022-09-01 07:25] LABS: Hemoglobin 9.8 g/dL (12.2-16.2)
[2022-09-01 07:30] LABS: Chloride 104 mmol/L (98-107); Potassium 3.5 mmoL/L (3.5-5.1); Sodium 143 mmol/L (136-145)
[2022-09-01 07:33] LABS: Blood Urea Nitrogen 21 mg/dl (7-17); Creatinine Clearance Estimated 24 mL/min (50-200); Estimated Glomerular Filt Rate 69 ml/min (>60); GFR (African American) 83 ML/MIN (>60)
[2022-09-01 07:34] LABS: Anion Gap 13.5 mEq/L (5-15); Calcium 9.5 mg/dl (8.4-10.2); Carbon Dioxide 29 mmol/L (22.0-30.0); Glucose 80 mg/dl (74-100)
--- NOTE | 2022-09-01 08:39 | EXP.ACUTE.PN ---
Subjective *Date: 09/01/22 *Time: 08:39 Interval history: Patient remains very nervous and continues to say I am scared when when she is asked to do anything with physical therapy or ask about her symptoms. Ox requirements remain stable. Labs this morning are improving. Medical Exam Vital signs and Labs for Last 24 Hours: Vital Signs Temp Pulse Pulse Resp BP Pulse Ox 09/01/22 06:33 91 H 09/01/22 06:33 91 H 09/01/22 06:33 96 09/01/22 04:00 99.4 F 82 16 151/83 H 99 09/01/22 00:00 98.8 F 74 18 125/67 99 08/31/22 20:00 99.7 F H 93 H 18 135/77 94 L 08/31/22 18:49 98 08/31/22 16:00 99.1 F 89 26 H 153/82 H 98 Intake and Output 08/31/22 09/01/22 09/01/22 19:59 03:59 11:59 Intake Total 20 / 20 Output Total 0 / 0 0 / 0 0 / 0 Balance 20 / 20 0 / 20 0 / 20 Intake: Intake, Oral Amount 20 / 20 Output: Output, Urine Amount 0 / 0 0 / 0 0 / 0 Other: Number of Unmeasured Voids 2 1 1 Weight 78 lb Patient Weight 09/01/22 11:59 Weight 78 lb Laboratory Results - last 24 hr 08/31/22 08:56: WBC 14.9 H, RBC 2.72 L, Hgb 8.6 L, Hct 26.9 L, MCV 98.7, MCH 31.8 H, MCHC 32.2, RDW 14.5, Plt Count 278, MPV 8.8, Neut % (Auto) 85.5 H, Lymph % (Auto) 7.0 L, [place] % (Auto) 6.8, Eos % (Auto) 0.3, Baso % (Auto) 0.3, Neut # (Auto) 12.7 H, Lymph # (Auto) 1.1, [place] # (Auto) 1.0, Eos # (Auto) 0.1, Baso # (Auto) 0.0, Total Counted 100, Neutrophils % (Manual) 82 H, Lymphocytes % (Manual) 12, Monocytes % (Manual) 6, Platelet Estimate Normal, RBC Morphology Normal 08/31/22 08:56: Sodium 141, Potassium 3.3 L, Chloride 103, Carbon Dioxide 26, Anion Gap 15.3 H, BUN 19 H, Creatinine 0.70, Estimated Creat Clear 24, Estimated GFR 80, Est GFR ( Amer) 97, Glucose 80, Calcium 9.2 09/01/22 06:57: WBC 13.2 H, RBC 3.11 L, Hgb 9.8 L D, Hct 31.0 L, MCV 100.0 H, MCH 31.6 H, MCHC 31.6 L, RDW 14.9, Plt Count 271, MPV 9.0, Neut % (Auto) 80.4 H, Lymph % (Auto) 8.9 L, [place] % (Auto) 9.1, Eos % (Auto) 1.1, Baso % (Auto) 0.4, Neut # (Auto) 10.6 H, Lymph # (Auto) 1.2, [place] # (Auto) 1.2 H, Eos # (Auto) 0.1, Baso # (Auto) 0.1 09/01/22 06:57: Sodium 143, Potassium 3.5, Chloride 104, Carbon Dioxide 29, Anion Gap 13.5, BUN 21 H, Creatinine 0.80, Estimated Creat Clear 24, Estimated GFR 69, Est GFR ( Amer) 83, Glucose 80, Calcium 9.5 I & O for Labs for Last 24 Hours: Intake & Output 08/29/22 08/30/22 08/31/22 09/01/22 11:59 11:59 11:59 11:59 Intake Total 893 / 893 1592 / 1592 260 / 260 Output Total 200 / 200 600 / 600 0 / 0 Balance 693 / 693 1592 / 1592 -340 / -340 Weight 7 lb 14.634 oz 79 lb 9.6 oz 79 lb 10.237 oz 78 lb Microbiology Reports for the Last 24 Hours: Microbiology 08/28/22 12:55 Blood Blood Culture - Preliminary Staphylococcus epidermidis Comment:: Patient is pleasant, alert, recognizes me, somewhat poor symptom recollection, and is disoriented to time and place. Lungs have scattered rhonchi with some crackles in the left lower lung field in the posterior aspect, consistent with admission exam. Heart rate regular. Abdomen soft, she is thin and cachectic appearing. Skin is warm and well-perfused otherwise. Globally weak but no focal neurologic deficit Assessment and Plan *Assessment and plan (1) Severe protein-calorie malnutrition: Status: Acute Category: Medical Code(s): E43 - Unspecified severe protein-calorie malnutrition (2) Cachexia: Status: Chronic Category: Medical Code(s): R64 - Cachexia (3) Community acquired pneumonia: Status: Acute Category: Medical Code(s): J18.9 - Pneumonia, unspecified organism (4) Acute exacerbation of chronic obstructive airways disease: Status: Resolved Category: Medical Code(s): J44.1 - Chronic obstructive pulmonary disease with (acute) exacerbation Plan 1. Community-acquired pneumonia superimposed
--- NOTE | 2022-09-01 09:11 | PC.NURSE ---
pt in room awake at this time
--- NOTE | 2022-09-01 09:43 | DIET.NUTRFU ---
RD reviewed meal intake over weekend, very poor with multiple refusals of meals. On 08/30 she only consumed 25% of breakfast and no lunch or dinner and on 08/31 she only consumed 10% dinner. This AM she consumed 5% breakfast. She continues on MSOFT with ground meats and high protein shake with lunch and dinner. CLAM DIGGER tried to see her this morning and was unable to work with her. She reports she is scared of most everything. Her anxiety level is hurting the care she is being offered. Family have decide they cannot continue to care for her at home, looking for placement. Provider reviewed hospice care also. LBM noted 08/30, noted to be liquid. Urine output poor: 200ml 08/29, 150ml 08/30 and 08/31 was 450ml. fluid intake is poor based on poor meal intake
--- NOTE | 2022-09-01 10:31 | SW/DCPLANNER ---
Addendum entered by Shanice Leavitt 09/02/22 10:54: This patient has been approved to discharge to [facility] today SNF level of care. COVID swab has been collected. Addendum entered by Shanice Leavitt 09/02/22 09:56: Updated patient information has been faxed to Christy [facility]. Patient is medically stable for discharge today. Precert is pending and COVID swab will need to be collected prior to discharge. Addendum entered by Shanice Leavitt 09/01/22 14:44: [facility] has stated that she will start a precert on this patient today. I will update patient's family. Original Note: I spoke with this patient's family this AM regarding plans once medically stable for discharge. Family stated that they can no longer care for patient at home and they are interested in placement. Family is interested in discharge to a facility SNF level of care and may need LTC. Family is interested in [facility], [facility] or [facility]. I will fax patient information this AM and continue to follow up with: patient's family, MD and facilities. Discharge date is unknown at this time.
--- NOTE | 2022-09-01 10:54 | PC.NURSE ---
Pt complained of right breast pain. I had RT do EKG. Hospitalist stated there was no change from previous EKG.
--- NOTE | 2022-09-01 10:54 | ECG_ITS ---
APPROVED REPORT Exam: Resting ECG HR:99 bpm ECG Measurements Heart Rate 99 AXES [place] 113 P 63 QRSd 92 QRS 90 QT 320 T -17 QTc 376 Conclusion SINUS RHYTHM WITH SHORT [place] INTERVAL WITH OCCASIONAL SUPRAVENTRICULAR PREMATURE COMPLEXES NONSPECIFIC T-WAVE ABNORMALITY ABNORMAL ECG UNCONFIRMED REPORT Electronically signed by : Maxi Azevedo MD 09/01/2022 19:55:36
--- NOTE | 2022-09-01 13:48 | PC.NURSE ---
sitting in chair awake
--- NOTE | 2022-09-01 19:24 | PC.NURSE ---
Pt is A/Ox4 and pleasantly confused. She has been up to the chair most of the day. She is very anxious and doesn't know why. She keeps stating the pharse I'm scared . I keep asking her why she states that she doesn't know why. I reassure her that I am there and if she needs anything I will help her. She has no complaints or needs at this time.
[2022-09-02 04:00] VITALS: BP 147/78; PULSE 69; RESP 20; TEMP 37.8; O2SAT 95
[2022-09-02 04:14] VITALS: BMI 16.1
--- NOTE | 2022-09-02 05:47 | PC.NURSE ---
NO ACUTE CHANGES SINCE PREVIOUS ASSESSMENT. PT HAS NOT SLEPT MUCH THIS SHIFT. REMAINS ON 2L. LUNG SOUNDS HAVE EXPIRATORY WHEEZES. PT HAS AMBULATED IN THE ROOM FROM BED TO CHAIR THIS SHIFT AND HAS AMBULATED TO THE BEDSIDE COMMODE WITH X1 ASSIST. PT HAS BEEN ANXIOUS MOST OF SHIFT. PT HAS REPEATEDLY STATED THAT SHE IS SCARED AND CAN'T BREATH. VSS. O2 HAS REMAINED GREATER THAN 95%. PT WAS ABLE TO SLEEP FOR A FEW HOUR AFTER GETTING IN BED. CALL [facility] WITHIN REACH.
[2022-09-02 08:00] VITALS: BP 150/76; PULSE 112; PULSE 80; RESP 24; TEMP 36.8; O2SAT 98
--- NOTE | 2022-09-02 08:06 | EXP.DC.SUM ---
General Admission date:: 08/28/22 Discharge date: 09/02/22 HPI HPI HPI: 81-year-old female with COPD, severe anxiety disorder, dementia, chronic postherpetic neuralgia pain and severe protein calorie malnutrition and cachexia who I have seen multiple times in the past weeks in my office with increasing anxiety, problems with shortness of air and cough. We have gotten her on home nebs and oxygen. She has tried some Ativan at home but her situation is failed to improve, and yesterday morning she awoke with worse shortness of air and a cough. She also developed a fever. Her family brought her to the emergency department. In the emergency department work-up revealed a chest x-ray with opacity consistent with pneumonia and a possible lung mass-CT scan for PE rule out showed no evidence of PE and showed that the masses were probably hyper inflammatory/reactive lymph nodes based on the significant right pneumonia. She was admitted to hospital for IV antibiotics and further evaluation and testing. Hospital Course Hospital Course Hospital Course: Patient was admitted for community-acquired pneumonia. She was given broad-spectrum antibiotics with macrolide coverage and coverage for aspiration pneumonia. She improved very nicely, nebs were given and she improved well. Oxygen requirement main stable. Her daughters have been taking care of her at home and in the context of her severe anxiety disorder and need for oxygen they do not feel they can care for her at home in the future. PT and OT evaluated her and they felt that she would benefit from skilled care. We will find a bed for her today and she will be transferred to skilled care. She will need no further antibiotics given her 5 days of coverage for commune acquired pneumonia. Other medication will continue including medication for anxiety, her behavior disturbance/mild hallucinatory activity. She will need a BMP and CBC in 4 days. She will need PT/OT/dietary consultation. Exam Data for Last 24 hours Vital signs and Labs for Last 24 Hours: Temp Pulse Resp BP Pulse Ox 100.0 F H 69 20 147/78 H 95 09/02/22 04:00 09/02/22 04:00 09/02/22 04:00 09/02/22 04:00 09/02/22 04:00 I & O for Last 24 hours: Intake & Output 08/30/22 08/31/22 09/01/22 09/02/22 11:59 11:59 11:59 11:59 Intake Total 1592 / 1592 260 / 260 380 / 380 60 / 60 Output Total 600 / 600 0 / 0 725 / 725 Balance 1592 / 1592 -340 / -340 380 / 380 -665 / -665 Weight 79 lb 9.6 oz 79 lb 10.237 oz 78 lb 80 lb Microbiology Reports for the Last 24 Hours: Microbiology 08/28/22 12:55 Blood Blood Culture - Preliminary Staphylococcus epidermidis Constitutional Constitutional: no acute distress, thin, cachectic and chronically ill appearing *Routine HEENT Exam Head: Present normocephalic Eye: Present EOMI and PERRL ENT: Present mucous membranes moist *Routine Neck Exam Neck: Present supple; Absent lymphadenopathy *Routine Respiratory Exam Respiratory: Present rhonchi Comments: Scattered rhonchi but much better air entry *Routine Cardiovascular Exam Cardiovascular: Present RRR *Routine Abdominal Exam Abdominal: Present soft and normoactive bowel sounds; Absent tenderness *Routine Extremities Exam Extremities: Absent cyanosis, clubbing or edema Comments: Thin, cachectic, warm and well-perfused *Routine Skin Exam Skin: Present warm; Absent rash *Routine Neurological Exam Neurological: Present alert and CN II-XII intact Comments: Globally weak. Lots of tremor secondary to nervousness and psychiatric agitation. Dementia noted with orientation x1 only Routine Psychiatric Exam Comments: Cooperative but very anxious. Results Data Completed and Pending Labs on day of discharge: Preliminary micro results at discharge 08/28/22 12:55 Blood Culture - Preliminary Blood Staphylococcus epidermidis 08/28/22 12:55 Blood Culture - Preliminary Blood NO GROWTH
[2022-09-02 10:29] LABS: Coronavirus 19, PCR Not Detected (NotDetected); Influenza A, PCR Not Detected (NotDetected); Influenza B, PCR Not Detected (NotDetected)
[2022-09-02 12:00] VITALS: BP 111/70; PULSE 80; RESP 17; TEMP 36.4; O2SAT 98
--- NOTE | 2022-09-02 12:30 | PC.NURSE ---
Spoke to [facility], bus not available to transport pt. Called Care management, instructed to call pt's daughter Hterese to ask if she could transport pt. Called pt's daughter Therese but no answer, left voicemail, awaiting call back
--- NOTE | 2022-09-02 12:46 | PC.NURSE ---
Spoke to [facility], bus is available at 1500 to pick patient up for transport.
--- NOTE | 2022-09-03 13:25 | CARE MANAGER ---
Spoke with patient nurse at [facility] for post-discharge phone interview. She states that patient is doing well and has no issues at this time.
== END 2022-09-02 15:43 | DRG 194 ==
LOC: ER 16:29 → 2ND 17:31
PROVIDERS: Admitting Provider Family Medicine; Emergency Provider Emergency Medicine; PCP Internal Medicine Adolescent Medicine; Visit Provider Internal Medicine Adolescent Medicine
DX: J18.9 Pneumonia, unspecified organism (principal); B02.29 Other postherpetic nervous system involvement; J44.1 Chronic obstructive pulmonary disease with (acute) exacerbation; J44.0 Chronic obstructive pulmonary disease with (acute) lower respiratory infection; E46 Unspecified protein-calorie malnutrition; F41.9 Anxiety disorder, unspecified; F03.90 Unspecified dementia, unspecified severity, without behavioral disturbance, psychotic disturbance, mood disturbance, and anxiety; Z86.711 Personal history of pulmonary embolism; Z86.73 Personal history of transient ischemic attack (TIA), and cerebral infarction without residual deficits
CPT/HCPCS: 36415; 71045; 71275; 80048; 83605; 83880; 84484; 85007; 85025; 87040; 87077; 87186; 92610; 93005; 94640; 94761; 97110; 97162; 97165; 97530; 99285; C9803; J0456; J0696; Q9967; U0003; U0005

== ENCOUNTER 2023-01-20 16:10 | Observation (INO) | payer MEDICARE, SELFPAY ==
[2023-01-20 16:44] LABS: Coronavirus 19, PCR Not Detected (NotDetected); Influenza A, PCR Not Detected (NotDetected); Influenza B, PCR Not Detected (NotDetected)
--- NOTE | 2023-01-20 16:51 | XR_ITS ---
PROCEDURE INFORMATION: Exam: XR Chest Exam date and time: 01/20/2023 5:11 PM Age: 82 years old Clinical indication: Cough TECHNIQUE: Imaging protocol: Radiologic exam of the chest. Views: 1 view. COMPARISON: CR XR CHEST PORTABLE 08/28/2022 12:09 PM FINDINGS: Lungs: 3.1 cm cavitary mass in the right lung apex. Diffuse emphysematous changes and lung hyperinflation. Chronic appearing parenchymal scarring seen at multiple locations within both lungs. No acute airspace consolidation. Pleural spaces: Unremarkable. No pleural effusion. No pneumothorax. Heart/Mediastinum: Unremarkable. No cardiomegaly. Bones/joints: Unremarkable. IMPRESSION: Enlarging right apical mass now with cavitation. Infectious versus neoplastic etiology suspected.
[2023-01-20 17:10] LABS: Basophils % 0.2 % (0.1-2.0); Eosinophils % 0.8 % (0.1-12.0); Hematocrit 33.4 % (37.0-47.0); Hemoglobin 10.7 g/dL (12.2-16.2); Lymphocytes # 0.8 K/mm3 (0.7-4.5); Lymphocytes % 17.3 % (10-50); Mean Corpuscular HGB Conc 32.2 g/dL (31.8-35.4); Mean Corpuscular Hemoglobin 31.9 pg (27.0-31.2); Mean Platelet Volume 8.1 fl (7.4-10.4); Monocytes # 0.3 K/mm3 (0.1-1.0); Monocytes % 6.1 % (1.7-9.3); Neutrophils # 3.5 K/mm3 (1.8-7.8); Neutrophils % 75.6 % (37.0-80.0); Platelet Count 128 K/mm3 (142-424); Red Blood Count 3.37 M/mm3 (4.20-5.40); White Blood Count 4.7 K/mm3 (4.8-10.8)
[2023-01-20 17:16] LABS: Chloride 90 mmol/L (98-107); Potassium 3.9 mmoL/L (3.5-5.1); Sodium 137 mmol/L (136-145)
[2023-01-20 17:19] LABS: Alanine Aminotransferase 15 U/L (12-78); Albumin Level 3.7 g/dl (3.5-5.0); Albumin/Globulin Ratio 1.4 (1.1-1.8); Alkaline Phosphatase 89 U/L (38-126); Anion Gap 13.9 mEq/L (5-15); Aspartate Amino Transferase 29 U/L (14-36); Bilirubin,Total 0.8 mg/dl (0.2-1.3); Blood Urea Nitrogen 14 mg/dl (7-17); Calcium 8.6 mg/dl (8.4-10.2); Carbon Dioxide 37 mmol/L (22.0-30.0); Estimated Glomerular Filt Rate 80 ml/min (>60); GFR (African American) 96 ML/MIN (>60); Globulin 2.7 g/dL (1.3-3.2); Glucose 116 mg/dl (74-100); Total Protein,Serum 6.4 g/dl (6.3-8.2)
[2023-01-20 17:20] LABS: Lactic Acid 1.3 mmol/L (0.7-2.1)
[2023-01-20 17:48] VITALS: BMI 12.9
[2023-01-20 17:51] VITALS: BP 139/64; PULSE 89; RESP 20; TEMP 36.4; O2SAT 96
--- NOTE | 2023-01-20 18:58 | ECG_ITS ---
APPROVED REPORT Exam: Resting ECG HR:88 bpm ECG Measurements Heart Rate 88 AXES [place] 119 P 71 QRSd 84 QRS 46 QT 370 T 67 QTc 416 Conclusion SINUS RHYTHM WITH SHORT [place] INTERVAL NONSPECIFIC ST & T-WAVE ABNORMALITY BORDERLINE ECG UNCONFIRMED REPORT Electronically signed by : Maxi Azevedo MD 01/20/2023 20:16:48
--- NOTE | 2023-01-20 19:06 | PC.NURSE ---
RT NOTE: INDUCE SPUTUM,. PT UNABLE TO COUGH. LEFT SPUTUM CUP AT BEDSIDE, INSTRUSTED PT TO USE IT.
[2023-01-20 20:00] VITALS: BP 142/80; PULSE 90; RESP 16; TEMP 36.9; O2SAT 94; O2SAT 95
--- NOTE | 2023-01-20 21:39 | EXP.HP ---
History of Present Illness *Admission Date: 01/20/23 *Reason for visit:: Cough, congestion, weight loss *History of present illness: 82-year-old female with progressive weight loss, cough and congestion over the past 3 to 4 weeks. 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 She was at a local [facility] over the past year, and had been doing well but family decided to take her home after some changes in their schedule and initially did well with this. Unfortunately, demands of her 13/04 care, feeding, and some other family dynamic issues has prompted her daughter to investigate reevaluating long-term care. They brought her to the office today to discuss this. I found her to be coughing, congestion, look weight loss over baseline, rhonchi and crackles in the right lung field. Given her debilitated state I am concerned about a pneumonia versus dehydration. Plan will be to admit to hospital. Check labs and x-ray and then make decisions from there regarding further living situation. [facility] Disclaimer: The information contained in this section may have been updated after the patient was seen, as this information can be updated by other users. Medical History (Updated 09/06/22 @ 00:01 by Gilbert Calderon) Afib Anxiety Broken hip COPD (chronic obstructive pulmonary disease) Pulmonary embolism Stroke Family History (Updated 08/28/22 @ 22:01 by Lila Alejandre RN) Heart attack Social History (Updated 01/20/23 @ 17:47 by Mamie Graves RN) Smoking Status: Never smoker alcohol intake: never substance use type: other current occupational status: retired Travel in the last 8 weeks: None household members: spouse housing: house current occupational exposures/hazards: No caffeine: Yes Review of Systems Review of Systems Review of systems:: unable to obtain Meds Home Medications and Allergies Home Medications Medication Instructions Recorded Confirmed Type albuterol sulfate 90 mcg/actuation 1 puff inhalation Q4HP PRN 08/28/22 01/20/23 History aerosol inhaler Shortness Of Breath escitalopram oxalate 5 mg tablet 5 mg PO DAILY anxiety depression 08/28/22 01/20/23 History (Lexapro) omeprazole 40 mg capsule,delayed 40 mg PO DAILY GERD 08/28/22 01/20/23 History release oxycodone-acetaminophen 5 mg-325 1 tab PO Q8HP PRN Shortness Of 08/28/22 01/20/23 History mg tablet Breath Or Wheezing lorazepam 0.5 mg tablet 0.5 mg PO TIDP PRN Anxiety 30 days 09/02/22 01/20/23 Rx #90 tabs amlodipine 5 mg tablet 5 mg PO DAILY Hypertension 01/20/23 01/20/23 History quetiapine 25 mg tablet 50 mg PO TID Anxiety 01/20/23 01/20/23 History New Prescriptions to Start Prescriptions: Allergies Allergy/AdvReac Type Severity Reaction Status Date / Time codeine Allergy Unknown Unknown Verified 03/27/22 13:54 allergy reaction penicillin V Allergy Unknown Unknown Verified 03/27/22 13:54 allergy reaction levofloxacin [From Levaquin] Allergy Verified 08/28/22 11:37 morphine Allergy Unknown Verified 03/27/22 13:54 allergy reaction sacubitril [From Entresto] Allergy Verified 08/28/22 11:37 valsartan [From Entresto] Allergy Verified 08/28/22 11:37 Exam Data for Last 24 hours Vital signs and Labs for Last 24 Hours: Temp Pulse Resp BP Pulse Ox 98.5 F 90 16 142/80 H 95 01/20/23 20:00 01/20/23 20:00 01/20/23 20:00 01/20/23 20:00 01/20/23 20:00 Laboratory Results - last 24 hr 01/20/23 16:37: SARS-CoV-2 (PCR) Not detected, Influenza A Untype (PCR) Not detected, Influenza Type B (PCR) Not detected 01/20/23 17:00: WBC 4.7 L, RBC 3.37 L, Hgb 10.7 L, Hct 33.4 L, MCV 99.0, MCH 31.9 H, MCHC 32.2, RDW 13.0, Plt Count 128 L, MPV 8.1, Neut % (Auto) 75.6, Lymph % (Auto) 17.3, [place] % (Auto) 6.1, Eos % (Auto) 0.8, Baso % (Auto) 0.2, Neut # (Auto) 3.5, Lymph # (Au
[2023-01-21] VITALS: BP 145/78; PULSE 78; RESP 16; TEMP 36.5; O2SAT 99
--- NOTE | 2023-01-21 | CT_ITS ---
FINAL REPORT TECHNIQUE: Routine axial images were obtained from the lung apices to below the diaphragm following IV contrast administration. Individualized dose reduction techniques using automated exposure control or adjustment of the mA and/or kV according to the patient size were employed. CLINICAL HISTORY: right upper lung mass COMPARISON: 08/28/2022 CT chest and 01/21/2023 portable chest FINDINGS: Mediastinal vasculature appears adequately opacified. No acute lung disease is present. No pleural or pericardial effusion is seen. There is abnormal ectasia of the ascending aorta measuring up to 4.2 cm in diameter, similar to the prior study. No pulmonary artery filling defects are seen. There is abnormal soft tissue at the right apex. The abnormal soft tissue is less evident than on the previous exam. The dominant focus previously noted at the right apex is now cavitary, best seen on image 43 of series 601. The cavitary focus measures 2.3 x 1.9 cm. There are multiple other smaller masses identified in both lungs. The focus along the right major fissure measures 1.2 x 1.2 cm, decreased in size compared to the prior study. The previously noted focus in the periphery of the left upper lung has resolved. Patchy airspace foci in both bases has resolved. Limited images of the upper abdomen are unremarkable. IMPRESSION: Interval development of cavitation of the right apical mass. Overall, soft tissue component is decreased in size compared to prior. Redemonstration of soft tissue mass along the right major fissure, decreased in size. Resolution previously noted patchy airspace infiltrates in the lower lungs. 4.2 cm ascending aortic aneurysm. Thoracic surgery consultation recommended. Reviewed, Interpreted and Dictated by Frankie Sood MD Transcribed by Denise Clark Authenticated and [facility]
--- NOTE | 2023-01-21 03:37 | PC.NURSE ---
pt. is aox 2-3 with noted dementia and anxiety, turn q2 hour on 02-2.5L which is also what she wears at home, purewick in place.
[2023-01-21 04:00] VITALS: BP 162/82; PULSE 73; RESP 17; TEMP 36.9; O2SAT 96; BMI 12.9
[2023-01-21 04:47] LABS: Microscopic, Urine URINE MICROSCOPIC (MICROSCOPIC)
[2023-01-21 05:09] LABS: Appearance,Urine CLEAR (Clear); Bilirubin,Urine Negative (Negative); Blood, Urine TRACE-I (Negative); Color,Urine YELLOW (Yellow); Glucose,Urine (UA) Negative (Negative); Ketones,Urine 1+ (Negative); Leukocyte Esterase,Urine Negative (Negative); Nitrate,Urine Negative (Negative); Protein,Urine Negative (Negative); Urobilinogen,Urine 0.2 EU/dl (0.2)
[2023-01-21 05:22] LABS: Amorphous Sediment,Urine 1+ /lpf; Bacteria,Urine Trace /lpf
[2023-01-21 07:46] VITALS: BP 155/79; PULSE 85; RESP 18; TEMP 37.3; O2SAT 98
[2023-01-21 08:05] VITALS: BMI 12.9
--- NOTE | 2023-01-21 08:15 | EXP.ACUTE.PN ---
Subjective *Date: 01/21/23 *Time: 08:15 Interval history: Patient did well overnight. Nurses reported no anxiety activity or hallucinatory activity. Seemed to eat breakfast fairly well. Medical Exam Vital signs and Labs for Last 24 Hours: Vital Signs Temp Pulse Resp BP Pulse Ox 01/21/23 07:46 99.1 F 85 18 155/79 H 98 01/21/23 04:00 98.5 F 73 17 162/82 H 96 01/20/23 20:00 94 L 01/21/23 00:00 97.7 F 78 16 145/78 H 99 01/20/23 20:00 98.5 F 90 16 142/80 H 95 01/20/23 17:51 97.5 F L 89 20 139/64 96 Intake and Output 01/20/23 01/21/23 01/21/23 19:59 03:59 11:59 Intake Total 120 / 560 200 / 560 240 / 560 Output Total 300 / 450 150 / 450 Balance 120 / 110 -100 / 110 90 / 110 Intake: Intake, Oral Amount 120 / 360 240 / 360 Intake, Total IV Amount 200 / 200 0.9 % Sodium Chloride 1000ML 1, 200 / 200 000 ml @ 50 mls/hr IV .Q20H [facility] Rx#:[id number] Output: Output, Urine Amount 300 / 450 150 / 450 Other: Number of Unmeasured Voids 1 Number of Bowel Movements 2 Weight 66 lb 2 oz 66 lb 1.866 oz Patient Weight 01/21/23 11:59 Weight 66 lb 1.866 oz Laboratory Results - last 24 hr 01/20/23 16:37: SARS-CoV-2 (PCR) Not detected, Influenza A Untype (PCR) Not detected, Influenza Type B (PCR) Not detected 01/20/23 17:00: WBC 4.7 L, RBC 3.37 L, Hgb 10.7 L, Hct 33.4 L, MCV 99.0, MCH 31.9 H, MCHC 32.2, RDW 13.0, Plt Count 128 L, MPV 8.1, Neut % (Auto) 75.6, Lymph % (Auto) 17.3, [place] % (Auto) 6.1, Eos % (Auto) 0.8, Baso % (Auto) 0.2, Neut # (Auto) 3.5, Lymph # (Auto) 0.8, [place] # (Auto) 0.3, Eos # (Auto) 0.0, Baso # (Auto) 0.0 01/20/23 17:00: Sodium 137, Potassium 3.9, Chloride 90 L, Carbon Dioxide 37 H, Anion Gap 13.9, BUN 14, Creatinine 0.70, Estimated GFR 80, Est GFR ( Amer) 96, Glucose 116 H, Calcium 8.6, Total Bilirubin 0.8, AST 29, ALT 15, Alkaline Phosphatase 89, Total Protein 6.4, Albumin 3.7, Globulin 2.7, Albumin/Globulin Ratio 1.4 01/20/23 17:00: Lactate 1.3 01/21/23 04:34: Urine Color Yellow, Urine Appearance Clear, Urine pH 8.0, Ur Specific [place] 1.020, Urine Protein Negative, Urine Glucose (UA) Negative, Urine Ketones 1+, Urine Blood Trace-i, Urine Nitrate Negative, Urine Bilirubin Negative, Urine Urobilinogen 0.2, Ur Leukocyte Esterase Negative, Urine RBC 3-5, Amorphous Sediment 1+, Urine Bacteria Trace I & O for Labs for Last 24 Hours: Intake & Output 01/18/23 01/19/23 01/20/23 01/21/23 11:59 11:59 11:59 11:59 Intake Total 560 / 560 Output Total 450 / 450 Balance 110 / 110 Weight 66 lb 1.866 oz Comment:: Rhonchi in the right middle and lower lobes as noted on admission. Otherwise good air movement, heart rate regular. Abdomen cachectic. Extremities cachectic but able to move extremities well. Globally very weak. Assessment and Plan *Assessment and plan (1) Severe protein-calorie malnutrition: Status: Acute Category: Medical Code(s): E43 - Unspecified severe protein-calorie malnutrition (2) Cachexia: Status: Chronic Category: Medical Code(s): R64 - Cachexia (3) Community acquired pneumonia: Status: Resolved Category: Medical Code(s): J18.9 - Pneumonia, unspecified organism (4) Acute exacerbation of chronic obstructive airways disease: Status: Resolved Category: Medical Code(s): J44.1 - Chronic obstructive pulmonary disease with (acute) exacerbation Plan 1. Community-acquired pneumonia superimposed on her severe COPD-agree with admission for IV antibiotics. 2. Significant anxiety with evidence of some paranoid hallucinatory activity at home. Had previously been doing well with Seroquel but daughter reduce the dose because she thought it was making her more sleepy. This could be related to her infectious issues. Will admit, diagnostic testing as above and observe. 3. Protein calorie malnutrition/severe cachexia-weight, nig
--- NOTE | 2023-01-21 09:22 | HMH.PHAINT1 ---
Pharmacy Intervention Comments: MEDICATION RECONCILIATION COMPLETED ON PATIENT USING EXTERNAL FILL HISTORY FROM PHARMACY AND LIST FROM PCP OFFICE. -LAILA MUNGUIA, LATISHAD
--- NOTE | 2023-01-21 09:39 | SW/DCPLANNER ---
Addendum entered by [facility] 01/22/23 12:42: This patient has been accepted to [facility] per Alecia: I will update MD, patient and family. Addendum entered by [facility] 01/22/23 09:05: Patient information has also been faxed to [facility]. Addendum entered by [facility] 01/22/23 08:02: Alecia Maradiaga stated that precert has been started on this patient. Addendum entered by [facility] 01/22/23 07:52: [facility] is unable to accept this patient. Alecia Maradiaga is reviewing patient information at this time. Addendum entered by [facility] 01/21/23 13:10: Patient information will also be faxed to [facility]. Addendum entered by [facility] 01/21/23 11:56: [facility] has denied this patient. Family has requested patient information also be faxed to [facility]. Addendum entered by [facility] 01/21/23 10:56: Patient information has been faxed to [facility] and [facility]. I have called and updated patient's daughter at this time: she is agreeable with this plan. Original Note: I spoke with this patient regarding plans once medically stable for discharge. PT/OT will evaluate this patient this AM. Patient stated that if she does need SNF level of care she would prefer [facility] then [facility]. I will wait for PT/OT evaluation then follow up with patient/family. Discharge date is unkown at this time.
--- NOTE | 2023-01-21 10:20 | HMH.PTEV ---
Physical Therapy Evaluation Rehab PT IP Evaluation Start: 01/20/23 17:01 Freq: ONCE Status: Active Protocol: Document 01/21/23 09:00 PHOYAHAIRA (Rec: 01/21/23 10:20 PHORNE [id number]) Subjective/History History History 82 yowf adm to [facility] with PNA with hx of anxiety, dementia, and COPD. She reports she lives with her , no steps to enter the home, and that she is independent with all mobility without AD. She reports that her and her husnabd both still drive. No family available to assist with hx at this time. Subjective Subjective Pt reports no c/o pain prior to mobility assessment, then c /o pain all over during mobility assessment. Rehab PT IP Eval Objective Appearance Patient Behavior Appropriate Patient Orientation Person,Place Difficulty following instructions none Speech Pattern Clear Ambulation Patient Able to Ambulate Yes Ambulation Observation IP General Gait Pattern Observation No Deviations/Normal Ambulation Distance (feet) 20 Ambulation Assistive Device None Ambulation Ability Minimal x 1 (25% assist) Balance Ability to Arise Able, uses arms to help Sitting Balance Steady, safe Standing Balance Unsteady Dynamic Sitting Balance Ability Good Dynamic Standing Balance Ability Poor Transfers Bed Transfer Ability Contact Guard/Hand Hold Chair Transfer Ability Minimal x 1 (25% assist) Sit to Stand Bed Transfer Ability Minimal x 1 (25% assist) Sit to Stand Chair Transfer Ability Minimal x 1 (25% assist) ROM All Extremities PT ROM Status WFL MMT All Extremities PT MMT WFL Rehab PT IP prob,goals,plan Problems Date of Evaluation: 01/21/23 PT IP Problems Bed Mobility,Transfers,Gait Rehab Potential Rehab Potential Good Plan PT Intervention Plan Bed Mobility,Transfers,Gait, Therapeutic Exercise PT Plan Frequency Daily Duration LOS Discharge Goals Bed Transfer Ability Supervision/Stand by Sit to Stand Chair Transfer Ability Contact Guard/Hand Hold Ambulation Assistive Device None Ambulation Distance (feet) 40 Discharge Plan PT Discharge Plan Pt is currently most appropriate for rehab
--- NOTE | 2023-01-21 11:05 | HMH.OTEV ---
OT Inpatient Evaluation Rehab OT IP Evaluation Start: 01/20/23 17:01 Freq: ONCE Status: Active Protocol: Document 01/21/23 10:45 GUALBERTO (Rec: 01/21/23 11:05 GUALBERTO [id number]) Rehab OT IP Assessment Subjective History 82-year-old female with progressive weight loss, cough and congestion over the past 3 to 4 weeks. 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 She was at a local [facility] over the past year, and had been doing well but family decided to take her home after some changes in their schedule and initially did well with this. Unfortunately, demands of her 13/04 care, feeding, and some other family dynamic issues has prompted her daughter to investigate reevaluating long- term care. They brought her to the office today to discuss this. I found her to be coughing, congestion, look weight loss over baseline, rhonchi and crackles in the right lung field. Given her debilitated state I am concerned about a pneumonia versus dehydration. Plan will be to admit to hospital. Check labs and x- ray and then make decisions from there regarding further living situation. Patient lives at home with . Patient has a hx of dementia. Patient completed all ADLs independently and ambulation independently. Subjective I need to use the bathroom. Instructed Patient on proper hand and foot placement to complete bed mobility of supine->sit @ EoB requiring SBA.
[2023-01-21 15:05] VITALS: BP 99/67; PULSE 58; RESP 18; TEMP 36.9; O2SAT 94
--- NOTE | 2023-01-21 18:16 | PC.NURSE ---
pt has been alert x3 t/o shift till around 1800, pt asking do i have any little children out there? . vss. o2 2.5l nc maintaining o2 sats. daughter brought home meds, sent to pharm and gave the remaining unused meds back to daughter to take home. pt up to bsd multiple times, x1 small BM. CB WITHIN REACH, BED ALARM ON FOR PT SAFETY
[2023-01-21 20:00] VITALS: BP 145/91; PULSE 88; RESP 16; TEMP 37; O2SAT 100
[2023-01-22 03:00] VITALS: BP 126/93; PULSE 100; RESP 16; TEMP 36.7; O2SAT 95
--- NOTE | 2023-01-22 03:08 | CT_ITS ---
PROCEDURE INFORMATION: Exam: CT Head Without Contrast Exam date and time: 01/22/2023 3:34 AM Age: 82 years old Clinical indication: Injury or trauma; Fall; Blunt trauma (contusions or hematomas) TECHNIQUE: Imaging protocol: Computed tomography of the head without contrast. Radiation optimization: All CT scans at this facility use at least one of these dose optimization techniques: automated exposure control; mA and/or kV adjustment per patient size (includes targeted exams where dose is matched to clinical indication); or iterative reconstruction. REPORTING DATA: Count of CT and Cardiac NM exams in prior 12 months: This patient has received 2 known CTs and 0 known cardiac nuclear medicine studies in the 12 months prior to the current study. COMPARISON: CT HEAD/BRAIN WO/W CON 07/06/2019 2:53 PM FINDINGS: Motion artifact does moderately limit the sensitivity of this examination. Brain: Moderate to severe diffuse cerebral atrophy is stable, accelerated for the patient's age.The visualized basilar cisterns are patent. The cortical/white matter interfaces are preserved throughout the brain. There is no evidence of mass, mass effect or midline shift. There is no evidence of acute hemorrhage within the brain parenchyma or the subarachnoid space. The craniocervical junction is within range of normal. There is moderate to marked heterogeneity and patchy areas of bilateral decreased attenuation of the white matter consistent with chronic white matter ischemic change. Previously described encephalomalacia in the right basal ganglia is stable. Cerebral ventricles: The ventricular system demonstrates mild diffuse compensatory enlargement. There is stable ex vacuo dilatation of the right frontal horn . Paranasal sinuses: The visualized portions of the sinuses are normal. Mastoid air cells: The mastoid sinuses are normal. Orbital cavities: The orbits are normal. Bones/joints: There is no evidence of acute fracture. Soft tissues: There is a focus of increased density and soft tissue thickening in the left posterolateral parietal scalp soft tissues consistent with post contusive edema/hematoma. IMPRESSION: 1. No acute intracranial abnormality. Chronic and stable intracranial findings as described. 2. Focus of increased density and soft tissue thickening in the left posterolateral parietal scalp soft tissues consistent with post contusive edema/hematoma.
[2023-01-22 04:00] VITALS: BP 127/84; PULSE 94; RESP 16; TEMP 36.7; O2SAT 100; BMI 13.5
--- NOTE | 2023-01-22 07:43 | EXP.ACUTE.PN ---
Subjective *Date: 01/22/23 *Time: 07:43 Interval history: Patient is in good spirits this morning. Had a fall yesterday out of bed, had a skin tear on her left knee and bumped her head. There was a visible swelling on the occipital area. CT of head without contrast was unremarkable. She has pain all over this morning. Medical Exam Vital signs and Labs for Last 24 Hours: Vital Signs Temp Pulse Resp BP Pulse Ox 01/22/23 04:00 98.1 F 94 H 16 127/84 100 01/22/23 03:00 98.0 F 100 H 16 126/93 H 95 01/21/23 20:00 98.6 F 88 16 145/91 H 100 01/21/23 15:05 98.5 F 58 L 18 99/67 L 94 L 01/21/23 07:46 99.1 F 85 18 155/79 H 98 Intake and Output 01/21/23 01/22/23 01/22/23 19:59 03:59 11:59 Intake Total 1452 Output Total 0 / 0 0 / 0 0 / 0 Balance 1452 Intake: Intake, Oral Amount 360 / 360 Intake, Total IV Amount 1093 / 1642 549 / 1642 0.9 % Sodium Chloride 1000ML 1, 1093 / 1642 549 / 1642 000 ml @ 50 mls/hr IV .Q20H [facility] Rx#:[id number] Output: Output, Urine Amount 0 / 0 0 / 0 0 / 0 Other: Number of Unmeasured Voids 1 1 Number of Bowel Movements 1 Weight 68 lb 14.4 oz Patient Weight 01/22/23 11:59 Weight 68 lb 14.4 oz I & O for Labs for Last 24 Hours: Intake & Output 01/19/23 01/20/23 01/21/23 01/22/23 11:59 11:59 11:59 11:59 Intake Total 560 / 560 2001 Output Total 450 / 450 0 / 0 Balance 110 / 110 2001 Weight 66 lb 1.866 oz 68 lb 14.4 oz Comment:: Rhonchi in the right middle and lower lobes as noted on admission. Otherwise good air movement, heart rate regular. Abdomen cachectic. Extremities cachectic but able to move extremities well. Globally very weak. Assessment and Plan *Assessment and plan (1) Severe protein-calorie malnutrition: Status: Acute Category: Medical Code(s): E43 - Unspecified severe protein-calorie malnutrition (2) Cachexia: Status: Chronic Category: Medical Code(s): R64 - Cachexia (3) Community acquired pneumonia: Status: Resolved Category: Medical Code(s): J18.9 - Pneumonia, unspecified organism (4) Acute exacerbation of chronic obstructive airways disease: Status: Resolved Category: Medical Code(s): J44.1 - Chronic obstructive pulmonary disease with (acute) exacerbation Plan 1. Community-acquired pneumonia superimposed on her severe COPD-agree with admission for IV antibiotics. 2. Significant anxiety with evidence of some paranoid hallucinatory activity at home. Had previously been doing well with Seroquel but daughter reduce the dose because she thought it was making her more sleepy. This could be related to her infectious issues. Will admit, diagnostic testing as above and observe. 3. Protein calorie malnutrition/severe cachexia-weight, night dietary consult. 4. Vkjjsypd-ihmpuaapoxgvyn-sdtsmnibhizxenc versus Alzheimer's type. Supportive care and possible placement depending on outcome of testing in the hospital. Plan update for 01/21/2023-chest x-ray showed cavitary lesion in the right upper lobe consistent with possible malignancy, CT scan pending. We will discuss with family when available. Otherwise no changes in plan, PT evaluation as noted. Plan update for 01/22/2023-no major changes. CT scan showed cavitation of the aforementioned lesion. Multiple other small spots. Radiology recommended a CT surgery evaluation however given the patient's advanced age, significant comorbidity and palliative care status is really not an option. I will order a QuantiFERON gold test to make sure were not dealing with possible latent tuberculosis. She is not coughing so I do not believe that she is contagious regardless of this result. CT scan of head reviewed, skin tear being treated from fall yesterday. We are looking into [facility] locally for
[2023-01-22 08:00] VITALS: BP 127/78; PULSE 101; RESP 19; TEMP 36.9; O2SAT 98
[2023-01-22 08:50] LABS: Basophils % 0.2 % (0.1-2.0); Eosinophils % 0.1 % (0.1-12.0); Hematocrit 32.8 % (37.0-47.0); Hemoglobin 10.3 g/dL (12.2-16.2); Lymphocytes # 1.5 K/mm3 (0.7-4.5); Lymphocytes % 11.4 % (10-50); Mean Corpuscular HGB Conc 31.3 g/dL (31.8-35.4); Mean Corpuscular Hemoglobin 31.3 pg (27.0-31.2); Mean Corpuscular Volume 99.9 fl (81-99); Mean Platelet Volume 7.3 fl (7.4-10.4); Monocytes # 1.4 K/mm3 (0.1-1.0); Monocytes % 11.2 % (1.7-9.3); Neutrophils # 9.9 K/mm3 (1.8-7.8); Neutrophils % 77.1 % (37.0-80.0); Platelet Count 99 K/mm3 (142-424); Red Blood Count 3.29 M/mm3 (4.20-5.40); White Blood Count 12.8 K/mm3 (4.8-10.8)
[2023-01-22 09:40] LABS: Chloride 91 mmol/L (98-107); Potassium 3.2 mmoL/L (3.5-5.1); Sodium 137 mmol/L (136-145)
[2023-01-22 09:42] LABS: Blood Urea Nitrogen 8 mg/dl (7-17); Creatinine Clearance Estimated 21 mL/min (50-200); Estimated Glomerular Filt Rate 152 ml/min (>60); GFR (African American) 184 ML/MIN (>60)
[2023-01-22 09:43] LABS: Anion Gap 15.2 mEq/L (5-15); Calcium 8.1 mg/dl (8.4-10.2); Carbon Dioxide 34 mmol/L (22.0-30.0); Glucose 79 mg/dl (74-100)
--- NOTE | 2023-01-22 13:20 | EXP.DC.SUM ---
General Admission date:: 01/20/23 Discharge date: 01/22/23 HPI HPI HPI: 82-year-old female with progressive weight loss, cough and congestion over the past 3 to 4 weeks. 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 She was at a local detention over the past year, and had been doing well but family decided to take her home after some changes in their schedule and initially did well with this. Unfortunately, demands of her 13/04 care, feeding, and some other family dynamic issues has prompted her daughter to investigate reevaluating long-term care. They brought her to the office today to discuss this. I found her to be coughing, congestion, look weight loss over baseline, rhonchi and crackles in the right lung field. Given her debilitated state I am concerned about a pneumonia versus dehydration. Plan will be to admit to hospital. Check labs and x-ray and then make decisions from there regarding further living situation. Hospital Course Hospital Course Hospital Course: Patient was admitted, placed on intravenous ceftriaxone and azithromycin for pneumonia that was clinically diagnosed. Also found to have severe protein calorie malnutrition. Did well, her as needed Ativan and Percocet were continued for her anxiety and pain. Seroquel was held because of its potential side effect and sedating effects. CT chest showed evidence of a cavitary lesion in the right apex consistent with her chest x-ray findings. CT surgery consultation was considered by radiology however given her advanced age, cachexia and DNR status interventional issues are not an option. Given her need to be placed in an extended care facility I had a quantiferon gold level drawn to make sure we are not dealing with tuberculous issues. She is not coughing and not producing sputum so is by definition not contagious but we will make sure that this is not in the diagnostic consideration. I feel that her lesion is most likely malignant but given her DNR status and poor prognosis no intervention will be undertaken. Family has decided they are no longer able to care for her at home. As a result social work found a bed for this patient [facility] here in [place]. She will be transferred there today. I would like her to finish out doxycycline for 5 days for antibiotic therapy and she will continue her other medications as prescribed. We will stop Seroquel given it's lack of effectiveness for anxiety and possible side effect profile. I have also cut down her dose of Ativan to 0.25 3 times daily as needed only, and her Percocet dose to 2.5 mg every 8 hours as needed severe pain. Hopefully this can be reduced if anxiety or pain complaints improved. I would like PT and OT to see her to see if they can help with mobility but she may not be able to participate given her significant comorbidities. Patient will continue a DNR status and her overall goal for care at the long-term [facility] is palliative. Exam Data for Last 24 hours Vital signs and Labs for Last 24 Hours: Temp Pulse Resp BP Pulse Ox 98.5 F 101 H 19 127/78 98 01/22/23 08:00 01/22/23 08:00 01/22/23 08:00 01/22/23 08:00 01/22/23 08:00 Laboratory Results - last 24 hr 01/22/23 07:58: WBC 12.8 H D, RBC 3.29 L, Hgb 10.3 L, Hct 32.8 L, MCV 99.9 H, MCH 31.3 H, MCHC 31.3 L, RDW 13.0, Plt Count 99 L, MPV 7.3 L, Neut % (Auto) 77.1, Lymph % (Auto) 11.4, [place] % (Auto) 11.2 H, Eos % (Auto) 0.1, Baso % (Auto) 0.2, Neut # (Auto) 9.9 H, Lymph # (Auto) 1.5, [place] # (Auto) 1.4 H, Eos # (Auto) 0.0, Baso # (Auto) 0.0 01/22/23 07:58: Sodium 137, Potassium 3.2 L, Chloride 91 L, Carbon Dioxide 34 H, Anion Gap 15.2 H, BUN 8 D, Creatinine 0.40 L D, Estimated Creat Clear 21, Estimated GFR 152, Est GFR ( Amer) 184 D, Glucose 79, Calcium 8.1 L I & O for Last 24 hours: Intake & Output 01/20/23
--- NOTE | 2023-01-22 14:13 | PC.NURSE ---
called report to nurse adonis singh. notified em[facility] of transport, eta 30-45 mins
--- NOTE | 2023-01-23 11:37 | CARE MANAGER ---
Contacted [facility]. They state patient is doing well and deny any questions or concerns. ROOSEVELT Galvan
[2023-01-24 23:14] LABS: QuantiFERON-TB Gold Plus Negative (Negative)
== END 2023-01-22 14:58 ==
PROVIDERS: Admitting Provider Internal Medicine Adolescent Medicine; PCP Internal Medicine Adolescent Medicine; Visit Provider Internal Medicine Adolescent Medicine
DX: J18.9 Pneumonia, unspecified organism (principal); R64 Cachexia; E43 Unspecified severe protein-calorie malnutrition; J44.1 Chronic obstructive pulmonary disease with (acute) exacerbation; E86.1 Hypovolemia; Z66 Do not resuscitate; Z79.899 Other long term (current) drug therapy; Z68.1 Body mass index [BMI] 19.9 or less, adult; F01.52 Vascular dementia, unspecified severity, with psychotic disturbance; S81.012A Laceration without foreign body, left knee, initial encounter; W06.XXXA Fall from bed, initial encounter; Y92.230 Patient room in hospital as the place of occurrence of the external cause
CPT/HCPCS: G0378; G0379; 36415; 70450; 71045; 71260; 80048; 80053; 81001; 83605; 85025; 86480; 87040; 93005; 97110; 97162; 97165; 97530; C9803; J0456; J0696; Q9967; U0003; U0005